=== PATIENT | female | born 1940 | race Caucasian/White ===

== ENCOUNTER → 2016-09-07 | Outpatient (CLI) | payer BC ==
[~2016-09-07] MED LIST: AMOX500C3 PO; CALC500C70 PO; DILT120C51 PO; ENAL20TA PO; MGNO400 PO; MULT-506 PO; NADO80TA PO; OMEG10007 PO; POTA-327 PO; RANI150T3 PO; ULT50HP PO; XNX25 PO; XRL20 PO; ZCR40 PO
[2016-09-07 09:53] LABS: BASO % 0.5 %; BASO ABS # 0.03 K/uL (0-0.2); COMPLETE YES; EOS % 1.3 %; HEMATOCRIT 42.1 % (37-47); IG% 0.2 %; LYMPH % 26.3 %; LYMPH ABS # 1.68 K/uL (1.2-3.4); MEAN CELL VOLUME 85.1 fL (80-100); MEAN CORPUSCULAR HEMOGLOBIN 27.7 pg (25-34); MEAN CORPUSCULAR HGB CONC 32.5 g/dl (32-36); MEAN PLATELET VOLUME 9.5 fL (7.4-10.4); NEUT % 61.7 %; PLATELET COUNT 262 K/uL (130-400); RED BLOOD COUNT 4.95 M/uL (4.2-5.4)
[2016-09-07 10:09] LABS: ALT/SGPT 19 U/L (12-78); BLOOD UREA NITROGEN 25 mg/dl (7-18); BUN/CREATININE RATIO 23.1 (10-20); CALCIUM 8.9 mg/dl (8.5-10.1); CARBON DIOXIDE 31 mmol/L (21-32); CHLORIDE 100 mmol/L (98-107); CHOLESTEROL 160 mg/dl (0-200); GLUCOSE 92 mg/dl (70-99); POTASSIUM 4.5 mmol/L (3.5-5.1); SODIUM 138 mmol/L (136-145)
[2016-09-07 10:19] LABS: ALB/GLOB RATIO 1.1 (0.9-2); ALKALINE PHOSPHATASE 87 U/L (45-117); AST/SGOT 24 U/L (15-37); CHOLESTEROL/HDL RATIO 2.5; HDL CHOLESTEROL 64 mg/dl; LDL CHOLESTEROL CALCULATED 71 mg/dl; TRIGLYCERIDES 124 mg/dl (0-150); VERY LOW DENSITY LIPOPROT CALC 25 mg/dl
--- NOTE | 2016-09-11 14:22 | CODING QUERY MEDICAL NECESSITY ---
SUPPORTING DIAGNOSIS NEEDED A supporting diagnosis is required for the test/procedure performed on this patient in order for us to be reimbursed by the patient's insurance. Please provide a supporting diagnosis for the following test/procedure listed below next to the test name along with your signature. *If there is no additional diagnosis for this patient that would support the following test/procedure please document that below next to the test/procedure. Test(s)/Procedure(s) that require a supporting diagnosis: * VITAMIN D 25-HYDROXY DIAGNOSIS: * DOS: 09/07/16 Provider Signature: Date: Thank you Nelly [facility]ell[facility] Once completed, please kindly fax back to [phone] For questions please call [phone]
== END | disposition home or self-care (01) ==
LOC: C.LAB 07:04
PROVIDERS: ATTEND Internal Medicine
DX: M85.80 Other specified disorders of bone density and structure, unspecified site (principal); I48.92 Unspecified atrial flutter; E78.5 Hyperlipidemia, unspecified

== ENCOUNTER → 2016-12-03 | Outpatient (CLI) | payer BC ==
--- NOTE | 2016-12-03 14:35 | MAMMOGRAPHY REPORT ---
BILATERAL DIGITAL SCREENING MAMMOGRAM WITH CAD: 12/03/2016 CLINICAL HISTORY: Routine screening. Patient has no complaints. TECHNIQUE: Current study was also evaluated with a Computer Aided Detection (CAD) system. Bilateral CC and MLO and right X CCL views were obtained. COMPARISON: Comparison is made to exams dated: 12/02/2015 mammogram, 11/28/2014 mammogram, 11/27/2013 m ammogram, 11/24/2012 mammogram, 11/27/2011 mammogram, and 11/24/2011 mammogram - [facility] enter. BREAST COMPOSITION: The tissue of both breasts is heterogeneously dense, which may obscure small mas ses. FINDINGS: No suspicious masses, calcifications, or areas of architectural distortion are noted in ei ther breast. There has been no significant interval change compared to prior exams. A linear scar ma rker denotes a scar on the right superior breast. Bilateral benign-appearing calcifications are not significantly changed. A biopsy marker clip is again noted within the right lower inner quadrant. IMPRESSION: ACR BI-RADS CATEGORY 2: BENIGN There is no mammographic evidence of malignancy. A 1 year screening mammogram is recommended. The pa tient will receive written notification of the results. Approximately 10% of breast cancers are not detected with mammography. A negative mammographic report should not delay biopsy if a clinically suggestive mass is present. Rita Choi M.D. /:12/03/2016 12:21:16 Sort Supervisor: Svetlana TRONCOSO)(Sujatha)(BD), [facility] letter sent: Normal 1/2 BI-RADS Code: ACR BI-RADS Category 2: Benign
== END | disposition home or self-care (01) ==
LOC: C.MAMM 08:30
PROVIDERS: ATTEND Obstetrics & Gynecology
DX: Z12.31 Encounter for screening mammogram for malignant neoplasm of breast (principal)

== ENCOUNTER → 2017-03-11 | Outpatient (CLI) | payer BC ==
[2017-03-11 09:40] LABS: BASO % 0.6 %; BASO ABS # 0.03 K/uL (0-0.2); COMPLETE YES; EOS % 2.1 %; IG% 0.2 %; LYMPH % 26.9 %; LYMPH ABS # 1.42 K/uL (1.2-3.4); MEAN CELL VOLUME 84.9 fL (80-100); MEAN CORPUSCULAR HEMOGLOBIN 26.5 pg (25-34); MEAN CORPUSCULAR HGB CONC 31.3 g/dl (32-36); MEAN PLATELET VOLUME 9.3 fL (7.4-10.4); MONO % 9.7 %; NEUT % 60.5 %; PLATELET COUNT 255 K/uL (130-400); RED BLOOD COUNT 4.71 M/uL (4.2-5.4); WHITE BLOOD COUNT 5.27 K/uL (4.8-10.8)
[2017-03-11 09:58] LABS: ALT/SGPT 15 U/L (12-78); BLOOD UREA NITROGEN 22 mg/dl (7-18); CALCIUM 8.9 mg/dl (8.5-10.1); CARBON DIOXIDE 31 mmol/L (21-32); CHLORIDE 102 mmol/L (98-107); CHOLESTEROL 154 mg/dl (0-200); GLUCOSE 98 mg/dl (70-99); MAGNESIUM 2.2 mg/dl (1.8-2.4); POTASSIUM 3.9 mmol/L (3.5-5.1); SODIUM 138 mmol/L (136-145); TRIGLYCERIDES 143 mg/dl (0-150); VERY LOW DENSITY LIPOPROT CALC 29 mg/dl
[2017-03-11 10:10] LABS: AST/SGOT 19 U/L (15-37); CHOLESTEROL/HDL RATIO 2.4; HDL CHOLESTEROL 65 mg/dl; LDL CHOLESTEROL CALCULATED 60 mg/dl
== END | disposition home or self-care (01) ==
LOC: C.LAB 07:09
PROVIDERS: ATTEND Internal Medicine
DX: E78.5 Hyperlipidemia, unspecified (principal); I48.0 Paroxysmal atrial fibrillation; I48.92 Unspecified atrial flutter

== ENCOUNTER → 2017-09-07 | Outpatient (CLI) | payer BC ==
[2017-09-07 09:35] LABS: HEMATOCRIT 40.9 % (37-47); MEAN CELL VOLUME 85.4 fL (80-100); MEAN CORPUSCULAR HEMOGLOBIN 27.1 pg (25-34); MEAN CORPUSCULAR HGB CONC 31.8 g/dl (32-36); MEAN PLATELET VOLUME 9.1 fL (7.4-10.4); PLATELET COUNT 275 K/uL (130-400); RED CELL DISTRIBUTION WIDTH CV 14.1 % (11.5-14.5); RED CELL DISTRIBUTION WIDTH SD 44.2 fL (36.4-46.3); WHITE BLOOD COUNT 5.39 K/uL (4.8-10.8)
[2017-09-07 09:51] LABS: ALT/SGPT 17 U/L (12-78); BLOOD UREA NITROGEN 20 mg/dl (7-18); CALCIUM 8.7 mg/dl (8.5-10.1); CARBON DIOXIDE 29 mmol/L (21-32); CHOLESTEROL 152 mg/dl (0-200); CREATININE 1.09 mg/dl (0.60-1.20); GLUCOSE 103 mg/dl (70-99); POTASSIUM 4.2 mmol/L (3.5-5.1); SODIUM 136 mmol/L (136-145)
[2017-09-07 09:55] LABS: AST/SGOT 20 U/L (15-37); LDL CHOLESTEROL CALCULATED 65 mg/dl
== END | disposition home or self-care (01) ==
LOC: C.LAB 07:35
PROVIDERS: ATTEND Internal Medicine
DX: E78.5 Hyperlipidemia, unspecified (principal); M85.80 Other specified disorders of bone density and structure, unspecified site; I48.0 Paroxysmal atrial fibrillation

== ENCOUNTER 2021-09-04 10:22 | Inpatient (IN) ==
[2021-09-04 10:47] LABS: Hematocrit (blood only) 36.9 % (37-47); Hemoglobin 11.9 g/dL (12.0-16.0); Mean Corpuscular Hemoglobin 28.9 pg (25-34); Mean Corpuscular Hgb Conc 32.2 g/dL (32-36); Mean Corpuscular Volume 89.6 fL (80-100); Platelet Count 302 K/uL (130-400); RDW Standard Deviation 46.1 fL (36.4-46.3); Red Blood Count 4.12 M/uL (4.2-5.4); White Blood Count 11.03 K/uL (4.8-10.8)
[2021-09-04 10:48] LABS: Basophils # (auto) 0.01 K/uL (0-0.2); Basophils % (auto) 0.1 %; Eosinophils # (auto) 0.01 K/uL (0-0.5); Eosinophils % (auto) 0.1 %; Immature Granulocytes # (auto) 0.02 K/uL (0.00-0.02); Immature Granulocytes % (auto) 0.2 %; Lymphocytes # (auto) 0.48 K/uL (1.2-3.4); Lymphocytes % (auto) 4.4 %; Mean Platelet Volume 8.9 fL (7.4-10.4); Monocytes # (auto) 0.42 K/uL (0.11-0.59); Monocytes % (auto) 3.8 %; Neutrophils # (auto) 10.09 K/uL (1.4-6.5); Neutrophils % (auto) 91.4 %
[2021-09-04 10:58] LABS: INR 1.1 (0.9-1.1); Partial Thromboplastin Time 28.6 Seconds (21.0-31.0); Prothrombin Time 11.5 Seconds (9.0-12.0)
--- NOTE | 2021-09-04 11:10 | XRay Report ---
XR chest 1V portable CLINICAL HISTORY: hypoxia. COMPARISON STUDY: 03/25/2014 TECHNIQUE: 1 view of the chest FINDINGS: Single frontal view of the chest demonstrates the heart to be mildly enlarged. There is a decreased i nspiratory effort with elevation of the hemidiaphragms and crowding of the bronchovascular markings a t the lung bases and centrally. The lungs are clear of alveolar opacities. There is no evidence for p leural effusion. There is no evidence for vascular congestion. There is no acute osseous pathology. IMPRESSION: 1. . There is a decreased inspiratory effort with otherwise no acute chest disease. ACT 112: Negative or not required by law. Electronically signed by: Daniel Stiles M.D. 09/04/2021 11:09 AM
[2021-09-04 11:15] LABS: Troponin I < 0.03 ng/ml (0-0.04)
[2021-09-04 11:19] LABS: Alanine Aminotransferase 7 U/L (7-52); Albumin Level 3.6 gm/dl (3.4-5.0); Alkaline Phosphatase 76 U/L (34-104); Anion Gap 11 (3-11); Aspartate Aminotransferase 12 U/L (13-39); BUN Creatinine Ratio 20.7 (10-20); Bilirubin Direct 0.2 mg/dl (0-0.2); Bilirubin,Total 0.7 mg/dl (0.2-1.0); Blood Urea Nitrogen 42 mg/dl (6-23); Carbon Dioxide 27 mmol/L (21-32); Chloride 99 mmol/L (98-107); Creatinine Clr Calc Pharmacy 22.8 ml/min; Est GFR (African American) 25.6 ml/min; Est GFR (Non-African American) 22.1 ml/min; Glucose 138 mg/dl (70-99(Fasting)); Lipase 7 U/L (11-82); Potassium 5.4 mmol/L (3.5-5.1); Sodium 137 mmol/L (136-145); Total Protein 6.3 gm/dl (6.0-8.3)
[2021-09-04 11:42] LABS: HCO3 VBG 28 mmol/L; Oxygen Saturation VBG < 60.0 %; PCO2 VBG 53 mmHg (38-50); PO2 VBG 23 mmHg; pH VBG 7.35 (7.36-7.41)
--- NOTE | 2021-09-04 12:42 | Emergency Department Note ---
History of Present Illness General Chief Complaint: Abdominal Pain Time Seen by Provider: 09/04/21 10:25 History of Present Illness Provider Complaint: abdominal pain Onset (ago): 1 day(s) Pain Consistency: constant Location: LLQ Migration to: no migration Severity: moderate Maximum Pain Intensity: 8 Current Pain Intensity: 2 Quality: + cramping, + stabbing and + sharp Relieved By: + nothing Exacerbated By: + nothing Context: no foreign travel, no possible food poisoning, no sick contacts, no recent antibiotic use, no recent surgery/procedure or no recent injury Associated Symptoms: + nausea; no vomiting, no diarrhea, no fever, no chills, no constipation, no dysuria, no hematemesis, no hematochezia, no hematuria, no anorexia, no syncope, no headache, no neck pain, no back pain, no chest pain and no numbness Home Medications Medication Instructions Recorded Confirmed Type psyllium seed (sugar) oral powder 2 tsp PO DAILY gm 12/13/18 09/04/21 History (Metamucil (sugar)) amoxicillin 500 mg capsule 2,000 mg PO .COMPLEX cap 02/16/19 09/04/21 History calcium carbonate 600 mg calcium 600 mg PO DAILY tab 02/16/19 09/04/21 History (1,500 mg) tablet magnesium oxide 400 mg (241.3 mg 400 mg PO BID tab 02/16/19 09/04/21 History magnesium) tablet omega-3 acid ethyl esters 1 gram 2 cap PO DAILY cap 02/16/19 09/04/21 History capsule diltiazem HCl 120 mg 120 mg PO DAILY #90 cap 09/03/20 09/04/21 Rx capsule,extended release 24 hr (Cartia XT) enalapril maleate 20 mg tablet 20 mg PO DAILY #90 tab 09/03/20 09/04/21 Rx simvastatin 40 mg tablet 40 mg PO DAILY #90 tab 09/03/20 09/04/21 Rx triamterene 37.5 1 cap PO DAILY #90 cap 09/03/20 09/04/21 Rx mg-hydrochlorothiazide 25 mg capsule apixaban 5 mg tablet 5 mg PO BID #180 tab 01/17/21 09/04/21 Rx potassium chloride 10 mEq 10 meq PO DAILY #90 tab 01/17/21 09/04/21 Rx tablet,extended release sotalol 120 mg tablet 120 mg PO TID #270 tab 01/17/21 09/04/21 Rx gabapentin 300 mg capsule 300 mg PO BID #60 cap 04/02/21 09/04/21 Rx Allergies Allergy/AdvReac Type Severity Reaction Status Date / Time caffeine AdvReac Unknown Verified 09/04/21 11:40 chocolate flavor AdvReac Verified 09/04/21 11:40 Past Med/Surg History Medical History (Updated 09/04/21 @ 15:18 by Seun Perez) Diverticulosis History of actinic keratoses History of cyst of breast Schwannoma of spinal cord Surgical History S/P ablation of atrial fibrillation S/P cataract surgery S/P hysterectomy S/P knee surgery Family History Father Myocardial infarction Daughter Breast cancer Mother Stroke Denies family history of Ovarian cancer Prostate cancer Colorectal cancer Social History Smoking Status: Never smoker Hx Alcohol Use: No Hx Substance Use: No Preferred Language: Romanian Communication Ability: Effective Hearing Ability: Normal 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 marital status: Current Living Situation: Spouse current occupational status: retired Feels Safe at Home: Yes Dental Care, Regularly: Yes Physical Activity Frequency: 5-6 Times per Week Seatbelt Use: always Review of Systems A total of 10 systems reviewed and were otherwise negative Physical Exam Vital Signs: Vital Signs - 24 hr 09/04/21 10:25 09/04/21 10:28 09/04/21 12:16 Temperature 37.5 C Temperature Source Oral Pulse Rate 70 Pulse Rate [Finger ] 65 Pulse Rhythm Regular Pulse Rhythm [Fing er] Pulse Strength Normal Pulse Strength [Fi nger] Respiratory Rate 18 18 Respiratory Effort / Characteristics Non-Labored Non-Labored Respiratory Depth Normal Normal Respiratory Patter n Regular Blood Pressure 138/54 L Blood Pressure [Le ft Arm] Blood Pressure Cristina n 82 Blood Pressure Cristina n [Left Arm] Blood Pressure Pos ition Lying Blood Pressure Pos ition [Left Arm] Sitting Pulse Oximetry 90 98 99 Oxygen Delivery Me thod Room Air Nasal Cannula Nasal Cannula Oxygen Flow Rate 2 2 Sepsis Recent Feve r Within 48 Hours No Sepsis New/Unexpla ined Change in Men ventura Status No Sepsis Action Take n by Nursing No Action Required 09/04/21 14:49 Temperature Temperature Source Pulse Rate Pulse Rate [Finger ] 64 Pulse Rhythm Pulse Rhythm [Fing er] Regular Pulse Strength Pulse Strength [Fi nger] Normal Respiratory Rate 18 Respiratory Effort / Characteristics Non-Labored Respiratory Depth Normal Respiratory Patter n Regular Blood Pressure Blood Pressure [Le ft Arm] 111/59 L Blood Pressure Cristina n Blood Pressure Cristina n [Left Arm] 76 Blood Pressure Pos ition Blood Pressure Pos ition [Left Arm] Sitting Pulse Oximetry 100 Oxygen Delivery Me thod Nasal Cannula Oxygen Flow Rate 2 Sepsis Recent Feve r Within 48 Hours Sepsis New/Unexpla ined Change in Men ventura Status Sepsis Action Take n by Nursing Physical Exam: Physical Exam HENT: Exam performed. -Head: Normocephalic and atraumatic. -Right Ear: External ear normal. No mastoid tenderness. -Left Ear: External ear normal. No mastoid tenderness. -Mouth/Throat: The oropharynx is clear and moist. No trismus in the jaw. No dental abscesses or uvula swelling. No oropharyngeal exudate or tonsillar abscesses. EYES: Conjunctivae and EOM are normal. Pupils are equal, round, and reactive to light. Right eye exhibits no discharge. Left eye exhibits no discharge. No scleral icterus. NECK: Normal range of motion. Neck supple. No JVD present. No spinous process tenderness present. No carotid bruit present. No rigidity. No tracheal deviation and normal range of motion present. No Brudzinski's sign and no Kernig's sign noted. CV: Normal rate, irregular rhythm, normal heart sounds and intact distal pulses. There is no peripheral edema. Palpable radial pulses bue. PULM/CHEST: Effort normal and breath sounds normal. No respiratory distress. No stridor. She has no wheezes. She has no rales. -Chest Wall: She exhibits no tenderness. ABD: The abdomen is soft. Bowel sounds are normal. She has no distension. No mass is present. There is tenderness to palpation of the rlq and llq. MUSC/SKEL: Normal range of motion. There is no peripheral edema, tenderness or deformity. LYMPH: No cervical adenopathy. NEURO: She is alert and oriented to person, place, and time. She has normal str ength. No cranial nerve deficit or sensory deficit. Coordination and gait normal. GCS eye subscore is 4. GCS verbal subscore is 5. GCS motor subscore is 6. Cerebellar tests wnl. SKIN: Skin is warm and dry. She is not diaphoretic. PSYCH: She has a normal mood and affect. Behavior is normal. Judgment and thought content normal. Course Course 1025: The patient was evaluated in room C4. A complete history and physical exam was performed Cardiac monitoring: An order was placed for continuous cardiac monitoring. The monitor shows a rate of 60 with sinus arrythmia rhythm Patient was found to be having oxygen saturation of 88% on room air, supplemental oxygen was applied via nasal cannula which improved the patient's oxygen saturation. 1245: On reassessment the patient is reporting she is tolerating the oral contrast well. Labs For potassium of 5.4. Creatinine 2.03. Creatinine is elevated from her baseline of 1.2. Given the patient's elevated creatinine, CT will perform performed with oral contrast. Patient is now stating that she fell and hit her head yesterday. CT of the head and C-spine will also be performed. 1512: Vital signs stable on supplemental oxygen via nasal cannula. CT of the head and C-spine are within normal limits. CT of the abdomen shows diverticulitis without abscess or perforation. Patient be treated with Zosyn for the diverticulitis. CT of the abdomen also does make mention of large complex attenuating mass within the pelvis which demonstrates marginal and calcified septal calcifications. Radiology states that these are nonspecific but may represent a sacral chordoma or chondrosarcoma. 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 Negin Blanton ANTHROPOLOGY INSTRUCTOR. She states she has not seen Dr. Blanton in many years though for this. EMR is reviewed and there are no notes visible from Dr. Blanton ANTHROPOLOGY INSTRUCTOR. Patient will be admitted to the [facility] hospitalist team Dr. Schaffer's team notified discussed with Ericka MEJIA Medical Decision Making Laboratory Data Result diagrams: 09/04/21 10:30 09/04/21 10:30 Lab Results 09/04/21 09/04/21 09/04/21 Range/Units 10:30 10:30 10:30 WBC 11.03 H (4.8-10.8) K/uL RBC 4.12 L (4.2-5.4) M/uL Hgb 11.9 L (12.0-16.0) g/dL Hct 36.9 L (37-47) % MCV 89.6 (80-100) fL MCH 28.9 (25-34) pg MCHC 32.2 (32-36) g/dL RDW Std Deviation 46.1 (36.4-46.3) fL RDW Coeff of Lucas 14.0 (11.5-14.5) % Plt Count 302 (130-400) K/uL MPV 8.9 (7.4-10.4) fL Immature Gran % (Auto) 0.2 % Neut % (Auto) 91.4 % Lymph % (Auto) 4.4 % [place] % (Auto) 3.8 % Eos % (Auto) 0.1 % Baso % (Auto) 0.1 % Neut # (Auto) 10.09 H (1.4-6.5) K/uL Lymph # (Auto) 0.48 L (1.2-3.4) K/uL [place] # (Auto) 0.42 (0.11-0.59) K/uL Eos # (Auto) 0.01 (0-0.5) K/uL Baso # (Auto) 0.01 (0-0.2) K/uL Immature Gran # (Auto) 0.02 (0.00-0.02) K/uL PT 11.5 (9.0-12.0) Seconds INR 1.1 (0.9-1.1) APTT 28.6 (21.0-31.0) Seconds PTT Ratio 1.0 VBG pH (7.36-7.41) VBG pCO2 (38-50) mmHg VBG pO2 mmHg VBG HCO3 mmol/L VBG O2 Saturation % VBG Base Excess mEq/L Barometric Pressure mm/Hg Sodium 137 (136-145) mmol/L Potassium 5.4 H (3.5-5.1) mmol/L Chloride 99 (98-107) mmol/L Carbon Dioxide 27 (21-32) mmol/L Anion Gap 11 (3-11) BUN 42 H (6-23) mg/dl Creatinine 2.03 H (0.6-1.2) mg/dl Est Cr Clr Drug Dosing 22.8 ml/min Est GFR ( Amer) 25.6 ml/min Est GFR (Non-Af Amer) 22.1 ml/min BUN/Creatinine Ratio 20.7 H (10-20) Glucose 138 H (70-99(Fasting)) mg/dl Calcium 9.0 (8.5-10.1) mg/dl Total Bilirubin 0.7 (0.2-1.0) mg/dl Direct Bilirubin 0.2 (0-0.2) mg/dl AST 12 L (13-39) U/L ALT 7 (7-52) U/L Alkaline Phosphatase 76 (34-104) U/L Troponin I < 0.03 (0-0.04) ng/ml B-Natriuretic Peptide (0-100) pg/ml Total Protein 6.3 (6.0-8.3) gm/dl Albumin 3.6 (3.4-5.0) gm/dl Lipase 7 L (11-82) U/L Urine Color Urine Appearance (Clear) Urine pH (4.5-7.5) Ur Specific Star (1.000-1.030) Urine Protein (Negative) Urine Glucose (UA) (Negative) Urine Ketones (Negative) Urine Blood (Negative) Urine Nitrite (Negative) Urine Bilirubin (Negative) Urine Urobilinogen (Negative) Ur Leukocyte Esterase (Negative) Urine WBC (Auto) (0-5) /hpf Urine RBC (Auto) (0-4) /hpf U Hyaline Cast (Auto) (0-5) /lpf U Epithel Cells (Auto) (0-5) /lpf Urine Bacteria (Auto) (Negative) Ur Renal Epithelial Cell (0-5) /lpf Granular Casts (0) /lpf Urine Yeast 09/04/21 09/04/21 09/04/21 Range/Units 11:27 11:45 14:15 WBC (4.8-10.8) K/uL RBC (4.2-5.4) M/uL Hgb (12.0-16.0) g/dL Hct (37-47) % MCV (80-100) fL MCH (25-34) pg MCHC (32-36) g/dL RDW Std Deviation (36.4-46.3) fL RDW Coeff of Lucas (11.5-14.5) % Plt Count (130-400) K/uL MPV (7.4-10.4) fL Immature Gran % (Auto) % Neut % (Auto) % Lymph % (Auto) % [place] % (Auto) % Eos % (Auto) % Baso % (Auto) % Neut # (Auto) (1.4-6.5) K/uL Lymph # (Auto) (1.2-3.4) K/uL [place] # (Auto) (0.11-0.59) K/uL Eos # (Auto) (0-0.5) K/uL Baso # (Auto) (0-0.2) K/uL Immature Gran # (Auto) (0.00-0.02) K/uL PT (9.0-12.0) Seconds INR (0.9-1.1) APTT (21.0-31.0) Seconds PTT Ratio VBG pH 7.35 L (7.36-7.41) VBG pCO2 53 H (38-50) mmHg VBG pO2 23 mmHg VBG HCO3 28 mmol/L VBG O2 Saturation < 60.0 % VBG Base Excess 2.0 mEq/L Barometric Pressure 719.2 mm/Hg Sodium (136-145) mmol/L Potassium (3.5-5.1) mmol/L Chloride (98-107) mmol/L Carbon Dioxide (21-32) mmol/L Anion Gap (3-11) BUN (6-23) mg/dl Creatinine (0.6-1.2) mg/dl Est Cr Clr Drug Dosing ml/min Est GFR ( Amer) ml/min Est GFR (Non-Af Amer) ml/min BUN/Creatinine Ratio (10-20) Glucose (70-99(Fasting)) mg/dl Calcium (8.5-10.1) mg/dl Total Bilirubin (0.2-1.0) mg/dl Direct Bilirubin (0-0.2) mg/dl AST (13-39) U/L ALT (7-52) U/L Alkaline Phosphatase (34-104) U/L Troponin I (0-0.04) ng/ml B-Natriuretic Peptide 480 H (0-100) pg/ml Total Protein (6.0-8.3) gm/dl Albumin (3.4-5.0) gm/dl Lipase (11-82) U/L Urine Color Dark Yellow Urine Appearance Cloudy A (Clear) Urine pH 5.0 (4.5-7.5) Ur Specific Star 1.023 (1.000-1.030) Urine Protein Trace H (Negative) Urine Glucose (UA) Negative (Negative) Urine Ketones 1+ H (Negative) Urine Blood Negative (Negative) Urine Nitrite Negative (Negative) Urine Bilirubin 2+ H (Negative) Urine Urobilinogen Negative (Negative) Ur Leukocyte Esterase Negative (Negative) Urine WBC (Auto) 10-30 H (0-5) /hpf Urine RBC (Auto) 0-4 (0-4) /hpf U Hyaline Cast (Auto) >30 H (0-5) /lpf U Epithel Cells (Auto) >30 H (0-5) /lpf Urine Bacteria (Auto) Negative (Negative) Ur Renal Epithelial Cell 0-5 (0-5) /lpf Granular Casts >30 H (0) /lpf Urine Yeast Not Reportable Imaging Data Radiologist's Impression: Chest X-Ray 09/04/21 10:37 XR chest 1V portable CLINICAL HISTORY: hypoxia. COMPARISON STUDY: 03/25/2014 TECHNIQUE: 1 view of the chest FINDINGS: Single frontal view of the chest demonstrates the heart to be mildly enlarged. There is a decreased inspiratory effort with elevation of the hemidiaphragms and crowding of the bronchovascular markings at the lung bases and centrally. The lungs are clear of alveolar opacities. There is no evidence for pleural effusion. There is no evidence for vascular congestion. There is no acute osseous pathology. IMPRESSION: 1. . There is a decreased inspiratory effort with otherwise no acute chest disease. ACT 112: Negative or not required by law. Electronically signed by: Daniel Stiles M.D. 09/04/2021 11:09 AM Abdomen/Pelvis CT 09/04/21 11:[address] WITH ORAL CONTRAST CT DOSE: 2465.96 mGy.cm HISTORY: Acute left lower quadrant abdominal pain. Acute nausea with vomiting llq pain TECHNIQUE: Multiaxial CT images of the abdomen and pelvis were performed following the use of oral contrast. A dose lowering technique was utilized adhering to the principles of ALARA. COMPARISON STUDY: None FINDINGS: Cardiomegaly with coronary artery calcifications. Mild bibasilar atelectasis/scarring. There is no pneumatosis or pneumoperitoneum. The unenhanced spleen, mildly atrophic pancreas, gallbladder, adrenal glands and liver appear unremarkable. 10 mm indeterminate hypodense focus of the left hepatic lobe. Mild cortical thinning of the kidneys. 3.7 cm right renal cyst. 2.5 cm cyst of the left kidney with subcentimeter marginal calcification. There is no urolith or hydronephrosis. Partial distention of the urinary bladder. Uterus appears to be atrophic. Atherosclerosis of the aorta. There is no lymphadenopathy. Enteric contrast is noted within the distal esophagus. Small gastric fundal diverticulum. Moderately distended stomach. Dilated contrast filled loops of jejunum measure up to 3.1 cm. Several loops of small bowel within the left midabdomen demonstrate mild wall thickening with surrounding inflammatory stranding. Colonic diverticulosis. There is moderate wall thickening of the mid descending colon with pericolonic stranding. No abscess or perforation. Noninflamed appendix. There is a large complex mixed attenuating mass within the pelvis which is noted within the right sacrum eroding, expanding and remodeling the bone with marginal cortication. This overall measures 18.4 x 15.9 x 14.6 cm. The mass is well-circumscribed and demonstrates marginal and calcified septal calcifications with both cystic and solid components. This displaces adjacent loops of bowel and extends into the central canal and right neural foramen of the sacrum. Trace free fluid within the pelvis. There is a 4.6 cm mixed attenuating mostly hypodense lesion/loculated complex fluid within the left paracolic cutter dislocation image 302 with similar findings noted within the right inferior paracolic gutter on image 299. Degenerative changes of the spine, pelvis and hips. No acute fracture identified. Tiny fat filled periumbilical hernia. IMPRESSION: 1. Colonic diverticulosis. Wall thickening involving the mid descending colon with surrounding inflammatory stranding is suggestive of acute diverticulitis. Correlation with a nonemergent follow-up colonoscopy is recommended to exclude the less likely possibility of an underlying lesion. 2. No abscess or perforation. 3. Mild wall thickening involving loops of small bowel within the left midabdomen are likely reactive. 4. Large mixed attenuating pelvic mass erodes and remodels the right sacrum and extend into the pelvic cavity displacing loops of bowel overall measuring over 18 cm. These imaging characteristics are nonspecific. This may represent a sacral chordoma, however additional differential considerations such as chondrosarcoma among other etiologies should be considered. Surgical consultation advised. 5. Additional findings as above. ACT 112: Positive. There are findings on this exam that require communication between the performing entity and the patient following Patient Test Result Information Act ([place] Act 112) guidelines. The above report was generated using voice recognition software. It may contain grammatical, syntax or spelling errors. Electronically signed by: Ankush Hinkle M.D. 09/04/2021 2:[address] 09/04/21 12:46 CT cervical spine wo con CLINICAL HISTORY: 81 years-old Female with fall on eliquis. Acute neck injury status post fall COMPARISON: Head CT of same day TECHNIQUE: Multiple axial CT images of the cervical spine were obtained without contrast. A dose lowering technique was utilized adhering to the principles of ALARA. FINDINGS: No acute cervical spine fracture or subluxation. Multilevel interver tebral disc space narrowing, moderate C5-C6 and C6-C7. Moderate to severe multilevel facet arthrosis. Degenerative bony fusion of the left C3-C4 facets. Multilevel neural foraminal narrowing. Calcific plaque of the carotid bulbs. Enteric contrast in the esophagus. Lung apices are clear without pneumothorax. IMPRESSION: No acute fracture or subluxation. ACT 112: Negative or not required by law. The above report was generated using voice recognition software. It may contain grammatical, syntax or spelling errors. Electronically signed by: Ankush Hinkle M.D. 09/04/2021 2:[address] 09/04/21 12:46 CT head/brain wo con CLINICAL HISTORY: fall on eliquis . Pain. COMPARISON STUDY: No previous studies for comparison. CT DOSE: TECHNIQUE: Standard CT of the Brain was performed without IV contrast. A dose lowering technique was utilized adhering to the principles of ALARA. FINDINGS: Extraaxial space: There is no evidence for subdural hematoma. There are no extra-axial fluid collections. Ventricles and cisterns: The ventricles are mildly dilated bilaterally. There is no evidence for midline shift or mass effect. Parenchyma: There is no subarachnoid or intraparenchymal hemorrhage. There is no evidence for an acute infarct or cerebral edema. There is mild cerebral cortical atrophy and decreased attenuation in the periventricular white matter representing remote small vessel disease. There are no gross mass lesions. Osseous structures: There is no evidence for an acute fracture. The visualized paranasal sinuses are clear. The mastoid air cells are clear bilaterally. Soft tissues: There is no evidence for focal soft tissue swelling. IMPRESSION: 1. No acute intracerebral pathology. 2. Cerebral cortical atrophy and remote small vessel disease. ACT 112: Negative or not required by law. Electronically signed by: Daniel Stiles M.D. 09/04/2021 2:10 PM ECG Data Indication: abdominal pain Rate (beats per minute): 64 Rhythm: sinus with SA Findings: no ST depression, no ST elevation or no prolonged QT MDM Narrative 1025: The patient was evaluated in room C4. A complete history and physical exam was performed Cardiac monitoring: An order was placed for continuous cardiac monitoring. The monitor shows a rate of 60 with sinus arrythmia rhythm Patient was found to be having oxygen saturation of 88% on room air, s upplemental oxygen was applied via nasal cannula which improved the patient's oxygen saturation. 1245: On reassessment the patient is reporting she is tolerating the oral contrast well. Labs For potassium of 5.4. Creatinine 2.03. Creatinine is elevated from her baseline of 1.2. Given the patient's elevated creatinine, CT will perform performed with oral contrast. Patient is now stating that she fell and hit her head yesterday. CT of the head and C-spine will also be performed. 1512: Vital signs stable on supplemental oxygen via nasal cannula. CT of the head and C-spine are within normal limits. CT of the abdomen shows diverticulitis without abscess or perforation. Patient be treated with Zosyn for the diverticulitis. CT of the abdomen also does make mention of large complex attenuating mass within the pelvis which demonstrates marginal and calcified septal calcifications. Radiology states that these are nonspecific but may represent a sacral chordoma or chondrosarcoma. 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 Negin Blanton ANTHROPOLOGY INSTRUCTOR. She states she has not seen Dr. Blanton in many years though for this. EMR is reviewed and there are no notes visible from Dr. Blanton ANTHROPOLOGY INSTRUCTOR. Patient will be admitted to the [facility] hospitalist team Dr. Schaffer's team notified discussed with Ericka PA-C. Impression & Plan Diverticulitis, Pelvic mass, RENE (acute kidney injury), Hypoxia Critical Care Time Critical Care Time: Yes Total Critical Care Time: 38 I have personally spent greater than 38 minutes of critical care time in the direct management of this patient. This includes bedside care, interpretation of diagnostic studies, and testing, discussion with consultants, patient, and family members, and other required patient management activities. This 38 minutes is in excess of all separately billable procedures. Discharge Plan Visit Data Chief Complaint: Abdominal Pain ED Provider: Seun Perez Discharge Problem: Diverticulitis, Pelvic mass, RENE (acute kidney injury), Hypoxia Patient Disposition: Being Evaluated by Hospitalist Forms Stand Alone Forms: My [facility] Prescriptions Prescriptions: No Action triamterene-hydrochlorothiazid 37.5-25 mg capsule 1 cap PO DAILY Qty: 90 RF: 3 simvastatin 40 mg tablet 40 mg PO DAILY Qty: 90 RF: 3 enalapril maleate 20 mg tablet 20 mg PO DAILY Qty: 90 RF: 3 diltiazem HCl [Cartia XT] 120 mg capsule,extended release 24hr 120 mg PO DAILY Qty: 90 RF: 3 sotalol 120 mg tablet 120 mg PO TID Qty: 270 RF: 3 potassium chloride 10 mEq tablet extended release 10 meq PO DAILY Qty: 90 RF: 3 apixaban 5 mg tablet 5 mg PO BID Qty: 180 RF: 3 Metamucil (sugar) powder 2 tsp PO DAILY RF: 0 gabapentin 300 mg capsule 300 mg PO BID Qty: 60 RF: 8 amoxicillin 500 mg capsule 2,000 mg PO .COMPLEX RF: 0 calcium carbonate 600 mg calcium (1,500 mg) tablet 600 mg PO DAILY RF: 0 magnesium oxide 400 mg (241.3 mg magnesium) tablet 400 mg PO BID RF: 0 omega-3 acid ethyl esters 1 gram capsule 2 cap PO DAILY RF: 0 Referrals Referrals: ProJustice MD [Primary Care Provider] -
--- NOTE | 2021-09-04 14:12 | CT Scan Report ---
CT head/brain wo con CLINICAL HISTORY: fall on eliquis . Pain. COMPARISON STUDY: No previous studies for comparison. CT DOSE: TECHNIQUE: Standard CT of the Brain was performed without IV contrast. A dose lowering technique was utilized adhering to the principles of ALARA. FINDINGS: Extraaxial space: There is no evidence for subdural hematoma. There are no extra-axial fluid collecti ons. Ventricles and cisterns: The ventricles are mildly dilated bilaterally. There is no evidence for midl ine shift or mass effect. Parenchyma: There is no subarachnoid or intraparenchymal hemorrhage. There is no evidence for an acut e infarct or cerebral edema. There is mild cerebral cortical atrophy and decreased attenuation in the periventricular white matter representing remote small vessel disease. There are no gross mass lesio ns. Osseous structures: There is no evidence for an acute fracture. The visualized paranasal sinuses are clear. The mastoid air cells are clear bilaterally. Soft tissues: There is no evidence for focal soft tissue swelling. IMPRESSION: 1. No acute intracerebral pathology. 2. Cerebral cortical atrophy and remote small vessel disease. ACT 112: Negative or not required by law. Electronically signed by: Daniel Stiles M.D. 09/04/2021 2:10 PM
[2021-09-04 14:31] LABS: Appearance Urine Cloudy (Clear); Bacteria Urine Automated Negative (Negative); Blood Urine Negative (Negative); Color Urine Dark Yellow; Epithelial Cell Urine Auto >30 /lpf (0-5); Glucose Urine UA Negative (Negative); Ketones Urine 1+ (Negative); Leukocyte Esterase Urine Negative (Negative); Nitrite Urine Negative (Negative); Protein Urine Trace (Negative); RBC Urine Automated 0-4 /hpf (0-4); Specific Gravity Urine 1.023 (1.000-1.030); Urobilinogen Urine Negative (Negative)
[2021-09-04 14:34] LABS: Bilirubin Urine 2+ (Negative)
--- NOTE | 2021-09-04 14:34 | CT Scan Report ---
CT cervical spine wo con CLINICAL HISTORY: 81 years-old Female with fall on eliquis. Acute neck injury status post fall COMPARISON: Head CT of same day TECHNIQUE: Multiple axial CT images of the cervical spine were obtained without contrast. A dose low ering technique was utilized adhering to the principles of ALARA. FINDINGS: No acute cervical spine fracture or subluxation. Multilevel intervertebral disc space narro wing, moderate C5-C6 and C6-C7. Moderate to severe multilevel facet arthrosis. Degenerative bony fusi on of the left C3-C4 facets. Multilevel neural foraminal narrowing. Calcific plaque of the carotid bu lbs. Enteric contrast in the esophagus. Lung apices are clear without pneumothorax. IMPRESSION: No acute fracture or subluxation. ACT 112: Negative or not required by law. The above report was generated using voice recognition software. It may contain grammatical, syntax o r spelling errors. Electronically signed by: Ankush Hinkle M.D. 09/04/2021 2:33 PM
[2021-09-04 14:41] LABS: Cast Urine Automated >30 /lpf (0-5); Granular Casts Urine >30 /lpf (0)
[2021-09-04 14:42] LABS: Renal Epithelial Cells Urine 0-5 /lpf (0-5)
--- NOTE | 2021-09-04 14:57 | CT Scan Report ---
ABDOMEN AND PELVIS CT WITH ORAL CONTRAST CT DOSE: 2465.96 mGy.cm HISTORY: Acute left lower quadrant abdominal pain. Acute nausea with vomiting llq pain TECHNIQUE: Multiaxial CT images of the abdomen and pelvis were performed following the use of oral co ntrast. A dose lowering technique was utilized adhering to the principles of ALARA. COMPARISON STUDY: None FINDINGS: Cardiomegaly with coronary artery calcifications. Mild bibasilar atelectasis/scarring. There is no pn eumatosis or pneumoperitoneum. The unenhanced spleen, mildly atrophic pancreas, gallbladder, adrenal glands and liver appear unremarkable. 10 mm indeterminate hypodense focus of the left hepatic lobe. M ild cortical thinning of the kidneys. 3.7 cm right renal cyst. 2.5 cm cyst of the left kidney with avitia bcentimeter marginal calcification. There is no urolith or hydronephrosis. Partial distention of the urinary bladder. Uterus appears to be atrophic. Atherosclerosis of the aorta. There is no lymphadenop athy. Enteric contrast is noted within the distal esophagus. Small gastric fundal diverticulum. Moderately distended stomach. Dilated contrast filled loops of jejunum measure up to 3.1 cm. Several loops of sm all bowel within the left midabdomen demonstrate mild wall thickening with surrounding inflammatory s tranding. Colonic diverticulosis. There is moderate wall thickening of the mid descending colon with pericolonic stranding. No abscess or perforation. Noninflamed appendix. There is a large complex mixe d attenuating mass within the pelvis which is noted within the right sacrum eroding, expanding and re modeling the bone with marginal cortication. This overall measures 18.4 x 15.9 x 14.6 cm. The mass is well-circumscribed and demonstrates marginal and calcified septal calcifications with both cystic an d solid components. This displaces adjacent loops of bowel and extends into the central canal and rig ht neural foramen of the sacrum. Trace free fluid within the pelvis. There is a 4.6 cm mixed attenuat ing mostly hypodense lesion/loculated complex fluid within the left paracolic cutter dislocation imag e 302 with similar findings noted within the right inferior paracolic gutter on image 299. Degenerati ve changes of the spine, pelvis and hips. No acute fracture identified. Tiny fat filled periumbilical hernia. IMPRESSION: 1. Colonic diverticulosis. Wall thickening involving the mid descending colon with surrounding inflam matory stranding is suggestive of acute diverticulitis. Correlation with a nonemergent follow-up colo noscopy is recommended to exclude the less likely possibility of an underlying lesion. 2. No abscess or perforation. 3. Mild wall thickening involving loops of small bowel within the left midabdomen are likely reactive . 4. Large mixed attenuating pelvic mass erodes and remodels the right sacrum and extend into the pelvi c cavity displacing loops of bowel overall measuring over 18 cm. These imaging characteristics are no nspecific. This may represent a sacral chordoma, however additional differential considerations such as chondrosarcoma among other etiologies should be considered. Surgical consultation advised. 5. Additional findings as above. ACT 112: Positive. There are findings on this exam that require communication between the performing entity and the patient following Patient Test Result Information Act ([place] Act 112) guidelines. The above report was generated using voice recognition software. It may contain grammatical, syntax o r spelling errors. Electronically signed by: Ankush Hinkle M.D. 09/04/2021 2:56 PM
[2021-09-04] MEDS ORDERED: PIPERACILLIN/TAZOBACTAM 4.5 GM/120 ML BAG IV ONE (15:05)
--- NOTE | 2021-09-04 15:29 | History & Physical Report ---
Date of Service September 04, 2021 Assessment & Plan (1) Diverticulitis: Plan: -As seen on CT A+P, without perforation or abscess. -NPO, LRs at 80 cc/hr. -Zosyn q8h. -Pain control with Tylenol, Dilaudid. Avoiding NSAIDs, morphine in setting of RENE. -Monitor CBC. (2) RENE (acute kidney injury): Plan: -BUN 42, Cr 2.03 , baseline appears to be 1.11.2. Likely this is 2/2 dehydration, patient has been avoiding PO intake over the last 2 days because of nausea and abdominal pain. -IVF as above. -Hold HCTZ, enalapril. -Avoid nephrotoxic agents, renally dose medications. -BMP in AM. (3) AF (paroxysmal atrial fibrillation): Plan: -Paroxysmal, currently NSR. -Continue Eliquis, diltiazem, sotalol. (4) Hypertension: Plan: -Currently normotensive 111/59. -Is on triamterene/HCTZ and enalapril. We will have to hold these for now in the setting of RENE. -Continue to monitor BP, can order as needed medications if SBP >180, DBP greater than 110. -Patient is on sotalol and Cardizem for A. fib. (5) Dyslipidemia: Plan: -Continue simvastatin 40 mg daily. (6) GERD (gastroesophageal reflux disease): Plan: -Takes Tums regularly at home. -Can order PPI if patient is symptomatic. 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 Cool and Dr. Romero, surgery has been deferred. -Reached out to general surgery here, who reviewed her CT scans, this is not a tumor they manage, we will reach out to Dr. Romero tomorrow. -Causes her right leg pain, for which she takes gabapentin. We will continue this. Plan: -Admit to MedSurg. -SCDs, Eliquis for DVT PPx. -DNR/DNI. History of Present Illness Chief Complaint: left lower quadrant pain Primary Care Provider: Justice Scott MD Patient is an 81-year-old female the past medical history of A. fib on Eliquis, hypertension, hyperlipidemia, GERD, and schwannoma who presents today with abdominal pain. Over the past 4 days, she has developed dull left lower quadrant pain that is better with rest, worse and sharp in sensation with any movement. It is associated with nausea and decreased appetite however does not radiate anywhere else. She denies fever/chills, vomiting, diarrhea, constipation, hematochezia, melena, chest pain, palpitations, shortness of breath, cough, increased urinary frequency, urgency, dysuria. In ED, patient is on 2L NC with SPO2 100%, all other vital signs within normal limits and stable. Labs significant for WBC 11, K+ 5.4, BUN 42, creatinine 2.03, glucose 138, BNP 480. CT A/P showed acute diverticulitis without abscess or perforation, as well as a large mixed attenuating pelvic mass eroding the right sacrum and extending into the pelvic cavity, displacing bowel. Allergies Allergy/AdvReac Type Severity Reaction Status Date / Time caffeine AdvReac Unknown Verified 09/04/21 11:40 chocolate flavor AdvReac Verified 09/04/21 11:40 Home Medications Medication Instructions Recorded Confirmed Type psyllium seed (sugar) oral powder 2 tsp PO DAILY gm 12/13/18 09/04/21 History (Metamucil (sugar)) amoxicillin 500 mg capsule 2,000 mg PO .COMPLEX cap 02/16/19 09/04/21 History calcium carbonate 600 mg calcium 600 mg PO DAILY tab 02/16/19 09/04/21 History (1,500 mg) tablet magnesium oxide 400 mg (241.3 mg 400 mg PO BID tab 02/16/19 09/04/21 History magnesium) tablet omega-3 acid ethyl esters 1 gram 2 cap PO DAILY cap 02/16/19 09/04/21 History capsule diltiazem HCl 120 mg 120 mg PO DAILY #90 cap 09/03/20 09/04/21 Rx capsule,extended release 24 hr (Cartia XT) enalapril maleate 20 mg tablet 20 mg PO DAILY #90 tab 09/03/20 09/04/21 Rx simvastatin 40 mg tablet 40 mg PO DAILY #90 tab 09/03/20 09/04/21 Rx triamterene 37.5 1 cap PO DAILY #90 cap 09/03/20 09/04/21 Rx mg-hydrochlorothiazide 25 mg capsule apixaban 5 mg tablet 5 mg PO BID #180 tab 01/17/21 09/04/21 Rx potassium chloride 10 mEq 10 meq PO DAILY #90 tab 01/17/21 09/04/21 Rx tablet,extended release sotalol 120 mg tablet 120 mg PO TID #270 tab 01/17/21 09/04/21 Rx gabapentin 300 mg capsule 300 mg PO BID #60 cap 04/02/21 09/04/21 Rx Past Med/Surg History Medical History (Updated 09/04/21 @ 16:03 by Ericka Byers PA-C) Diverticulosis History of actinic keratoses History of cyst of breast Schwannoma of spinal cord Surgical History S/P ablation of atrial fibrillation S/P cataract surgery S/P hysterectomy S/P knee surgery Family History Father Myocardial infarction Daughter Breast cancer Mother Stroke Denies family history of Ovarian cancer Prostate cancer Colorectal cancer Social History Smoking Status: Never smoker Hx Alcohol Use: Yes Alcohol type: wine Hx Substance Use: No Preferred Language: Japanese Communication Ability: Effective Hearing Ability: Normal Medical Safety Director Required: No Beliefs That Will Affect Care: None marital status: Current Living Situation: Spouse current occupational status: retired Other Information That Helps Us Care for You: No Feels Safe at Home: Yes Safety Concerns: Feels Safe At This Time Dental Care, Regularly: Yes Physical Activity Frequency: 5-6 Times per Week Seatbelt Use: always Assistive Devices: Cane and Glasses Review of Systems Review of Systems: Constitutional: No fever/chills, weakness, myalgias, night sweats Eyes: No diplopia, no worsening or blurred vision ENT: normal hearing, no trouble swallowing Respiratory: No cough, sputum, dyspnea at rest or on exertion Cardiovascular: No chest pain, tightness or palpitations Abdomen: Dull left lower quadrant abdominal pain worse, sharp with movement, better with rest, reports nausea; denies vomiting, diarrhea, constipation, hematochezia, melena Musculoskeletal: No joint pain, calf pain, swelling Neurologic: No weakness, numbness/tingling, or balance problems Psychiatric: No anxiety or depression Skin: No rash or itch Physical Exam Physical Exam: General: awake, alert, no apparent distress Head: Normocephalic, atraumatic ENT: PERRL, EOMI, no pharyngeal exudate, mucous membranes moist Chest: Clear to auscultation, on room air, no adventitious breath sounds Cardiac: Regular rate and rhythm, no murmur, no JVD, normal peripheral pulses, good capillary refill Abdominal: Tender to palpation in LLQ, RLQ, suprapubic region; NABS x 4 quadrants, soft, and otherwise nontender to palpation, no rebound or guarding Extremities: Normal inspection, no peripheral edema or erythema, calfs nontender to palpation Psych: Normal mood and affect Neuro: AAO x 3, strength intact bilaterally and rated 5/5, no motor deficits, speech is clear, no peripheral sensory deficits Skin: no rash or erythema Results & Data Results & Data ([facility]) Vital Signs (Past 12 Hours) Vital Signs Temp Pulse Pulse Resp BP BP Pulse Ox 09/04/21 14:49 64 18 111/59 L 100 09/04/21 12:16 65 18 99 09/04/21 10:28 98 09/04/21 10:25 37.5 C 70 18 138/54 L 90 Laboratory Results Abnormal lab results 09/04/21 09/04/21 09/04/21 Range/Units 10:30 10:30 11:27 WBC 11.03 H (4.8-10.8) K/uL RBC 4.12 L (4.2-5.4) M/uL Hgb 11.9 L (12.0-16.0) g/dL Hct 36.9 L (37-47) % Neut # (Auto) 10.09 H (1.4-6.5) K/uL Lymph # (Auto) 0.48 L (1.2-3.4) K/uL VBG pH 7.35 L (7.36-7.41) VBG pCO2 53 H (38-50) mmHg Potassium 5.4 H (3.5-5.1) mmol/L BUN 42 H (6-23) mg/dl Creatinine 2.03 H (0.6-1.2) mg/dl BUN/Creatinine Ratio 20.7 H (10-20) Glucose 138 H (70-99(Fasting)) mg/dl AST 12 L (13-39) U/L B-Natriuretic Peptide (0-100) pg/ml Lipase 7 L (11-82) U/L Urine Appearance (Clear) Urine Protein (Negative) Urine Ketones (Negative) Urine Bilirubin (Negative) Urine WBC (Auto) (0-5) /hpf U Hyaline Cast (Auto) (0-5) /lpf U Epithel Cells (Auto) (0-5) /lpf Granular Casts (0) /lpf 09/04/21 09/04/21 Range/Units 11:45 14:15 WBC (4.8-10.8) K/uL RBC (4.2-5.4) M/uL Hgb (12.0-16.0) g/dL Hct (37-47) % Neut # (Auto) (1.4-6.5) K/uL Lymph # (Auto) (1.2-3.4) K/uL VBG pH (7.36-7.41) VBG pCO2 (38-50) mmHg Potassium (3.5-5.1) mmol/L BUN (6-23) mg/dl Creatinine (0.6-1.2) mg/dl BUN/Creatinine Ratio (10-20) Glucose (70-99(Fasting)) mg/dl AST (13-39) U/L B-Natriuretic Peptide 480 H (0-100) pg/ml Lipase (11-82) U/L Urine Appearance Cloudy A (Clear) Urine Protein Trace H (Negative) Urine Ketones 1+ H (Negative) Urine Bilirubin 2+ H (Negative) Urine WBC (Auto) 10-30 H (0-5) /hpf U Hyaline Cast (Auto) >30 H (0-5) /lpf U Epithel Cells (Auto) >30 H (0-5) /lpf Granular Casts >30 H (0) /lpf Diagnostic Findings Chest X-Ray 09/04/21 10:37 XR chest 1V portable CLINICAL HISTORY: hypoxia. COMPARISON STUDY: 03/25/2014 TECHNIQUE: 1 view of the chest FINDINGS: Single frontal view of the chest demonstrates the heart to be mildly enlarged. There is a decreased inspiratory effort with elevation of the hemidiaphragms and crowding of the bronchovascular markings at the lung bases and centrally. The lungs are clear of alveolar opacities. There is no evidence for pleural effusion. There is no evidence for vascular congestion. There is no acute osseous pathology. IMPRESSION: 1. . There is a decreased inspiratory effort with otherwise no acute chest disease. ACT 112: Negative or not required by law. Electronically signed by: Daniel Stiles M.D. 09/04/2021 11:09 AM Abdomen/Pelvis CT 09/04/21 11:[address] WITH ORAL CONTRAST CT DOSE: 2465.96 mGy.cm HISTORY: Acute left lower quadrant abdominal pain. Acute nausea with vomiting llq pain TECHNIQUE: Multiaxial CT images of the abdomen and pelvis were performed following the use of oral contrast. A dose lowering technique was utilized adhering to the principles of ALARA. COMPARISON STUDY: None FINDINGS: Cardiomegaly with coronary artery calcifications. Mild bibasilar atelectasis/scarring. There is no pneumatosis or pneumoperitoneum. The unenhanced spleen, mildly atrophic pancreas, gallbladder, adrenal glands and liver appear unremarkable. 10 mm indeterminate hypodense focus of the left hepatic lobe. Mild cortical thinning of the kidneys. 3.7 cm right renal cyst. 2.5 cm cyst of the left kidney with subcentimeter marginal calcification. There is no urolith or hydronephrosis. Partial distention of the urinary bladder. Uterus appears to be atrophic. Atherosclerosis of the aorta. There is no lymphadenopathy. Enteric contrast is noted within the distal esophagus. Small gastric fundal diverticulum. Moderately distended stomach. Dilated contrast filled loops of jejunum measure up to 3.1 cm. Several loops of small bowel within the left midabdomen demonstrate mild wall thickening with surrounding inflammatory stranding. Colonic diverticulosis. There is moderate wall thickening of the mid descending colon with pericolonic stranding. No abscess or perforation. Noninflamed appendix. There is a large complex mixed attenuating mass within the pelvis which is noted within the right sacrum eroding, expanding and remodeling the bone with marginal cortication. This overall measures 18.4 x 15.9 x 14.6 cm. The mass is well-circumscribed and demonstrates marginal and calcified septal calcifications with both cystic and solid components. This displaces adjacent loops of bowel and extends into the central canal and right neural foramen of the sacrum. Trace free fluid within the pelvis. There is a 4.6 cm mixed attenuating mostly hypodense lesion/loculated complex fluid within the left paracolic cutter dislocation image 302 with similar findings noted within the right inferior paracolic gutter on image 299. Degenerative changes of the spine, pelvis and hips. No acute fracture identified. Tiny fat filled periumbilical hernia. IMPRESSION: 1. Colonic diverticulosis. Wall thickening involving the mid descending colon with surrounding inflammatory stranding is suggestive of acute diverticulitis. Correlation with a nonemergent follow-up colonoscopy is recommended to exclude the less likely possibility of an underlying lesion. 2. No abscess or perforation. 3. Mild wall thickening involving loops of small bowel within the left midabdomen are likely reactive. 4. Large mixed attenuating pelvic mass erodes and remodels the right sacrum and extend into the pelvic cavity displacing loops of bowel overall measuring over 18 cm. These imaging characteristics are nonspecific. This may represent a sacral chordoma, however additional differential considerations such as chondrosarcoma among other etiologies should be considered. Surgical consultation advised. 5. Additional findings as above. ACT 112: Positive. There are findings on this exam that require communication between the performing entity and the patient following Patient Test Result Information Act ([place] Act 112) guidelines. The above report was generated using voice recognition software. It may contain grammatical, syntax or spelling errors. Electronically signed by: Ankush Hinkle M.D. 09/04/2021 2:[address] 09/04/21 12:46 CT cervical spine wo con CLINICAL HISTORY: 81 years-old Female with fall on eliquis. Acute neck injury status post fall COMPARISON: Head CT of same day TECHNIQUE: Multiple axial CT images of the cervical spine were obtained without contrast. A dose lowering technique was utilized adhering to the principles of ALARA. FINDINGS: No acute cervical spine fracture or subluxation. Multilevel intervertebral disc space narrowing, moderate C5-C6 and C6-C7. Moderate to severe multilevel facet arthrosis. Degenerative bony fusion of the left C3-C4 facets. Multilevel neural foraminal narrowing. Calcific plaque of the carotid bulbs. Enteric contrast in the esophagus. Lung apices are clear without pneumothorax. IMPRESSION: No acute fracture or subluxation. ACT 112: Negative or not required by law. The above report was generated using voice recognition software. It may contain grammatical, syntax or spelling errors. Electronically signed by: Ankush Hinkle M.D. 09/04/2021 2:[address] 09/04/21 12:46 CT head/brain wo con CLINICAL HISTORY: fall on eliquis . Pain. COMPARISON STUDY: No previous studies for comparison. CT DOSE: TECHNIQUE: Standard CT of the Brain was performed without IV contrast. A dose lowering technique was utilized adhering to the principles of ALARA. FINDINGS: Extraaxial space: There is no evidence for subdural hematoma. There are no extra-axial fluid collections. Ventricles and cisterns: The ventricles are mildly dilated bilaterally. There is no evidence for midline shift or mass effect. Parenchyma: There is no subarachnoid or intraparenchymal hemorrhage. There is no evidence for an acute infarct or cerebral edema. There is mild cerebral cortical atrophy and decreased attenuation in the periventricular white matter representing remote small vessel disease. There are no gross mass lesions. Osseous structures: There is no evidence for an acute fracture. The visualized paranasal sinuses are clear. The mastoid air cells are clear bilaterally. Soft tissues: There is no evidence for focal soft tissue swelling. IMPRESSION: 1. No acute intracerebral pathology. 2. Cerebral cortical atrophy and remote small vessel disease. ACT 112: Negative or not required by law. Electronically signed by: Daniel Stiles M.D. 09/04/2021 2:10 PM ECG Additional Comments: Normal sinus rhythm with sinus arrhythmia Nonspecific T wave abnormality Abnormal ECG When compared with ECG of 04-SEP-2021 10:31, (unconfirmed) No significant change was found. Code Status & VTE Plan Code Status DNR/DNI. Supervising Physician Co-Signing Physician Notes I personally saw and examined the patient. I verified all dumont points and agree with Ericka Byers PA-C with the following exceptions and/or additions: 81 year old female admission for LLQ pain for the last week. No fever or chills. O/E WD/WN, HS1+2, no murmur, Chest CTAB, LLQ pain on palpation without guarding or rebound tenderness A/P Diverticulitis - Zosyn, clear liquids RENE - suspect pre-renal secondary to diverticulitis, holding tri amterene/HCTZ/enalapril PG Care Time/CCT Total # of Minutes Spent Total Time Spent with Patient: Total time spent is greater than 50% in coordination of care (as documented) at patient's floor/unit and/or counseling patient: Coding Level of Care Code 86420 Initial Inpt Care Lvl 3 Diagnoses Diverticulitis K57.92 RENE (acute kidney injury) N17.9 AF (paroxysmal atrial fibrillation) I48.0 Hypertension I10 Dyslipidemia E78.5 GERD (gastroesophageal reflux disease) K21.9 Schwannoma of spinal cord D33.4
[2021-09-04] MEDS ORDERED: ACETAMINOPHEN 325 MG TAB PO PRN (19:17)
[2021-09-04] MEDS ORDERED: PIPERACILL/TAZOBAC CONSULT ACTIVE PRN (19:17)
[2021-09-04] MEDS ORDERED: POLYETHYLENE (MIRALAX) 17 GM PACK PO PRN (19:17)
[2021-09-04] MEDS: LACTATED RINGER'S 1,000 ML IV SCH (19:56)
[2021-09-04] MEDS: PIPERACILLIN/TAZOBACTAM 3.375 GM in DEXTROSE 5% 100 ML IV SCH (20:40)
[2021-09-04] MEDS: MAGNESIUM OXIDE 400 MG TAB PO SCH (21:04)
[2021-09-04] MEDS: APIXABAN 2.5 MG TAB PO SCH (21:05)
[2021-09-04] MEDS: GABAPENTIN 300 MG CAP PO SCH (21:05)
--- NOTE | 2021-09-04 22:13 | Electrocardiogram Report ---
Test Reason : Blood Pressure : / mmHG Vent. Rate : 069 BPM Atrial Rate : 069 BPM P-R Int : 168 ms QRS Dur : 082 ms QT Int : 396 ms P-R-T Axes : 080 066 084 degrees QTc Int : 424 ms Normal sinus rhythm with sinus arrhythmia Nonspecific ST and T wave abnormality Abnormal ECG When compared with ECG of 26-MAR-2014 06:51, Sinus rhythm has replaced Atrial flutter Nonspecific T wave abnormality no longer evident in Inferior leads T wave inversion no longer evident in Anterior leads Confirmed by Maxime Blake ([id number]) on 09/04/2021 10:13:34 PM Referred By: REFERRED SELF Confirmed By:Maxime Blake
[2021-09-05] MEDS: ONDANSETRON INJ 2 MG/ML 2 ML VIAL IV PRN ×3 (01:36→22:46)
[2021-09-05] MEDS: PIPERACILLIN/TAZOBACTAM 3.375 GM in DEXTROSE 5% 100 ML IV SCH ×3 (03:45→20:06)
--- NOTE | 2021-09-05 06:05 | Electrocardiogram Report ---
Test Reason : Blood Pressure : / mmHG Vent. Rate : 064 BPM Atrial Rate : 064 BPM P-R Int : 166 ms QRS Dur : 086 ms QT Int : 442 ms P-R-T Axes : 083 043 090 degrees QTc Int : 455 ms Normal sinus rhythm with sinus arrhythmia Nonspecific T wave abnormality Abnormal ECG When compared with ECG of 04-SEP-2021 10:31, No significant change was found Confirmed by Maxime Blake ([id number]) on 09/05/2021 6:05:34 AM Referred By: REFERRED SELF Confirmed By:Maxime Blake
[2021-09-05 07:51] LABS: Basophils # (auto) 0.01 K/uL (0-0.2); Basophils % (auto) 0.1 %; Hematocrit (blood only) 31.3 % (37-47); Hemoglobin 9.8 g/dL (12.0-16.0); Immature Granulocytes # (auto) 0.04 K/uL (0.00-0.02); Immature Granulocytes % (auto) 0.3 %; Lymphocytes # (auto) 0.78 K/uL (1.2-3.4); Lymphocytes % (auto) 5.8 %; Mean Corpuscular Hemoglobin 28.4 pg (25-34); Mean Corpuscular Hgb Conc 31.3 g/dL (32-36); Mean Corpuscular Volume 90.7 fL (80-100); Mean Platelet Volume 8.9 fL (7.4-10.4); Monocytes # (auto) 0.83 K/uL (0.11-0.59); Monocytes % (auto) 6.2 %; Neutrophils # (auto) 11.78 K/uL (1.4-6.5); Neutrophils % (auto) 87.6 %; Platelet Count 283 K/uL (130-400); RDW Standard Deviation 46.7 fL (36.4-46.3); Red Blood Count 3.45 M/uL (4.2-5.4); White Blood Count 13.44 K/uL (4.8-10.8)
[2021-09-05] MEDS: LACTATED RINGER'S 1,000 ML IV SCH ×3 (08:15→19:19)
[2021-09-05] MEDS: MAGNESIUM OXIDE 400 MG TAB PO SCH (08:18)
[2021-09-05] MEDS: APIXABAN 2.5 MG TAB PO SCH ×2 (08:18→20:15)
[2021-09-05] MEDS: GABAPENTIN 300 MG CAP PO SCH ×2 (08:18→20:15)
[2021-09-05 08:35] LABS: BUN Creatinine Ratio 23.2 (10-20); Calcium 8.3 mg/dl (8.5-10.1); Creatinine Clr Calc Pharmacy 21.7 ml/min; Est GFR (African American) 23.3 ml/min; Est GFR (Non-African American) 20.1 ml/min; Potassium 4.9 mmol/L (3.5-5.1)
[2021-09-05] MEDS ORDERED: LACTATED RINGER'S 500 ML IV ONE ×3 (08:55→23:27)
[2021-09-05] MEDS ORDERED: SOTALOL HCL 80 MG TAB PO SCH (09:00)
[2021-09-05] MEDS ORDERED: dilTIAZem HCL 120 MG CAPCR PO SCH (09:00)
[2021-09-05] MEDS ORDERED: SIMVASTATIN 40 MG TAB PO SCH (09:00)
[2021-09-05] MEDS ORDERED: CALCIUM CARBONATE 1250MG TAB PO SCH (09:00)
[2021-09-05] MEDS: PROMETHAZINE HCL 6.25 MG in SODIUM CHLORIDE 0.9% 50 ML IV PRN (12:22)
--- NOTE | 2021-09-05 14:29 | CT Scan Report ---
ABDOMEN AND PELVIS CT WITHOUT CONTRAST CT DOSE: 1019.01 mGycm HISTORY: pain shifted to right lower quadrant, more distended, WBC/RENE worse TECHNIQUE: Multiaxial CT images of the abdomen and pelvis were performed without contrast. A dose lo wering technique was utilized adhering to the principles of ALARA. COMPARISON STUDY: Abdomen and pelvis CT 09/04/2021. FINDINGS: Cardiomegaly with coronary artery calcifications. Mild bibasilar atelectasis/scarring. Ther e is no pneumatosis or pneumoperitoneum. The unenhanced spleen, mildly atrophic pancreas, gallbladder , adrenal glands and liver appear unremarkable. 10 mm indeterminate hypodense focus of the left hepat ic lobe. Mild cortical thinning of the kidneys. 3.7 cm right renal cyst. 2.5 cm cyst of the left kidn ey with subcentimeter marginal calcification. There is no urolith or hydronephrosis. Partial distenti on of the urinary bladder. Uterus is surgically absent. Atherosclerosis of the aorta. There is no lym phadenopathy. Enteric contrast is noted within the distal esophagus. Small gastric fundal diverticulum. Moderately distended stomach. Dilated contrast filled loops of jejunum measure up to 3.1 cm. Distended gas and f luid-filled loops of proximal small bowel within the upper abdomen with distal tapering at the level of the distal jejunal loops within the left side of the abdomen. Contrast from the prior study reside s within the large bowel. Therefore, this favors a partial small bowel obstruction.. Colonic divertic ulosis. There is mild to moderate wall thickening of the mid descending colon with pericolonic strand ing. No abscess or perforation. Noninflamed appendix. There is a large complex mixed attenuating mass within the pelvis which is noted within the right sacrum eroding, expanding and remodeling the bone with marginal cortication. This overall measures 18.4 x 15.9 x 14.6 cm. The mass is well-circumscribe d and demonstrates marginal and calcified septal calcifications with both cystic and solid components . This displaces adjacent loops of bowel and extends into the central canal and right neural foramen of the sacrum. Trace free fluid within the pelvis. The 4.6 cm lesion within the left lower quadrant o n image 298 likely represents a slightly enlarged left ovary. Degenerative changes of the spine, pelv is and hips. No acute fracture identified. Tiny fat filled periumbilical hernia. Questionable subtle omental nodularity within the upper quadrants. Developing peritoneal carcinomatosis would be the diag nosis of exclusion. This is best seen on images 163 and. IMPRESSION: 1. Mild improvement in the wall thickening involving the mid descending colon with surrounding inflam matory stranding is suggestive of acute diverticulitis. Correlation with a nonemergent follow-up colo noscopy is recommended to exclude the less likely possibility of an underlying lesion. 2. No abscess or perforation. 3. Distended gas and fluid-filled loops of proximal small bowel within the upper abdomen with distal tapering at the level of the distal jejunal loops within the left side of the abdomen. This has sligh tly progressed. Contrast from the prior study resides within the large bowel. Therefore, this favors a partial small bowel obstruction. 4. Large mixed attenuating pelvic mass erodes and remodels the right sacrum and extend into the pelvi c cavity displacing loops of bowel overall measuring over 18 cm. These imaging characteristics are no nspecific. This may represent a sacral chordoma, however additional differential considerations such as chondrosarcoma among other etiologies should be considered. Tissue sampling recommended for pathol ogic diagnosis. 5. Questionable subtle omental nodularity within the upper quadrants. Developing peritoneal carcinoma tosis would be the diagnosis of exclusion. This requires follow-up for further evaluation. 6. Additional findings as above. ACT 112: Negative or not required by law. Electronically signed by: David Wolf M.D. 09/05/2021 2:28 PM
[2021-09-05 15:56] LABS: Hematocrit (blood only) 33.8 % (37-47); Hemoglobin 10.6 g/dL (12.0-16.0); Mean Corpuscular Hemoglobin 28.3 pg (25-34); Mean Corpuscular Hgb Conc 31.4 g/dL (32-36); Mean Corpuscular Volume 90.4 fL (80-100); Mean Platelet Volume 8.8 fL (7.4-10.4); Platelet Count 308 K/uL (130-400); RDW Standard Deviation 46.9 fL (36.4-46.3); Red Blood Count 3.74 M/uL (4.2-5.4); White Blood Count 15.39 K/uL (4.8-10.8)
--- NOTE | 2021-09-05 15:57 | Hospitalist Progress Note ---
Date of Service September 05, 2021 Assessment & Plan (1) Diverticulitis: Plan: Concerning worsening pain today, now in RLQ - repeat CT A/P without contrast -NPO, LRs at 80 cc/hr. -Zosyn q8h. -Pain control with Tylenol, Dilaudid. Avoiding NSAIDs, morphine in setting of RENE. -Monitor CBC. (2) RENE (acute kidney injury): Plan: -Concerningly Cr worse overnight 2.03 -> 2.20 despite intravenous fluids. Give LR 500ml bolus now and increase to 125 ml/hr. Switch back to NPO as above. -CT r/o obstructive cause -Continue to hold HCTZ, enalapril. Will also discontinue diltiazem given ongoing hypotension. -Repeat BMP in AM. (3) AF (paroxysmal atrial fibrillation): Plan: Paroxysmal, currently NSR. Continue Eliquis, sotalol. Hold diltiazem due to ongoing hypotension (4) Hypertension: Plan: As above. Hold all medications except for sotalol. (5) Dyslipidemia: Plan: Hold simvastatin to reducing her oral medications. (6) GERD (gastroesophageal reflux disease): Plan: Takes Tums regularly at home. 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 Cool and Dr. Romero, surgery has been deferred. -Reached out to general surgery here, who reviewed her CT scans, this is not a tumor they manage, we will reach out to Dr. Romero tomorrow. -Causes her right leg pain, for which she takes gabapentin. We will continue this. Plan: VTE Prophylaxis - Eliquis Disposition - Admit to [facility]. Admission and Anticipated Discharge Date Admission Date: September 04, 2021 Subjective Ongoing nausea overnight not controlled by ondansetron. Pain now on right lower quadrant rather than left side. Not had a bowel movement. Increased WBC and Cr today. Review of Systems Review of Systems: All systems reviewed & are unremarkable except as noted in Subjective Physical Exam Constitutional: + acute distress (abdominal pain) Respiratory: normal respiratory effort, lungs clear to auscultation Cardiovascular: RRR, no murmur, no edema Gastrointestinal (Abdomen): Inspection/Auscultation: + abdomen distended and + hypoactive bowel sounds Percussion/Palpation: + abdomen tender (RLQ), + guarding and abdomen soft; abdomen not rigid Musculoskeletal: no cyanosis or clubbing, extremities motor strength 5/5 Skin: no rashes, warm and dry Neurologic: moves all extremities and awake; not confused Psychiatric: A+Ox3, euthymic affect Genitourinary: no CVA tenderness Results & Data Results & [facility] ([facility]) Vital Signs (Past 12 Hours) Vital Signs Temp Pulse Resp BP Pulse Ox 09/05/21 15:33 36.8 C 73 16 99/50 L 91 09/05/21 11:21 95/57 L 09/05/21 08:13 90/53 L 09/05/21 07:27 36.8 C 69 16 89/49 L 91 PG Care Time/CCT Total # of Minutes Spent Total Time Spent with Patient: Total time spent is greater than 50% in coordination of care (as documented) at patient's floor/unit and/or counseling patient: Coding Level of Care Code 08807 Subseq Hosp Care Lvl 2 Diagnoses Diverticulitis K57.92 RENE (acute kidney injury) N17.9 AF (paroxysmal atrial fibrillation) I48.0 Hypertension I10 Dyslipidemia E78.5 GERD (gastroesophageal reflux disease) K21.9 Schwannoma of spinal cord D33.4
[2021-09-05] MEDS ORDERED: ACETAMINOPHEN 1,000 MG/100 ML VIAL IV PRN (16:28)
[2021-09-05] MEDS: FAMOTIDINE 20 MG in SYRINGE 3 ML IV SCH (17:26)
[2021-09-06] MEDS: LACTATED RINGER'S 1,000 ML IV SCH ×3 (00:29→19:11)
[2021-09-06] MEDS: PIPERACILLIN/TAZOBACTAM 3.375 GM in DEXTROSE 5% 100 ML IV SCH ×3 (04:19→20:06)
[2021-09-06 06:39] LABS: Basophils # (auto) 0.01 K/uL (0-0.2); Basophils % (auto) 0.1 %; Eosinophils # (auto) 0.02 K/uL (0-0.5); Eosinophils % (auto) 0.1 %; Hemoglobin 10.4 g/dL (12.0-16.0); Immature Granulocytes # (auto) 0.04 K/uL (0.00-0.02); Immature Granulocytes % (auto) 0.3 %; Lymphocytes # (auto) 0.99 K/uL (1.2-3.4); Lymphocytes % (auto) 6.5 %; Mean Corpuscular Hemoglobin 28.5 pg (25-34); Mean Corpuscular Hgb Conc 31.5 g/dL (32-36); Mean Corpuscular Volume 90.4 fL (80-100); Mean Platelet Volume 8.9 fL (7.4-10.4); Monocytes # (auto) 0.95 K/uL (0.11-0.59); Monocytes % (auto) 6.3 %; Neutrophils # (auto) 13.13 K/uL (1.4-6.5); Neutrophils % (auto) 86.7 %; Platelet Count 322 K/uL (130-400); RDW Coefficient of Variation 14.2 % (11.5-14.5); RDW Standard Deviation 47.2 fL (36.4-46.3); Red Blood Count 3.65 M/uL (4.2-5.4); White Blood Count 15.14 K/uL (4.8-10.8)
--- NOTE | 2021-09-06 06:45 | CT Scan Report ---
CT head/brain wo con CLINICAL HISTORY: 81 years-old Female with AMS. on anticoag.. Acutely altered mental status TECHNIQUE: Multiple axial CT images of the head were obtained without contrast. A dose lowering tech nique was utilized adhering to the principles of ALARA. CT DOSE: 614.27 mGy.cm COMPARISON: Head CT 09/04/2021 FINDINGS: No acute intracranial hemorrhage, midline shift, intracranial mass, hydrocephalus, territorial ischem ia or abnormal extra-axial collection. Age-related involutional changes. White matter hypodensities s uggest chronic microvascular ischemic disease. Study is mildly motion degraded. The calvarium is intact. Trace mastoid effusions. Air within the cavernous sinuses is likely iatroge narayan from IV catheter line. Prior bilateral lens repair. IMPRESSION: No acute intracranial abnormality. ACT 112: Negative or not required by law. The above report was generated using voice recognition software. It may contain grammatical, syntax o r spelling errors. Electronically signed by: Ankush Hinkle M.D. 09/06/2021 6:44 AM
[2021-09-06 07:00] LABS: BUN Creatinine Ratio 26.9 (10-20); Calcium 8.7 mg/dl (8.5-10.1); Creatinine Clr Calc Pharmacy 24.6 ml/min; Est GFR (African American) 27.2 ml/min; Est GFR (Non-African American) 23.5 ml/min; Potassium 4.6 mmol/L (3.5-5.1)
--- NOTE | 2021-09-06 07:24 | Communication Note ---
Date of Service: September 06, 2021 11:30pm. low bp. map 66. givng 500mL LR. check blood culture. upgrade to med tele; responded to 500cc fluid. note: dilt and sotalol held. has Alexandru Moreira, PGY2 night resident
[2021-09-06] MEDS: APIXABAN 2.5 MG TAB PO SCH ×2 (08:42→20:30)
[2021-09-06] MEDS: GABAPENTIN 300 MG CAP PO SCH ×2 (08:42→20:06)
[2021-09-06] MEDS: FAMOTIDINE 20 MG in SYRINGE 3 ML IV SCH (08:44)
--- NOTE | 2021-09-06 12:23 | Hospitalist Progress Note ---
Date of Service September 06, 2021 Assessment & Plan (1) Diverticulitis: Plan: Serial CT scan shows improvement in diverticultitis -Continue Zosyn q8h. -Continue NPO with IV fluids -Pain control with Tylenol, Dilaudid. Avoiding NSAIDs, morphine in setting of RENE. -Monitor CBC, WBC stable. (2) Partial small bowel obstruction: Plan: Noted on repeat CT. Possibly nausea yesterday due to this rather than d iverticultitis and may have re-introduced clear liquids too early. Continue NPO. Consider NG tube is nausea or vomiting but appears to be improved today. (3) RENE (acute kidney injury): Plan: -Mildly improved Cr today, suspect will continue to improve and infection/BP improves -CT r/o obstructive cause -Continue to hold HCTZ, enalapril, diltiazem -Repeat BMP in AM. (4) AF (paroxysmal atrial fibrillation): Plan: Paroxysmal, currently NSR. Continue Eliquis, sotalol (on hold due to current renal function). Hold diltiazem due to ongoing hypotension (5) Hypertension: Plan: As above. Hold all medications except for sotalol. (6) Dyslipidemia: Plan: Hold simvastatin in efffort to reducing her oral medications. (7) GERD (gastroesophageal reflux disease): Plan: Takes Tums regularly at home. Continue famotidine 20mg IV daily (8) Schwannoma of spinal cord: Plan: -Not a new finding, per PCP note has previously seen Dr. Cool and Dr. Romero, surgery has been deferred - likely much enlarged from when previously imaged -Will need ortho oncology follow up -Causes her right leg pain, for which she takes gabapentin. We will continue this. Plan: VTE Prophylaxis - Eliquis Disposition - Continue admission on med/tele. Admission and Anticipated Discharge Date Admission Date: September 04, 2021 Subjective Mildly improved today but she doesn't feel ready to eat. No fever or chills. Hypotensive overnight with MAP briefly < 65 therefore receivedLR 500ml bolus. CT head performed and unremarkable due to confusion. Appears at baseline today. Telemetry reviewed and no episodes of atrial fibrillation. Review of Systems Review of Systems: All systems reviewed & are unremarkable except as noted in Subjective Physical Exam Constitutional: well developed and well nourished; no acute distress Respiratory: normal respiratory effort, lungs clear to auscultation Cardiovascular: RRR, no murmur, no edema Extremities: normal capillary refill and + pedal edema (trace left, 1+ right) Gastrointestinal (Abdomen): Inspection/Auscultation: + abdomen distended and + hypoactive bowel sounds Percussion/Palpation: + abdomen tender (RLQ), + guarding and abdomen soft; abdomen not rigid Skin: no rashes, warm and dry Neurologic: moves all extremities and awake; not confused Psychiatric: A+Ox3, euthymic affect Results & Data Results & Data ([facility]) Vital Signs (Past 12 Hours) Vital Signs Temp Pulse Pulse Resp BP Pulse Ox 09/06/21 11:09 36.7 C 69 20 95/62 L 95 09/06/21 09:06 71 09/06/21 08:39 36.4 C L 67 20 92/65 L 94 09/06/21 06:25 71 126/80 09/06/21 03:45 70 102/70 09/06/21 02:00 36.5 C 90 74 16 97/44 L 90 09/06/21 00:40 71 95/64 L PG Care Time/CCT Total # of Minutes Spent Total Time Spent with Patient: Total time spent is greater than 50% in coordination of care (as documented) at patient's floor/unit and/or counseling patient: Coding Level of Care Code 68750 Subseq Hosp Care Lvl 2 Diagnoses Diverticulitis K57.92 RENE (acute kidney injury) N17.9 AF (paroxysmal atrial fibrillation) I48.0 Hypertension I10 Dyslipidemia E78.5 GERD (gastroesophageal reflux disease) K21.9 Schwannoma of spinal cord D33.4 Partial small bowel obstruction K56.600
--- NOTE | 2021-09-06 13:44 | Ultrasound Report ---
US venous doppler LE RT HISTORY: 81 years-old Female right leg swelling and pain . Acute pain and swelling of the right lowe r leg COMPARISON: None TECHNIQUE: Multiple real-time sonographic images of the right lower extremity deep venous structures were obtained assessing grayscale appearance, color and spectral flow. FINDINGS: Normal flow, compressibility, phasicity and augmentation. Echogenic stranding is noted within the com mon femoral vein. IMPRESSION: 1. No acute occlusive DVT. 2. 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 ACT 112: Negative or not required by law. The above report was generated using voice recognition software. It may contain grammatical, syntax o r spelling errors. Electronically signed by: Ankush Hinkle M.D. 09/06/2021 1:42 PM
[2021-09-07] MEDS: PIPERACILLIN/TAZOBACTAM 3.375 GM in DEXTROSE 5% 100 ML IV SCH (03:53)
[2021-09-07] MEDS: LACTATED RINGER'S 1,000 ML IV SCH ×3 (03:53→16:30)
[2021-09-07 05:57] LABS: Eosinophils # (auto) 0.07 K/uL (0-0.5); Eosinophils % (auto) 0.5 %; Hematocrit (blood only) 34.8 % (37-47); Hemoglobin 10.9 g/dL (12.0-16.0); Immature Granulocytes # (auto) 0.07 K/uL (0.00-0.02); Immature Granulocytes % (auto) 0.5 %; Lymphocytes # (auto) 0.81 K/uL (1.2-3.4); Lymphocytes % (auto) 5.7 %; Mean Corpuscular Hemoglobin 28.2 pg (25-34); Mean Corpuscular Hgb Conc 31.3 g/dL (32-36); Mean Corpuscular Volume 90.2 fL (80-100); Mean Platelet Volume 8.9 fL (7.4-10.4); Monocytes # (auto) 1.02 K/uL (0.11-0.59); Monocytes % (auto) 7.1 %; Neutrophils # (auto) 12.36 K/uL (1.4-6.5); Neutrophils % (auto) 86.2 %; Platelet Count 353 K/uL (130-400); Red Blood Count 3.86 M/uL (4.2-5.4); White Blood Count 14.33 K/uL (4.8-10.8)
[2021-09-07 06:23] LABS: BUN Creatinine Ratio 31.5 (10-20); Calcium 8.5 mg/dl (8.5-10.1); Creatinine Clr Calc Pharmacy 29.6 ml/min; Est GFR (African American) 33.7 ml/min; Est GFR (Non-African American) 29.1 ml/min; Potassium 4.4 mmol/L (3.5-5.1)
[2021-09-07] MEDS: APIXABAN 2.5 MG TAB PO SCH ×2 (08:11→20:20)
[2021-09-07] MEDS: FAMOTIDINE 20 MG in SYRINGE 3 ML IV SCH (08:12)
[2021-09-07] MEDS: GABAPENTIN 300 MG CAP PO SCH ×2 (08:12→20:20)
[2021-09-07] MEDS: PIPERACILLIN/TAZOBACTAM 4.5 GM in DEXTROSE 5% 100 ML IV SCH ×2 (12:16→20:19)
--- NOTE | 2021-09-07 14:02 | Hospitalist Progress Note ---
Date of Service September 07, 2021 Assessment & Plan (1) Diverticulitis: Plan: Serial CT a/p scan showed improvement in diverticulitis on 09/05. - Continue Zosyn q8h. - Pain control with Tylenol, Dilaudid. Avoiding NSAIDs, morphine in setting of RENE. - Monitor CBC, WBC stable. -> Advanced diet today to clear liquids. (2) Partial small bowel obstruction: Plan: Noted on repeat CT. Possibly nausea yesterday due to this rather than diverticultitis and may have re-introduced clear liquids too early. - As above (3) Schwannoma of spinal cord: Plan: Not a new finding, per PCP note has previously seen Dr. Cool and Dr. Romero, surgery has been deferred - likely much enlarged from when previously imaged. In our system, she has no images since 2005 (when PACS was introduced). - Will need ortho oncology follow up - Causes her right leg pain, for which she takes gabapentin. We will continue this. - Also causing RLQ abdominal pain (and possibly some of her SBO?) -> Will discuss with Dr. Romero, but suspect this will need to be done at a tertiary care center. (4) RENE (acute kidney injury): Plan: Unclear baseline (Priors are ~1.2 from 2020). - Mildly improved Cr at 1.6. - Hold HCTZ, enalapril, diltiazem - Repeat BMP in AM. (5) AF (paroxysmal atrial fibrillation): Plan: Paroxysmal, currently NSR. - Continue Eliquis - Hold sotalol for renal function - Hold diltiazem due to ongoing hypotension (6) Hypertension: Plan: As above. (7) Dyslipidemia: Plan: - Hold simvastatin in effort to reducing her oral medications. (8) GERD (gastroesophageal reflux disease): Plan: Takes Tums regularly at home. - Continue famotidine 20mg IV daily Plan: VTE Prophylaxis - Eliquis Admission and Anticipated Discharge Date Admission Date: September 04, 2021 Subjective Seen this morning and reports that she feels "tired" and had several episodes of diarrhea last night and then 2 more. Has never had C. diff, but has been tested for it in the past. She is having right-sided lower-quadrant pain. Physical Exam Constitutional: WD/WN, vitals as above Eyes: EOM intact bilaterally; no conjunctival abnormality ENMT: external ear and nose normal, oropharynx normal Neck: trachea midline, no thyromegaly normal visual inspection Respiratory: normal respiratory effort, lungs clear to auscultation no respiratory distress Cardiovascular: Rate/Rhythm: regular rate and + irregularly irregular Gastrointestinal (Abdomen): Inspection/Auscultation: abdomen normal to inspection; abdomen not distended Musculoskeletal: no cyanosis or clubbing, extremities motor strength 5/5 Skin: no rashes, warm and dry Neurologic: moves all extremities and awake Psychiatric: Orientation: alert, oriented to person and cooperative Results & Data Results & Data ([facility]) Vital Signs (Past 12 Hours) Vital Signs Temp Pulse Pulse Resp BP Pulse Ox 09/07/21 11:22 36.9 C 77 20 121/81 92 09/07/21 08:57 76 09/07/21 07:47 36.8 C 75 20 108/71 91 09/07/21 04:22 36.4 C L 75 20 95/63 L 90 PG Care Time/CCT Total # of Minutes Spent Total Time Spent with Patient: Total time spent is greater than 50% in coordination of care (as documented) at patient's floor/unit and/or counseling patient: Coding Level of Care Code 28935 Subseq Hosp Care Lvl 3 Diagnoses Diverticulitis K57.92 Partial small bowel obstruction K56.600 RENE (acute kidney injury) N17.9 AF (paroxysmal atrial fibrillation) I48.0 Hypertension I10 Dyslipidemia E78.5 GERD (gastroesophageal reflux disease) K21.9 Schwannoma of spinal cord D33.4
[2021-09-07] MEDS: COUGH DROP (SUGAR FREE) LOZ 24 LOZ/1 BOX BUCCAL PRN (15:33)
[2021-09-07] MEDS: ADVANCED PROBIOTIC 1250 MG CAPSULE PO SCH (16:03)
[2021-09-07] MEDS ORDERED: STAT IV Infusion **Titration per Protocol STA ×2 (16:14→20:14)
[2021-09-07] MEDS ORDERED: dilTIAZem HCl 5 MG/ML 5 ML VIAL IV STA (16:14)
[2021-09-07] MEDS ORDERED: METOPROLOL TARTRATE 1 MG/ML VIAL IV ONE (16:22)
[2021-09-07] MEDS ORDERED: METOPROLOL TARTRATE 1 MG/ML VIAL IV STA ×2 (16:24→17:23)
[2021-09-07] MEDS ORDERED: dilTIAZem HCL 125 MG in DEXTROSE 5% 100 ML IV SCH (18:00)
[2021-09-07] MEDS ORDERED: 0.2 MICRON FILTER SET 1 EA IV ONE (20:14)
[2021-09-07] MEDS ORDERED: AMIODARONE / D5W 150 MG/100 ML BAG IV STA (20:14)
[2021-09-07] MEDS ORDERED: AMIODARONE IV BOLUS & DRIP IV STA (20:14)
[2021-09-07] MEDS: MAGNESIUM SULFATE / D5W 1 GM/100 ML BAG IV SCH ×2 (20:19→22:14)
--- NOTE | 2021-09-07 20:19 | Communication Note ---
Date of Service: September 07, 2021 No meaningful response from diltiazem, most recent pressures 88/70 heart rate 130-160. Will attempt cardioversion and rate control with amiodarone. DC dil tiazem drip held p.o. diltiazem and sotalol.
[2021-09-07] MEDS ORDERED: AMIODARONE / D5W 360 MG/200 ML BAG IV ONE (20:24)
[2021-09-08] MEDS: MAGNESIUM SULFATE / D5W 1 GM/100 ML BAG IV SCH ×2 (00:13→02:26)
[2021-09-08] MEDS: AMIODARONE / D5W 360 MG/200 ML BAG IV SCH ×2 (03:03→14:35)
[2021-09-08] MEDS: PIPERACILLIN/TAZOBACTAM 4.5 GM in DEXTROSE 5% 100 ML IV SCH ×3 (04:48→19:33)
[2021-09-08 05:44] LABS: Hematocrit (blood only) 35.6 % (37-47); Hemoglobin 11.4 g/dL (12.0-16.0); Mean Corpuscular Hemoglobin 28.2 pg (25-34); Mean Corpuscular Volume 88.1 fL (80-100); Mean Platelet Volume 8.6 fL (7.4-10.4); Platelet Count 363 K/uL (130-400); RDW Coefficient of Variation 13.9 % (11.5-14.5); RDW Standard Deviation 45.1 fL (36.4-46.3); Red Blood Count 4.04 M/uL (4.2-5.4); White Blood Count 12.67 K/uL (4.8-10.8)
[2021-09-08 06:05] LABS: BUN Creatinine Ratio 32.3 (10-20); Calcium 8.5 mg/dl (8.5-10.1); Creatinine Clr Calc Pharmacy 36.9 ml/min; Est GFR (African American) 43.9 ml/min; Est GFR (Non-African American) 37.9 ml/min; Magnesium 3.1 mg/dl (1.7-2.4); Potassium 3.9 mmol/L (3.5-5.1)
[2021-09-08] MEDS: LACTATED RINGER'S 1,000 ML IV SCH (08:03)
[2021-09-08] MEDS: GABAPENTIN 300 MG CAP PO SCH ×2 (08:09→19:34)
[2021-09-08] MEDS: APIXABAN 2.5 MG TAB PO SCH (08:09)
[2021-09-08] MEDS: FAMOTIDINE 20 MG in SYRINGE 3 ML IV SCH (08:09)
[2021-09-08] MEDS: ADVANCED PROBIOTIC 1250 MG CAPSULE PO SCH (08:10)
[2021-09-08] MEDS ORDERED: dilTIAZem HCl 5 MG/ML 5 ML VIAL IV STA (09:22)
[2021-09-08] MEDS ORDERED: STAT IV Infusion **Titration per Protocol STA (09:22)
[2021-09-08] MEDS ORDERED: FUROSEMIDE INJ 20 MG/2 ML VIAL IV ONE (09:30)
[2021-09-08] MEDS ORDERED: APIXABAN 2.5 MG TAB PO ONE (09:30)
--- NOTE | 2021-09-08 09:30 | Cardiology Consultation ---
Date of Consultation September 08, 2021 Assessment & Plan (1) AF (paroxysmal atrial fibrillation): (2) Anticoagulant long-term use: (3) RENE (acute kidney injury): (4) CHF (congestive heart failure): 1. Atrial fibrillation: She has a long history of paroxysmal atrial fibrillation with prior ablations although has continued to have atrial fibrillation. The arrhythmia is adequately controlled as an outpatient on diltiazem and sotalol with what we have felt was good heart rate control. Now with her acute presentation and the necessity of holding her oral medications (diltiazem 120 mg daily and sotalol 120 mg 3 times daily) she has had recurrence of atrial fibrillation which is now rapid. She is now on amiodarone, although the rate is still fast and she has had difficulty with elevated liver function tests on amiodarone in the past. With IV amiodarone this is probably not too much of an issue and I am hopeful that she will convert to sinus rhythm in the near future and we can convert her oral regimen back to her outpatient regimen. I am going to add intravenous diltiazem to try to get her heart rate under control but continue intravenous amiodarone. 2. Anticoagulation: She has been on Eliquis, we have kept her on the 5 mg dose due to a creatinine of less than 1.5 and her weight prior to admission, however on presentation her creatinine was elevated and her Eliquis was reduced to 2.5 mg twice a day. Now her kidney function has improved and I think we should go up to 5 mg twice a day, especially in view of the recurrent atrial fibrillation. I have made that change. 3. Acute kidney injury: I suspect this was due to her presentation and not in acute kidney problem, she has received intravenous fluids and her kidney function is improving although not sure it is simply on that basis. 4. Congestive heart failure: She appears to be in congestive heart failure with basilar crackles and expiratory wheezing as well as some leg puffiness. Her weight is also up. I am going to give her a dose of Lasix to try to get rid of some fluid, we can closely monitor her kidney function. 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 She has a long history of atrial fibrillation, she believes it started when she was in her 30s. She has been treated with antiarrhythmic medications for many years, she was on amiodarone for several years but had elevated liver function tests. She has also been on flecainide. I believe she had an ablation performed at [facility] in the early , then she had a redo at [facility] in May 2004 and then another redo in February 2005, again at [facility]. She had recurrence of her atrial fibrillation starting around June 2012, she had been getting the episodes approximately 2-4 times per month and the longest they had lasted was about one hour. She described several intensities as she calls them, when the episodes are most intense she will feel "wiped out" for the rest of the day. When she gets the episode she thinks that exercise helps terminate them, she will get out of bed, take half of her Xanax, and walk on her treadmill at a 5-10% grade. She believes that after some time doing this that the episode resolves. During the episodes she feels the palpitations, feels poorly but does not have lightheadedness, dizziness, presyncope or syncope. She generally measures a heart rate of 110-120 bpm during the episode. With symptomatic recurrences we arranged to have atrial fibrillation ablation performed at [facility]. The procedure was initiated on 11/16/2013, unfortunately after placement of a catheter she had a mild hypotensive episode and was observed to have a pericardial effusion. Since the procedure requires full anticoagulation it was reversed, the procedure was aborted and she recovered well without any further difficulty and without requiring a pericardiocentesis. An echocardiogram done here 11/20/2013 showed only a trivial pericardial effusion. She has felt well with regard to the effusion, she has not had symptoms to suggest pericarditis or recurrence. She wanted to try nonpharmacologic and noninvasive approaches to control of atrial fibrillation, therefore she started a gluten-free diet, meditation and taking 1 ounce of bitter sweet chocolate daily. One side benefit is that she lost 20 pounds, but additionally she feels that she had a significant improvement in her symptoms for a short time but then was admitted to the hospital on 03/25/2014 with atrial fibrillation. She received intravenous diltiazem with spontaneous conversion of her rhythm to sinus. Ultimately sotalol therapy was initiated, I believe around November 2015. This was low dose initially, 80 mg twice daily. This has been increased to 120 mg 3 times a day. She continued to have episodes of atrial fibrillation although they have been relatively stable. She describes episodes every several weeks lasting 1/2-hour to 6 hours and possibly stress related. When she gets when she tries to relax, often going to bed to read a book, if she falls asleep the episodes usually resolve. She does check her rate and notes that it is usually around 70 bpm during the episode and she feels palpitations but no hemodynamic symptoms during the arrhythmia. She does feel the postconversion pause with slight dizziness lasting seconds but this has been stable and has not been worsening. She just returned from [place] for the winter and developed abdominal pain (diverticulitis) and was admitted September 04, 2021 with acute renal failure and therefore received intravenous hydration. She was treated with antibiotics for her diverticulitis. On the afternoon of September 07, 2021 she developed recurrent atrial fibrillation with a rapid ventricular response. Due to her acute renal failure her sotalol and diltiazem had been held I believe, she was started on intravenous amiodarone but remains in atrial fibrillation. Of note amiodarone had been used in the past but due to elevated liver function tests have been discontinued, her liver function tests are normal on presentation here. Her Eliquis was also reduced to 2.5 mg twice a day due to her kidney function and her age, however her creatinine has now improved to less than 1.5. At the time of my evaluation she was feeling better, she was having less abdominal discomfort although still somewhat uncomfortable and in general she was feeling fatigued and not sleeping well. She is eating although does not have much of an appetite with no nausea or vomiting. She does not have shortness of breath including orthopnea or PND. Her weight has been rising however, if the scales can be trusted. Allergies Allergy/AdvReac Type Severity Reaction Status Date / Time caffeine AdvReac Unknown Verified 09/04/21 11:40 chocolate flavor AdvReac Verified 09/04/21 11:40 Home Medications Medication Instructions Recorded Confirmed Type psyllium seed (sugar) oral powder 2 tsp PO DAILY gm 12/13/18 09/04/21 History (Metamucil (sugar)) amoxicillin 500 mg capsule 2,000 mg PO .COMPLEX cap 02/16/19 09/04/21 History calcium carbonate 600 mg calcium 600 mg PO DAILY tab 02/16/19 09/04/21 History (1,500 mg) tablet magnesium oxide 400 mg (241.3 mg 400 mg PO BID tab 02/16/19 09/04/21 History magnesium) tablet omega-3 acid ethyl esters 1 gram 2 cap PO DAILY cap 02/16/19 09/04/21 History capsule diltiazem HCl 120 mg 120 mg PO DAILY #90 cap 09/03/20 09/04/21 Rx capsule,extended release 24 hr (Cartia XT) enalapril maleate 20 mg tablet 20 mg PO DAILY #90 tab 09/03/20 09/04/21 Rx simvastatin 40 mg tablet 40 mg PO DAILY #90 tab 09/03/20 09/04/21 Rx triamterene 37.5 1 cap PO DAILY #90 cap 09/03/20 09/04/21 Rx mg-hydrochlorothiazide 25 mg capsule apixaban 5 mg tablet 5 mg PO BID #180 tab 01/17/21 09/04/21 Rx potassium chloride 10 mEq 10 meq PO DAILY #90 tab 01/17/21 09/04/21 Rx tablet,extended release sotalol 120 mg tablet 120 mg PO TID #270 tab 01/17/21 09/04/21 Rx gabapentin 300 mg capsule 300 mg PO BID #60 cap 04/02/21 09/04/21 Rx Patient History Medical History Diverticulosis History of actinic keratoses History of cyst of breast Schwannoma of spinal cord Surgical History S/P ablation of atrial fibrillation S/P cataract surgery S/P hysterectomy S/P knee surgery Family History Father Myocardial infarction Daughter Breast cancer Mother Stroke Denies family history of Ovarian cancer Prostate cancer Colorectal cancer Social History Smoking Status: Never smoker Hx Alcohol Use: Yes Alcohol type: wine Hx Substance Use: No Preferred Language: Turkish Communication Ability: Effective Hearing Ability: Normal Ciso Required: No Beliefs That Will Affect Care: None marital status: Current Living Situation: Spouse current occupational status: retired Other Information That Helps Us Care for You: No Feels Safe at Home: Yes Safety Concerns: Feels Safe At This Time Dental Care, Regularly: Yes Physical Activity Frequency: 5-6 Times per Week Seatbelt Use: always Assistive Devices: Oxygen - Continuous and Walker Review of Systems Review of Systems: All systems reviewed & are unremarkable except as noted in HPI & below Physical Exam Physical Exam: Constitutional: Alert, cooperative and in perhaps mild distress. HEENT: Unremarkable Neck: No jugular venous distention, carotid pulses are normal and equal bilaterally without bruits. Pulmonary: Bilateral crackles and expiratory wheezing Cardiac: Irregular rapid rhythm with no murmur, gallop or rub. Abdomen: Soft, nontender with normal bowel sounds. Extremities: Trace bilateral pretibial edema. Distal pulses intact. Neurologic: No focal findings. Gait was not tested. Skin: No rash, ecchymoses or petechiae. Results & Data ([facility]) Vital Signs (Past 12 Hours) Vital Signs Temp Pulse Pulse Resp BP BP Pulse Ox 09/08/21 08:30 135 H 09/08/21 07:41 36.3 C L 115 H 20 108/67 97 09/08/21 04:00 36.9 C 124 H 22 98 09/08/21 03:30 139 H 21 97 09/08/21 03:15 141 H 28 H 94 09/08/21 02:31 129 H 23 113/72 96 09/08/21 02:30 122 H 25 H 98 09/08/21 02:00 135 H 24 104/83 97 09/08/21 01:31 135 H 23 103/72 96 09/08/21 01:30 134 H 25 H 95 09/08/21 01:12 134 H 25 H 125/70 90 09/08/21 01:09 132 H 8 L 09/08/21 00:31 143 H 22 119/85 97 09/08/21 00:30 134 H 25 H 96 09/08/21 00:00 143 H 24 95 09/07/21 23:49 162 H 09/07/21 23:31 36.5 C 126 H 25 H 110/61 96 09/07/21 23:00 136 H 18 129/103 H 96 09/07/21 22:39 146 H 25 H 105/68 91 09/07/21 22:31 141 H 25 H 95 09/07/21 22:15 144 H 28 H 83/68 L 95 09/07/21 22:00 139 H 22 97 09/07/21 21:30 145 H 24 100/66 98 Laboratory Results CBC 09/08/21 Range/Units 05:25 WBC 12.67 H (4.8-10.8) K/uL RBC 4.04 L (4.2-5.4) M/uL Hgb 11.4 L (12.0-16.0) g/dL Hct 35.6 L (37-47) % Plt Count 363 (130-400) K/uL Comprehensive Metabolic Panel 09/08/21 Range/Units 05:25 Sodium 133 L (136-145) mmol/L Potassium 3.9 (3.5-5.1) mmol/L Chloride 96 L (98-107) mmol/L Carbon Dioxide 26 (21-32) mmol/L BUN 42 H (6-23) mg/dl Creatinine 1.30 H D (0.6-1.2) mg/dl Glucose 167 H (70-99(Fasting)) mg/dl Calcium 8.5 (8.5-10.1) mg/dl Intake and Output 09/07/21 09/08/21 09/08/21 22:59 06:59 14:59 Intake Total 1322.667 / 3056.834 619.167 / 3056.834 1120 / 1120 Balance 1322.667 / 3056.834 619.167 / 3056.834 1120 / 1120 Intake: IV 1322.667 / 3056.834 619.167 / 3056.834 1120 / 1120 Amiodarone / D5w 150 mg In 100 100 / 100 ml @ 600 mls/hr IV NOW STA Rx#: [id number] Amiodarone / D5w 360 mg In 200 200 / 200 ml @ 33.333 mls/hr IV ONE ONE Rx#:[id number] Lactated Ringer's 1,000 ml @ 75 1000 / 2000 1000 / 1000 mls/hr IV .[id number] DAVID Rx#: [id number] Magnesium Sulfate / D5w 1 gm In 95.833 / 395.000 299.167 / 395.000 100 ml @ 50 mls/hr IV Q2H [facility] Rx#:[id number] Piperacillin/Tazobactam 4.5 gm 120 / 240 120 / 240 120 / 120 In Dextrose 5% 100 ml @ 30 mls/ hr IV Q8H [facility] Rx#:[id number] dilTIAZem HCL 125 mg In 6.834 / 6.834 0 / 6.834 Dextrose 5% 100 ml @ 10 MG/HR 10 mls/hr IV .[id number] [facility] Rx#: [id number] Other: # Unmeasured Voids 1 1 1 Weight 103.532 kg Weight Measurement Method Built in [facility] Diagnostic Findings Telemetry: Atrial fibrillation with a rapid ventricular rate since afternoon of September 07, 2021. Heart rate has remained approximately constant at 130 to 140 bpm since yesterday afternoon. PG Care Time/CCT Total # of Minutes Spent Total Time Spent with Patient: Total time spent is greater than 50% in coordination of care (as documented) at patient's floor/unit and/or counseling patient: Coding Level of Care Code 37365 Initial Inpt Care Lvl 3 Diagnoses AF (paroxysmal atrial fibrillation) I48.0 Anticoagulant long-term use Z79.01 RENE (acute kidney injury) N17.9 CHF (congestive heart failure) I50.21 Heart failure type: systolic Heart failure chronicity: acute (1) CHF (congestive heart failure) Heart failure type: systolic Heart failure chronicity: acute Qualified Code(s): I50.21 - Acute systolic (congestive) heart failure
[2021-09-08] MEDS: dilTIAZem HCL 125 MG in DEXTROSE 5% 100 ML IV SCH ×2 (10:13→18:54)
--- NOTE | 2021-09-08 13:18 | Hospitalist Progress Note ---
Date of Service September 08, 2021 Assessment & Plan (1) Diverticulitis: Plan: Serial CT a/p scan showed improvement in diverticulitis on 09/05. - Continue Zosyn q8h. - Pain control with Tylenol, Dilaudid. Avoiding NSAIDs, morphine in setting of RENE. - Monitor CBC, WBC stable. -> Advanced diet today to clear liquids. Will repeat KUB today. Will hold on further advancing diet at this time. (2) Partial small bowel obstruction: Plan: Noted on repeat CT. Possibly nausea yesterday due to this rather than diverticultitis and may have re-introduced clear liquids too early. - As above (3) AF (paroxysmal atrial fibrillation): Plan: Paroxysmal. Complex history including rhythm agents and multiple ablations. Was in NSR on admission. Went into afib with RVR (rates as high as 170s) on 09/07 in the setting of holding her diltiazem and sotalol due to her diverticulitis and SBO. - Continue Eliquis - Holding sotalol - Hold oral diltiazem -> now on IV gtt. (4) CHF (congestive heart failure): Plan: With evidence of overload on exam today (09/08) which was not there yesterday. Likely from afib with RVR and IV fluids. Likely acute diastolic heart failure as last EF was 60-65% in 2013. - Fluids held - Lasix given by cardiology - Monitor volume status (5) Schwannoma of spinal cord: Plan: Not a new finding, per PCP note has previously seen Dr. Cool and Dr. Romero, surgery has been deferred - likely much enlarged from when previously imaged. In our system, she has no images since 2005 (when PACS was introduced). - Will need ortho oncology follow up - Causes her right leg pain, for which she takes gabapentin. We will continue this. - Also causing RLQ abdominal pain (and possibly some of her SBO?) -> Discussed with Dr. Romero. Will need surgical care at a tertiary care center. (6) RENE (acute kidney injury): Plan: Unclear baseline (Priors are ~1.2 from 2020). - Hold triamterene/HCTZ, enalapril - Repeat BMP in AM. -> Cr down to 1.3 today. (7) Hypertension: Plan: As above. (8) Dyslipidemia: Plan: - Hold simvastatin in effort to reducing her oral medications. (9) GERD (gastroesophageal reflux disease): Plan: Takes Tums regularly at home. - Continue famotidine 20mg IV daily Plan: VTE Prophylaxis - Eliquis Admission and Anticipated Discharge Date Admission Date: September 04, 2021 Subjective Somewhat confused this morning. She is honestly still quite oriented, but is a bit confused about which hospital she is in. She still reports pain in the RLQ which is steady, and not improving. Reports no fevers/chills, chest pain, shortness of breath, nausea, or vomiting. Physical Exam Constitutional: WD/WN, vitals as above Eyes: EOM intact bilaterally; no conjunctival abnormality ENMT: external ear and nose normal, oropharynx normal Neck: trachea midline, no thyromegaly normal visual inspection Respiratory: normal respiratory effort, lungs clear to auscultation no respiratory distress Cardiovascular: Rate/Rhythm: + tachycardic and + irregularly irregular Extremities: + edema Gastrointestinal (Abdomen): Inspection/Auscultation: abdomen normal to inspection; abdomen not distended Musculoskeletal: no cyanosis or clubbing, extremities motor strength 5/5 Skin: no rashes, warm and dry Neurologic: moves all extremities and awake Psychiatric: Orientation: alert, oriented to person and cooperative Results & Data Results & Data ([facility]) Vital Signs (Past 12 Hours) Vital Signs Temp Pulse Pulse Resp BP BP Pulse Ox 09/08/21 13:00 132 H 124/67 09/08/21 12:39 127 H 103/68 09/08/21 12:30 123 H 110/65 09/08/21 11:37 36.6 C 145 H 24 120/68 95 09/08/21 11:18 135 H 18 120/78 09/08/21 10:31 137 H 105/72 93 09/08/21 08:30 135 H 09/08/21 07:41 36.3 C L 115 H 20 108/67 97 09/08/21 04:00 36.9 C 124 H 22 98 09/08/21 03:30 139 H 21 97 09/08/21 03:15 141 H 28 H 94 09/08/21 02:31 129 H 23 113/72 96 09/08/21 02:30 122 H 25 H 98 09/08/21 02:00 135 H 24 104/83 97 09/08/21 01:31 135 H 23 103/72 96 09/08/21 01:30 134 H 25 H 95 PG Care Time/CCT Total # of Minutes Spent Total Time Spent with Patient: Total time spent is greater than 50% in coordination of care (as documented) at patient's floor/unit and/or counseling patient: Coding Level of Care Code 48468 Subseq Hosp Care Lvl 3 Diagnoses Diverticulitis K57.92 Partial small bowel obstruction K56.600 Schwannoma of spinal cord D33.4 RENE (acute kidney injury) N17.9 AF (paroxysmal atrial fibrillation) I48.0 Hypertension I10 Dyslipidemia E78.5 GERD (gastroesophageal reflux disease) K21.9 CHF (congestive heart failure) I50.21 Heart failure type: systolic Heart failure chronicity: acute (1) CHF (congestive heart failure) Heart failure type: systolic Heart failure chronicity: acute Qualified Code(s): I50.21 - Acute systolic (congestive) heart failure
[2021-09-08] MEDS ORDERED: DIGOXIN 250 MCG in SYRINGE 9 ML IV ONE ×2 (13:30→16:00)
--- NOTE | 2021-09-08 18:17 | XCELERA ---
[id number]
--- NOTE | 2021-09-08 18:59 | XRay Report ---
KUB CLINICAL HISTORY: Small bowel obstruction. FINDINGS: 5 AP supine abdominal radiographs are correlated with abdominal CT dated 09/05/2021. There is gaseous distention of the small bowel loops which measure up to 5.5 cm in diameter. This is consiste nt with a persistent small bowel obstruction. No evidence of intraperitoneal free air is seen on thes e supine views. A mass lesion containing calcifications is again noted in the pelvis. The skeletal st ructures are osteopenic and appear intact. There is moderate lumbosacral spondylosis. IMPRESSION: 1. Persistent small bowel obstruction. 2. A calcification containing mass lesion is again seen in the pelvis. Electronically signed by: David Dawson M.D. 09/08/2021 6:58 PM
[2021-09-08] MEDS: APIXABAN 5 MG TABLET PO SCH (19:34)
[2021-09-09] MEDS: AMIODARONE / D5W 360 MG/200 ML BAG IV SCH ×2 (01:18→13:59)
[2021-09-09] MEDS: dilTIAZem HCL 125 MG in DEXTROSE 5% 100 ML IV SCH (02:57)
[2021-09-09] MEDS: PIPERACILLIN/TAZOBACTAM 4.5 GM in DEXTROSE 5% 100 ML IV SCH ×3 (05:21→20:19)
[2021-09-09] MEDS: ONDANSETRON INJ 2 MG/ML 2 ML VIAL IV PRN (05:22)
--- NOTE | 2021-09-09 06:39 | Electrocardiogram Report ---
Test Reason : Blood Pressure : / mmHG Vent. Rate : 164 BPM Atrial Rate : 129 BPM P-R Int : 000 ms QRS Dur : 084 ms QT Int : 260 ms P-R-T Axes : 000 019 210 degrees QTc Int : 429 ms Poor data quality, interpretation may be adversely affected Atrial fibrillation with rapid ventricular response Low voltage QRS Abnormal ECG When compared with ECG of 04-SEP-2021 12:49, Atrial fibrillation has replaced Sinus rhythm Vent. rate has increased BY 100 BPM Nonspecific T wave abnormality now evident in Inferior leads Confirmed by Ruiz Nichols ([id number]) on 09/09/2021 6:39:06 AM Referred By: REFERRED SELF Confirmed By:Ruiz Nichols
[2021-09-09] MEDS: PROMETHAZINE HCL 6.25 MG in SODIUM CHLORIDE 0.9% 50 ML IV PRN (06:44)
[2021-09-09] MEDS: HYDROmorphone INJ 0.5 MG/0.5 ML SYR IV PRN (06:44)
[2021-09-09 06:46] LABS: Hematocrit (blood only) 40.8 % (37-47); Hemoglobin 13.5 g/dL (12.0-16.0); Mean Corpuscular Hemoglobin 28.8 pg (25-34); Mean Corpuscular Hgb Conc 33.1 g/dL (32-36); Mean Platelet Volume 8.7 fL (7.4-10.4); Platelet Count 525 K/uL (130-400); RDW Coefficient of Variation 13.9 % (11.5-14.5); RDW Standard Deviation 43.6 fL (36.4-46.3); Red Blood Count 4.69 M/uL (4.2-5.4); White Blood Count 14.51 K/uL (4.8-10.8)
--- NOTE | 2021-09-09 06:56 | Electrocardiogram Report ---
Test Reason : Blood Pressure : / mmHG Vent. Rate : 127 BPM Atrial Rate : 144 BPM P-R Int : 000 ms QRS Dur : 082 ms QT Int : 362 ms P-R-T Axes : 000 086 268 degrees QTc Int : 526 ms Poor data quality, interpretation may be adversely affected Atrial fibrillation with rapid ventricular response T wave abnormality, consider anterior ischemia Abnormal ECG When compared with ECG of 08-SEP-2021 08:11, (unconfirmed) No significant change was found Confirmed by Ruiz Nichols ([id number] on 09/09/2021 6:56:19 AM Referred By: REFERRED SELF Confirmed By:Ruiz Nichols
[2021-09-09 07:18] LABS: Albumin Globulin Ratio 1.2 (0.9-2); BUN Creatinine Ratio 29.7 (10-20); Bilirubin Direct 0.1 mg/dl (0-0.2); Bilirubin,Total 0.4 mg/dl (0.2-1.0); Calcium 9.2 mg/dl (8.5-10.1); Est GFR (African American) 44.8 ml/min; Est GFR (Non-African American) 38.6 ml/min; Globulin 2.6 gm/dl (2.5-4.0); Magnesium 2.2 mg/dl (1.7-2.4); Potassium 3.5 mmol/L (3.5-5.1); Total Protein 5.6 gm/dl (6.0-8.3)
[2021-09-09] MEDS: ADVANCED PROBIOTIC 1250 MG CAPSULE PO SCH (08:30)
[2021-09-09] MEDS: APIXABAN 5 MG TABLET PO SCH ×2 (08:35→20:30)
[2021-09-09] MEDS: GABAPENTIN 300 MG CAP PO SCH ×2 (08:35→20:31)
[2021-09-09] MEDS: FAMOTIDINE 20 MG in SYRINGE 3 ML IV SCH (08:35)
--- NOTE | 2021-09-09 09:13 | Cardiology Progress Note ---
Date of Service September 09, 2021 Assessment & Plan (1) AF (paroxysmal atrial fibrillation): (2) Anticoagulant long-term use: (3) RENE (acute kidney injury): (4) CHF (congestive heart failure): Plan: 1. Atrial fibrillation: She has a long history of paroxysmal atrial fibrillation with prior ablations although has continued to have intermittent atrial fibrillation. The arrhythmia is adequately controlled as an outpatient on diltiazem and sotalol with what we have felt was good heart rate control and relatively infrequent brief episodes Now with her acute presentation and the necessity of holding her oral medications (diltiazem 120 mg daily and sotalol 120 mg 3 times daily) she has had recurrence of atrial fibrillation which is now rapid. She was loaded with amiodarone, although the rate is still fast and she has had difficulty with elevated liver function tests on amiodarone in the past. So far her liver function tests from this morning are normal. With IV amiodarone this is probably not too much of an issue but we probably do not want to continue it long-term, however with her GI difficulty we cannot restart sotalol as yet. Diltiazem at maximal doses (15 mg/h) and digoxin 0.5 mg intravenously yesterday had no effect at all. This is unusual probably is related to high catecholamine levels. We could try beta-blockade, however it may be more expedient to convert the rhythm while she remains on amiodarone and see if we can maintain sinus rhythm that way. I am going to tentatively plan that for this afternoon. 2. Anticoagulation: She has been on Eliquis, as an outpatient we her on the 5 mg dose due to a creatinine of less than 1.5 and her weight, however on presentation her creatinine was elevated and her Eliquis was reduced to 2.5 mg twice a day. Yesterday her creatinine dropped below 1.5 and I increased her Eliquis to 5 mg twice a day, today her creatinine remains below that threshold. She has therefore been adequately controlled since she went into atrial fibrillation so cardioversion should not be a risk. 3. Acute kidney injury: I suspect this was due to her presentation and not an acute kidney problem, she received intravenous fluids and her kidney function is improving although I'm not sure it is simply on that basis. 4. Congestive heart failure: She appeared to be in congestive heart failure yesterday with basilar crackles and expiratory wheezing as well as some leg puffiness. Her weight was also up. She seems to be a little better today, her weight is down somewhat and since she is not taking oral intake I am going to hold off on diuretic today. Admission and Anticipated Discharge Date Admission Date: September 04, 2021 Subjective She is not feeling well this morning, she has no cardiovascular complaints however she is nauseous and has had some vomiting. Other than being uncomfortable she has no complaints. Physical Exam Physical Exam: Constitutional: Alert, cooperative and in moderate GI distress. HEENT: Unremarkable Neck: No jugular venous distention, carotid pulses are normal and equal bilaterally without bruits. Pulmonary: Bilateral crackles and expiratory wheezing Cardiac: Irregular rapid rhythm with no murmur, gallop or rub. Abdomen: Soft, nontender with normal bowel sounds. Extremities: Trace bilateral pretibial edema. Distal pulses intact. Neurologic: No focal findings. Gait was not tested. Skin: No rash, ecchymoses or petechiae. Results & Data ([facility]) Vital Signs (Past 12 Hours) Vital Signs Temp Pulse Pulse Resp BP BP Pulse Ox 09/09/21 08:29 36.7 C 150 H 20 126/91 92 09/09/21 02:51 36.5 C 128 H 18 134/87 97 09/09/21 00:01 126 H 22 106/70 96 09/08/21 23:00 142 H 28 H 111/90 96 09/08/21 22:00 136 H 26 H 125/95 96 Laboratory Results Cardiac Enzymes 09/09/21 Range/Units 06:14 AST 8 L (13-39) U/L CBC 09/09/21 Range/Units 06:14 WBC 14.51 H (4.8-10.8) K/uL RBC 4.69 (4.2-5.4) M/uL Hgb 13.5 (12.0-16.0) g/dL Hct 40.8 (37-47) % Plt Count 525 H (130-400) K/uL Comprehensive Metabolic Panel 09/09/21 Range/Units 06:14 Sodium 133 L (136-145) mmol/L Potassium 3.5 (3.5-5.1) mmol/L Chloride 92 L (98-107) mmol/L Carbon Dioxide 31 (21-32) mmol/L BUN 38 H (6-23) mg/dl Creatinine 1.28 H (0.6-1.2) mg/dl Glucose 226 H (70-99(Fasting)) mg/dl Calcium 9.2 (8.5-10.1) mg/dl Direct Bilirubin 0.1 (0-0.2) mg/dl AST 8 L (13-39) U/L ALT 8 (7-52) U/L Alkaline Phosphatase 70 (34-104) U/L Total Protein 5.6 L (6.0-8.3) gm/dl Albumin 3.0 L (3.4-5.0) gm/dl Intake and Output 09/08/21 09/09/21 09/09/21 22:59 06:59 14:59 Intake Total 216.25 / 1965. 419.718 / 1965.075 50.25 / 50.25 Output Total 250 / 250 Balance -33.75 / 1716.075 419.718 / 1716.075 50.25 / 50.25 Intake: IV 216. / 1965. 419.718 / 1965.075 50.25 / 50.25 Amiodarone / D5w 360 mg In 200 178.968 / 371.575 ml @ 0.5 MG/MIN 16.667 mls/hr IV .Q12H [facility] Rx#:[id number] Piperacillin/Tazobactam 4.5 gm 120 / 360 120 / 360 In Dextrose 5% 100 ml @ 30 mls/ hr IV Q8H [facility] Rx#:[id number] Promethazine HCl 6.25 mg In 50.25 / 50.25 Sodium Chloride 0.9% 50 ml @ 201 mls/hr IV Q6H PRN Rx#: [id number] dilTIAZem HCL 125 mg In 96.25 / 234.500 120.75 / 234.500 Dextrose 5% 100 ml @ 15 MG/HR 15 mls/hr IV .Q8H20M [facility] Rx#: [id number] Oral 0 / 0 Output: Urine 250 / 250 Other: Other Intake Source sips Weight 102.2 kg Weight Measurement Method Built in [facility] Diagnostic Findings Telemetry: She remains in atrial fibrillation with a rapid heart rate. Full dose diltiazem (15 mg/h) has had no effect overnight, she remains on IV amiodarone and she received several doses of digoxin yesterday, all with no effect on rate. PG Care Time/CCT Total # of Minutes Spent Total Time Spent with Patient: Total time spent is greater than 50% in coordination of care (as documented) at patient's floor/unit and/or counseling patient: Coding Level of Care Code 04658 Subseq Hosp Care Lvl 3 Diagnoses AF (paroxysmal atrial fibrillation) I48.0 Anticoagulant long-term use Z79.01 RENE (acute kidney injury) N17.9 CHF (congestive heart failure) I50.21 Heart failure chronicity: acute Heart failure type: systolic Time Spent (min) 60 Comment Arrangement of cardioversion, discussion with medical team, patient evaluation (1) CHF (congestive heart failure) Heart failure chronicity: acute Heart failure type: systolic Qualified Code(s): I50.21 - Acute systolic (congestive) heart failure
--- NOTE | 2021-09-09 11:21 | XRay Report ---
KUB HISTORY: NGT placement COMPARISON: KUB 09/08/2021. FINDINGS: Interval placement of nasogastric tube which terminates in the body the stomach. Dilated ga s-filled loops of small bowel persist and are consistent with the patient's known small bowel obstruc tion. Bibasilar linear densities and trace bilateral pleural effusions are noted. No renal calculi. No ureteral calculi. No pneumoperitoneum or pneumatosis. IMPRESSION: 1. Nasogastric tube terminates at the body of the stomach. 2. Dilated gas-filled loops of small bowel consistent the patient's known small bowel obstruction. ACT 112: Negative or not required by law. Electronically signed by: David Wolf M.D. 09/09/2021 11:20 AM
--- NOTE | 2021-09-09 12:48 | Anesthesiology Consultation ---
Date of Service September 09, 2021 Assessment & Plan (1) Encounter for pre-operative examination: Chart Review Chart Review: order entry initiated History Surgery Operation Date: 09/09/21 12:30 Proposed Procedures p Cardioversion - Ruiz Nichols MD Height/Weight Height: 5 ft 3 in Weight: 102.2 kg Allergies Allergy/AdvReac Type Severity Reaction Status Date / Time caffeine AdvReac Unknown Verified 09/04/21 11:40 chocolate flavor AdvReac Verified 09/04/21 11:40 Medications Home Medications Medication Instructions Recorded Confirmed Last Taken psyllium seed (sugar) oral powder 2 tsp PO DAILY gm 12/13/18 09/04/21 Unknown (Metamucil (sugar)) amoxicillin 500 mg capsule 2,000 mg PO .COMPLEX cap 02/16/19 09/04/21 Unknown calcium carbonate 600 mg calcium 600 mg PO DAILY tab 02/16/19 09/04/21 Unknown (1,500 mg) tablet magnesium oxide 400 mg (241.3 mg 400 mg PO BID tab 02/16/19 09/04/21 Unknown magnesium) tablet omega-3 acid ethyl esters 1 gram 2 cap PO DAILY cap 02/16/19 09/04/21 Unknown capsule diltiazem HCl 120 mg 120 mg PO DAILY #90 cap 09/03/20 09/04/21 Unknown capsule,extended release 24 hr (Cartia XT) enalapril maleate 20 mg tablet 20 mg PO DAILY #90 tab 09/03/20 09/04/21 09/04/21 simvastatin 40 mg tablet 40 mg PO DAILY #90 tab 09/03/20 09/04/21 Unknown triamterene 37.5 1 cap PO DAILY #90 cap 09/03/20 09/04/21 Unknown mg-hydrochlorothiazide 25 mg capsule apixaban 5 mg tablet 5 mg PO BID #180 tab 01/17/21 09/04/21 09/04/21 potassium chloride 10 mEq 10 meq PO DAILY #90 tab 01/17/21 09/04/21 Unknown tablet,extended release sotalol 120 mg tablet 120 mg PO TID #270 tab 01/17/21 09/04/21 09/04/21 gabapentin 300 mg capsule 300 mg PO BID #60 cap 04/02/21 09/04/21 Unknown Active Medications Generic Name Dose Route Start Last Admin Trade Name Freq PRN Reason Stop Dose Admin Apixaban 5 mg 09/08/21 21:00 09/09/21 08:35 Apixaban 5 Mg Tablet PO 10/08/21 20:59 5 mg BID DAVID Administration Diltiazem HCl 120 mg 09/05/21 09:00 09/05/21 08:19 Diltiazem Hcl 120 Mg Capcr PO 10/05/21 08:59 Not Given DAILY DAVID Gabapentin 300 mg 09/04/21 21:00 09/09/21 08:35 Gabapentin 300 Mg Cap PO 10/04/21 20:59 300 mg BID DAVID Administration Hydromorphone HCl 0.5 mg 09/04/21 19:17 09/09/21 06:44 Hydromorphone Inj 0.5 Mg/0.5 Ml Syr IV 09/18/21 19:16 0.5 mg Q6H PRN Administration Moderate/Severe Pain Promethazine HCl 6.25 mg/ 50.25 mls @ 201 mls/hr 09/05/21 10:58 09/09/21 07:35 Sodium Chloride IV 10/05/21 10:57 Infused Q6H PRN Infusion Nausea And Vomiting Famotidine 20 mg/ Syringe 5 mls @ 2.5 mls/min 09/05/21 16:45 09/09/21 08:35 IV 10/05/21 16:44 2.5 mls/min DAILY DAVID Administration Piperacillin Sod/Tazobactam 120 mls @ 30 mls/hr 09/07/21 12:00 09/09/21 09:21 Sod 4.5 gm/ Dextrose IV 09/14/21 19:59 Infused Q8H DAVID Infusion Protocol Amiodarone HCl/Dextrose 360 mg in 200 mls @ 16.667 mls/hr 09/08/21 02:15 09/09/21 01:18 Nexterone / D5w IV 10/08/21 02:14 0.5 mg/min .Q12H DAVID 16.7 mls/hr Administration 0.5 MG/MIN Lactobacillus Acidophilus 2 cap 09/07/21 15:45 09/09/21 08:30 Advanced Probiotic 1250 Mg Capsule PO 10/07/21 15:44 2 cap DAILY DAVID Administration Menthol 1 romeo 09/07/21 13:44 09/07/21 15:33 Cough Drop (Sugar Free) Romeo 24 Romeo/1 Box BUCCAL 10/07/21 13:43 1 romeo PRN PRN Administration Sore Throat Ondansetron HCl 4 mg 09/04/21 19:17 09/09/21 05:22 Ondansetron Inj 2 Mg/Ml 2 Ml Vial IV 10/04/21 19:16 4 mg Q6H PRN Administration Nausea Sotalol HCl 120 mg 09/05/21 09:00 09/05/21 08:18 Sotalol Hcl 80 Mg Tab PO 10/05/21 08:59 120 mg Q48H DAVID Administration Protocol Past Medical History Medical History Diverticulosis History of actinic keratoses History of cyst of breast Schwannoma of spinal cord Past Family History Family History Father Myocardial infarction Daughter Breast cancer Mother Stroke Denies family history of Ovarian cancer Prostate cancer Colorectal cancer Past Surgical History Surgical History S/P ablation of atrial fibrillation S/P cataract surgery S/P hysterectomy S/P knee surgery Social History Smoking Status: Never smoker Hx Alcohol Use: Yes Alcohol type: wine alcohol intake frequency: other Hx Substance Use: No Physical Exam Vital Signs Last Vital Signs Temp 98.1 F 09/09/21 08:29 Pulse 150 H 09/09/21 08:29 Resp 20 09/09/21 08:29 BP 126/91 09/09/21 08:29 Pulse Ox 92 09/09/21 08:29 Testing Laboratory Results 09/09/21 06:14 09/09/21 06:14 PT 11.5 Seconds (9.0-12.0) 09/04/21 10:30 INR 1.1 (0.9-1.1) 09/04/21 10:30 APTT 28.6 Seconds (21.0-31.0) 09/04/21 10:30 Urine Color Dark Yellow 09/04/21 14:15 Urine Appearance Cloudy (Clear) A 09/04/21 14:15 Urine pH 5.0 (4.5-7.5) 09/04/21 14:15 Ur Specific [place] 1.023 (1.000-1.030) 09/04/21 14:15 Urine Protein Trace (Negative) H 09/04/21 14:15 Urine Glucose (UA) Negative (Negative) 09/04/21 14:15 Urine Ketones 1+ (Negative) H 09/04/21 14:15 Urine Nitrite Negative (Negative) 09/04/21 14:15 Ur Leukocyte Esterase Negative (Negative) 09/04/21 14:15 Urine WBC (Auto) 10-30 /hpf (0-5) H 09/04/21 14:15 Urine RBC (Auto) 0-4 /hpf (0-4) 09/04/21 14:15 U Hyaline Cast (Auto) >30 /lpf (0-5) H 09/04/21 14:15 U Epithel Cells (Auto) >30 /lpf (0-5) H 09/04/21 14:15 Urine Bacteria (Auto) Negative (Negative) 09/04/21 14:15 09/06/21 00:28 Aerobic Blood Culture - Preliminary Blood No growth in Aerobic bottle after 48 hours. Anaerobic Blood Culture - Preliminary No growth in Anaerobic bottle after 48 hours. 09/06/21 00:18 Aerobic Blood Culture - Preliminary Blood No growth in Aerobic bottle after 48 hours. Anaerobic Blood Culture - Preliminary No growth in Anaerobic bottle after 48 hours. 09/04/21 14:15 Urine Culture - Final Urine,Clean Catch More than three types of organisms present, all high counts mixed probable skin shelby - No further identifications or sensitivities to follow. Electrocardiogram Date: 09/08/21 Atrial fibrillation with rapid ventricular response, rate 127 bpm T wave abnormality, consider anterior ischemia Abnormal ECG When compared with ECG of 08-SEP-2021 08:11, (unconfirmed) No significant change was found Confirmed by Ruiz Nichols ([id number]) on 09/09/2021 6:56:19 AM Chest X-Ray Date: 09/04/21 FINDINGS: Single frontal view of the chest demonstrates the heart to be mildly enlarged. There is a decreased inspiratory effort with elevation of the hemidiaphragms and crowding of the bronchovascular markings at the lung bases and centrally. The lungs are clear of alveolar opacities. There is no evidence for pleural effusion. There is no evidence for vascular congestion. There is no acute osseous pathology. IMPRESSION: 1. . There is a decreased inspiratory effort with otherwise no acute chest disease. Echocardiogram Date: 09/08/21 Normal LV size and systolic function. Estimated EF 55-60%. No regional wall motion abnormalities. Mild concentric LVH. No significant valvular abnormalities visualized Atrial fibrillation with RVR Compared to prior study on 03/26/14, afib with RVR has replaced sinus rhythm
[2021-09-09] MEDS ORDERED: MIDAZOLAM HCL 1 MG/ML 2ML VIAL ONE (13:03)
[2021-09-09] MEDS ORDERED: METOPROLOL TARTRATE 1 MG/ML VIAL IV STA (13:15)
--- NOTE | 2021-09-09 13:15 | Cardioversion ---
Date of Service September 09, 2021 PG Electrical Cardioversion Rp Electrical Cardioversion Report The patient was brought to the laboratory being NPO and with an NG tube in place and was identified in the laboratory, connected to the recording apparatus including electrocardiographic monitoring, noninvasive blood pressure monitoring and pulse oximetry. Anteroposterior patch electrodes were placed. The patient was anesthetized by the anesthesia department. Once adequate anesthesia was obtained a synchronized biphasic shock was delivered using 200 J with conversion to a sinus rhythm. The patient awoke from the anesthetic without sequela, will be observed briefly and then returned to the ICU. Coding Level of Care Code Cardioversion, elective Additional Codes Electrical Cardioversion Report ([id number])
[2021-09-09] MEDS ORDERED: METOPROLOL TARTRATE 1 MG/ML VIAL IV ONE (13:17)
--- NOTE | 2021-09-09 13:31 | Anesthesiology Progress Note ---
Date of Service September 09, 2021 Anesthesia Post Procedure Vital Signs Vital Signs: Temp Pulse Pulse Resp BP BP Pulse Ox 09/09/21 12:51 144 H 17 131/110 H 98 09/09/21 08:29 98.1 F 150 H 20 126/91 92 09/09/21 02:51 97.7 F 128 H 18 134/87 97 09/09/21 00:01 126 H 22 106/70 96 09/08/21 23:00 142 H 28 H 111/90 96 09/08/21 22:00 136 H 26 H 125/95 96 09/08/21 21:00 125 H 26 H 131/77 98 09/08/21 20:31 98.2 F 130 H 23 118/90 93 09/08/21 19:43 146 H 23 120/80 97 09/08/21 17:34 112 H 112/70 09/08/21 17:09 127 H 09/08/21 16:05 120 H 09/08/21 16:00 114 H 96/64 L 09/08/21 15:45 97.5 F L 126 H 20 116/68 94 09/08/21 13:53 109 H 106/85 09/08/21 13:33 130 H Transfer of Care Handoff Completed per policy Notes Mental Status: alert / awake / arousable and participated in evaluation Patient Amnestic to Procedure: Yes Nausea / Vomiting: adequately controlled Pain: adequately controlled Airway Patency, RR, SpO2: stable & adequate BP & HR: stable & adequate Hydration State: stable & adequate Anesthetic Complications: no major complications apparent and Pt Satisfied with anesthetic care
--- NOTE | 2021-09-09 14:11 | Electrocardiogram Report ---
Test Reason : Blood Pressure : / mmHG Vent. Rate : 068 BPM Atrial Rate : 068 BPM P-R Int : 152 ms QRS Dur : 082 ms QT Int : 424 ms P-R-T Axes : 071 006 214 degrees QTc Int : 450 ms Normal sinus rhythm T wave abnormality, consider anterolateral ischemia Abnormal ECG When compared with ECG of 08-SEP-2021 08:14, Sinus rhythm has replaced Atrial fibrillation Vent. rate has decreased BY 59 BPM Inverted T waves have replaced nonspecific T wave abnormality in Lateral leads Confirmed by Fernie Vides ([id number]) on 09/09/2021 2:11:16 PM Referred By: REFERRED SELF Confirmed By:Fernie Vides
--- NOTE | 2021-09-09 14:39 | Hospitalist Progress Note ---
Date of Service September 09, 2021 Assessment & Plan (1) Partial small bowel obstruction: Plan: Noted on repeat CT. KUB on 09/08 without improvement. Unclear whether her large abdominal tumor is causing or exacerbating this issue. - NPO - NG tube inserted on 09/09 for continued pain and SBO. (2) Diverticulitis: Plan: Serial CT a/p scan showed improvement in diverticulitis on 09/05. - Continue Zosyn q8h. - Pain control with Tylenol, Dilaudid. Avoiding NSAIDs, morphine in setting of RENE. - Monitor CBC, WBC stable. -> As above (3) AF (paroxysmal atrial fibrillation): Plan: Paroxysmal. Complex history including rhythm agents and multiple ablations. Was in NSR on admission. Went into afib with RVR (rates as high as 170s) on 09/07 in the setting of holding her diltiazem and sotalol due to her diverticulitis and SBO. - Continue Eliquis - Holding sotalol - Was on amiodarone gtt and diltiazem gtt without any real improvement in her HR. -> Cardiology following - Stop diltiazem gtt with plan for cardioversion this afternoon. (4) CHF (congestive heart failure): Plan: With evidence of overload on exam on 09/08 which was not there prior. Likely from afib with RVR and IV fluids. Likely acute diastolic heart failure as last EF was 60-65% in 2013. - Fluids held - Lasix given by cardiology on 09/08 - Monitor volume status -> Somewhat better today. Possibly slightly hypervolemic, but defer to cardiology on holding Lasix for now. 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 Cool and Dr. Romero, surgery has been deferred - likely much enlarged from when previously imaged. In our system, she has no images since 2005 (when PACS was introduced). - Will need ortho oncology follow up - Causes her right leg pain, for which she takes gabapentin. We will continue this. - Also causing RLQ abdominal pain (and possibly some of her SBO?) -> Discussed with Dr. Romero. Will need surgical care at a tertiary care center. -> Spent time speaking with Gen Cabrales at the [facility]. This would be a huge procedure with orthopedic oncology, vascular surgery, plastic surgery, and radiation oncology. Discussed with family. Prese ntly, we need to get HR under control and attempt to improve GI issues prior to getting evaluated for the procedure. However, if GI issues cannot be solved (ie SBO & divertilculitis), then the tumor may be causing some of it, and we would consider transfer at that time. (6) RENE (acute kidney injury): Plan: Unclear baseline (Priors are ~1.2 from 2020). - Hold triamterene/HCTZ, enalapril - Repeat BMP in AM. -> Cr down to 1.3 today. (7) Hypertension: Plan: As above. (8) Dyslipidemia: Plan: - Hold simvastatin in effort to reducing her oral medications. (9) GERD (gastroesophageal reflux disease): Plan: Takes Tums regularly at home. - Continue famotidine 20mg IV daily Plan: VTE Prophylaxis - Eliquis Admission and Anticipated Discharge Date Admission Date: September 04, 2021 Subjective Stomach pain this morning. She is very lethargic as she just got pain medication for her abdomen. Review of Systems Review of Systems: Unobtainable due to reduced consciousness Physical Exam Constitutional: WD/WN, vitals as above + acute distress Eyes: EOM intact bilaterally; no conjunctival abnormality ENMT: external ear and nose normal, oropharynx normal Neck: trachea midline, no thyromegaly normal visual inspection Respiratory: normal respiratory effort, lungs clear to auscultation no respiratory distress Cardiovascular: Rate/Rhythm: + tachycardic and + irregularly irregular Extremities: + edema Gastrointestinal (Abdomen): Inspection/Auscultation: abdomen normal to inspection; abdomen not distended Musculoskeletal: no cyanosis or clubbing, extremities motor strength 5/5 Skin: no rashes, warm and dry Neurologic: moves all extremities and awake Psychiatric: Orientation: alert, oriented to person and cooperative Results & Data Results & Data ([facility]) Vital Signs (Past 12 Hours) Vital Signs Temp Pulse Pulse Resp BP BP BP 09/09/21 13:35 70 129/61 09/09/21 13:30 70 20 131/55 L 09/09/21 13:15 68 20 110/54 L 09/09/21 12:51 144 H 17 131/110 H 09/09/21 08:29 36.7 C 150 H 20 126/91 09/09/21 02:51 36.5 C 128 H 18 134/87 Pulse Ox 09/09/21 13:35 09/09/21 13:30 99 09/09/21 13:15 97 09/09/21 12:51 98 09/09/21 08:29 92 09/09/21 02:51 97 PG Care Time/CCT Total # of Minutes Spent Total Time Spent with Patient: Total time spent is greater than 50% in coordination of care (as documented) at patient's floor/unit and/or counseling patient: Coding Level of Care Code 36292 Subseq Hosp Care Lvl 3 Diagnoses Diverticulitis K57.92 Partial small bowel obstruction K56.600 AF (paroxysmal atrial fibrillation) I48.0 CHF (congestive heart failure) I50.21 Heart failure type: systolic Heart failure chronicity: acute Schwannoma of spinal cord D33.4 RENE (acute kidney injury) N17.9 Hypertension I10 Dyslipidemia E78.5 GERD (gastroesophageal reflux disease) K21.9 (1) CHF (congestive heart failure) Heart failure type: systolic Heart failure chronicity: acute Qualified Code(s): I50.21 - Acute systolic (congestive) heart failure
[2021-09-09] MEDS: COUGH DROP (SUGAR FREE) LOZ 24 LOZ/1 BOX BUCCAL PRN (19:44)
[2021-09-09] MEDS: METOPROLOL TARTRATE 1 MG/ML VIAL IV SCH (21:22)
[2021-09-10] MEDS: METOPROLOL TARTRATE 1 MG/ML VIAL IV SCH ×4 (00:21→18:14)
[2021-09-10] MEDS: HYDROmorphone INJ 0.5 MG/0.5 ML SYR IV PRN (00:32)
[2021-09-10] MEDS: AMIODARONE / D5W 360 MG/200 ML BAG IV SCH ×2 (02:16→13:08)
[2021-09-10] MEDS: PIPERACILLIN/TAZOBACTAM 4.5 GM in DEXTROSE 5% 100 ML IV SCH ×3 (06:14→20:21)
[2021-09-10 07:27] LABS: Hematocrit (blood only) 36.3 % (37-47); Hemoglobin 11.5 g/dL (12.0-16.0); Mean Corpuscular Hemoglobin 27.9 pg (25-34); Mean Corpuscular Hgb Conc 31.7 g/dL (32-36); Mean Corpuscular Volume 88.1 fL (80-100); Mean Platelet Volume 8.7 fL (7.4-10.4); Platelet Count 439 K/uL (130-400); RDW Coefficient of Variation 13.9 % (11.5-14.5); RDW Standard Deviation 44.9 fL (36.4-46.3); Red Blood Count 4.12 M/uL (4.2-5.4); White Blood Count 13.52 K/uL (4.8-10.8)
[2021-09-10] MEDS: APIXABAN 5 MG TABLET PO SCH (07:48)
[2021-09-10] MEDS: GABAPENTIN 300 MG CAP PO SCH ×2 (07:48→20:53)
[2021-09-10] MEDS: ADVANCED PROBIOTIC 1250 MG CAPSULE PO SCH (07:49)
[2021-09-10] MEDS: FAMOTIDINE 20 MG in SYRINGE 3 ML IV SCH (07:50)
[2021-09-10 07:58] LABS: BUN Creatinine Ratio 23.7 (10-20); Calcium 9.1 mg/dl (8.5-10.1); Creatinine Clr Calc Pharmacy 26.4 ml/min; Est GFR (African American) 28.5 ml/min; Est GFR (Non-African American) 24.6 ml/min; Magnesium 2.2 mg/dl (1.7-2.4); Potassium 3.5 mmol/L (3.5-5.1)
[2021-09-10] MEDS ORDERED: FUROSEMIDE INJ 20 MG/2 ML VIAL IV ONE (08:29)
[2021-09-10] MEDS ORDERED: CHLORASEPTIC 1.4% SOLN 180 ML BTL MT PRN (08:29)
[2021-09-10] MEDS ORDERED: MoRPHine SULFATE 2 MG/ML CARP IV PRN (08:29)
--- NOTE | 2021-09-10 09:04 | Surgery Consultation ---
Date of Consultation September 10, 2021 Assessment & Plan (1) CHF (congestive heart failure): (2) Partial small bowel obstruction: (3) Schwannoma of spinal cord: (4) Pelvic mass: 81-year-old woman presented to the hospital with diverticulitis. This is resolved, but she now developed a partial small bowel obstruction. It is unclear whether the prior small bowel obstruction is related to the pelvic mass/schwannoma. She currently has an NG tube in place. She is passing some flatus. We will observe her for now. If she does not improve, she will need to be transferred to a tertiary care center for surgical intervention. We will continue to follow. History of Present Illness Reason for Consultation: Partial small bowel obstruction Requesting Physician: Martin Vallejo MD Attending Physician: Martin Vallejo MD History of Present Illness 81-year-old woman presented to the hospital 1 week ago with diverticulitis. She then developed a partial small bowel obstruction. The diverticulitis has seemingly resolved. She denies abdominal pain or tenderness. She did develop nausea and vomiting. A CT scan demonstrates partial small bowel obstruction. She has a history of a very large tumor extending from her spinal canal into her abdominal cavity. This measured 18 cm in diameter. This has been followed by orthopedics. Any surgical intervention on this would require an orthopedic oncology physician at a tertiary care center. She has an NG tube in. She denies fevers and chills. She passed gas this morning. Allergies Allergy/AdvReac Type Severity Reaction Status Date / Time caffeine AdvReac Unknown Verified 09/04/21 11:40 chocolate flavor AdvReac Verified 09/04/21 11:40 Home Medications Medication Instructions Recorded Confirmed Type psyllium seed (sugar) oral powder 2 tsp PO DAILY gm 12/13/18 09/04/21 History (Metamucil (sugar)) amoxicillin 500 mg capsule 2,000 mg PO .COMPLEX cap 02/16/19 09/04/21 History calcium carbonate 600 mg calcium 600 mg PO DAILY tab 02/16/19 09/04/21 History (1,500 mg) tablet magnesium oxide 400 mg (241.3 mg 400 mg PO BID tab 02/16/19 09/04/21 History magnesium) tablet omega-3 acid ethyl esters 1 gram 2 cap PO DAILY cap 02/16/19 09/04/21 History capsule diltiazem HCl 120 mg 120 mg PO DAILY #90 cap 09/03/20 09/04/21 Rx capsule,extended release 24 hr (Cartia XT) enalapril maleate 20 mg tablet 20 mg PO DAILY #90 tab 09/03/20 09/04/21 Rx simvastatin 40 mg tablet 40 mg PO DAILY #90 tab 09/03/20 09/04/21 Rx triamterene 37.5 1 cap PO DAILY #90 cap 09/03/20 09/04/21 Rx mg-hydrochlorothiazide 25 mg capsule apixaban 5 mg tablet 5 mg PO BID #180 tab 01/17/21 09/04/21 Rx potassium chloride 10 mEq 10 meq PO DAILY #90 tab 01/17/21 09/04/21 Rx tablet,extended release sotalol 120 mg tablet 120 mg PO TID #270 tab 01/17/21 09/04/21 Rx gabapentin 300 mg capsule 300 mg PO BID #60 cap 04/02/21 09/04/21 Rx Patient History Medical History Diverticulosis History of actinic keratoses History of cyst of breast Schwannoma of spinal cord Surgical History S/P ablation of atrial fibrillation S/P cataract surgery S/P hysterectomy S/P knee surgery Family History Father Myocardial infarction Daughter Breast cancer Mother Stroke Denies family history of Ovarian cancer Prostate cancer Colorectal cancer Social History Smoking Status: Never smoker Hx Alcohol Use: Yes Alcohol type: wine Hx Substance Use: No Preferred Language: Vietnamese Communication Ability: Effective Hearing Ability: Normal Guest Services Associate Required: No Beliefs That Will Affect Care: None marital status: Current Living Situation: Spouse current occupational status: retired Other Information That Helps Us Care for You: No Feels Safe at Home: Yes Safety Concerns: Feels Safe At This Time Dental Care, Regularly: Yes Physical Activity Frequency: 5-6 Times per Week Seatbelt Use: always Assistive Devices: None Review of Systems Review of Systems: All systems reviewed & are unremarkable except as noted in HPI & below Physical Exam Constitutional: WD/WN, vitals as above Neck: trachea midline, no thyromegaly Respiratory: normal respiratory effort; no respiratory distress and no labored breathing Cardiovascular: Rate/Rhythm: regular rate and regular rhythm Gastrointestinal (Abdomen): Inspection/Auscultation: abdomen normal to inspection; abdomen not distended Percussion/Palpation: abdomen soft; abdomen nontender, no guarding and abdomen not rigid Musculoskeletal: Extremities: no cyanosis and no clubbing Skin: no rashes, warm and dry Psychiatric: A+Ox3, euthymic affect Results & Data ([facility]) Vital Signs (Past 12 Hours) Vital Signs Temp Pulse Pulse Resp BP BP BP 09/10/21 08:52 36.7 C 69 17 139/79 09/10/21 07:09 69 136/68 09/10/21 03:20 36.8 C 88 18 129/76 09/10/21 01:39 66 09/10/21 00:21 71 129/76 09/10/21 00:00 71 129/76 09/09/21 23:03 36.5 C 72 18 131/77 09/09/21 21:22 97 H 137/77 Pulse Ox 09/10/21 08:52 99 09/10/21 07:09 09/10/21 03:20 94 09/10/21 01:39 09/10/21 00:21 09/10/21 00:00 09/09/21 23:03 99 09/09/21 21:22 Laboratory Results 09/10/21 09/10/21 Range/Units 06:42 06:42 WBC 13.52 H (4.8-10.8) K/uL RBC 4.12 L (4.2-5.4) M/uL Hgb 11.5 L (12.0-16.0) g/dL Hct 36.3 L (37-47) % MCV 88.1 (80-100) fL MCH 27.9 (25-34) pg MCHC 31.7 L (32-36) g/dL RDW Std Deviation 44.9 (36.4-46.3) fL RDW Coeff of Lucas 13.9 (11.5-14.5) % Plt Count 439 H (130-400) K/uL MPV 8.7 (7.4-10.4) fL Sodium 134 L (136-145) mmol/L Potassium 3.5 (3.5-5.1) mmol/L Chloride 93 L (98-107) mmol/L Carbon Dioxide 34 H (21-32) mmol/L Anion Gap 7 (3-11) BUN 44 H (6-23) mg/dl Creatinine 1.86 H D (0.6-1.2) mg/dl Est Cr Clr Drug Dosing 26.4 ml/min Est GFR ( Amer) 28.5 ml/min Est GFR (Non-Af Amer) 24.6 ml/min BUN/Creatinine Ratio 23.7 H (10-20) Glucose 153 H (70-99(Fasting)) mg/dl Calcium 9.1 (8.5-10.1) mg/dl Magnesium 2.2 (1.7-2.4) mg/dl (1) CHF (congestive heart failure) Heart failure type: systolic Heart failure chronicity: acute Qualified Code(s): I50.21 - Acute systolic (congestive) heart failure
--- NOTE | 2021-09-10 09:30 | XRay Report ---
KUB CLINICAL HISTORY: Small bowel obstruction. FINDINGS: 2 AP, portable, supine abdominal radiographs are compared to study dated 09/09/2021 and corre lated with abdominal CT dated 09/05/2021. An enteric tube projects over the stomach. There is gaseous d istention of the small bowel loops which measure up to 5 cm in diameter. This is consistent with a pe rsistent small bowel obstruction. No evidence of intraperitoneal free air is seen on these supine vie ws. A mass lesion containing calcifications is again noted in the pelvis. The skeletal structures are osteopenic and appear intact. There is moderate lumbosacral spondylosis. IMPRESSION: 1. Persistent small bowel obstruction. 2. A calcification containing mass lesion is again seen in the pelvis. Electronically signed by: David Dawson M.D. 09/10/2021 9:29 AM
--- NOTE | 2021-09-10 09:58 | Cardiology Progress Note ---
Date of Service September 10, 2021 Assessment & Plan (1) AF (paroxysmal atrial fibrillation): (2) Anticoagulant long-term use: (3) RENE (acute kidney injury): (4) CHF (congestive heart failure): Plan: 1. Atrial fibrillation: She has a long history of paroxysmal atrial fibrillation with prior ablations although has continued to have intermittent atrial fibrillation. The arrhythmia is adequately controlled as an outpatient on diltiazem and sotalol with what we have felt was good heart rate control and relatively infrequent brief episodes Now with her acute presentation and the necessity of holding her oral medications (diltiazem 120 mg daily and sotalol 120 mg 3 times daily) she has had recurrence of atrial fibrillation which is now rapid. She was loaded with amiodarone, although the rate is still fast and she has had difficulty with elevated liver function tests on amiodarone in the past. So far her liver function tests are normal. With IV amiodarone this is probably not too much of an issue but we probably do not want to continue it long-term, however with her GI difficulty we cannot restart sotalol as yet. She has maintained sinus rhythm since cardioversion yesterday and I would like to continue intravenous amiodarone and intravenous metoprolol to try to maintain sinus rhythm. 2. Anticoagulation: She has been on Eliquis, as an outpatient we had her on the 5 mg dose due to a creatinine of less than 1.5 and her weight, however on presentation her creatinine was elevated and her Eliquis was reduced to 2.5 mg twice a day. Her creatinine dropped below 1.5 and I increased her Eliquis to 5 mg twice a day, her creatinine remains below that threshold until today when it is above it. However she now has a GI bleed so we are holding anticoagulation. She has been adequately anticoagulated since she went into atrial fibrillation and she was only in it for several days so this may not be much of a risk although it is not ideal. 3. Acute kidney injury: I suspect this was due to her presentation and not an acute kidney problem, she received intravenous fluids and her kidney function is improving although I'm not sure it is simply on that basis. Now her rise in creatinine might be due to the rapid heart rate she experienced yesterday. 4. Congestive heart failure: She appeared to be in congestive heart failure several days ago with basilar crackles and expiratory wheezing as well as some leg puffiness. Her weight was also up, it dropped somewhat but has now gone up a bit (although I do not know how accurate weights are). Since cardioversion she has not been having shortness of breath. I would probably hold anticoagulation, especially given her increase in creatinine. Admission and Anticipated Discharge Date Admission Date: September 04, 2021 Subjective She is feeling pretty well this morning, she has a somewhat sore throat but has no cardiovascular complaints including shortness of breath or palpitations. Physical Exam Physical Exam: Constitutional: Alert, cooperative and although she appears tir ed she is in no distress. HEENT: Unremarkable except for an NG tube in place. Neck: No jugular venous distention, carotid pulses are normal and equal bilaterally without bruits. Pulmonary: Slight basilar crackles with basilar expiratory wheezing. Cardiac: Regular rhythm with no murmur, gallop or rub. Abdomen: Soft, nontender with normal bowel sounds. Extremities: +1 pretibialedema. Distal pulses intact. Neurologic: No focal findings. Gait was not tested. Skin: No rash, ecchymoses or petechiae. Results & Data ([facility]) Vital Signs (Past 12 Hours) Vital Signs Temp Pulse Pulse Resp BP BP BP 09/10/21 08:52 36.7 C 69 17 139/79 09/10/21 07:09 69 136/68 09/10/21 03:20 36.8 C 88 18 129/76 09/10/21 01:39 66 09/10/21 00:21 71 129/76 09/10/21 00:00 71 129/76 09/09/21 23:03 36.5 C 72 18 131/77 Pulse Ox 09/10/21 08:52 99 09/10/21 07:09 09/10/21 03:20 94 09/10/21 01:39 09/10/21 00:21 09/10/21 00:00 09/09/21 23:03 99 Laboratory Results CBC 09/10/21 Range/Units 06:42 WBC 13.52 H (4.8-10.8) K/uL RBC 4.12 L (4.2-5.4) M/uL Hgb 11.5 L (12.0-16.0) g/dL Hct 36.3 L (37-47) % Plt Count 439 H (130-400) K/uL Comprehensive Metabolic Panel 09/10/21 Range/Units 06:42 Sodium 134 L (136-145) mmol/L Potassium 3.5 (3.5-5.1) mmol/L Chloride 93 L (98-107) mmol/L Carbon Dioxide 34 H (21-32) mmol/L BUN 44 H (6-23) mg/dl Creatinine 1.86 H D (0.6-1.2) mg/dl Glucose 153 H (70-99(Fasting)) mg/dl Calcium 9.1 (8.5-10.1) mg/dl Intake and Output 09/09/21 09/10/21 09/10/21 22:59 06:59 14:59 Intake Total 120 / 935.25 320 / 935.25 Output Total 451 / 451 150 / 150 Balance -331 / 484.25 320 / 484.25 -150 / -150 Intake: IV 120 / 935.25 320 / 935.25 Amiodarone / D5w 360 mg In 200 200 / 400 ml @ 0.5 MG/MIN 16.667 mls/hr IV .Q12H DAVID Rx#:[id number] Piperacillin/Tazobactam 4.5 gm 120 / 360 120 / 360 In Dextrose 5% 100 ml @ 30 mls/ hr IV Q8H DAVID Rx#:[id number] Output: Urine 450 / 450 150 / 150 # Bowel Movements Other: Other Intake Source npo # Unmeasured Voids 1 Weight 103.6 kg Weight Measurement Method Built in [facility] Diagnostic Findings Telemetry: Sinus rhythm and borderline sinus bradycardia, no atrial fibrillation since cardioversion yesterday PG Care Time/CCT Total # of Minutes Spent Total Time Spent with Patient: Total time spent is greater than 50% in coordination of care (as documented) at patient's floor/unit and/or counseling patient: Coding Level of Care Code 76128 Subseq Hosp Care Lvl 3 Diagnoses AF (paroxysmal atrial fibrillation) I48.0 Anticoagulant long-term use Z79.01 RENE (acute kidney injury) N17.9 CHF (congestive heart failure) I50.21 Heart failure chronicity: acute Heart failure type: systolic (1) CHF (congestive heart failure) Heart failure chronicity: acute Heart failure type: systolic Qualified Code(s): I50.21 - Acute systolic (congestive) heart failure
[2021-09-10] MEDS: PANTOprazole 40 MG in SYRINGE 0 ML IV SCH ×2 (12:20→20:46)
--- NOTE | 2021-09-10 12:56 | Hospitalist Progress Note ---
Date of Service September 10, 2021 Assessment & Plan (1) Upper GI bleed: Plan: On 09/10, had deep, red blood return from her NG tube. Very self-limited (only ~1 foot portion of NG tubing). - Stopped Eliquis - Started PPI IV BID - GI consulted (2) Partial small bowel obstruction: Plan: Noted on repeat CT. KUB on 09/08 without improvement. Unclear whether her large abdominal tumor is causing or exacerbating this issue. - NPO - NG tube inserted on 09/09 for continued pain and SBO. (3) Diverticulitis: Plan: Serial CT a/p scan showed improvement in diverticulitis on 09/05. - Continue Zosyn q8h. - Pain control with Tylenol, Dilaudid. Avoiding NSAIDs, morphine in setting of RENE. - Monitor CBC, WBC stable. -> As above (4) RENE (acute kidney injury): Plan: Unclear baseline (Priors are ~1.2 from 2020). - Hold triamterene/HCTZ, enalapril - Repeat BMP in AM. -> Cr down to 1.3 on 09/09. Back up to 1.85 on 09/10 in setting of being NPO due to her SBO. (5) AF (paroxysmal atrial fibrillation): Plan: Paroxysmal. Complex history including rhythm agents and multiple ablations. Was in NSR on admission. Went into afib with RVR (rates as high as 170s) on 09/07 in the setting of holding her diltiazem and sotalol due to her diverticulitis and SBO. - Held Eliquis on 09/10 for upper GI bleed - Holding sotalol and oral diltiazem -> Cardiology following - Cardioversion on 09/09 with return to NSR. Continue amiodarone gtt and metoprolol IV scheduled pushes. (6) CHF (congestive heart failure): Plan: With evidence of overload on exam on 09/08 which was not there prior. Likely from afib with RVR and IV fluids. Likely acute diastolic heart failure as last EF was 60-65% in 2013. - Fluids held - Lasix given by cardiology on 09/08 - Monitor volume status -> Still with signs of hypervolemia, but now with recurrent RENE, not able to give more Lasix. 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 Cool and Dr. Romero, surgery has been deferred - likely much enlarged from when previously imaged. In our system, she has no images since 2005 (when PACS was introduced). - Will need ortho oncology follow up - Causes her right leg pain, for which she takes gabapentin. We will continue this. - Also causing RLQ abdominal pain (and possibly some of her SBO?) -> Discussed with Dr. Romero. Will need surgical care at a tertiary care center. -> Spent time speaking with Gen Cabrales at the [facility]. This would be a huge procedure with orthopedic oncology, vascular surgery, plastic surgery, and radiation oncology. Discussed with family. Presently, we need to get HR under control and attempt to improve GI issues prior to getting evaluated for the procedure. However, if GI issues cannot be solved (ie SBO & divertilculitis), then the tumor may be causing some of it, and we would consider transfer at that time. (8) Hypertension: Plan: As above. (9) Dyslipidemia: Plan: - Hold simvastatin in effort to reducing her oral medications. (10) GERD (gastroesophageal reflux disease): Plan: Takes Tums regularly at home. - Continue famotidine 20mg IV daily - Added PPI IV BID on 09/10 for upper GI bleed Plan: VTE Prophylaxis - SCDs -> Avoid heparin or other anticoagulation for upper GI bleed Admission and Anticipated Discharge Date Admission Date: September 04, 2021 Subjective More awake and alert today. Not having a ton of abdominal pain. Heart rate is now sinus again. However, around 11am, her NG tube return went from darker, bilious material to reddish tint with blood. No change in pain or nausea. Physical Exam Constitutional: WD/WN, vitals as above + acute distress Eyes: EOM intact bilaterally; no conjunctival abnormality ENMT: external ear and nose normal, oropharynx normal Nose: + foreign body in naris (NG tube) Neck: trachea midline, no thyromegaly normal visual inspection Respiratory: normal respiratory effort, lungs clear to auscultation no respiratory distress Cardiovascular: Rate/Rhythm: regular rate and regular rhythm Extremities: + edema Gastrointestinal (Abdomen): Inspection/Auscultation: abdomen normal to inspection; abdomen not distended Musculoskeletal: no cyanosis or clubbing, extremities motor strength 5/5 Skin: no rashes, warm and dry Neurologic: moves all extremities and awake Psychiatric: Orientation: alert, oriented to person and cooperative Results & Data Results & Data ([facility]) Vital Signs (Past 12 Hours) Vital Signs Temp Pulse Pulse Resp BP BP BP 09/10/21 12:03 36.5 C 68 17 131/70 09/10/21 08:52 36.7 C 69 17 139/79 09/10/21 08:00 68 09/10/21 07:09 69 136/68 09/10/21 03:20 36.8 C 88 18 129/76 09/10/21 01:39 66 Pulse Ox 09/10/21 12:03 100 09/10/21 08:52 99 09/10/21 08:00 09/10/21 07:09 09/10/21 03:20 94 09/10/21 01:39 PG Care Time/CCT Total # of Minutes Spent Total Time Spent with Patient: Total time spent is greater than 50% in coordination of care (as documented) at patient's floor/unit and/or counseling patient: Coding Level of Care Code 48232 Subseq Hosp Care Lvl 3 Diagnoses Partial small bowel obstruction K56.600 Diverticulitis K57.92 AF (paroxysmal atrial fibrillation) I48.0 CHF (congestive heart failure) I50.21 Heart failure type: systolic Heart failure chronicity: acute Schwannoma of spinal cord D33.4 RENE (acute kidney injury) N17.9 Hypertension I10 Dyslipidemia E78.5 GERD (gastroesophageal reflux disease) K21.9 Upper GI bleed K92.2 (1) CHF (congestive heart failure) Heart failure type: systolic Heart failure chronicity: acute Qualified Code(s): I50.21 - Acute systolic (congestive) heart failure
[2021-09-10 16:53] LABS: Hematocrit (blood only) 35.4 % (37-47); Hemoglobin 11.3 g/dL (12.0-16.0)
[2021-09-10] MEDS ORDERED: APIXABAN 2.5 MG TAB PO SCH (21:00)
[2021-09-10 22:59] LABS: Hematocrit (blood only) 33.8 % (37-47); Hemoglobin 10.6 g/dL (12.0-16.0)
[2021-09-11] MEDS: AMIODARONE / D5W 360 MG/200 ML BAG IV SCH ×3 (00:21→21:54)
[2021-09-11] MEDS: METOPROLOL TARTRATE 1 MG/ML VIAL IV SCH ×6 (00:42→21:48)
[2021-09-11] MEDS: PIPERACILLIN/TAZOBACTAM 4.5 GM in DEXTROSE 5% 100 ML IV SCH ×3 (03:49→20:02)
[2021-09-11 06:15] LABS: Hematocrit (blood only) 35.1 % (37-47); Mean Corpuscular Hemoglobin 27.8 pg (25-34); Mean Corpuscular Hgb Conc 31.3 g/dL (32-36); Mean Corpuscular Volume 88.9 fL (80-100); Mean Platelet Volume 8.6 fL (7.4-10.4); Platelet Count 379 K/uL (130-400); RDW Coefficient of Variation 13.7 % (11.5-14.5); RDW Standard Deviation 44.4 fL (36.4-46.3); Red Blood Count 3.95 M/uL (4.2-5.4); White Blood Count 11.76 K/uL (4.8-10.8)
[2021-09-11 06:41] LABS: BUN Creatinine Ratio 21.8 (10-20); Calcium 8.4 mg/dl (8.5-10.1); Creatinine Clr Calc Pharmacy 25.9 ml/min; Est GFR (African American) 28.1 ml/min; Est GFR (Non-African American) 24.3 ml/min; Magnesium 2.1 mg/dl (1.7-2.4)
--- NOTE | 2021-09-11 09:23 | XRay Report ---
XR KUB/Abdomen 1 view CLINICAL HISTORY: SBO TECHNIQUE: 1 view of the abdomen was obtained. Comparison: Comparison is made to abdomen radiograph 09/10/2021 FINDINGS: Lung bases are unremarkable. The osseous structures are grossly unremarkable. Multiple dilated loops of bowel are seen measuring up to. The large bowel appears decompressed. IMPRESSION: Findings compatible with small bowel obstruction. ACT 112: Negative or not required by law. Electronically signed by: Emeterio Bhandari M.D. 09/11/2021 9:22 AM
[2021-09-11] MEDS: ADVANCED PROBIOTIC 1250 MG CAPSULE PO SCH (09:59)
[2021-09-11] MEDS: GABAPENTIN 300 MG CAP PO SCH ×2 (09:59→20:02)
[2021-09-11] MEDS: PANTOprazole 40 MG in SYRINGE 0 ML IV SCH ×2 (09:59→20:02)
[2021-09-11] MEDS: FAMOTIDINE 20 MG in SYRINGE 3 ML IV SCH (10:00)
--- NOTE | 2021-09-11 10:40 | Hospitalist Progress Note ---
Date of Service September 11, 2021 Assessment & Plan (1) Upper GI bleed: Plan: On 09/10, had deep, red blood return from her NG tube. Very self-limited (only ~1 foot portion of NG tubing). - Stopped Eliquis - Started PPI IV BID - GI consulted - No consult yet at this time, but bleeding resolved after very transient and mild amount. No change in hemoglobin. (2) Partial small bowel obstruction: Plan: Noted on repeat CT. KUB on 09/08 without improvement. Unclear whether her large abdominal tumor is causing or exacerbating this issue. - NPO - NG tube inserted on 09/09 for continued pain and SBO. Patient wants it out, but presently understands it needs to stay in. (3) Diverticulitis: Plan: Serial CT a/p scan showed improvement in diverticulitis on 09/05. - Continue Zosyn q8h. - Pain control with Tylenol, morphine. - Monitor CBC, WBC stable. -> Improved today at 11. (4) RENE (acute kidney injury): Plan: Unclear baseline (Priors are ~1.2 from 2020). - Hold triamterene/HCTZ, enalapril - Repeat BMP in AM. -> Cr down to 1.3 on 09/09. Back up to 1.85 on 09/10 in setting of being NPO due to her SBO. (5) AF (paroxysmal atrial fibrillation): Plan: Paroxysmal. Complex history including rhythm agents and multiple ablations. Was in NSR on admission. Went into afib with RVR (rates as high as 170s) on 09/07 in the setting of holding her diltiazem and sotalol due to her diverticulitis and SBO. - Held Eliquis on 09/10 for upper GI bleed - Holding sotalol and oral diltiazem -> Cardiology following - Cardioversion on 09/09 with return to NSR. Continue amiodarone gtt and metoprolol IV scheduled pushes. -> Back into afib the morning of 09/11. HRs are a touch better at 120 - 130 range. BP is stable. (6) CHF (congestive heart failure): Plan: With evidence of overload on exam on 09/08 which was not there prior. Likely from afib with RVR and IV fluids. Likely acute diastolic heart failure as last EF was 60-65% in 2014. - Fluids held - Lasix given by cardiology on 09/08 - Monitor volume status -> Still with slight signs of hypervolemia, but now with recurrent RENE, not able to give more Lasix. 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 Cool and Dr. Romero, surgery has been deferred - likely much enlarged from when previously imaged. In our system, she has no images since 2005 (when PACS was introduced). - Will need ortho oncology follow up - Causes her right leg pain, for which she takes gabapentin. We will continue this. - Also causing RLQ abdominal pain (and possibly some of her SBO?) -> Discussed with Dr. Romero. Will need surgical care at a tertiary care center. -> Spent time speaking with Gen Cabrales at the [facility]. This would be a huge procedure with orthopedic oncology, vascular surgery, plastic surgery, and radiation oncology. Discussed with family. Presently, we need to get HR under control and attempt to improve GI issues prior to getting evaluated for the procedure. However, if GI issues cannot be solved (ie SBO & divertilculitis), then the tumor may be causing some of it, and we would consider transfer at that time. -> Calling [facility] as well because there are some logistical issues with transfer as far as [place]. (8) Hypertension: Plan: As above. (9) Dyslipidemia: Plan: - Hold simvastatin in effort to reducing her oral medications. (10) GERD (gastroesophageal reflux disease): Plan: Takes Tums regularly at home. - Continue famotidine 20mg IV daily - Added PPI IV BID on 09/10 for slight upper GI bleed Plan: VTE Prophylaxis - SCDs -> Avoid heparin or other anticoagulation for upper GI bleed Admission and Anticipated Discharge Date Admission Date: September 04, 2021 Subjective "Upset, angry, and anxious" this morning. This morning, she went back into afib with RVR. HRs in the 120-130 range. No change in abdominal pain (of which there is minimal). Still only having some mild flatus. Physical Exam Constitutional: WD/WN, vitals as above + acute distress Eyes: EOM intact bilaterally; no conjunctival abnormality ENMT: external ear and nose normal, oropharynx normal Nose: + foreign body in naris (NG tube) Neck: trachea midline, no thyromegaly normal visual inspection Respiratory: normal respiratory effort, lungs clear to auscultation no respiratory distress Cardiovascular: Rate/Rhythm: + tachycardic and + irregularly irregular Extremities: + edema (In hands) Gastrointestinal (Abdomen): Inspection/Auscultation: abdomen normal to inspection; abdomen not distended Musculoskeletal: no cyanosis or clubbing, extremities motor strength 5/5 Skin: no rashes, warm and dry Neurologic: moves all extremities and awake Psychiatric: Orientation: alert, oriented to person and cooperative Results & Data Results & Data ([facility]) Vital Signs (Past 12 Hours) Vital Signs Temp Pulse Pulse Resp BP BP Pulse Ox 09/11/21 08:00 36.9 C 69 18 122/72 96 09/11/21 05:28 71 118/75 09/11/21 03:57 36.8 C 67 16 106/69 100 09/11/21 01:15 77 115/78 09/11/21 00:42 73 117/56 L 09/11/21 00:19 36.3 C L 70 20 120/69 99 PG Care Time/CCT Total # of Minutes Spent Total Time Spent with Patient: Total time spent is greater than 50% in coordination of care (as documented) at patient's floor/unit and/or counseling patient: Coding Level of Care Code 65966 Subseq Hosp Care Lvl 3 Diagnoses Upper GI bleed K92.2 Partial small bowel obstruction K56.600 Diverticulitis K57.92 RENE (acute kidney injury) N17.9 AF (paroxysmal atrial fibrillation) I48.0 CHF (congestive heart failure) I50.21 Heart failure type: systolic Heart failure chronicity: acute Schwannoma of spinal cord D33.4 Hypertension I10 Dyslipidemia E78.5 GERD (gastroesophageal reflux disease) K21.9 (1) CHF (congestive heart failure) Heart failure type: systolic Heart failure chronicity: acute Qualified Code(s): I50.21 - Acute systolic (congestive) heart failure
--- NOTE | 2021-09-11 12:13 | Gastrointestinal Consultation ---
Date of Consultation September 11, 2021 Assessment & Plan (1) Upper GI bleed: Suspect NG trauma on Eliquis as this happened once and H/H has actually improved. -Protonix 40 mg BID -Continue H/H and continue to monitor for further bleeding. Supervising Physician Co-Signing Physician Notes Agree with ROBBY Matamoros as above Abd: Soft, tender bilateral LQ, ND Patient reports 2 brown liquid BM's today No nausea or vomiting, hematemesis or melena Awaiting transfer to [facility] Continue current therapy and supportive care. History of Present Illness Reason for Consultation: Possible upper GI bleeding Attending Physician: Martin Vallejo MD History of Present Illness Patient is an 81 yo female with diverticulitis, SBO, Afib with RVR, HTN, HLD, GERD, & schwannoma of the spinal cord with a large pelvic mass eroding the right sacrum, extending into pelvic cavity, & displacing bowel. GI has been consulted due to bright red blood in NG. Fortunately, this happened only on one occasion. Patient is anticoagulated with Eliquis for her A fib. She denies further GI bleeding. H/H is improved since admission to .1. She notes some abdominal discomfort presumably associated to the pelvic mass & diverticulitis for which she is being treated. She denies fever, chills, vomiting, diarrhea, constipation, hematochezia, melena, hematemesis. Patient is currently in Afib with HR 129. CT on admission indicated the followin. Mild improvement in the wall thickening involving the mid descending colon with surrounding inflammatory stranding is suggestive of acute diverticulitis. Correlation with a nonemergent follow-up colonoscopy is recommended to exclude the less likely possibility of an underlying lesion. 2. No abscess or perforation. 3. Distended gas and fluid-filled loops of proximal small bowel within the upper abdomen with distal tapering at the level of the distal jejunal loops within the left side of the abdomen. This has slightly progressed. Contrast from the prior study resides within the large bowel. Therefore, this favors a partial small bowel obstruction. 4. Large mixed attenuating pelvic mass erodes and remodels the right sacrum and extend into the pelvic cavity displacing loops of bowel overall measuring over 18 cm. These imaging characteristics are nonspecific. This may represent a sacral chordoma, however additional differential considerations such as chondrosarcoma among other etiologies should be considered. Tissue sampling recommended for pathologic diagnosis. 5. Questionable subtle omental nodularity within the upper quadrants. Developing peritoneal carcinomatosis would be the diagnosis of exclusion. This requires follow-up for further evaluation. She is appropriately frustrated with her clinical situation and tells me she is looking into treatment options at the [facility]. Allergies Allergy/AdvReac Type Severity Reaction Status Date / Time chocolate flavor AdvReac Verified 09/04/21 11:40 Home Medications Medication Instructions Recorded Confirmed Type psyllium seed (sugar) oral powder 2 tsp PO DAILY gm 12/13/18 09/04/21 History (Metamucil (sugar)) amoxicillin 500 mg capsule 2,000 mg PO .COMPLEX cap 02/16/19 09/04/21 History calcium carbonate 600 mg calcium 600 mg PO DAILY tab 02/16/19 09/04/21 History (1,500 mg) tablet magnesium oxide 400 mg (241.3 mg 400 mg PO BID tab 02/16/19 09/04/21 History magnesium) tablet omega-3 acid ethyl esters 1 gram 2 cap PO DAILY cap 02/16/19 09/04/21 History capsule diltiazem HCl 120 mg 120 mg PO DAILY #90 cap 09/03/20 09/04/21 Rx capsule,extended release 24 hr (Cartia XT) enalapril maleate 20 mg tablet 20 mg PO DAILY #90 tab 09/03/20 09/04/21 Rx simvastatin 40 mg tablet 40 mg PO DAILY #90 tab 09/03/20 09/04/21 Rx triamterene 37.5 1 cap PO DAILY #90 cap 09/03/20 09/04/21 Rx mg-hydrochlorothiazide 25 mg capsule apixaban 5 mg tablet 5 mg PO BID #180 tab 01/17/21 09/04/21 Rx potassium chloride 10 mEq 10 meq PO DAILY #90 tab 01/17/21 09/04/21 Rx tablet,extended release sotalol 120 mg tablet 120 mg PO TID #270 tab 01/17/21 09/04/21 Rx gabapentin 300 mg capsule 300 mg PO BID #60 cap 04/02/21 09/04/21 Rx Patient History Medical History Diverticulosis History of actinic keratoses History of cyst of breast Schwannoma of spinal cord Surgical History S/P ablation of atrial fibrillation S/P cataract surgery S/P hysterectomy S/P knee surgery Family History Father Myocardial infarction Daughter Breast cancer Mother Stroke Denies family history of Ovarian cancer Prostate cancer Colorectal cancer Social History Smoking Status: Never smoker Hx Alcohol Use: Yes Alcohol type: wine Hx Substance Use: No Preferred Language: Tajik Communication Ability: Effective Hearing Ability: Normal Bi Report Developer Required: No Beliefs That Will Affect Care: None marital status: Current Living Situation: Spouse current occupational status: retired Other Information That Helps Us Care for You: No Feels Safe at Home: Yes Safety Concerns: Feels Safe At This Time Dental Care, Regularly: Yes Physical Activity Frequency: 5-6 Times per Week Seatbelt Use: always Assistive Devices: Glasses Review of Systems Constitutional: no fever and no chills Respiratory: + dyspnea on exertion Cardiovascular: + palpitations Gastrointestinal: + abdominal pain; no heartburn, no coffee ground emesis and no hematemesis Musculoskeletal: + back pain Psychiatric: no problem reported Hematologic / Lymphatic: no problem reported Physical Exam Constitutional: well developed Respiratory: normal respiratory effort Cardiovascular: Rate/Rhythm: regular rate Gastrointestinal (Abdomen): Inspection/Auscultation: abdomen normal to inspection Musculoskeletal: Head/Neck/Chest: normocephalic Psychiatric: Orientation: alert and oriented x 3 Results & Data ([facility]) Vital Signs (Past 12 Hours) Vital Signs Temp Pulse Pulse Resp BP BP Pulse Ox 09/11/21 11:25 124 H 108/75 09/11/21 08:00 36.9 C 69 18 122/72 96 09/11/21 07:30 58 L 09/11/21 05:28 71 118/75 09/11/21 03:57 36.8 C 67 16 106/69 100 09/11/21 01:15 77 115/78 09/11/21 00:42 73 117/56 L 09/11/21 00:19 36.3 C L 70 20 120/69 99 PG Care Time/CCT Total # of Minutes Spent Total Time Spent with Patient: Total time spent is greater than 50% in coordination of care (as documented) at patient's floor/unit and/or counseling patient: Coding Level of Care Code 48592 Initial Inpt Care Lvl 3 Diagnoses Upper GI bleed K92.2
[2021-09-11] MEDS ORDERED: Nursing to Pharmacy Communication SCH (13:15)
--- NOTE | 2021-09-11 17:02 | Cardiology Progress Note ---
Date of Service September 11, 2021 Assessment & Plan (1) AF (paroxysmal atrial fibrillation): (2) Anticoagulant long-term use: (3) RENE (acute kidney injury): (4) CHF (congestive heart failure): Plan: 1. Atrial fibrillation: She has a long history of paroxysmal atrial fibrillation with prior ablations although has continued to have intermittent atrial fibrillation. The arrhythmia is adequately controlled as an outpatient on diltiazem and sotalol with what we have felt was good heart rate control and relatively infrequent brief episodes Now with her acute presentation and the necessity of holding her oral medications (diltiazem 120 mg daily and sotalol 120 mg 3 times daily) she had recurrence of atrial fibrillation which was rapid. She was loaded with amiodarone, although the rate was still fast and she has had difficulty with elevated liver function tests on oral amiodarone in the past. So far her liver function tests are normal. With IV amiodarone liver damage is probably not too much of a concern but we probably do not want to continue it long-term, however with her GI difficulty we cannot restart sotalol as yet. She had maintained sinus rhythm following cardioversion until about 830 this morning. I would like to continue intravenous amiodarone and intravenous metoprolol to try to control the heart rate, if we cannot control the rate we may need to consider repeat cardioversion. 2. Anticoagulation: She has been on Eliquis, as an outpatient we had her on the 5 mg dose due to a creatinine of less than 1.5 and her weight, however on presentation her creatinine was elevated and her Eliquis was reduced to 2.5 mg twice a day. Her creatinine dropped below 1.5 and I increased her Eliquis to 5 mg twice a day, however her creatinine increased again and we reduce it to 2.5 mg daily however with upper GI bleeding it was discontinued. This is not ideal since she has now reverted back to atrial fibrillation so we should try to restart it when possible. 3. Acute kidney injury: She has had a fluctuating creatinine, it has remained less than 2, currently slightly under 2. 4. Congestive heart failure: She appeared to be in congestive heart failure several days ago with basilar crackles and expiratory wheezing as well as some leg puffiness. Her weight was also up, it dropped somewhat but has now gone up a bit (although I do not know how accurate weights are). Since cardioversion she has not been having shortness of breath, even now that she is back in atrial fibrillation. Admission and Anticipated Discharge Date Admission Date: September 04, 2021 Subjective Physically she feels fairly well this morning, she did convert back to atrial fibrillation at about 830 this morning and is discouraged but is not physically very aware of it and does not feel poorly in that sense. She is bothered by the NG tube and she is frustrated by lack of progress. Physical Exam Physical Exam: Constitutional: Alert, cooperative and appears to be in no distress. HEENT: Unremarkable except for an NG tube in place. Neck: No jugular venous distention, carotid pulses are normal and equal bilaterally without bruits. Pulmonary: Slight basilar crackles with basilar expiratory wheezing. Cardiac: Irregular rhythm with no murmur, gallop or rub. Abdomen: Soft, nontender with normal bowel sounds. Extremities: +1 pretibial edema. Distal pulses intact. Neurologic: No focal findings. Gait was not tested. Skin: No rash, ecchymoses or petechiae. Results & Data ([facility]) Vital Signs (Past 12 Hours) Vital Signs Temp Pulse Pulse Resp BP BP Pulse Ox 09/11/21 16:00 36.7 C 87 18 96/60 L 96 09/11/21 15:08 124 H 09/11/21 14:43 139 H 108/78 09/11/21 13:49 135 H 94/68 L 100 09/11/21 12:00 36.8 C 72 18 104/64 95 09/11/21 11:25 124 H 108/75 09/11/21 08:00 36.9 C 69 18 122/72 96 09/11/21 07:30 58 L 09/11/21 05:28 71 118/75 Laboratory Results CBC 09/10/21 09/11/21 Range/Units 22:46 05:23 WBC 11.76 H (4.8-10.8) K/uL RBC 3.95 L (4.2-5.4) M/uL Hgb 10.6 L 11.0 L (12.0-16.0) g/dL Hct 33.8 L 35.1 L (37-47) % Plt Count 379 (130-400) K/uL Comprehensive Metabolic Panel 09/11/21 Range/Units 05:23 Sodium 136 (136-145) mmol/L Potassium 3.0 L (3.5-5.1) mmol/L Chloride 93 L (98-107) mmol/L Carbon Dioxide 36 H (21-32) mmol/L BUN 41 H (6-23) mg/dl Creatinine 1.88 H (0.6-1.2) mg/dl Glucose 119 H (70-99(Fasting)) mg/dl Calcium 8.4 L (8.5-10.1) mg/dl Intake and Output 09/11/21 09/11/21 09/11/21 06:59 14:59 22:59 Intake Total 307.318 / 728.791 507.318 / 698.571 191.253 / 698.571 Output Total 800 / 1250 302 / 303 1 / 303 Balance -492.682 / -521.209 205.318 / 395.571 190.253 / 395.571 Intake: IV 307.318 / 728.791 307.318 / 498.571 191.253 / 498.571 Amiodarone / D5w 360 mg In 200 187.318 / 368.791 187.318 / 258.571 71.253 / 258.571 ml @ 0.5 MG/MIN 16.667 mls/hr IV .Q12H DAVID Rx#:[id number] Piperacillin/Tazobactam 4.5 gm 120 / 360 120 / 240 120 / 240 In Dextrose 5% 100 ml @ 30 mls/ hr IV Q8H DAVID Rx#:[id number] Oral 200 / 200 Output: Urine 200 / 550 300 / 300 Gastric Drainage 600 / 700 Left Nare Nasogastric 600 / 700 # Bowel Movements 2 / 3 1 / 3 Other: # Unmeasured Voids 2 Weight 102.5 kg Weight Measurement Method Built in [facility] Diagnostic Findings Telemetry: She remained in sinus rhythm from cardioversion yesterday morning until about 830 this morning and then converted to atrial fibrillation. The heart rate is better controlled than several days ago however is averaging around 120 bpm. PG Care Time/CCT Total # of Minutes Spent Total Time Spent with Patient: Total time spent is greater than 50% in coordination of care (as documented) at patient's floor/unit and/or counseling patient: Coding Level of Care Code 66964 Subseq Hosp Care Lvl 2 Diagnoses AF (paroxysmal atrial fibrillation) I48.0 Anticoagulant long-term use Z79.01 RENE (acute kidney injury) N17.9 CHF (congestive heart failure) I50.21 Heart failure type: systolic Heart failure chronicity: acute (1) CHF (congestive heart failure) Heart failure type: systolic Heart failure chronicity: acute Qualified Code(s): I50.21 - Acute systolic (congestive) heart failure
[2021-09-11] MEDS ORDERED: LORazepam 2 MG/1 ML VIAL IV STA (21:53)
[2021-09-12] MEDS: METOPROLOL TARTRATE 1 MG/ML VIAL IV SCH ×6 (01:39→22:11)
[2021-09-12] MEDS: PIPERACILLIN/TAZOBACTAM 4.5 GM in DEXTROSE 5% 100 ML IV SCH ×3 (03:35→22:42)
[2021-09-12 06:49] LABS: Hematocrit (blood only) 34.4 % (37-47); Mean Corpuscular Hemoglobin 28.1 pg (25-34); Mean Platelet Volume 8.5 fL (7.4-10.4); Platelet Count 366 K/uL (130-400); RDW Coefficient of Variation 13.9 % (11.5-14.5); RDW Standard Deviation 44.7 fL (36.4-46.3); Red Blood Count 3.91 M/uL (4.2-5.4); White Blood Count 10.94 K/uL (4.8-10.8)
[2021-09-12 07:09] LABS: BUN Creatinine Ratio 23.1 (10-20); Calcium 8.1 mg/dl (8.5-10.1); Creatinine Clr Calc Pharmacy 34.2 ml/min; Est GFR (African American) 39.2 ml/min; Est GFR (Non-African American) 33.8 ml/min; Magnesium 1.9 mg/dl (1.7-2.4); Potassium 2.7 mmol/L (3.5-5.1)
[2021-09-12] MEDS: FAMOTIDINE 20 MG in SYRINGE 3 ML IV SCH (09:00)
[2021-09-12] MEDS: AMIODARONE / D5W 360 MG/200 ML BAG IV SCH ×2 (09:16→22:23)
--- NOTE | 2021-09-12 09:19 | XRay Report ---
KUB HISTORY: Small bowel obstruction. Follow-up. COMPARISON: KUB 09/11/2021. FINDINGS: The nasogastric tube terminates in the stomach. Dilated gas-filled loops of small bowel wit hin the upper abdomen persist. These measure 5.1 cm in diameter. Small amount of gas within the colon again noted. Large pelvic mass again noted. This is better present on the prior CT examinations. No renal calculi. No ureteral calculi. No pneumoperitoneum or pneumatosis. IMPRESSION: 1. No change in the small bowel obstruction. 2. Large pelvic mass again noted. ACT 112: Negative or not required by law. Electronically signed by: David Wolf M.D. 09/12/2021 9:17 AM
[2021-09-12] MEDS: PANTOprazole 40 MG in SYRINGE 0 ML IV SCH ×2 (09:55→22:00)
[2021-09-12] MEDS ORDERED: POTASSIUM CHLORIDE 20 MEQ/15 ML UDC NG STA (10:07)
[2021-09-12] MEDS: GABAPENTIN 300 MG CAP PO SCH ×3 (10:08→22:22)
[2021-09-12] MEDS: ADVANCED PROBIOTIC 1250 MG CAPSULE PO SCH (10:08)
[2021-09-12] MEDS: POTASSIUM CHLORIDE / WTR 10 MEQ/100 ML PLCT IV SCH ×4 (10:15→13:45)
--- NOTE | 2021-09-12 11:00 | Cardiology Progress Note ---
Date of Service September 12, 2021 Assessment & Plan (1) AF (paroxysmal atrial fibrillation): (2) Anticoagulant long-term use: (3) RENE (acute kidney injury): (4) CHF (congestive heart failure): Plan: 1. Atrial fibrillation: She has a long history of paroxysmal atrial fibrillation with prior ablations although has continued to have intermittent atrial fibrillation. The arrhythmia is adequately controlled as an outpatient on diltiazem and sotalol with what we have felt was good heart rate control and relatively infrequent brief episodes Now with her acute presentation and the necessity of holding her oral medications (diltiazem 120 mg daily and sotalol 120 mg 3 times daily) she had recurrence of atrial fibrillation which was rapid. She was loaded with amiodarone, although the rate was still fast and she has had difficulty with elevated liver function tests on oral amiodarone in the past. So far her liver function tests are normal. With IV amiodarone liver damage is probably not too much of a concern but we probably do not want to continue it long-term, however with her GI difficulty we cannot restart sotalol as yet. She had maintained sinus rhythm following cardioversion until about 830 yesterday morning when she reverted to atrial fibrillation with a rapid heart rate, her heart rate has not changed despite quite high doses of beta-blockade. She has now had several more days of intravenous amiodarone and I think it is worthwhile to repeat the cardioversion. I am concerned about leaving her at this rapid heart rate and we do not seem to be able to control it with medications. I am going to try to arrange cardioversion today, but we do need to correct her potassium first. She has been in atrial fibrillation 24 hours, she had been on anticoagulation while in atrial fibrillation initially and well in sinus rhythm so her stroke risk should be minimal. Her and her are agreeable. 2. Anticoagulation: She has been on Eliquis, as an outpatient we had her on the 5 mg dose due to a creatinine of less than 1.5 and her weight, however on presentation her creatinine was elevated and her Eliquis was reduced to 2.5 mg twice a day. Her creatinine dropped below 1.5 and I increased her Eliquis to 5 mg twice a day, however her creatinine increased again and we reduce it to 2.5 mg daily however with upper GI bleeding it was discontinued. This is not ideal since she has now reverted back to atrial fibrillation so we should try to restart it when possible. From my standpoint heparin is acceptable, especially since she is facing possible surgery at [facility]. 3. Acute kidney injury: She has had a fluctuating creatinine, it has remained less than 2, currently slightly under 2. 4. Congestive heart failure: She appeared to be in congestive heart failure around her presentationwith basilar crackles and expiratory wheezing as well as some leg puffiness. Her weight was also up, it dropped somewhat but has now gone up a bit. Since cardioversion she has not been having shortness of breath, even now that she is back in atrial fibrillation. Although she may have some fluid overload I am a little reluctant to diurese her with her fluctuating creatinine. Admission and Anticipated Discharge Date Admission Date: September 04, 2021 Subjective She seems to be in good spirits today, she is not aware of her elevated heart rate and is mostly discouraged from her GI symptoms. Physical Exam Physical Exam: Constitutional: Alert, cooperative and appears to be in no distress. HEENT: Unremarkable except for an NG tube in place. Neck: No jugular venous distention, carotid pulses are normal and equal bilaterally without bruits. Pulmonary: Slight basilar crackles with basilar expiratory wheezing. Cardiac: Irregular rhythm with no murmur, gallop or rub. Abdomen: Soft, nontender with normal bowel sounds. Extremities: +1 pretibial edema. Distal pulses intact. Neurologic: No focal findings. Gait was not tested. Skin: No rash, ecchymoses or petechiae. Results & Data ([facility]) Vital Signs (Past 12 Hours) Vital Signs Temp Pulse Pulse Pulse Resp BP BP 09/12/21 09:56 137 H 126/58 L 09/12/21 08:46 124 H 09/12/21 07:00 36.4 C L 131 H 18 126/58 L 09/12/21 05:30 127 H 127 H 104/72 104/72 09/12/21 03:39 37.0 C 130 H 16 96/66 L 09/12/21 01:39 135 H 109/71 09/12/21 01:38 135 H 109/71 09/11/21 23:28 36.4 C L 136 H 18 108/70 Pulse Ox 09/12/21 09:56 09/12/21 08:46 09/12/21 07:00 100 09/12/21 05:30 09/12/21 03:39 100 09/12/21 01:39 09/12/21 01:38 09/11/21 23:28 99 Laboratory Results CBC 09/12/21 Range/Units 05:25 WBC 10.94 H (4.8-10.8) K/uL RBC 3.91 L (4.2-5.4) M/uL Hgb 11.0 L (12.0-16.0) g/dL Hct 34.4 L (37-47) % Plt Count 366 (130-400) K/uL Comprehensive Metabolic Panel 09/12/21 Range/Units 05:25 Sodium 137 (136-145) mmol/L Potassium 2.7 L (3.5-5.1) mmol/L Chloride 93 L (98-107) mmol/L Carbon Dioxide 34 H (21-32) mmol/L BUN 33 H (6-23) mg/dl Creatinine 1.43 H D (0.6-1.2) mg/dl Glucose 105 H (70-99(Fasting)) mg/dl Calcium 8.1 L (8.5-10.1) mg/dl Intake and Output 09/11/21 09/12/21 09/12/21 22:59 06:59 14:59 Intake Total 288.670 / 915.988 120 / 915.988 309.823 / 309.823 Output Total 32 / 734 400 / 734 Balance 256.670 / 181.988 -280 / 181.988 309.823 / 309.823 Intake: IV 288.670 / 715.988 120 / 715.988 309.823 / 309.823 Amiodarone / D5w 360 mg In 200 168.670 / 355.988 189.823 / 189.823 ml @ 0.5 MG/MIN 16.667 mls/hr IV .Q12H DAVID Rx#:[id number] Piperacillin/Tazobactam 4.5 gm 120 / 360 120 / 360 120 / 120 In Dextrose 5% 100 ml @ 30 mls/ hr IV Q8H DAVID Rx#:[id number] Output: Urine 400 / 700 Gastric Drainage 30 / 30 Left Nare Nasogastric 30 / 30 # Bowel Movements 2 / 4 Other: # Bowel Movement Diapers 1 Weight 102.5 kg 103.3 kg Weight Measurement Method Built in [facility] Diagnostic Findings Telemetry: Atrial fibrillation, the heart rate is in the 120 to 130 bpm range and has shown essentially no change in rate since initiation of beta-blockade. PG Care Time/CCT Total # of Minutes Spent Total Time Spent with Patient: Total time spent is greater than 50% in coordination of care (as documented) at patient's floor/unit and/or counseling patient: Coding Level of Care Code 19907 Subseq Hosp Care Lvl 3 Diagnoses AF (paroxysmal atrial fibrillation) I48.0 Anticoagulant long-term use Z79.01 RENE (acute kidney injury) N17.9 CHF (congestive heart failure) I50.21 Heart failure chronicity: acute Heart failure type: systolic (1) CHF (congestive heart failure) Heart failure chronicity: acute Heart failure type: systolic Qualified Code(s): I50.21 - Acute systolic (congestive) heart failure
[2021-09-12] MEDS ORDERED: Heparin IV Adult Wt-Based Low-Dose *NO* Bolus Protocol IV SCH (13:44)
--- NOTE | 2021-09-12 13:44 | Hospitalist Progress Note ---
Date of Service September 12, 2021 Assessment & Plan (1) Partial small bowel obstruction: Plan: Noted on repeat CT. KUB on 09/08-09/12 without improvement. Unclear whether her large abdominal tumor is causing or exacerbating this issue. - NPO - NG tube inserted on 09/09 for continued pain and SBO. Was clamped all night on 09/11-09/12 without increase in pain. Leaving it in for now for KCl repletion, but may remove later today after cardioversion. - Plan to transfer to [facility]. She will be seen by surgical oncology and neurosurgery there for her SBO, diverticulitis, and large tumor. Hopefully today vs. tomorrow. (2) Diverticulitis: Plan: Serial CT a/p scan showed improvement in diverticulitis on 09/05. - Continue Zosyn q8h. - Pain control with Tylenol, morphine. - Monitor CBC, WBC stable. -> Improved slightly today at 11. (3) AF (paroxysmal atrial fibrillation): Plan: Paroxysmal. Complex history including rhythm agents and multiple ablations. Was in NSR on admission. Went into afib with RVR (rates as high as 170s) on 09/07 in the setting of holding her diltiazem and sotalol due to her diverticulitis and SBO. - Held Eliquis on 09/10 for upper GI bleed - Holding sotalol and oral diltiazem -> Cardiology following - Cardioversion on 09/09 with return to NSR. Continue amiodarone gtt and metoprolol IV scheduled pushes. -> Back into afib the morning of 09/11. HRs are a touch better at 120 - 130 range. BP is stable. - Plan for repeat cardioversion today once K+ is > 3.5. - Started heparin gtt on 09/12 for anticoagulation given multiple runs of afib. (4) RENE (acute kidney injury): Plan: Unclear baseline (Priors are ~1.2 from 2020). - Hold triamterene/HCTZ, enalapril - Repeat BMP in AM. -> Cr down to 1.3 on 09/09. Back up to 1.85 on 09/10 in setting of being NPO due to her SBO. Stable today at 1.4. (5) Upper GI bleed: Plan: On 09/10, had deep, red blood return from her NG tube. Very self-limited (only ~1 foot portion of NG tubing). Thought to be from trauma from NG tube insertion. - Stopped Eliquis - Started PPI IV BID - GI consulted - Conservative measures. (6) CHF (congestive heart failure): Plan: With evidence of overload on exam on 09/08 which was not there prior. Likely from afib with RVR and IV fluids. Likely acute diastolic heart failure as last EF was 60-65% in 2013. - Fluids held - Lasix given by cardiology on 09/08 - Monitor volume status -> Seems euvolemic on 09/12. Hands/arms are puffy, but legs without edema. Will hold Lasix today. 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 Cool and Dr. Romero, surgery has been deferred - likely much enlarged from when previously imaged. In our system, she has no images since 2005 (when PACS was introduced). - Will need ortho oncology follow up - Causes her right leg pain, for which she takes gabapentin. We will continue this. - Also causing RLQ abdominal pain (and possibly some of her SBO?) -> Discussed with Dr. Romero. Will need surgical care at a tertiary care center. -> Spent time speaking with Gen Cabrales at the [facility]. This would be a huge procedure with orthopedic oncology, vascular surgery, plastic surgery, and radiation oncology. Discussed with family. Presently, we need to get HR under control and attempt to improve GI issues prior to getting evaluated for the procedure. However, if GI issues cannot be solved (ie SBO & diverticulitis), then the tumor may be causing some of it, and we would consider transfer at that time. -> Family opted for [facility] due to transport/insurance issues. Accepted by Dr. Castillo on the hospitalist service with plan to consult neurosurgery & surgical oncology. (8) Hypertension: Plan: BP on slightly soft end (100/70s) while in afib. - Medication as above. (9) Dyslipidemia: Plan: - Hold simvastatin in effort to reducing her oral medications. (10) GERD (gastroesophageal reflux disease): Plan: Takes Tums regularly at home. - Continue famotidine 20mg IV daily - Added PPI IV BID on 04/06 for slight upper GI bleed Plan: VTE Prophylaxis - Heparin gtt for cautious anticoagulation for afib Admission and Anticipated Discharge Date Admission Date: September 04, 2021 Subjective Slightly better spirits today. Has passed some gas and actually had some looser BMs as well. Abdomen is still fairly soft and non-tender. She still does not feel her HR other than a small fluttering. Reports no fevers/chills, chest pain, shortness of breath, abdominal pain, nausea, or vomiting. Physical Exam Constitutional: WD/WN, vitals as above + acute distress Eyes: EOM intact bilaterally; no conjunctival abnormality ENMT: external ear and nose normal, oropharynx normal Nose: + foreign body in naris (NG tube) Neck: trachea midline, no thyromegaly normal visual inspection Respiratory: normal respiratory effort, lungs clear to auscultation no respiratory distress Cardiovascular: Rate/Rhythm: + tachycardic and + irregularly irregular E xtremities: + edema (In hands) Gastrointestinal (Abdomen): Inspection/Auscultation: + abdomen distended and normal bowel sounds Percussion/Palpation: abdomen soft and + abdominal mass (RLQ); abdomen nontender, no guarding and abdomen not rigid Musculoskeletal: no cyanosis or clubbing, extremities motor strength 5/5 Skin: no rashes, warm and dry Neurologic: moves all extremities and awake Psychiatric: Orientation: alert, oriented to person and cooperative Results & Data Results & Data ([facility]) Vital Signs (Past 12 Hours) Vital Signs Temp Pulse Pulse Pulse Resp BP BP 09/12/21 11:02 36.4 C L 113 H 18 105/75 09/12/21 09:56 137 H 126/58 L 09/12/21 08:46 124 H 09/12/21 07:00 36.4 C L 131 H 18 126/58 L 09/12/21 05:30 127 H 127 H 104/72 104/72 09/12/21 03:39 37.0 C 130 H 16 96/66 L 09/12/21 01:39 135 H 109/71 09/12/21 01:38 135 H 109/71 Pulse Ox 09/12/21 11:02 100 09/12/21 09:56 09/12/21 08:46 09/12/21 07:00 100 09/12/21 05:30 09/12/21 03:39 100 09/12/21 01:39 09/12/21 01:38 PG Care Time/CCT Total # of Minutes Spent Total Time Spent with Patient: Total time spent is greater than 50% in coordination of care (as documented) at patient's floor/unit and/or counseling patient: Coding Level of Care Code 95208 Subseq Hosp Care Lvl 3 Diagnoses Upper GI bleed K92.2 Partial small bowel obstruction K56.600 Diverticulitis K57.92 RENE (acute kidney injury) N17.9 AF (paroxysmal atrial fibrillation) I48.0 CHF (congestive heart failure) I50.21 Heart failure type: systolic Heart failure chronicity: acute Schwannoma of spinal cord D33.4 Hypertension I10 Dyslipidemia E78.5 GERD (gastroesophageal reflux disease) K21.9 (1) CHF (congestive heart failure) Heart failure type: systolic Heart failure chronicity: acute Qualified Code(s): I50.21 - Acute systolic (congestive) heart failure
[2021-09-12] MEDS ORDERED: HEPARIN SODIUM/DEXTROSE 25,000 UNITS/500 ML BAG IV SCH (14:00)
[2021-09-12 14:05] LABS: Anion Gap 6 (3-11); BUN Creatinine Ratio 23.2 (10-20); Blood Urea Nitrogen 32 mg/dl (6-23); Calcium 8.3 mg/dl (8.5-10.1); Carbon Dioxide 36 mmol/L (21-32); Chloride 94 mmol/L (98-107); Creatinine Clr Calc Pharmacy 35.5 ml/min; Est GFR (African American) 40.9 ml/min; Est GFR (Non-African American) 35.3 ml/min; Glucose 100 mg/dl (70-99(Fasting)); Sodium 136 mmol/L (136-145)
--- NOTE | 2021-09-12 15:55 | Anesthesiology Consultation ---
Date of Service September 12, 2021 Assessment & Plan (1) Encounter for pre-operative examination: History Surgery Operation Date: 09/09/21 12:30 Proposed Procedures p Cardioversion - Ruiz Nichols MD Operation Date: 09/12/21 13:00 Proposed Procedures p Cardioversion - Ruiz Nichols MD Height/Weight Height: 5 ft 3 in Weight: 103.3 kg Allergies Allergy/AdvReac Type Severity Reaction Status Date / Time chocolate flavor AdvReac Verified 09/04/21 11:40 Medications Home Medications Medication Instructions Recorded Confirmed Last Taken psyllium seed (sugar) oral powder 2 tsp PO DAILY gm 12/13/18 09/04/21 Unknown (Metamucil (sugar)) amoxicillin 500 mg capsule 2,000 mg PO .COMPLEX cap 02/16/19 09/04/21 Unknown calcium carbonate 600 mg calcium 600 mg PO DAILY tab 02/16/19 09/04/21 Unknown (1,500 mg) tablet magnesium oxide 400 mg (241.3 mg 400 mg PO BID tab 02/16/19 09/04/21 Unknown magnesium) tablet omega-3 acid ethyl esters 1 gram 2 cap PO DAILY cap 02/16/19 09/04/21 Unknown capsule diltiazem HCl 120 mg 120 mg PO DAILY #90 cap 09/03/20 09/04/21 Unknown capsule,extended release 24 hr (Cartia XT) enalapril maleate 20 mg tablet 20 mg PO DAILY #90 tab 09/03/20 09/04/21 09/04/21 simvastatin 40 mg tablet 40 mg PO DAILY #90 tab 09/03/20 09/04/21 Unknown triamterene 37.5 1 cap PO DAILY #90 cap 09/03/20 09/04/21 Unknown mg-hydrochlorothiazide 25 mg capsule apixaban 5 mg tablet 5 mg PO BID #180 tab 01/17/21 09/04/21 09/04/21 potassium chloride 10 mEq 10 meq PO DAILY #90 tab 01/17/21 09/04/21 Unknown tablet,extended release sotalol 120 mg tablet 120 mg PO TID #270 tab 01/17/21 09/04/21 09/04/21 gabapentin 300 mg capsule 300 mg PO BID #60 cap 04/02/21 09/04/21 Unknown Active Medications Generic Name Dose Route Start Last Admin Trade Name Freq PRN Reason Stop Dose Admin Diltiazem HCl 120 mg 09/05/21 09:00 09/05/21 08:19 Diltiazem Hcl 120 Mg Capcr PO 10/05/21 08:59 Not Given DAILY DAVID Gabapentin 300 mg 09/04/21 21:00 09/12/21 10:08 Gabapentin 300 Mg Cap PO 10/04/21 20:59 300 mg BID DAVID Administration Promethazine HCl 6.25 mg/ 50.25 mls @ 201 mls/hr 09/05/21 10:58 09/09/21 07:35 Sodium Chloride IV 10/05/21 10:57 Infused Q6H PRN Infusion Nausea And Vomiting Famotidine 20 mg/ Syringe 5 mls @ 2.5 mls/min 09/05/21 16:45 09/12/21 09:00 IV 10/05/21 16:44 2.5 mls/min DAILY DAVID Administration Piperacillin Sod/Tazobactam 120 mls @ 30 mls/hr 09/07/21 12:00 09/12/21 15:51 Sod 4.5 gm/ Dextrose IV 09/14/21 19:59 30 mls/hr Q8H DAVID Administration Protocol Amiodarone HCl/Dextrose 360 mg in 200 mls @ 16.667 mls/hr 09/08/21 02:15 09/12/21 09:16 Nexterone / D5w IV 10/08/21 02:14 0.5 mg/min .Q12H DAVID 16.7 mls/hr Administration 0.5 MG/MIN Pantoprazole Sodium 40 mg/ 10 mls @ 5 mls/min 09/10/21 11:30 09/12/21 09:55 Syringe IV 10/10/21 11:29 5 mls/min BID DAVID Administration Heparin Sodium/Dextrose 25,000 units in 500 mls @ 17 mls/hr 09/12/21 14:00 09/12/21 14:00 Heparin Sodium/Dextrose IV 10/12/21 13:59 850 units/hr .Q24H DAVID 17 mls/hr Administration Protocol 850 UNITS/HR Lactobacillus Acidophilus 2 cap 09/07/21 15:45 09/12/21 10:08 Advanced Probiotic 1250 Mg Capsule PO 10/07/21 15:44 2 cap DAILY DAVID Administration Menthol 1 romeo 09/07/21 13:44 09/09/21 19:44 Cough Drop (Sugar Free) Romeo 24 Romeo/1 Box BUCCAL 10/07/21 13:43 1 romeo PRN PRN Administration Sore Throat Metoprolol Tartrate 5 mg 09/11/21 10:00 09/12/21 14:02 Metoprolol Tartrate 1 Mg/Ml Vial IV 10/11/21 09:59 5 mg Q4H DAVID Administration Protocol Ondansetron HCl 4 mg 09/04/21 19:17 09/09/21 05:22 Ondansetron Inj 2 Mg/Ml 2 Ml Vial IV 10/04/21 19:16 4 mg Q6H PRN Administration Nausea Sotalol HCl 120 mg 09/05/21 09:00 09/05/21 08:18 Sotalol Hcl 80 Mg Tab PO 10/05/21 08:59 120 mg Q48H DAVID Administration Protocol NPO Date Last Intake of Fluids: 09/09/21 Time Last Intake of Fluids: 00:00 Date Last Intake of Solids: 09/09/21 Time Last Intake of Solids: 00:00 Past Medical History Medical History AF (paroxysmal atrial fibrillation) RENE (acute kidney injury) Anticoagulant long-term use CHF (congestive heart failure) Diverticulitis Diverticulosis GERD (gastroesophageal reflux disease) History of actinic keratoses History of cyst of breast Hyperglycemia Hypertension Hypoxia Partial small bowel obstruction Pelvic mass Schwannoma of spinal cord Upper GI bleed Past Family History Family History Father Myocardial infarction Daughter Breast cancer Mother Stroke Denies family history of Ovarian cancer Prostate cancer Colorectal cancer Past Surgical History Surgical History S/P ablation of atrial fibrillation S/P cataract surgery S/P hysterectomy S/P knee surgery Social History Smoking Status: Never smoker Hx Alcohol Use: Yes Alcohol type: wine alcohol intake frequency: other Hx Substance Use: No substance use type: does not use Physical Exam Vital Signs Last Vital Signs Temp 36.4 C L 09/12/21 11:02 Pulse 122 H 09/12/21 14:02 Resp 18 09/12/21 11:02 BP 105/75 09/12/21 14:02 Pulse Ox 100 09/12/21 11:02 Testing Laboratory Results 09/12/21 05:25 PT 11.5 Seconds (9.0-12.0) 09/04/21 10:30 INR 1.1 (0.9-1.1) 09/04/21 10:30 APTT 28.6 Seconds (21.0-31.0) 09/04/21 10:30 Urine Color Dark Yellow 09/04/21 14:15 Urine Appearance Cloudy (Clear) A 09/04/21 14:15 Urine pH 5.0 (4.5-7.5) 09/04/21 14:15 Ur Specific Yoder 1.023 (1.000-1.030) 09/04/21 14:15 Urine Protein Trace (Negative) H 09/04/21 14:15 Urine Glucose (UA) Negative (Negative) 09/04/21 14:15 Urine Ketones 1+ (Negative) H 09/04/21 14:15 Urine Nitrite Negative (Negative) 09/04/21 14:15 Ur Leukocyte Esterase Negative (Negative) 09/04/21 14:15 Urine WBC (Auto) 10-30 /hpf (0-5) H 09/04/21 14:15 Urine RBC (Auto) 0-4 /hpf (0-4) 09/04/21 14:15 U Hyaline Cast (Auto) >30 /lpf (0-5) H 09/04/21 14:15 U Epithel Cells (Auto) >30 /lpf (0-5) H 09/04/21 14:15 Urine Bacteria (Auto) Negative (Negative) 09/04/21 14:15 09/06/21 00:28 Aerobic Blood Culture - Final Blood No growth in Aerobic bottle after 5 days. Anaerobic Blood Culture - Final No growth in Anaerobic bottle after 5 days. 09/06/21 00:18 Aerobic Blood Culture - Final Blood No growth in Aerobic bottle after 5 days. Anaerobic Blood Culture - Final No growth in Anaerobic bottle after 5 days. 09/04/21 14:15 Urine Culture - Final Urine,Clean Catch More than three types of organisms present, all high counts mixed probable skin shelby - No further identifications or sensitivities to follow. Electrocardiogram Date: 09/08/21 Atrial fibrillation with rapid ventricular response, rate 127 bpm T wave abnormality, consider anterior ischemia Abnormal ECG When compared with ECG of 08-SEP-2021 08:11, (unconfirmed) No significant change was found Confirmed by Ruiz Nichols ([id number]) on 09/09/2021 6:56:19 AM Chest X-Ray Date: 09/04/21 FINDINGS: Single frontal view of the chest demonstrates the heart to be mildly enlarged. There is a decreased inspiratory effort with elevation of the hemidiaphragms and crowding of the bronchovascular markings at the lung bases and centrally. The lungs are clear of alveolar opacities. There is no evidence for pleural effusion. There is no evidence for vascular congestion. There is no acute osseo us pathology. IMPRESSION: 1. . There is a decreased inspiratory effort with otherwise no acute chest disease. Echocardiogram Date: 09/08/21 Normal LV size and systolic function. Estimated EF 55-60%. No regional wall motion abnormalities. Mild concentric LVH. No significant valvular abnormalities visualized Atrial fibrillation with RVR Compared to prior study on 03/26/14, afib with RVR has replaced sinus rhythm
[2021-09-12] MEDS ORDERED: MIDAZOLAM HCL 1 MG/ML 2ML VIAL ONE (16:08)
--- NOTE | 2021-09-12 16:28 | Cardioversion ---
Date of Service September 12, 2021 PG Electrical Cardioversion Rp Electrical Cardioversion Report The patient was brought to the laboratory being NPO after midnight and was identified in the laboratory, connected to the recording apparatus including electrocardiographic monitoring, noninvasive blood pressure monitoring and pulse oximetry. Anteroposterior patch electrodes were placed. The patient was anesthetized by the anesthesia department. Once adequate anesthesia was obtained a synchronized biphasic shock was delivered using 200 J with conversion to a sinus rhythm. The patient awoke from the anesthetic without sequela, will be observed briefly and then returned to telemetry. Coding Level of Care Code Cardioversion, elective Additional Codes Electrical Cardioversion Report ([id number])
--- NOTE | 2021-09-12 16:29 | Anesthesiology Progress Note ---
Date of Service September 12, 2021 Anesthesia Post Procedure Vital Signs Vital Signs: Temp Pulse Pulse Pulse Resp BP BP 09/12/21 16:09 151 H 17 113/93 09/12/21 14:02 122 H 105/75 09/12/21 11:02 36.4 C L 113 H 18 105/75 09/12/21 09:56 137 H 126/58 L 09/12/21 08:46 124 H 09/12/21 07:00 36.4 C L 131 H 18 126/58 L 09/12/21 05:30 127 H 127 H 104/72 104/72 09/12/21 03:39 37.0 C 130 H 16 96/66 L 09/12/21 01:39 135 H 109/71 09/12/21 01:38 135 H 109/71 09/11/21 23:28 36.4 C L 136 H 18 108/70 09/11/21 22:17 124 H 09/11/21 21:48 143 H 143 H 103/69 103/69 09/11/21 19:18 36.6 C 138 H 20 103/61 09/11/21 17:14 102 H 104/76 Pulse Ox 09/12/21 16:09 100 09/12/21 14:02 09/12/21 11:02 100 09/12/21 09:56 09/12/21 08:46 09/12/21 07:00 100 09/12/21 05:30 09/12/21 03:39 100 09/12/21 01:39 09/12/21 01:38 09/11/21 23:28 99 09/11/21 22:17 09/11/21 21:48 09/11/21 19:18 100 09/11/21 17:14 Pain Intensity Right Lower Abdomen: Pain Intensity: 7 Transfer of Care Handoff Completed per policy Notes Mental Status: alert / awake / arousable and participated in evaluation Patient Amnestic to Procedure: Yes Nausea / Vomiting: adequately controlled Pain: adequately controlled Airway Patency, RR, SpO2: stable & adequate BP & HR: stable & adequate Hydration State: stable & adequate Anesthetic Complications: no major complications apparent and Pt Satisfied with anesthetic care
--- NOTE | 2021-09-12 18:35 | Discharge Summary ---
Date of Service September 12, 2021 Admission HPI Per Admitting Provider Patient is an 81-year-old female the past medical history of A. fib on Eliquis, hypertension, hyperlipidemia, GERD, and schwannoma who presents today with abdominal pain. Over the past 4 days, she has developed dull left lower quadrant pain that is better with rest, worse and sharp in sensation with any movement. It is associated with nausea and decreased appetite however does not radiate anywhere else. She denies fever/chills, vomiting, diarrhea, constipation, hematochezia, melena, chest pain, palpitations, shortness of breath, cough, increased urinary frequency, urgency, dysuria. In ED, patient is on 2L NC with SPO2 100%, all other vital signs within normal limits and stable. Labs significant for WBC 11, K+ 5.4, BUN 42, creatinine 2.03, glucose 138, BNP 480. CT A/P showed acute diverticulitis without abscess or perforation, as well as a large mixed attenuating pelvic mass eroding the right sacrum and extending into the pelvic cavity, displacing bowel. Principal Diagnosis SBO Diverticulitis Afib with RVR Large (presumed) Schwannoma Discharge Exam Constitutional WD/WN, vitals as above Eyes EOM intact bilaterally; no conjunctival abnormality ENMT external ear and nose normal, oropharynx normal Nose: + foreign body in naris (NG tube) Neck trachea midline, no thyromegaly normal visual inspection Respiratory normal respiratory effort, lungs clear to auscultation no respiratory distress Cardiovascular Rate/Rhythm: regular rate and regular rhythm Extremities: + edema (In hands, none in legs) Gastrointestinal (Abdomen) Inspection/Auscultation: + abdomen distended and normal bowel sounds Percussion/Palpation: abdomen soft and + abdominal mass (RLQ); abdomen nontender, no guarding and abdomen not rigid Musculoskeletal no cyanosis or clubbing, extremities motor strength 5/5 Skin no rashes, warm and dry Neurologic moves all extremities and awake Psychiatric Orientation: alert, oriented to person and cooperative Discharge Data Allergies Allergy/AdvReac Type Severity Reaction Status Date / Time chocolate flavor AdvReac Verified 09/04/21 11:40 Consultations 09/04/21 15:07 ED Decision to Admit Stat 09/08/21 07:50 Consult Cardiology Routine 09/09/21 09:26 Consult Anesthesiology Routine 09/10/21 08:07 Consult General Surgery Routine 09/10/21 11:24 Consult Gastroenterology Routine Procedures Performed Operation Date: 09/09/21 12:30 Actual Procedures p Cardioversion - Ruiz Nichols MD Operation Date: 09/12/21 13:00 Actual Procedures p Cardioversion - Ruiz Nichols MD Ordered Studies 09/04/21 11:40 CT abd pelvis oral con only Stat 09/04/21 12:46 CT cervical spine wo con Stat CT head/brain wo con Stat 09/05/21 12:35 CT abd pelvis wo con Urgent 09/06/21 06:14 CT head/brain wo con Stat 09/06/21 11:12 US venous doppler LE RT Routine Hospital Course (1) Partial small bowel obstruction: Noted on repeat CT. KUB on 09/08-09/12 without improvement. Unclear whether her large abdominal tumor is causing or exacerbating this issue. - NPO - NG tube inserted on 09/09 for continued pain and SBO. Was clamped all night on 09/11-09/12 without increase in pain. Leaving it in for now for KCl repletion, but may remove later today after cardioversion. - Plan to transfer to [facility]. She will be seen by surgical oncology and neurosurgery there for her SBO, diverticulitis, and large tumor. (2) Diverticulitis: Serial CT a/p scan showed improvement in diverticulitis on 09/05. - Continue Zosyn q8h. - Pain control with Tylenol, morphine. - Monitor CBC, WBC stable. -> Improved slightly today at 11. (3) AF (paroxysmal atrial fibrillation): Paroxysmal. Complex history including rhythm agents and multiple ablations. Was in NSR on admission. Went into afib with RVR (rates as high as 170s) on 09/07 in the setting of holding her diltiazem and sotalol due to her diverticulitis and SBO. - Held Eliquis on 09/10 for upper GI bleed - Holding sotalol and oral diltiazem -> Cardiology following - Cardioversion on 09/09 with return to NSR. Continue amiodarone gtt and metoprolol IV scheduled pushes. -> Back into afib the morning of 09/11. HRs are a touch better at 120 - 130 range. BP is stable. - Started heparin gtt on 09/12 for anticoagulation given multiple runs of afib. - Repeat cardioversion on 09/12. As of 18:31, she is in normal sinus at 70 - 80 bpm. (4) RENE (acute kidney injury): Unclear baseline (Priors are ~1.2 from 2020). - Hold triamterene/HCTZ, enalapril - Repeat BMP in AM. -> Cr down to 1.3 on 09/09. Back up to 1.85 on 09/10 in setting of being NPO due to her SBO. Stable today at 1.4. (5) Upper GI bleed: On 09/10, had deep, red blood return from her NG tube. Very self-limited (only ~1 foot portion of NG tubing was bloody). Thought to be from trauma from NG tube insertion. - Stopped Eliquis; now on heparin gtt (no-bolus, low-dose) - Started PPI IV BID - GI consulted - Conservative measures. (6) CHF (congestive heart failure): With evidence of overload on exam on 09/08 which was not there prior. Likely from afib with RVR and IV fluids. Likely acute diastolic heart failure as last EF was 60-65% in 2013. - Fluids held - Lasix given by cardiology on 09/08 - Monitor volume status -> Seems euvolemic on 09/12. Hands/arms are puffy, but legs without edema. Will hold Lasix today. 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 Cool and Dr. Romero, surgery has been deferred - likely much enlarged from when previously imaged. In our system, she has no images since 2005 (when PACS was introduced). - Will need ortho oncology follow up - Causes her right leg pain, for which she takes gabapentin. We will continue this. - Also causing RLQ abdominal pain (and possibly some of her SBO?) -> Discussed with Dr. Romero. Will need surgical care at a tertiary care center. -> Transfer to [place]. Accepted by Dr. Castillo on the hospitalist service with plan to consult neurosurgery & surgical oncology. (8) Hypertension: BP on slightly soft end (100/70s) while in afib. - Medication as above. (9) Dyslipidemia: - Hold simvastatin in effort to reducing her oral medications. (10) GERD (gastroesophageal reflux disease): Takes Tums regularly at home. - Continue famotidine 20mg IV daily - Added PPI IV BID on 09/10 for slight upper GI bleed VTE Prophylaxis - Heparin gtt for cautious anticoagulation for afib Total Time Total Time Spent Total Time Spent (In Minutes): 65 Discharge Plan Discharge Items Patient Disposition: Transfer Acute Care Hospital Reason For Visit: DIVERTICULITIS WITH RENE Discharge Diagnosis: Small bowel obstruction Diverticulitis Large (presumed) schwannoma Paroxysmal atrial fibrillation with RVR Activity: Resume your previous activity Non-emergency contact: Primary Care Provider Call non-emergency contact if: your symptoms worsen Follow-up/Referrals: Justice Scott MD [Primary Care Provider] - Diet: Nothing by Mouth Addtl Attending Provider Instructions: Ms. Reid was admitted for diverticulitis. She worsened after one day and a repeat CT a/p on 09/05 showed a new partial SBO. Over 7 days, this did not resolve and plans were made to transfer to tertiary care center given the large (presumed) schwannoma in her pelvis. She was continued on Zosyn during admission for her diverticulitis. She had an NG tube placed on 09/09 which has remained in place. It was able to be clamped on 09/12, and she has not had any pain. She did have some improvement in GI function with one loose bowel movements. There was a brief concern for GI bleed. She had about 1' of NG tube of blood which then resolved. Her Eliquis was held, and she was started on a PPI IV BID. Her hgb stayed stable, and GI felt conservative care was warranted. On 09/12, no-bolus, low-dose heparin was started. She is normally in normal sinus rhythm. While in the hospital, she had episodes of afib with RVR which were hard to control. She was put on metoprolol IV and amiodarone gtt. She was cardioverted on 09/09 with her rhythm sticking in normal sinus for approx. 24 hours. She then went back into afib with RVR on the morning of 09/11. Cardioversion on 09/12 was successful, and as of 09/12 18:31, she remains in sinus rhythm at 70 - 80 bpm. She is still on an amiodarone drip and metoprolol 5 mg IV Q4h. Pending Studies at Discharge: No Stand-Alone Forms: My [facility] Skilled Items Patient informed of condition?: Yes DNR: Yes Discharge Level of Care: Other Communicable Disease: No Discharge Prognosis: Stable Lines: Peripheral IV Urinary Catheter: No Medications and DC Order Prescriptions: New Cepacol Sore Throat (sarah-men) 15-3.6 mg Lozenge 1 gregory buccal PRN PRNQty: 0 RF: 0 ondansetron HCl (PF) 4 mg/2 mL Solution 4 mg IV Q6H PRNQty: 0 RF: 0 Piperacill/Tazobac Consult [Consult] 1 dose Not Applicable UD PRNQty: 0 RF: 0 morphine 2 mg/mL Syringe 2 mg IV Q4H PRNQty: 0 RF: 0 Sore Throat (phenol) 1.4 % Aerosol,[place] 2 spray MT Q4H PRNQty: 0 RF: 0 metoprolol tartrate 5 mg/5 mL Solution 5 mg IV Q4H Qty: 0 RF: 0 Discontinued triamterene-hydrochlorothiazid 37.5-25 mg capsule 1 cap PO DAILY Qty: 90 RF: 3 simvastatin 40 mg tablet 40 mg PO DAILY Qty: 90 RF: 3 enalapril maleate 20 mg tablet 20 mg PO DAILY Qty: 90 RF: 3 diltiazem HCl [Cartia XT] 120 mg capsule,extended release 24hr 120 mg PO DAILY Qty: 90 RF: 3 sotalol 120 mg tablet 120 mg PO TID Qty: 270 RF: 3 potassium chloride 10 mEq tablet extended release 10 meq PO DAILY Qty: 90 RF: 3 apixaban 5 mg tablet 5 mg PO BID Qty: 180 RF: 3 Metamucil (sugar) powder 2 tsp PO DAILY RF: 0 gabapentin 300 mg capsule 300 mg PO BID Qty: 60 RF: 8 amoxicillin 500 mg capsule 2,000 mg PO .COMPLEX RF: 0 calcium carbonate 600 mg calcium (1,500 mg) tablet 600 mg PO DAILY RF: 0 magnesium oxide 400 mg (241.3 mg magnesium) tablet 400 mg PO BID RF: 0 omega-3 acid ethyl esters 1 gram capsule 2 cap PO DAILY RF: 0 Discharge Orders: Discharge Order (Routine); Ordered 09/12/21 Ordered By: Martin Vallejo Admission Data Admit Date/Time: 09/04/21 15:33 Attending Provider: Martin Vallejo Admit Provider: Jan Schaffer Primary Care Provider: Justice Scott Other Providers: Martin Vallejo ; Jan Schaffer ; Ruiz Nichols ; Aishwarya Thomas ; Lexi Blake ; Anushka Anton ; Penny Lackey ; Jamey Garcia ; Daniel Schneider ; Sathya Rai ; David Avila ; Tonya Avila ; Sumit Lorenzo ; Jennifer Neves ; Ulysses Villanueva ; Munir Candelario ; Reuben Torres ; Julien Leon ; Eleonora Peck ; Jordy Tobin ; Irina Santa ; Brenda Tobin ; Cirilo Abdi ; Karime Hodges ; Singh Tejada ; Laurie Dixon ; Leana Sena ; Karime Hopper ; Deana Brewster ; Erasmo Sr ; Skylar Harris ; Janay Salazar ; Negin Merrill ; Estee Munoz ; Aris Munoz V ; Patrick Vick ; Lexi Vaughn ; Ross Fuller ; Pat Vega ; Beatriz Contreras ; Aris Anne ; Ramez Peck ; Emeterio Hernandez ; Dina Velez ; Cha Baker ; Aris Vann ; Negin Mcgraw ; Juan Alberto Mcdermott ; Jonathan Leon ; Dorina Kwon ; Carlos Plaza ; Jason Hodge ; Walter Garcia ; Juliocesar Soto ; Carlos Fregoso ; Jamey Kinsey Jr ; Nicole Kwan ; Kandice Cruz ; Leola Butler ; Ron Vallejo ; Tramaine Marie Coding Level of Care Code D/C DAY MANAGEMENT >30 MINS Diagnoses Partial small bowel obstruction K56.600 Diverticulitis K57.92 AF (paroxysmal atrial fibrillation) I48.0 RENE (acute kidney injury) N17.9 Upper GI bleed K92.2 CHF (congestive heart failure) I50.21 Heart failure type: systolic Heart failure chronicity: acute Schwannoma of spinal cord D33.4 Hypertension I10 Dyslipidemia E78.5 GERD (gastroesophageal reflux disease) K21.9
[2021-09-12 20:44] LABS: Partial Thromboplastin Ratio 1.9
[2021-09-12 21:15] LABS: Partial Thromboplastin Time 52.3 Seconds (21.0-31.0)
[2021-09-13] MEDS: PIPERACILLIN/TAZOBACTAM 4.5 GM in DEXTROSE 5% 100 ML IV SCH (04:10)
[2021-09-13] MEDS: METOPROLOL TARTRATE 1 MG/ML VIAL IV SCH (04:15)
--- NOTE | 2021-09-16 05:40 | Electrocardiogram Report ---
Test Reason : Blood Pressure : / mmHG Vent. Rate : 078 BPM Atrial Rate : 078 BPM P-R Int : 158 ms QRS Dur : 074 ms QT Int : 394 ms P-R-T Axes : 085 040 226 degrees QTc Int : 449 ms Sinus rhythm with Premature atrial complexes with Aberrant conduction T wave abnormality, consider anterolateral ischemia Nonspecific T wave abnormality Abnormal ECG When compared with ECG of 09-SEP-2021 13:08, Aberrant conduction is now Present Confirmed by Maxime Blake ([id number]) on 09/16/2021 5:40:32 AM Referred By: REFERRED SELF Confirmed By:Maxime Blake
== END 2021-09-13 04:37 | disposition short-term general hospital (02) | DRG 391 ==
LOC: ED 10:22 → SUATTDRO 15:33 → 3N 15:33 → 2N 09-06 00:55 → 1E 09-07 17:59 → 2S 09-09 18:12

== ENCOUNTER 2024-10-21 16:44 | Inpatient (IN) ==
[2024-10-21] MEDS: dilTIAZem HCl 5 MG/ML 5 ML VIAL IV STA (17:06)
[2024-10-21] MEDS: dilTIAZem HCl 5 MG/ML 5 ML VIAL IV ONE (17:07)
[2024-10-21] MEDS: ASPIRIN 81 MG CHEW PO STA (17:11)
[2024-10-21 17:21] LABS: Hematocrit (blood only) 45.4 % (37.0-47.0); Hemoglobin 14.7 g/dl (12.0-16.0); Mean Corpuscular Hemoglobin 26.5 pg (25.0-34.0); Mean Corpuscular Hgb Conc 32.4 g/dL (32.0-36.0); Mean Corpuscular Volume 81.9 fL (80.0-100.0); Platelet Count 363 K/uL (130-400); RDW Coefficient of Variation 14.8 % (11.5-14.5); RDW Standard Deviation 44.2 fL (36.4-46.3); Red Blood Count 5.54 M/uL (4.20-5.40); White Blood Count 22.96 K/ul (4.8-10.8)
[2024-10-21 17:38] LABS: Albumin Level 4.2 gm/dl (3.4-5.0); BUN Creatinine Ratio 22.2 (10-20); Basophils # (auto) 0.04 K/uL (0.00-0.20); Basophils % (auto) 0.2 %; Bilirubin Direct 0.3 mg/dl (0-0.2); Bilirubin,Total 1.1 mg/dl (0.2-1.0); Calcium 10.3 mg/dl (8.6-10.3); Immature Granulocytes # (auto) 0.17 K/uL (0.01-0.20); Immature Granulocytes % (auto) 0.7 %; Lymphocytes # (auto) 1.17 K/uL (1.20-3.40); Lymphocytes % (auto) 5.1 %; Magnesium 1.8 mg/dl (1.7-2.4); Monocytes # (auto) 1.32 K/uL (0.11-0.59); Monocytes % (auto) 5.7 %; Neutrophils # (auto) 20.26 K/uL (1.40-6.50); Neutrophils % (auto) 88.3 %; Potassium 3.3 mmol/L (3.5-5.1); Total Protein 7.6 gm/dl (6.0-8.3)
[2024-10-21 17:44] LABS: Troponin I High Sensitivity 14.5 pg/ml (0-14)
[2024-10-21] MEDS: OPTIRAY 320 100ml IV ONE (18:03)
[2024-10-21] MEDS: SODIUM CHLORIDE 0.9% 500 ML IV SCH (18:16)
[2024-10-21 18:18] LABS: Adenovirus PCR Not Detected (NotDetected); Bordetella parapertussis PCR Not Detected (NotDetected); Bordetella pertussis PCR Not Detected (NotDetected); Chlamydia pneumoniae PCR Not Detected (NotDetected); Coronavirus 229E PCR Not Detected (NotDetected); Coronavirus CoV-2 (COVID19)PCR Not Detected (NotDetected); Coronavirus HKU1 PCR Not Detected (NotDetected); Coronavirus NL63 PCR Not Detected (NotDetected); Coronavirus OC43PCR Not Detected (NotDetected); Human Metapneumovirus PCR Not Detected (NotDetected); Influenza A PCR Not Detected (NotDetected); Influenza B PCR Not Detected (NotDetected); Mycoplasma pneumoniae PCR Not Detected (NotDetected); Parainfluenza Virus 1 PCR Not Detected (NotDetected); Parainfluenza Virus 2 PCR Not Detected (NotDetected); Parainfluenza Virus 3 PCR Not Detected (NotDetected); Parainfluenza Virus 4 PCR Not Detected (NotDetected); Respiratory Syncytial VirusPCR Not Detected (NotDetected); Rhinovirus/Enterovirus PCR Not Detected (NotDetected)
--- NOTE | 2024-10-21 18:18 | XRay Report ---
EXAM: XR chest 1V portable CLINICAL HISTORY: Chest pain, nonspecific TECHNIQUE: An X-ray image of the chest is obtained in AP projection. COMPARISON: No prior studies are available for comparison. FINDINGS: Pulmonary Parenchyma: Prominent bronchovascular markings noted mostly due to congestion. Patchy opacification in the left lower lung zone noted could be due inflammatory cause or compression collapse lung segment. please correlate clinically. Left costophrenic angle is blunted signifying mild pleural effusions. Right costophrenic angle is clear. Heart and Mediastinum: Cardiomegaly noted with congestion in both walter. No mediastinal widening or masses. No hilar or mediastinal lymphadenopathy. Bony Thorax: Bony thorax appears intact without fractures or deformities. Soft Tissues: Soft tissues overlying the chest wall are unremarkable. IMPRESSION: 1. Prominent bronchovascular markings noted mostly due to congestion. 2. Cardiomegaly noted with congestion in both walter. 3. Left mild pleural effusions with underlying compression collapse/mild infiltrates. 4. Clinical correlation and follow-up as clinically inidcated. Electronically signed by Kirby Del Valle 10-21-2024 6:18 PM
[2024-10-21 18:54] LABS: Appearance Urine Clear (Clear); Bacteria Urine Automated None Seen (None Seen); Bilirubin Urine Negative (Negative); Blood Urine Trace (Negative); Color Urine Dark Yellow; Glucose Urine UA Negative (Negative); Ketones Urine Trace (Negative); Leukocyte Esterase Urine Negative (Negative); Nitrite Urine Negative (Negative); Protein Urine 2+ (Negative); Specific Gravity Urine 1.038 (1.000-1.030); Urobilinogen Urine Negative (Negative); WBC Urine Automated 0-5 /hpf (0-5); pH Urine 5.5 (4.5-7.5)
--- NOTE | 2024-10-21 19:44 | Emergency Department Note ---
History of Present Illness General Chief complaint: Cardiac Assessment Stated complaint: COUGH,NAUSEA,VOMITING Time Seen by Provider: 10/21/24 16:54 History of Present Illness Provider complaint: Cough nausea vomiting 84-year-old female presents emergency department for cough nausea and vomiting. Patient reports her symptoms been present for last 2 weeks. She denies any fever. Denies any abdominal pain. She denies any chest pain. Denies any falls or traumas. She reports feeling weak. Patient has a history of atrial fibrillation and is on Eliquis. Home Medications Medication Instructions Recorded Confirmed Type acetaminophen 325 mg capsule 650 mg (2 x 325 mg) PO QID PRN 11/11/21 10/21/24 Rx pain #360 caps multivitamin 1 tab PO DAILY #30 tabs 11/11/21 10/21/24 Rx omega3 300 mg-dha,epa 250 mg-other 1 cap PO DAILY #90 caps 11/11/21 10/21/24 Rx omega 3s-fish oil 1,000 mg capsule apixaban 5 mg tablet (Eliquis) 5 mg PO BID #180 tabs 12/13/23 10/21/24 Rx calcium acetate 667 mg tablet 1,334 mg (2 x 667 mg) PO DAILY 12/13/23 10/21/24 Rx #180 tabs diltiazem HCl 240 mg capsule,24 240 mg PO DAILY #90 caps 12/13/23 10/21/24 Rx hr,extended release furosemide 40 mg tablet 40 mg PO DAILY #90 tabs 12/13/23 10/21/24 Rx gabapentin 300 mg capsule 300 mg PO TID #270 caps 12/13/23 10/21/24 Rx potassium chloride 10 mEq 10 meq PO BID #180 tabs 12/13/23 10/21/24 Rx tablet,extended release simvastatin 40 mg tablet 40 mg PO DAILY #90 tabs 12/13/23 10/21/24 Rx buspirone 7.5 mg tablet 7.5 mg PO TID #270 tabs 05/30/24 10/21/24 Rx omeprazole 20 mg tablet,delayed 20 mg PO DAILY #90 tabs 08/28/24 10/21/24 Rx release Allergies Allergy/AdvReac Type Severity Reaction Status Date / Time caffeine Allergy Mild Palpitation Verified 10/21/24 16:02 s chocolate flavor AdvReac Severe Anaphylaxis Verified 10/21/24 16:02 Past Med/Surg History Problem List (Updated 10/21/24 @ 20:50 by Seun Perez MD) Pneumonia (Acute) Diverticulitis (Acute) Atrial fibrillation with RVR (Acute) Hypoxia (Acute) UTI (urinary tract infection) Burning with urination Urgency of urination Frequency of urination Current use of proton pump inhibitor Hypothyroidism Hyperglycemia Atrial fibrillation, chronic Current use of proton pump inhibitor Encounter for pre-operative examination Schwannoma of spinal cord (Acute) Elevated vitamin B12 level Dyslipidemia (Acute) Osteopenia (Acute) Vitamin D deficiency (Acute) Hypertension (Chronic) Medical History Upper GI bleed CHF (congestive heart failure) Partial small bowel obstruction Hypoxia RENE (acute kidney injury) Pelvic mass Diverticulitis Diverticulosis AF (paroxysmal atrial fibrillation) Anticoagulant long-term use GERD (gastroesophageal reflux disease) Hypertension History of actinic keratoses History of cyst of breast Surgical History H/O oral surgery S/P knee surgery S/P hysterectomy S/P ablation of atrial fibrillation S/P cataract surgery Family History Father Myocardial infarction Daughter Breast cancer Mother Stroke Denies family history of Ovarian cancer Prostate cancer Colorectal cancer Social History Smoking Status: Never smoker Second Hand Exposure: No; Do You Dip or Chew Tobacco: No; Hx Alcohol Use: Yes Alcohol type: wine Hx Substance Use: No Preferred Language: Azerbaijani Communication Ability: Effective Visual Impairment: No Limitations Hearing Ability: Normal Count Team Member Required: No Beliefs That Will Affect Care: None marital status: Current Living Situation: Spouse current occupational status: retired Feels Safe at Home: Yes Childhood Exposure to Second-Hand Smoke: Yes Dental Care, Regularly: Yes Physical Activity Frequency: Daily Seatbelt Use: always Sunscreen Use: Yes Assistive Devices: Glasses and Walker Physical Exam Vital Signs Vital Signs - 24 hr 10/21/24 16:50 10/21/24 17:02 10/21/24 17:02 Temperature 36.9 C Temperature Source Temporal Artery Scan Pulse Rate 152 H Pulse Rate [Apical] Pulse Rate from SpO2 Sensor Pulse Rhythm Pulse Rhythm [Apical] Regular Pulse Strength [Apical] Normal Respiratory Rate 16 17 Respiratory Effort / Characteristics Non-Labored Spontaneous Non-Labored Spontaneous Non-Labored Spontaneous Respiratory Depth Normal Normal Normal Respiratory Pattern Regular Blood Pressure 143/90 H Blood Pressure [Right Arm] 131/112 H Blood Pressure Mean 107 Blood Pressure Mean [Right Arm] 118 Blood Pressure Position Sitting Blood Pressure Position [Right Arm] Lying Pulse Oximetry 96 96 Oxygen Delivery Method Room Air Room Air Oxygen Flow Rate Fraction of Inspired Oxygen SaO2/FiO2 Ratio Sepsis Recent Fever Within 48 Hours No Sepsis New/Unexplained Change in Mental Status N/A Sepsis Action Taken by Nursing No Action Required Oxygen Flow Rate - Titration Pulse Oximetry Post Tiitration 10/21/24 17:02 10/21/24 17:02 10/21/24 17:03 Temperature Temperature Source Pulse Rate 105 H 112 H Pulse Rate [Apical] Pulse Rate from SpO2 Sensor Pulse Rhythm Regular Pulse Rhythm [Apical] Pulse Strength [Apical] Respiratory Rate 17 17 Respiratory Effort / Characteristics Respiratory Depth Respiratory Pattern Blood Pressure 146/74 H Blood Pressure [Right Arm] Blood Pressure Mean 98 Blood Pressure Mean [Right Arm] Blood Pressure Position Blood Pressure Position [Right Arm] Pulse Oximetry 96 96 Oxygen Delivery Method Room Air Room Air Oxygen Flow Rate Fraction of Inspired Oxygen SaO2/FiO2 Ratio Sepsis Recent Fever Within 48 Hours Sepsis New/Unexplained Change in Mental Status Sepsis Action Taken by Nursing Oxygen Flow Rate - Titration Pulse Oximetry Post Tiitration 10/21/24 17:18 10/21/24 17:21 10/21/24 18:18 Temperature Temperature Source Pulse Rate 104 H 101 H Pulse Rate [Apical] 98 H Pulse Rate from SpO2 Sensor 137 H 122 H Pulse Rhythm Pulse Rhythm [Apical] Regular Pulse Strength [Apical] Normal Respiratory Rate 17 19 16 Respiratory Effort / Characteristics Non-Labored Spontaneous Respiratory Depth Normal Respiratory Pattern Regular Blood Pressure 131/112 H Blood Pressure [Right Arm] 121/74 Blood Pressure Mean 118 Blood Pressure Mean [Right Arm] 89 Blood Pressure Position Blood Pressure Position [Right Arm] Lying Pulse Oximetry 93 91 94 Oxygen Delivery Method Room Air Oxygen Flow Rate Fraction of Inspired Oxygen SaO2/FiO2 Ratio Sepsis Recent Fever Within 48 Hours Sepsis New/Unexplained Change in Mental Status Sepsis Action Taken by Nursing Oxygen Flow Rate - Titration Pulse Oximetry Post Tiitration 10/21/24 18:48 10/21/24 19:00 10/21/24 19:11 Temperature Temperature Source Pulse Rate 127 H Pulse Rate [Apical] 98 H Pulse Rate from SpO2 Sensor Pulse Rhythm Pulse Rhythm [Apical] Irregular Pulse Strength [Apical] Respiratory Rate 22 Respiratory Effort / Characteristics Non-Labored Spontaneous Respiratory Depth Respiratory Pattern Regular Blood Pressure Blood Pressure [Right Arm] 133/74 Blood Pressure Mean Blood Pressure Mean [Right Arm] 93 Blood Pressure Position Blood Pressure Position [Right Arm] Lying Pulse Oximetry 97 88 L Oxygen Delivery Method Room Air Nasal Cannula Oxygen Flow Rate 0 Fraction of Inspired Oxygen SaO2/FiO2 Ratio Sepsis Recent Fever Within 48 Hours Sepsis New/Unexplained Change in Mental Status Sepsis Action Taken by Nursing Oxygen Flow Rate - Titration 2 Pulse Oximetry Post Tiitration 98 10/21/24 20:00 Temperature 37.0 C Temperature Source Oral Pulse Rate Pulse Rate [Apical] 98 H Pulse Rate from SpO2 Sensor Pulse Rhythm Pulse Rhythm [Apical] Irregular Pulse Strength [Apical] Respiratory Rate 20 Respiratory Effort / Characteristics Non-Labored Spontaneous Respiratory Depth Respiratory Pattern Regular Blood Pressure Blood Pressure [Right Arm] 132/84 Blood Pressure Mean Blood Pressure Mean [Right Arm] 100 Blood Pressure Position Blood Pressure Position [Right Arm] Lying Pulse Oximetry 98 Oxygen Delivery Method Nasal Cannula Oxygen Flow Rate 2 Fraction of Inspired Oxygen 3 SaO2/FiO2 Ratio 3266 Sepsis Recent Fever Within 48 Hours Sepsis New/Unexplained Change in Mental Status Sepsis Action Taken by Nursing Oxygen Flow Rate - Titration Pulse Oximetry Post Tiitration Physical Exam HENT: Exam performed. -Head: Normocephalic and atraumatic. -Right Ear: External ear normal. No mastoid erythema -Left Ear: External ear normal. No mastoid erythema -Mouth/Throat: The oropharynx is clear and moist. No trismus in the jaw. No dental abscesses or uvula swelling. No oropharyngeal exudate or tonsillar abscesses. EYES: Conjunctivae and EOM are normal. Pupils are equal, round, and reactive to light. Right eye exhibits no discharge. Left eye exhibits no discharge. No scleral icterus. NECK: Normal range of motion. Neck supple. No JVD present. No rigidity. No tracheal deviation and normal range of motion present. CV: Tachycardic rate, irregular rhythm, normal heart sounds and intact distal pulses. There is no peripheral edema. Palpable radial pulses bue. PULM/CHEST: Rhonchi bilaterally. ABD: The abdomen has distension. mass is present. Patient states this is a schwannoma that she has had since she was a teenager. There is no tenderness. There is no rebound, no guarding. MUSC/SKEL: Normal range of motion. There is no peripheral edema, tenderness or deformity. NEURO: She is alert and oriented to person, place, and time. She has normal strength. No cranial nerve deficit or sensory deficit. Coordination and gait normal. GCS eye subscore is 4. GCS verbal subscore is 5. GCS motor subscore is 6. Cerebellar tests wnl. Course Course 1653: The patient was evaluated in room A12. A complete history and physical exam was performed Cardiac monitoring: An order was placed for continuous cardiac monitoring. The monitor shows a rate of 140-170 with atrial fibrillation rhythm interpreted by me Patient found to be in A-fib RVR with a rate of 100 4170. Large-bore IV access was obtained and the patient was given 15 mg of Cardizem. This improved ventricular rate. Cardizem drip ordered in case the patient's ventricular rate goes back up. 1709: External medical records reviewed. Patient has a history of a schwannoma of the spinal cord and has had multiple CT scans done which shows that it measures approximately [address] in September 2021 was concerning for partial small bowel obstruction. Patient also has a history of diverticulitis. 1913: Patient became hypoxic on room air. Heart rate is still normal without Cardizem drip. Supplemental oxygen was applied which improved the patient's oxygen saturation. Labs show leukocytosis of 22. Lactic acid within normal limits. Procalcitonin is elevated. Chest x-ray is concerning for pneumonia. Patient be treated with IV antibiotics. Awaiting CT scan results. 2045: Vital signs stable. Imaging shows an increased size of the schwannoma, no obstruction. Patient also has diverticulitis. Patient treated with Zosyn. Patient will be admitted to the [facility] hospitalist team. Administered Medications Sodium Chloride (Nss) 500 mls @ 80 mls/hr IV .[id number] DAVID Stop: 10/22/24 00:29 Last Admin: 10/21/24 18:16 Dose: 80 mls/hr Documented By: TERESA Discontinued Medications Aspirin (Aspirin 81 Mg Chew) 324 mg PO NOW STA Stop: 10/21/24 16:55 Last Admin: 10/21/24 17:11 Dose: 324 mg Documented By: TERESA Diltiazem HCl (Diltiazem Hcl 5 Mg/Ml 5 Ml Vial) Confirm Administered Dose 25 mg IV .STK-MED ONE Stop: 10/21/24 16:57 Last Admin: 10/21/24 17:07 Dose: Not Given Documented By: TERESA Diltiazem HCl (Diltiazem Hcl 5 Mg/Ml 5 Ml Vial) 15 mg IV NOW STA Stop: 10/21/24 17:01 Last Admin: 10/21/24 17:06 Dose: 15 mg Documented By: TERESA Co-signed By: PAPO Piperacillin Sod/Tazobactam Sod (Zosyn) 4.5 gm in 120 mls @ 240 mls/hr IV NOW ONE Stop: 10/21/24 20:13 Last Admin: 10/21/24 20:09 Dose: 240 mls/hr Documented By: MENA Ioversol (Optiray 320 100ml) 93 ml IV ONCE ONE Stop: 10/21/24 18:03 Last Admin: 10/21/24 18:03 Dose: 93 ml Documented By: ZORAN Critical Care Time Critical Care Time: Yes Total Critical Care Time: 68 I have personally spent greater than 68 minutes of critical care time in the direct management of this patient. This includes bedside care, interpretation of diagnostic studies, and testing, discussion with consultants, patient, and family members, and other required patient management activities. This 68 minutes is in excess of all separately billable procedures. Medical Decision Making Medical Records Attestation: I reviewed the patient's medical records. External medical records reviewed. Patient has a history of a schwannoma of the spinal cord and has had multiple CT scans done which shows that it measures approximately [address] in September 2021 was concerning for partial small bowel obstruction. Patient also has a history of diverticulitis. Laboratory Data Attestation: I reviewed the patient's lab results. 10/21/24 17:05 10/21/24 17:05 Lab Results 10/21/24 10/21/24 10/21/24 Range/Units 17:05 17:14 17:37 WBC 22.96 H (4.8-10.8) K/ul RBC 5.54 H (4.20-5.40) M/uL Hgb 14.7 (12.0-16.0) g/dl Hct 45.4 (37.0-47.0) % MCV 81.9 (80.0-100.0) fL MCH 26.5 (25.0-34.0) pg MCHC 32.4 (32.0-36.0) g/dL RDW Std Deviation 44.2 (36.4-46.3) fL RDW Coeff of Lucas 14.8 H (11.5-14.5) % Plt Count 363 (130-400) K/uL MPV 9.0 L (9.4-12.4) fL Immature Gran % (Auto) 0.7 % Neut % (Auto) 88.3 % Lymph % (Auto) 5.1 % [place] % (Auto) 5.7 % Eos % (Auto) 0.0 % Baso % (Auto) 0.2 % Neut # (Auto) 20.26 H (1.40-6.50) K/uL Lymph # (Auto) 1.17 L (1.20-3.40) K/uL [place] # (Auto) 1.32 H (0.11-0.59) K/uL Eos # (Auto) 0.00 (0.00-0.50) K/uL Baso # (Auto) 0.04 (0.00-0.20) K/uL Immature Gran # (Auto) 0.17 (0.01-0.20) K/uL Sodium 137 (136-145) mmol/L Potassium 3.3 L (3.5-5.1) mmol/L Chloride 94 L (98-107) mmol/L Carbon Dioxide 30 (21-32) mmol/L Anion Gap 13 H (3-11) BUN 24 H (6-23) mg/dl Creatinine 1.08 (0.6-1.2) mg/dl Est Cr Clr Drug Dosing 37.0 ml/min eGFR 50.02 BUN/Creatinine Ratio 22.2 H (10-20) Glucose 191 H (70-99(Fasting)) mg/dl Lactate 1.8 (0.4-2.0) mmol/L Calcium 10.3 (8.6-10.3) mg/dl Magnesium 1.8 (1.7-2.4) mg/dl Total Bilirubin 1.1 H (0.2-1.0) mg/dl Direct Bilirubin 0.3 H (0-0.2) mg/dl AST 22 (13-39) U/L ALT 16 (7-52) U/L Alkaline Phosphatase 111 H (34-104) U/L Troponin I High Sens 14.5 H (0-14) pg/ml Total Protein 7.6 (6.0-8.3) gm/dl Albumin 4.2 (3.4-5.0) gm/dl Lipase 5 L (11-82) U/L Procalcitonin 0.80 H (0-0.5) ng/ml Urine Color Urine Appearance (Clear) Urine pH (4.5-7.5) Ur Specific [place] (1.000-1.030) Urine Protein (Negative) Urine Glucose (UA) (Negative) Urine Ketones (Negative) Urine Blood (Negative) Urine Nitrite (Negative) Urine Bilirubin (Negative) Urine Urobilinogen (Negative) Ur Leukocyte Esterase (Negative) Urine WBC (Auto) (0-5) /hpf Urine RBC (Auto) (0-2) /hpf U Hyaline Cast (Auto) (0-2) /lpf U Epithel Cells (Auto) (0-2) /hpf Urine Bacteria (Auto) (None Seen) Urine Comment Adenovirus (PCR) Not Detected (NotDetected) B. pertussis DNA (PCR) Not Detected (NotDetected) B.parapertussis DNA PCR Not Detected (NotDetected) C. pneumoniae DNA (PCR) Not Detected (NotDetected) Coronavirus OC43 (PCR) Not Detected (NotDetected) Coronavirus HKU1 (PCR) Not Detected (NotDetected) Coronavirus 229E (PCR) Not Detected (NotDetected) SARS-CoV-2 (PCR) Not Detected (NotDetected) Coronavirus NL63 (PCR) Not Detected (NotDetected) Human Metapneumovir PCR Not Detected (NotDetected) Influenza Type A (PCR) Not Detected (NotDetected) Influenza Type B (PCR) Not Detected (NotDetected) M. pneumoniae (PCR) Not Detected (NotDetected) Parainfluenza 1 (PCR) Not Detected (NotDetected) Parainfluenza 2 (PCR) Not Detected (NotDetected) Parainfluenza 3 (PCR) Not Detected (NotDetected) Parainfluenza 4 (PCR) Not Detected (NotDetected) RSV (PCR) Not Detected (NotDetected) Entero/Rhino (PCR) Not Detected (NotDetected) 10/21/24 Range/Units 18:30 WBC (4.8-10.8) K/ul RBC (4.20-5.40) M/uL Hgb (12.0-16.0) g/dl Hct (37.0-47.0) % MCV (80.0-100.0) fL MCH (25.0-34.0) pg MCHC (32.0-36.0) g/dL RDW Std Deviation (36.4-46.3) fL RDW Coeff of Lucas (11.5-14.5) % Plt Count (130-400) K/uL MPV (9.4-12.4) fL Immature Gran % (Auto) % Neut % (Auto) % Lymph % (Auto) % [place] % (Auto) % Eos % (Auto) % Baso % (Auto) % Neut # (Auto) (1.40-6.50) K/uL Lymph # (Auto) (1.20-3.40) K/uL [place] # (Auto) (0.11-0.59) K/uL Eos # (Auto) (0.00-0.50) K/uL Baso # (Auto) (0.00-0.20) K/uL Immature Gran # (Auto) (0.01-0.20) K/uL Sodium (136-145) mmol/L Potassium (3.5-5.1) mmol/L Chloride (98-107) mmol/L Carbon Dioxide (21-32) mmol/L Anion Gap (3-11) BUN (6-23) mg/dl Creatinine (0.6-1.2) mg/dl Est Cr Clr Drug Dosing ml/min eGFR BUN/Creatinine Ratio (10-20) Glucose (70-99(Fasting)) mg/dl Lactate (0.4-2.0) mmol/L Calcium (8.6-10.3) mg/dl Magnesium (1.7-2.4) mg/dl Total Bilirubin (0.2-1.0) mg/dl Direct Bilirubin (0-0.2) mg/dl AST (13-39) U/L ALT (7-52) U/L Alkaline Phosphatase (34-104) U/L Troponin I High Sens (0-14) pg/ml Total Protein (6.0-8.3) gm/dl Albumin (3.4-5.0) gm/dl Lipase (11-82) U/L Procalcitonin (0-0.5) ng/ml Urine Color Dark Yellow Urine Appearance Clear (Clear) Urine pH 5.5 (4.5-7.5) Ur Specific [place] 1.038 H (1.000-1.030) Urine Protein 2+ H (Negative) Urine Glucose (UA) Negative (Negative) Urine Ketones Trace H (Negative) Urine Blood Trace H (Negative) Urine Nitrite Negative (Negative) Urine Bilirubin Negative (Negative) Urine Urobilinogen Negative (Negative) Ur Leukocyte Esterase Negative (Negative) Urine WBC (Auto) 0-5 (0-5) /hpf Urine RBC (Auto) 3-5 H (0-2) /hpf U Hyaline Cast (Auto) 3-5 H (0-2) /lpf U Epithel Cells (Auto) 3-5 H (0-2) /hpf Urine Bacteria (Auto) None Seen (None Seen) Urine Comment Adenovirus (PCR) (NotDetected) B. pertussis DNA (PCR) (NotDetected) B.parapertussis DNA PCR (NotDetected) C. pneumoniae DNA (PCR) (NotDetected) Coronavirus OC43 (PCR) (NotDetected) Coronavirus HKU1 (PCR) (NotDetected) Coronavirus 229E (PCR) (NotDetected) SARS-CoV-2 (PCR) (NotDetected) Coronavirus NL63 (PCR) (NotDetected) Human Metapneumovir PCR (NotDetected) Influenza Type A (PCR) (NotDetected) Influenza Type B (PCR) (NotDetected) M. pneumoniae (PCR) (NotDetected) Parainfluenza 1 (PCR) (NotDetected) Parainfluenza 2 (PCR) (NotDetected) Parainfluenza 3 (PCR) (NotDetected) Parainfluenza 4 (PCR) (NotDetected) RSV (PCR) (NotDetected) Entero/Rhino (PCR) (NotDetected) Imaging Data Radiologist's Impression: Chest X-Ray 10/21/24 16:54 EXAM: XR chest 1V portable CLINICAL HISTORY: Chest pain, nonspecific TECHNIQUE: An X-ray image of the chest is obtained in AP projection. COMPARISON: No prior studies are available for comparison. FINDINGS: Pulmonary Parenchyma: Prominent bronchovascular markings noted mostly due to congestion. Patchy opacification in the left lower lung zone noted could be due inflammatory cause or compression collapse lung segment. please correlate clinically. Left costophrenic angle is blunted signifying mild pleural effusions. Right costophrenic angle is clear. Heart and Mediastinum: Cardiomegaly noted with congestion in both walter. No mediastinal widening or masses. No hilar or mediastinal lymphadenopathy. Bony Thorax: Bony thorax appears intact without fractures or deformities. Soft Tissues: Soft tissues overlying the chest wall are unremarkable. IMPRESSION: 1. Prominent bronchovascular markings noted mostly due to congestion. 2. Cardiomegaly noted with congestion in both walter. 3. Left mild pleural effusions with underlying compression collapse/mild infiltrates. 4. Clinical correlation and follow-up as clinically inidcated. Electronically signed by Kirby Del Valle 10-21-2024 6:18 PM Abdomen/Pelvis CT 10/21/24 16:58 EXAM: CT abd pelvis IV con only CLINICAL HISTORY: abd pain nv TECHNIQUE: CT of the abdomen and pelvis was performed with contrast, with the following protocol: axial images with, and reconstructed coronal and sagittal images. One of the following dose reduction techniques was utilized for this exam: Automated exposure control, adjustment of the mA and/or kV according to patient size, and use of iterative reconstruction. DLP: 1084.78 mGy-cm, CTDI: 23.16 mGy. COMPARISON: CT dated 09/05/2021. FINDINGS: Abdomen: Liver: Normal in size, shape, and density. No focal lesions or masses were identified. 1.2 cm left lobe cyst. Stable finding. Few other smaller right lobe hypodensities, likely cysts. Hepatic vasculature and biliary ducts are unremarkable. Gallbladder and Biliary System: The gallbladder is normal in size and shape. Newly developed few dense gallbladder stones up to 4 mm. . No wall thickening or pericholecystic fluid were identified. The common bile duct is normal in caliber without dilation. Pancreas: Pancreatic head, body, and tail are visualized and appear normal in size and density. Few small pancreatic hypodensities in the head, likely cyst measuring up to 6mm. No pancreatic masses or calcifications were noted. The pancreatic duct is not dilated. Spleen: Normal in size, shape, and density. No splenic lesions or masses were identified. Appendix: Not clearly delineated. Kidneys and Adrenal Glands: Both kidneys are normal in size, shape, and position. Cortical thickness is within normal limits. Few variable sized bilateral renal cortical cysts are seen, the largest on the right side measures 5.5 cm compared to 4 cm previously. The largest on the left side measures 3.2 cm compared to 2.6 cm previously, probably a hemorrhagic cyst. No renal calculi or hydronephrosis. Adrenal glands are unremarkable with no evidence of masses or hyperplasia. Pelvis: Urinary Bladder: Compressed. No intraluminal lesions identified. Uterus, cervix and ovaries: Not visualized likely excised. Stable finding. Vagina: Normal in contour and wall thickness. Peritoneal and Retroperitoneal Structures: No free fluid or abnormal fluid collections were identified within the abdomen or pelvis. No lymphadenopathy was noted. Bowel: A significant mucosal wall thickening at the distal descending colon, with diverticula and pericolonic fat-stranding. Prior study showed similar mucosal wall thickening. Scattered colonic diverticulosis. Again noted mildly dilatation of the small bowel loops with air-fluid levels. The rest of the visualized bowel loops are normal in caliber and appearance. Bones and Soft Tissues: Decreased bone density. Degenerative changes of the spine, sacroiliac and hip joints as well as at the symphysis pubis. Large heterogenous partially cystic partially solid mass is seen arising from the right side of the sacrum with a large intrapelvic extraosseous soft tissue component. It measures 21.7 x 23.9 x 22.8 cm, showing cystic components with septation and calcification. The lesion has scalloped sclerotic osseous margins. The lesion previously measured 18 x 15 cm in axial dimensions. The lesion displaces the bowel loops and indents the urinary bladder. IMPRESSION: 1. A larged abdominoplevic, heterogeneous mixed solid and cystic mass, arising/extending from the right side of the sacrum measuring 21.7 x 23. 9 x 22. 8 cm (previously 16.8 x 15.4 cm). Tissue sampling and histopathological examination is recommended. 2. A significant mucosal wall thickening at the distal descending colon, with diverticula and pericolonic fat-stranding. Prior study showed similar mucosal wall thickening. These may represent new onset acute diverticulitis/colitis. Follow-up is advised. 3. Again noted mild small intestinal dilatation with air-fluid levels. Correlate with clinical findings. 4. Few small pancreatic hypodensities in the head, likely cyst measuring up to 6mm. (limited comparison with prior non-enhanced study). 5. Bilateral renal cortical cysts. Mildly increased in size. 6. Rest of the findings as above. Electronically signed by Kirby Del Valle 10-21-2024 8:24 PM ECG Data Attestation: I personally reviewed and interpreted this ECG as follows: Additional Comments: EKG 1 at 1659: Atrial fibrillation with rate of 153. QRS and QTc intervals within normal limits. No ST elevation or ST depression. EKG #2 at 1701 status post Cardizem 15 mg IV bolus: Atrial fibrillation with rate of 101. QRS and QTc intervals within normal limits. No ST elevation or ST depression. [facility] Narrative 1654: The patient was evaluated in room A12. A complete history and physical exam was performed Cardiac monitoring: An order was placed for continuous cardiac monitoring. The monitor shows a rate of 140-170 with atrial fibrillation rhythm interpreted by me Patient found to be in A-fib RVR with a rate of 100 4170. Large-bore IV access was obtained and the patient was given 15 mg of Cardizem. This improved ventricular rate. Cardizem drip ordered in case the patient's ventricular rate goes back up. 1710: External medical records reviewed. Patient has a history of a schwannoma of the spinal cord and has had multiple CT scans done which shows that it measures approximately [address] in September 2021 was concerning for partial small bowel obstruction. Patient also has a history of diverticulitis. 1914: Patient became hypoxic on room air. Heart rate is still normal without Cardizem drip. Supplemental oxygen was applied which improved the patient's oxygen saturation. Labs show leukocytosis of 22. Lactic acid within normal limits. Procalcitonin is elevated. Chest x-ray is concerning for pneumonia. Patient be treated with IV antibiotics. Awaiting CT scan results. 2045: Vital signs stable. Imaging shows an increased size of the schwannoma, no obstruction. Patient also has diverticulitis. Patient treated with Zosyn. Patient will be admitted to the [facility] hospitalist team. Impression & Plan Hypoxia, Schwannoma of spinal cord, Atrial fibrillation with RVR, Diverticulitis, Pneumonia Discharge Plan Visit Data Chief Complaint: Cardiac Assessment Stated Complaint: COUGH,NAUSEA,VOMITING ED Provider: Seun Perez Discharge Problem: Hypoxia, Schwannoma of spinal cord, Atrial fibrillation with RVR, Diverticulitis, Pneumonia Patient Disposition: Admitted As Inpatient Condition: Serious Forms Stand Alone Forms: My [facility] Prescriptions Prescriptions: No Action multivitamin Tablet 1 tab PO DAILY Qty: 30 0RF acetaminophen 325 mg capsule 650 mg PO QID PRN (Reason: pain) Qty: 360 0RF [id number] oil 300-250-1,000 mg capsule 1 cap PO DAILY Qty: 90 0RF Eliquis 5 mg tablet 5 mg PO BID Qty: 180 3RF calcium acetate 667 mg tablet 1,334 mg PO DAILY Qty: 180 0RF diltiazem HCl 240 mg capsule,extended release 24 hr 240 mg PO DAILY Qty: 90 3RF furosemide 40 mg tablet 40 mg PO DAILY Qty: 90 3RF gabapentin 300 mg capsule 300 mg PO TID Qty: 270 3RF potassium chloride 10 mEq tablet extended release 10 meq PO BID Qty: 180 3RF simvastatin 40 mg tablet 40 mg PO DAILY Qty: 90 3RF buspirone 7.5 mg tablet 7.5 mg PO TID Qty: 270 3RF omeprazole 20 mg tablet,delayed release (DR/EC) 20 mg PO DAILY Qty: 90 3RF Referrals Referrals: Justice Scott MD [Primary Care Provider] - Discharge Problem: Pneumonia Qualifiers: Pneumonia type: due to unspecified organism Laterality: unspecified laterality Lung location: unspecified part of lung Qualified Code(s): J18.9 - Pneumonia, unspecified organism
[2024-10-21] MEDS: PIPERACILLIN/TAZOBACTAM 4.5 GM/120 ML BAG IV ONE (20:09)
--- NOTE | 2024-10-21 20:24 | CT Scan Report ---
EXAM: CT abd pelvis IV con only CLINICAL HISTORY: abd pain nv TECHNIQUE: CT of the abdomen and pelvis was performed with contrast, with the following protocol: axial images with, and reconstructed coronal and sagittal images. One of the following dose reduction techniques was utilized for this exam: Automated exposure control, adjustment of the mA and/or kV according to patient size, and use of iterative reconstruction. DLP: 1084.78 mGy-cm, CTDI: 23.16 mGy. COMPARISON: CT dated 09/05/2021. FINDINGS: Abdomen: Liver: Normal in size, shape, and density. No focal lesions or masses were identified. 1.2 cm left lobe cyst. Stable finding. Few other smaller right lobe hypodensities, likely cysts. Hepatic vasculature and biliary ducts are unremarkable. Gallbladder and Biliary System: The gallbladder is normal in size and shape. Newly developed few dense gallbladder stones up to 4 mm. . No wall thickening or pericholecystic fluid were identified. The common bile duct is normal in caliber without dilation. Pancreas: Pancreatic head, body, and tail are visualized and appear normal in size and density. Few small pancreatic hypodensities in the head, likely cyst measuring up to 6mm. No pancreatic masses or calcifications were noted. The pancreatic duct is not dilated. Spleen: Normal in size, shape, and density. No splenic lesions or masses were identified. Appendix: Not clearly delineated. Kidneys and Adrenal Glands: Both kidneys are normal in size, shape, and position. Cortical thickness is within normal limits. Few variable sized bilateral renal cortical cysts are seen, the largest on the right side measures 5.5 cm compared to 4 cm previously. The largest on the left side measures 3.2 cm compared to 2.6 cm previously, probably a hemorrhagic cyst. No renal calculi or hydronephrosis. Adrenal glands are unremarkable with no evidence of masses or hyperplasia. Pelvis: Urinary Bladder: Compressed. No intraluminal lesions identified. Uterus, cervix and ovaries: Not visualized likely excised. Stable finding. Vagina: Normal in contour and wall thickness. Peritoneal and Retroperitoneal Structures: No free fluid or abnormal fluid collections were identified within the abdomen or pelvis. No lymphadenopathy was noted. Bowel: A significant mucosal wall thickening at the distal descending colon, with diverticula and pericolonic fat-stranding. Prior study showed similar mucosal wall thickening. Scattered colonic diverticulosis. Again noted mildly dilatation of the small bowel loops with air-fluid levels. The rest of the visualized bowel loops are normal in caliber and appearance. Bones and Soft Tissues: Decreased bone density. Degenerative changes of the spine, sacroiliac and hip joints as well as at the symphysis pubis. Large heterogenous partially cystic partially solid mass is seen arising from the right side of the sacrum with a large intrapelvic extraosseous soft tissue component. It measures 21.7 x 23.9 x 22.8 cm, showing cystic components with septation and calcification. The lesion has scalloped sclerotic osseous margins. The lesion previously measured 18 x 15 cm in axial dimensions. The lesion displaces the bowel loops and indents the urinary bladder. IMPRESSION: 1. A larged abdominoplevic, heterogeneous mixed solid and cystic mass, arising/extending from the right side of the sacrum measuring 21.7 x 23. 9 x 22. 8 cm (previously 16.8 x 15.4 cm). Tissue sampling and histopathological examination is recommended. 2. A significant mucosal wall thickening at the distal descending colon, with diverticula and pericolonic fat-stranding. Prior study showed similar mucosal wall thickening. These may represent new onset acute diverticulitis/colitis. Follow-up is advised. 3. Again noted mild small intestinal dilatation with air-fluid levels. Correlate with clinical findings. 4. Few small pancreatic hypodensities in the head, likely cyst measuring up to 6mm. (limited comparison with prior non-enhanced study). 5. Bilateral renal cortical cysts. Mildly increased in size. 6. Rest of the findings as above. Electronically signed by Kirby Del Valle 10-21-2024 8:24 PM
[2024-10-21] MEDS: STAT IV Infusion **Titration per Protocol STA (21:24)
[2024-10-21] MEDS: dilTIAZem HCL 125 MG in DEXTROSE 5% 100 ML IV SCH (21:24)
[2024-10-21] MEDS: POTASSIUM CHLORIDE 10 MEQ TABCR PO STA (21:30)
--- NOTE | 2024-10-21 21:30 | History & Physical Report ---
Date of Service October 21, 2024 Assessment & Plan (1) Pneumonia: (2) Diverticulitis: (3) Atrial fibrillation with RVR: (4) Hypertension: (5) Schwannoma of spinal cord: (6) Dyslipidemia: (7) GERD (gastroesophageal reflux disease): Plan 84-year-old female with history of hypertension, GERD, schwannoma and atrial fibrillation presenting with generalized weakness, fatigue, productive cough nausea/vomiting/diarrhea. Patient noted to have left mild pleural effusions with underlying compression collapse and mild infiltrates. CT of the abdomen suggestive of diverticulitis. Also comments on her known abdominal tumor. #pneumoniapatient tachycardic, episode of hypoxia to 88% on room air. Patient with leukocytosis WBC = 22.96, elevated procalcitonin = 0.8. Admit to PCU follow culture sent by the ER Continue Zosyn Supplemental oxygen as needed #diverticulitispatient denies abdominal pain. CT as above with evidence of acute diverticulitis. She has been having diarrhea. Continue Zosyn #Atrial fibrillation with RVRpatient with chronic atrial fibrillation. She is anticoagulated with apixaban 5 mg p.o. twice daily. Rate has improved. Now 108 bpm Continue LR at 80 mm/h x 2 L Potassium repletion with 60 mEq p.o. Magnesium x 1 g ordered Continue telemetry monitoring Continue apixaban Continue diltiazem #Hypertensionblood pressure adequately controlled Continue diltiazem Continue to monitor #Hyperlipidemia Continue simvastatin #Schwannomainitially diagnosed in 2010. Patient has been seen by neurosurgery at [facility] last 4 years ago. They told her at that time that no intervention was necessary unless the tumor started giving her problems. She is followed by her primary care physician. History of Present Illness Chief Complaint: productive cough, shortness of breath Primary Care Provider: Justice Scott MD Randa Reid is an 84-year-old female with history of hypertension, GERD, abdominal schwannoma presenting with 2 weeks of productive cough with creamy sputum, shortness of breath and dyspnea on exertion. Also with vomiting nonbloody/nonbilious for the last 2 days as well as loose stools. Patient has had decreased appetite and poor oral intake due to nausea as well. No additional complaints at this time. Patient denies fever, chills, chest pain, abdominal pain, urinary complaints ER course: Zosyn Normal saline Allergies Allergy/AdvReac Type Severity Reaction Status Date / Time caffeine Allergy Mild Palpitation Verified 10/21/24 16:02 s chocolate flavor AdvReac Severe Anaphylaxis Verified 10/21/24 16:02 Home Medications Medication Instructions Recorded Confirmed Type acetaminophen 325 mg capsule 650 mg (2 x 325 mg) PO QID PRN 11/11/21 10/21/24 Rx pain #360 caps multivitamin 1 tab PO DAILY #30 tabs 11/11/21 10/21/24 Rx omega3 300 mg-dha,epa 250 mg-other 1 cap PO DAILY #90 caps 11/11/21 10/21/24 Rx omega 3s-fish oil 1,000 mg capsule apixaban 5 mg tablet (Eliquis) 5 mg PO BID #180 tabs 12/13/23 10/21/24 Rx calcium acetate 667 mg tablet 1,334 mg (2 x 667 mg) PO DAILY 12/13/23 10/21/24 Rx #180 tabs diltiazem HCl 240 mg capsule,24 240 mg PO DAILY #90 caps 12/13/23 10/21/24 Rx hr,extended release furosemide 40 mg tablet 40 mg PO DAILY #90 tabs 12/13/23 10/21/24 Rx gabapentin 300 mg capsule 300 mg PO TID #270 caps 12/13/23 10/21/24 Rx potassium chloride 10 mEq 10 meq PO BID #180 tabs 12/13/23 10/21/24 Rx tablet,extended release simvastatin 40 mg tablet 40 mg PO DAILY #90 tabs 12/13/23 10/21/24 Rx buspirone 7.5 mg tablet 7.5 mg PO TID #270 tabs 05/30/24 10/21/24 Rx omeprazole 20 mg tablet,delayed 20 mg PO DAILY #90 tabs 08/28/24 10/21/24 Rx release Past Med/Surg History Problem List Pneumonia (Acute) Diverticulitis (Acute) Atrial fibrillation with RVR (Acute) Hypoxia (Acute) UTI (urinary tract infection) Burning with urination Urgency of urination Frequency of urination Current use of proton pump inhibitor Hypothyroidism Hyperglycemia Atrial fibrillation, chronic Current use of proton pump inhibitor Encounter for pre-operative examination Schwannoma of spinal cord (Acute) Elevated vitamin B12 level Dyslipidemia (Acute) Osteopenia (Acute) Vitamin D deficiency (Acute) Hypertension (Chronic) Medical History Upper GI bleed CHF (congestive heart failure) Partial small bowel obstruction Hypoxia RENE (acute kidney injury) Pelvic mass Diverticulitis Diverticulosis AF (paroxysmal atrial fibrillation) Anticoagulant long-term use GERD (gastroesophageal reflux disease) Hypertension History of actinic keratoses History of cyst of breast Surgical History H/O oral surgery S/P knee surgery S/P hysterectomy S/P ablation of atrial fibrillation S/P cataract surgery Family History Father Myocardial infarction Daughter Breast cancer Mother Stroke Denies family history of Ovarian cancer Prostate cancer Colorectal cancer Social History Smoking Status: Never smoker Second Hand Exposure: No; Do You Dip or Chew Tobacco: No; Hx Alcohol Use: Yes Alcohol type: wine Hx Substance Use: No Preferred Language: Malaysian Communication Ability: Effective Visual Impairment: No Limitations Hearing Ability: Normal [employer]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 Beliefs That Will Affect Care: None marital status: Current Living Situation: Spouse current occupational status: retired Other Information That Helps Us Care for You: No Feels Safe at Home: Yes Safety Concerns: Feels Safe At This Time Childhood Exposure to Second-Hand Smoke: Yes Dental Care, Regularly: Yes Physical Activity Frequency: Daily Seatbelt Use: always Sunscreen Use: Yes Assistive Devices: Cane, Glasses and Walker Review of Systems Review of Systems: All systems reviewed & are unremarkable except as noted in HPI & below Physical Exam Physical Exam: General: patient resting comfortably, NAD, non-toxic in appearance, AA&O x 4 Skin: warm, dry, intact, no rashes or lesions HEENT: NC/AT, PERRL, EOMI, anicteric sclera, conjunctiva without injection, external ear normal to inspection and nontender, nares patent, moist mucus membranes, dentition intact, no oropharyngeal lesions, neck supple, trachea midline, no LAD, no thyromegaly, no JVD Heart: +S1/S2, regular, no m/r/g Lungs: equal air entry bilaterally, no rales/rhonchi/wheezes Abd: +BS, soft, Firm and distended, nontender to palpation, no ascites Ext: + edema bilateral lower extremities right greater than left Neuro: nonfocal, patient AA&O x 4, speech intact, no facial droop, moving all extremities on command with equal strength 5/5 Results & Data Results & Data Vital Signs (Past 12 Hours) Vital Signs Temp Pulse Pulse Resp BP BP Pulse Ox 10/21/24 20:30 92 H 18 113/79 98 10/21/24 20:00 37.0 C 98 H 20 132/84 98 10/21/24 19:11 88 L 10/21/24 19:00 98 H 22 133/74 97 10/21/24 18:48 127 H 10/21/24 18:18 98 H 16 121/74 94 10/21/24 17:21 101 H 19 91 10/21/24 17:18 104 H 17 131/112 H 93 10/21/24 17:03 112 H 17 146/74 H 10/21/24 17:02 105 H 17 96 10/21/24 17:02 96 10/21/24 17:02 17 131/112 H 96 10/21/24 16:50 36.9 C 152 H 16 143/90 H 96 O2 Del Method O2 Flow Rate FiO2 10/21/24 20:30 10/21/24 20:00 Nasal Cannula 2 3 10/21/24 19:11 Nasal Cannula 0 10/21/24 19:00 Room Air 10/21/24 18:48 10/21/24 18:18 Room Air 10/21/24 17:21 10/21/24 17:18 10/21/24 17:03 10/21/24 17:02 Room Air 10/21/24 17:02 Room Air 10/21/24 17:02 Room Air 10/21/24 16:50 Room Air Laboratory Results Laboratory Results WBC 22.96 K/ul (4.8-10.8) H 10/21/24 17:05 RBC 5.54 M/uL (4.20-5.40) H 10/21/24 17:05 Hgb 14.7 g/dl (12.0-16.0) 10/21/24 17:05 Hct 45.4 % (37.0-47.0) 10/21/24 17:05 MCV 81.9 fL (80.0-100.0) 10/21/24 17:05 MCH 26.5 pg (25.0-34.0) 10/21/24 17:05 MCHC 32.4 g/dL (32.0-36.0) 10/21/24 17:05 RDW Std Deviation 44.2 fL (36.4-46.3) 10/21/24 17:05 RDW Coeff of Lucas 14.8 % (11.5-14.5) H 10/21/24 17:05 Plt Count 363 K/uL (130-400) 10/21/24 17:05 MPV 9.0 fL (9.4-12.4) L 10/21/24 17:05 Immature Gran % (Auto) 0.7 % 10/21/24 17:05 Neut % (Auto) 88.3 % 10/21/24 17:05 Lymph % (Auto) 5.1 % 10/21/24 17:05 Maverick % (Auto) 5.7 % 10/21/24 17:05 Eos % (Auto) 0.0 % 10/21/24 17:05 Baso % (Auto) 0.2 % 10/21/24 17:05 Neut # (Auto) 20.26 K/uL (1.40-6.50) H 10/21/24 17:05 Lymph # (Auto) 1.17 K/uL (1.20-3.40) L 10/21/24 17:05 Maverick # (Auto) 1.32 K/uL (0.11-0.59) H 10/21/24 17:05 Eos # (Auto) 0.00 K/uL (0.00-0.50) 10/21/24 17:05 Baso # (Auto) 0.04 K/uL (0.00-0.20) 10/21/24 17:05 Immature Gran # (Auto) 0.17 K/uL (0.01-0.20) 10/21/24 17:05 Sodium 137 mmol/L (136-145) 10/21/24 17:05 Potassium 3.3 mmol/L (3.5-5.1) L 10/21/24 17:05 Chloride 94 mmol/L (98-107) L 10/21/24 17:05 Carbon Dioxide 30 mmol/L (21-32) 10/21/24 17:05 Anion Gap 13 (3-11) H 10/21/24 17:05 BUN 24 mg/dl (6-23) H 10/21/24 17:05 Creatinine 1.08 mg/dl (0.6-1.2) 10/21/24 17:05 Est Cr Clr Drug Dosing 37.0 ml/min 10/21/24 17:05 eGFR 50.02 10/21/24 17:05 BUN/Creatinine Ratio 22.2 (10-20) H 10/21/24 17:05 Glucose 191 mg/dl (70-99(Fasting)) H 10/21/24 17:05 Lactate 1.8 mmol/L (0.4-2.0) 10/21/24 17:37 Calcium 10.3 mg/dl (8.6-10.3) 10/21/24 17:05 Magnesium 1.8 mg/dl (1.7-2.4) 10/21/24 17:05 Total Bilirubin 1.1 mg/dl (0.2-1.0) H 10/21/24 17:05 Direct Bilirubin 0.3 mg/dl (0-0.2) H 10/21/24 17:05 AST 22 U/L (13-39) 10/21/24 17:05 ALT 16 U/L (7-52) 10/21/24 17:05 Alkaline Phosphatase 111 U/L (34-104) H 10/21/24 17:05 Troponin I High Sens 14.5 pg/ml (0-14) H 10/21/24 17:05 Total Protein 7.6 gm/dl (6.0-8.3) 10/21/24 17:05 Albumin 4.2 gm/dl (3.4-5.0) 10/21/24 17:05 Lipase 5 U/L (11-82) L 10/21/24 17:05 Procalcitonin 0.80 ng/ml (0-0.5) H 10/21/24 17:05 Urine Color Dark Yellow 10/21/24 18:30 Urine Appearance Clear (Clear) 10/21/24 18:30 Urine pH 5.5 (4.5-7.5) 10/21/24 18:30 Ur Specific [place] 1.038 (1.000-1.030) H 10/21/24 18:30 Urine Protein 2+ (Negative) H 10/21/24 18:30 Urine Glucose (UA) Negative (Negative) 10/21/24 18:30 Urine Ketones Trace (Negative) H 10/21/24 18:30 Urine Blood Trace (Negative) H 10/21/24 18:30 Urine Nitrite Negative (Negative) 10/21/24 18:30 Urine Bilirubin Negative (Negative) 10/21/24 18:30 Urine Urobilinogen Negative (Negative) 10/21/24 18:30 Ur Leukocyte Esterase Negative (Negative) 10/21/24 18:30 Urine WBC (Auto) 0-5 /hpf (0-5) 10/21/24 18:30 Urine RBC (Auto) 3-5 /hpf (0-2) H 10/21/24 18:30 U Hyaline Cast (Auto) 3-5 /lpf (0-2) H 10/21/24 18:30 U Epithel Cells (Auto) 3-5 /hpf (0-2) H 10/21/24 18:30 Urine Bacteria (Auto) None Seen (None Seen) 10/21/24 18:30 Urine Comment 10/21/24 18:30 Adenovirus (PCR) Not Detected (NotDetected) 10/21/24 17:14 B. pertussis DNA (PCR) Not Detected (NotDetected) 10/21/24 17:14 B.parapertussis DNA PCR Not Detected (NotDetected) 10/21/24 17:14 C. pneumoniae DNA (PCR) Not Detected (NotDetected) 10/21/24 17:14 Coronavirus OC43 (PCR) Not Detected (NotDetected) 10/21/24 17:14 Coronavirus HKU1 (PCR) Not Detected (NotDetected) 10/21/24 17:14 Coronavirus 229E (PCR) Not Detected (NotDetected) 10/21/24 17:14 SARS-CoV-2 (PCR) Not Detected (NotDetected) 10/21/24 17:14 Coronavirus NL63 (PCR) Not Detected (NotDetected) 10/21/24 17:14 Human Metapneumovir PCR Not Detected (NotDetected) 10/21/24 17:14 Influenza Type A (PCR) Not Detected (NotDetected) 10/21/24 17:14 Influenza Type B (PCR) Not Detected (NotDetected) 10/21/24 17:14 M. pneumoniae (PCR) Not Detected (NotDetected) 10/21/24 17:14 Parainfluenza 1 (PCR) Not Detected (NotDetected) 10/21/24 17:14 Parainfluenza 2 (PCR) Not Detected (NotDetected) 10/21/24 17:14 Parainfluenza 3 (PCR) Not Detected (NotDetected) 10/21/24 17:14 Parainfluenza 4 (PCR) Not Detected (NotDetected) 10/21/24 17:14 RSV (PCR) Not Detected (NotDetected) 10/21/24 17:14 Entero/Rhino (PCR) Not Detected (NotDetected) 10/21/24 17:14 Impressions Chest X-Ray 10/21/24 16:54 EXAM: XR chest 1V portable CLINICAL HISTORY: Chest pain, nonspecific TECHNIQUE: An X-ray image of the chest is obtained in AP projection. COMPARISON: No prior studies are available for comparison. FINDINGS: Pulmonary Parenchyma: Prominent bronchovascular markings noted mostly due to congestion. Patchy opacification in the left lower lung zone noted could be due inflammatory cause or compression collapse lung segment. please correlate clinically. Left costophrenic angle is blunted signifying mild pleural effusions. Right costophrenic angle is clear. Heart and Mediastinum: Cardiomegaly noted with congestion in both walter. No mediastinal widening or masses. No hilar or mediastinal lymphadenopathy. Bony Thorax: Bony thorax appears intact without fractures or deformities. Soft Tissues: Soft tissues overlying the chest wall are unremarkable. IMPRESSION: 1. Prominent bronchovascular markings noted mostly due to congestion. 2. Cardiomegaly noted with congestion in both walter. 3. Left mild pleural effusions with underlying compression collapse/mild infiltrates. 4. Clinical correlation and follow-up as clinically inidcated. Electronically signed by Kirby Del Valle 10-21-2024 6:18 PM Abdomen/Pelvis CT 10/21/24 16:58 EXAM: CT abd pelvis IV con only CLINICAL HISTORY: abd pain nv TECHNIQUE: CT of the abdomen and pelvis was performed with contrast, with the following protocol: axial images with, and reconstructed coronal and sagittal images. One of the following dose reduction techniques was utilized for this exam: Automated exposure control, adjustment of the mA and/or kV according to patient size, and use of iterative reconstruction. DLP: 1084.78 mGy-cm, CTDI: 23.16 mGy. COMPARISON: CT dated 09/05/2021. FINDINGS: Abdomen: Liver: Normal in size, shape, and density. No focal lesions or masses were identified. 1.2 cm left lobe cyst. Stable finding. Few other smaller right lobe hypodensities, likely cysts. Hepatic vasculature and biliary ducts are unremarkable. Gallbladder and Biliary System: The gallbladder is normal in size and shape. Newly developed few dense gallbladder stones up to 4 mm. . No wall thickening or pericholecystic fluid were identified. The common bile duct is normal in caliber without dilation. Pancreas: Pancreatic head, body, and tail are visualized and appear normal in size and density. Few small pancreatic hypodensities in the head, likely cyst measuring up to 6mm. No pancreatic masses or calcifications were noted. The pancreatic duct is not dilated. Spleen: Normal in size, shape, and density. No splenic lesions or masses were identified. Appendix: Not clearly delineated. Kidneys and Adrenal Glands: Both kidneys are normal in size, shape, and position. Cortical thickness is within normal limits. Few variable sized bilateral renal cortical cysts are seen, the largest on the right side measures 5.5 cm compared to 4 cm previously. The largest on the left side measures 3.2 cm compared to 2.6 cm previously, probably a hemorrhagic cyst. No renal calculi or hydronephrosis. Adrenal glands are unremarkable with no evidence of masses or hyperplasia. Pelvis: Urinary Bladder: Compressed. No intraluminal lesions identified. Uterus, cervix and ovaries: Not visualized likely excised. Stable finding. Vagina: Normal in contour and wall thickness. Peritoneal and Retroperitoneal Structures: No free fluid or abnormal fluid collections were identified within the abdomen or pelvis. No lymphadenopathy was noted. Bowel: A significant mucosal wall thickening at the distal descending colon, with diverticula and pericolonic fat-stranding. Prior study showed similar mucosal wall thickening. Scattered colonic diverticulosis. Again noted mildly dilatation of the small bowel loops with air-fluid levels. The rest of the visualized bowel loops are normal in caliber and appearance. Bones and Soft Tissues: Decreased bone density. Degenerative changes of the spine, sacroiliac and hip joints as well as at the symphysis pubis. Large heterogenous partially cystic partially solid mass is seen arising from the right side of the sacrum with a large intrapelvic extraosseous soft tissue component. It measures 21.7 x 23.9 x 22.8 cm, showing cystic components with septation and calcification. The lesion has scalloped sclerotic osseous margins. The lesion previously measured 18 x 15 cm in axial dimensions. The lesion displaces the bowel loops and indents the urinary bladder. IMPRESSION: 1. A larged abdominoplevic, heterogeneous mixed solid and cystic mass, arising/extending from the right side of the sacrum measuring 21.7 x 23. 9 x 22. 8 cm (previously 16.8 x 15.4 cm). Tissue sampling and histopathological examination is recommended. 2. A significant mucosal wall thickening at the distal descending colon, with diverticula and pericolonic fat-stranding. Prior study showed similar mucosal wall thickening. These may represent new onset acute diverticulitis/colitis. Follow-up is advised. 3. Again noted mild small intestinal dilatation with air-fluid levels. Correlate with clinical findings. 4. Few small pancreatic hypodensities in the head, likely cyst measuring up to 6mm. (limited comparison with prior non-enhanced study). 5. Bilateral renal cortical cysts. Mildly increased in size. 6. Rest of the findings as above. Electronically signed by Kirby Del Valle 10-21-2024 8:24 PM ECG Additional Comments: EKG reveals atrial fibrillation with rapid ventricular response at 153 bpm, PVCs present, left axis deviation, QRS = 80, QTc = 472, no acute ischemic changes Code Status & VTE Plan VTE Prophylaxis Plan VTE Prophylaxis will be ordered: Yes PG Care Time/CCT Total # of Minutes Spent Total Time Spent with Patient: Total time spent is greater than 50% in coordination of care (as documented) at patient's floor/unit and/or counseling patient: Coding Level of Care Code 61411 INT INP/OBS CARE 3/75MIN Diagnoses Pneumonia J18.9 Laterality: unspecified laterality Lung location: unspecified part of lung Pneumonia type: due to unspecified organism Diverticulitis K57.92 Atrial fibrillation with RVR I48.91 Hypertension I10 Schwannoma of spinal cord D33.4 Dyslipidemia E78.5 GERD (gastroesophageal reflux disease) K21.9 (1) Pneumonia Laterality: unspecified laterality Lung location: unspecified part of lung Pneumonia type: due to unspecified organism Qualified Code(s): J18.9 - Pneumonia, unspecified organism
[2024-10-21] MEDS: MAGNESIUM SULFATE / D5W 1 GM/100 ML BAG IV STA (21:32)
[2024-10-21] MEDS: LACTATED RINGER'S 1,000 ML IV SCH (22:46)
[2024-10-22] MEDS: ONDANSETRON INJ 2 MG/ML 2 ML VIAL IV PRN (00:06)
[2024-10-22] MEDS: METOCLOPRAMIDE HCL INJ 5 MG/ML 2 ML VIAL IV STA (01:45)
[2024-10-22] MEDS: PIPERACILLIN/TAZOBACTAM 4.5 GM/100 ML BAG IV SCH (01:45)
[2024-10-22 06:38] LABS: Hematocrit (blood only) 36.5 % (37.0-47.0); Hemoglobin 11.9 g/dl (12.0-16.0); Mean Corpuscular Hemoglobin 26.6 pg (25.0-34.0); Mean Corpuscular Hgb Conc 32.6 g/dL (32.0-36.0); Mean Corpuscular Volume 81.5 fL (80.0-100.0); Mean Platelet Volume 9.3 fL (9.4-12.4); Platelet Count 282 K/uL (130-400); RDW Coefficient of Variation 14.8 % (11.5-14.5); Red Blood Count 4.48 M/uL (4.20-5.40); White Blood Count 21.01 K/ul (4.8-10.8)
[2024-10-22 08:12] LABS: Albumin Level 3.6 gm/dl (3.4-5.0); BUN Creatinine Ratio 28.4 (10-20); Bilirubin Direct 0.3 mg/dl (0-0.2); Bilirubin,Total 1.1 mg/dl (0.2-1.0); Calcium 9.3 mg/dl (8.6-10.3); Creatinine Clr Calc Pharmacy 41.8 ml/min; Potassium 3.7 mmol/L (3.5-5.1); Total Protein 5.9 gm/dl (6.0-8.3)
[2024-10-22] MEDS: CALCIUM ACETATE 667 MG CAP/TAB PO SCH (08:33)
[2024-10-22] MEDS: GABAPENTIN 300 MG CAP PO SCH (08:33)
[2024-10-22] MEDS: busPIRone 7.5 MG TAB PO SCH (08:33)
[2024-10-22] MEDS: APIXABAN 5 MG TABLET PO SCH (08:33)
[2024-10-22] MEDS: SIMVASTATIN 40 MG TAB PO SCH (08:34)
[2024-10-22] MEDS: dilTIAZem HCL 240 MG CAPCR PO SCH (08:34)
[2024-10-22] MEDS: PROCHLORPERAZINE 10 MG in SYRINGE 8 ML IV PRN (08:41)
--- NOTE | 2024-10-22 10:42 | Hospitalist Progress Note ---
Date of Service October 22, 2024 Assessment & Plan (1) Pneumonia: Plan: Continue Zosyn Supplemental oxygen as needed (2) Diverticulitis: Plan: Continue Zosyn - NPO - IVF (3) Atrial fibrillation with RVR: Plan: Continue apixaban Continue diltiazem - lopressor IV PRN HR >140 (4) Hypertension: Plan: Continue diltiazem (5) Schwannoma of spinal cord: Plan: initially diagnosed in 2010. Patient has been seen by neurosurgery at [facility] last 4 years ago. They told her at that time that no intervention was necessary (6) Dyslipidemia: Plan: Continue simvastatin (7) GERD (gastroesophageal reflux disease): Plan 84-year-old female with history of hypertension, GERD, schwannoma and atrial fibrillation presenting with generalized weakness, fatigue, productive cough nausea/vomiting/diarrhea. Patient noted to have left mild pleural effusions with underlying compression collapse and mild infiltrates. CT of the abdomen suggestive of diverticulitis. Also comments on her known abdominal tumor. Admission and Anticipated Discharge Date Admission Date: October 21, 2024 Subjective No events overnight. Pt feeling nausea this am. Review of Systems Review of Systems: CONST: Negative for fever, body aches and chills. HENT: Negative for neck pain/stiffness, headache, congestion, sore throat, swelling. EYES: Negative for discharge/pain or vision changes. RESP: Negative for cough/hemoptysis and shortness of breath. CV: Negative chest pain, difficulty breathing, palpitations. ABD: Negative pain, nausea, vomiting. : Negative increase frequency, dysuria, blood in urine or stool. MUSC: Negative for muscle aches, edema. SKIN: Negative rash, lesions/sores. NEURO: Negative headache, dizziness, weakness. Physical Exam Physical Exam: GENERAL APPEARANCE NAD, activity normal for age, well developed/ well nourished, no cyanosis, pallor, or diaphoresis. EYES lids/conjunctiva normal. EARS/NOSE/THROAT Mucous membranes moist, nares normal, lips/teeth normal uvula midline without oral pharyngeal erythema, exudate or swelling TMs normal bilaterally. No lymphangitis/lymphedema. HEAD/NECK normocephalic atraumatic, no facial trauma, neck is supple. RESPIRATORY respiratory effort normal, speaks in full sentences, no tripod position, no accessory muscle use. Lungs clear to auscultation without rhonchi, wheezes, rales CARDIAC Regular rate and rhythm, no edema. ABDOMINAL Soft, ND/NT. No evidence of fluid wave. No pulsatile masses on exam, rebound tenderness, Justin sign or pain over Mcburney's point. MUSCLES/EXTREMITIES No abnormal range of motion, no swelling. SKIN Warm, pink and dry. No rashes, dermatoses, petechiae or lesions. NEUROLOGICAL Speech is clear and appropriate. Normal level of consciousness. Gait and coordination are normal. 5/5 strength in all extremities. PSYCH Normal mood and affect. Judgement/competence is appropriate Results & Data Results & Data Vital Signs (Past 12 Hours) Vital Signs Temp Pulse Pulse Resp BP Pulse Ox O2 Del Method 10/22/24 07:38 37.6 C H 118 H 19 124/85 95 Nasal Cannula 10/22/24 05:59 152 H 10/22/24 04:15 37.0 C 122 H 20 116/74 97 Nasal Cannula 10/21/24 23:43 36.7 C 93 H 22 125/72 91 Room Air O2 Flow Rate 10/22/24 07:38 4 10/22/24 05:59 10/22/24 04:15 2 10/21/24 23:43 PG Care Time/CCT Total # of Minutes Spent Total Time Spent with Patient: Total time spent is greater than 50% in coordination of care (as documented) at patient's floor/unit and/or counseling patient: Coding Level of Care Code 64257 SUB INP/OBS CARE 2/35MIN Diagnoses Pneumonia J18.9 Laterality: unspecified laterality Lung location: unspecified part of lung Pneumonia type: due to unspecified organism Diverticulitis K57.92 Atrial fibrillation with RVR I48.91 Hypertension I10 Schwannoma of spinal cord D33.4 Dyslipidemia E78.5 GERD (gastroesophageal reflux disease) K21.9 (1) Pneumonia Laterality: unspecified laterality Lung location: unspecified part of lung Pneumonia type: due to unspecified organism Qualified Code(s): J18.9 - Pneumonia, unspecified organism
--- NOTE | 2024-10-22 13:59 | Electrocardiogram Report ---
Test Reason : Blood Pressure : */* mmHG Vent. 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 rate has increased by 72 bpm Criteria for Septal infarct are no longer Present Confirmed by Justice Caal ([id number]) on 10/22/2024 1:59:01 PM Referred By: REFERRED SELF Confirmed By: Justice Caal
[2024-10-22] MEDS: METOPROLOL TARTRATE 1 MG/ML VIAL IV PRN (19:41)
[2024-10-22] MEDS: ACETAMINOPHEN 325 MG TAB PO PRN (20:13)
[2024-10-23 06:20] LABS: Hematocrit (blood only) 35.7 % (37.0-47.0); Hemoglobin 11.4 g/dl (12.0-16.0); Mean Corpuscular Hgb Conc 31.9 g/dL (32.0-36.0); Mean Corpuscular Volume 84.4 fL (80.0-100.0); Platelet Count 213 K/uL (130-400); RDW Coefficient of Variation 14.6 % (11.5-14.5); RDW Standard Deviation 44.9 fL (36.4-46.3); Red Blood Count 4.23 M/uL (4.20-5.40); White Blood Count 16.03 K/ul (4.8-10.8)
[2024-10-23 06:33] LABS: BUN Creatinine Ratio 24.1 (10-20); Creatinine Clr Calc Pharmacy 37.6 ml/min; Potassium 3.5 mmol/L (3.5-5.1)
--- NOTE | 2024-10-23 08:55 | Hospitalist Progress Note ---
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 Patient has been seen by neurosurgery at [facility] last 4 years ago. They told her at that time that no intervention was necessary (6) Dyslipidemia: Plan: Continue simvastatin (7) GERD (gastroesophageal reflux disease): Plan 84-year-old female with history of hypertension, GERD, schwannoma and atrial fibrillation presenting with generalized weakness, fatigue, productive cough nausea/vomiting/diarrhea. Patient noted to have left mild pleural effusions with underlying compression collapse and mild infiltrates. CT of the abdomen suggestive of diverticulitis. Also comments on her known abdominal tumor. Admission and Anticipated Discharge Date Admission Date: October 21, 2024 Subjective No events overnight. Pt tolerating regular diet. Review of Systems Review of Systems: CONST: Negative for fever, body aches and chills. HENT: Negative for neck pain/stiffness, headache, congestion, sore throat, swelling. EYES: Negative for discharge/pain or vision changes. RESP: Negative for cough/hemoptysis and shortness of breath. CV: Negative chest pain, difficulty breathing, palpitations. ABD: Negative pain, nausea, vomiting. : Negative increase frequency, dysuria, blood in urine or stool. MUSC: Negative for muscle aches, edema. SKIN: Negative rash, lesions/sores. NEURO: Negative headache, dizziness, weakness. Physical Exam Physical Exam: GENERAL APPEARANCE NAD, activity normal for age, well developed/ well nourished, no cyanosis, pallor, or diaphoresis. EYES lids/conjunctiva normal. EARS/NOSE/THROAT Mucous membranes moist, nares normal, lips/teeth normal uvula midline without oral pharyngeal erythema, exudate or swelling TMs normal bilaterally. No lymphangitis/lymphedema. HEAD/NECK normocephalic atraumatic, no facial trauma, neck is supple. RESPIRATORY respiratory effort normal, speaks in full sentences, no tripod position, no accessory muscle use. Lungs clear to auscultation without rhonchi, wheezes, rales CARDIAC Regular rate and rhythm, no edema. ABDOMINAL Soft, ND/NT. No evidence of fluid wave. No pulsatile masses on exam, rebound tenderness, Justin sign or pain over Mcburney's point. MUSCLES/EXTREMITIES No abnormal range of motion, no swelling. SKIN Warm, pink and dry. No rashes, dermatoses, petechiae or lesions. NEUROLOGICAL Speech is clear and appropriate. Normal level of consciousness. Gait and coordination are normal. 5/5 strength in all extremities. PSYCH Normal mood and affect. Judgement/competence is appropriate Results & Data Results & Data Vital Signs (Past 12 Hours) Vital Signs Temp Pulse Pulse Resp BP Pulse Ox Pulse Ox 10/23/24 07:56 36.5 C 92 H 20 105/64 96 10/23/24 06:06 105 H 10/23/24 04:14 36.4 C L 91 H 21 110/71 95 10/23/24 01:08 100 H 10/23/24 00:18 36.5 C 92 H 19 115/74 93 10/22/24 22:37 93 O2 Del Method O2 Del Method O2 Flow Rate O2 Flow Rate 10/23/24 07:56 Nasal Cannula 3 10/23/24 06:06 10/23/24 04:14 Nasal Cannula 3 10/23/24 01:08 10/23/24 00:18 Nasal Cannula 3 10/22/24 22:37 Nasal Cannula 2 PG Care Time/CCT Total # of Minutes Spent Total Time Spent with Patient: Total time spent is greater than 50% in coordination of care (as documented) at patient's floor/unit and/or counseling patient: Coding Level of Care Code 09078 SUB INP/OBS CARE 2/35MIN Diagnoses Pneumonia J18.9 Laterality: unspecified laterality Lung location: unspecified part of lung Pneumonia type: due to unspecified organism Diverticulitis K57.92 Atrial fibrillation with RVR I48.91 Hypertension I10 Schwannoma of spinal cord D33.4 Dyslipidemia E78.5 GERD (gastroesophageal reflux disease) K21.9 (1) Pneumonia Laterality: unspecified laterality Lung location: unspecified part of lung Pneumonia type: due to unspecified organism Qualified Code(s): J18.9 - Pneumonia, unspecified organism
[2024-10-23] MEDS: ALBUT/IPRATROP 3MG/0.5MG NEB 3 ML VIAL NEB PRN (13:07)
--- NOTE | 2024-10-23 15:46 | Electrocardiogram Report ---
Test Reason : Blood Pressure : */* mmHG Vent. Rate : 101 BPM Atrial Rate : * BPM P-R Int : * ms QRS Dur : 86 ms QT Int : 310 ms P-R-T Axes : * -32 22 degrees QTcB Int : 401 ms Atrial fibrillation with rapid ventricular response Left axis deviation Inferior infarct (cited on or before 20-Apr-2023) Abnormal ECG When compared with ECG of 21-Oct-2024 16:59, Vent. rate has decreased by 52 bpm Confirmed by Justice Caal ([id number]) on 10/23/2024 3:45:59 PM Referred By: REFERRED SELF Confirmed By: Justice Caal
--- NOTE | 2024-10-23 15:51 | Electrocardiogram Report ---
Test Reason : Blood Pressure : */* mmHG Vent. Rate : 109 BPM Atrial Rate : * BPM P-R Int : * ms QRS Dur : 84 ms QT Int : 296 ms P-R-T Axes : * -41 11 degrees QTcB Int : 398 ms Atrial fibrillation with rapid ventricular response Left axis deviation Inferior infarct (cited on or before 20-Apr-2023) Nonspecific ST and T wave abnormality Abnormal ECG When compared with ECG of 21-Oct-2024 17:01, (unconfirmed) No significant change was found Confirmed by Justice Caal ([id number]) on 10/23/2024 3:51:07 PM Referred By: REFERRED SELF Confirmed By: Justice Caal
[2024-10-23] MEDS: Nursing to Pharmacy Communication SCH (16:26)
[2024-10-24 06:37] LABS: Calcium 9.1 mg/dl (8.6-10.3); Potassium 3.2 mmol/L (3.5-5.1)
[2024-10-24 06:41] LABS: Hematocrit (blood only) 38.1 % (37.0-47.0); Mean Corpuscular Hgb Conc 31.5 g/dL (32.0-36.0); Mean Corpuscular Volume 85.6 fL (80.0-100.0); Mean Platelet Volume 9.2 fL (9.4-12.4); Platelet Count 286 K/uL (130-400); RDW Coefficient of Variation 14.4 % (11.5-14.5); RDW Standard Deviation 45.4 fL (36.4-46.3); Red Blood Count 4.45 M/uL (4.20-5.40)
[2024-10-24 06:43] LABS: BUN Creatinine Ratio 25.8 (10-20); Creatinine Clr Calc Pharmacy 41.9 ml/min
--- NOTE | 2024-10-24 08:36 | XRay Report ---
EXAM: XR chest 1V portable CLINICAL HISTORY: Pneumonia. TECHNIQUE: An X-ray image of the chest is obtained in AP projection. COMPARISON: comparison with the previous study dated 10/21/2024. FINDINGS: Pulmonary Parenchyma: Slight resolution of the previously noted left-sided pleural effusion. Still noted haziness of the left lower lung zone, underlying which may be due to subsegmental collapse/ongoing infectious process. Prominent both walter with accentuated perihilar and basal bronchovascular markings suggesting lung congestion. Bilateral upper lung zone thick atelectatic bands are noted. Heart and Mediastinum: Heart size is enlarged. No mediastinal widening or masses. No hilar or mediastinal lymphadenopathy. Bony Thorax: The bony thorax appears intact without fractures or deformities. Soft Tissues: Soft tissues overlying the chest wall are unremarkable. IMPRESSION: 1. A slight reduction of the previously noted left-sided pleural effusion. 2. Still noted haziness of the left lower lung zone, underlying which may be due to subsegmental collapse/ongoing infectious process. 3. Prominent both walter with accentuated perihilar and basal bronchovascular markings suggesting lung congestion. Stable. 4. Cardiomegaly. Stable. Electronically signed by Kirby Del Valle 10-24-2024 08:35 AM
[2024-10-24] MEDS: POTASSIUM CHLORIDE / WTR 10 MEQ/100 ML PLCT IV SCH (08:54)
--- NOTE | 2024-10-24 09:30 | Hospitalist Progress Note ---
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 Patient has been seen by neurosurgery at last 4 years ago. They told her at that time that no intervention was necessary (6) Dyslipidemia: Plan: Continue simvastatin (7) GERD (gastroesophageal reflux disease): Plan 84-year-old female with history of hypertension, GERD, schwannoma and atrial fibrillation presenting with generalized weakness, fatigue, productive cough nausea/vomiting/diarrhea. Patient noted to have left mild pleural effusions with underlying compression collapse and mild infiltrates. CT of the abdomen suggestive of diverticulitis. Also comments on her known abdominal tumor. Admission and Anticipated Discharge Date Admission Date: October 21, 2024 Subjective Pt having episodes of afib with RVR during evening. Pt states her cough is less productive. Review of Systems Review of Systems: CONST: Negative for fever, body aches and chills. HENT: Negative for neck pain/stiffness, headache, congestion, sore throat, swel ling. EYES: Negative for discharge/pain or vision changes. RESP: Negative for cough/hemoptysis and shortness of breath. CV: Negative chest pain, difficulty breathing, palpitations. ABD: Negative pain, nausea, vomiting. : Negative increase frequency, dysuria, blood in urine or stool. MUSC: Negative for muscle aches, edema. SKIN: Negative rash, lesions/sores. NEURO: Negative headache, dizziness, weakness. Physical Exam Physical Exam: GENERAL APPEARANCE NAD, activity normal for age, well developed/ well nourished, no cyanosis, pallor, or diaphoresis. EYES lids/conjunctiva normal. EARS/NOSE/THROAT Mucous membranes moist, nares normal, lips/teeth normal uvula midline without oral pharyngeal erythema, exudate or swelling TMs normal bilaterally. No lymphangitis/lymphedema. HEAD/NECK normocephalic atraumatic, no facial trauma, neck is supple. RESPIRATORY respiratory effort normal, speaks in full sentences, no tripod position, no accessory muscle use. Lungs clear to auscultation without rhonchi, wheezes, rales CARDIAC Regular rate and rhythm, no edema. ABDOMINAL Soft, ND/NT. No evidence of fluid wave. No pulsatile masses on exam, rebound tenderness, Justin sign or pain over Mcburney's point. MUSCLES/EXTREMITIES No abnormal range of motion, no swelling. SKIN Warm, pink and dry. No rashes, dermatoses, petechiae or lesions. NEUROLOGICAL Speech is clear and appropriate. Normal level of consciousness. Gait and coordination are normal. 5/5 strength in all extremities. PSYCH Normal mood and affect. Judgement/competence is appropriate Results & Data Results & Data Vital Signs (Past 12 Hours) Vital Signs Temp Pulse Pulse Pulse Pulse Resp Resp 10/24/24 09:15 99 H 90 24 10/24/24 07:51 36.7 C 91 H 22 10/24/24 03:57 36.9 C 90 16 10/24/24 00:24 36.6 C 86 16 10/23/24 23:00 126 H Resp BP Pulse Ox Pulse Ox Pulse Ox O2 Del Method O2 Flow Rate 10/24/24 09:15 16 95 97 10/24/24 07:51 109/76 98 Nasal Cannula 2 10/24/24 03:57 122/66 94 Nasal Cannula 3 10/24/24 00:24 115/70 97 Nasal Cannula 3 10/23/24 23:00 PG Care Time/CCT Total # of Minutes Spent Total Time Spent with Patient: Total time spent is greater than 50% in coordination of care (as documented) at patient's floor/unit and/or counseling patient: Coding Level of Care Code 84709 SUB INP/OBS CARE 2MIN Diagnoses Pneumonia J18.9 Laterality: unspecified laterality Lung location: unspecified part of lung Pneumonia type: due to unspecified organism Diverticulitis K57.92 Atrial fibrillation with RVR I48.91 Hypertension I10 Schwannoma of spinal cord D33.4 Dyslipidemia E78.5 GERD (gastroesophageal reflux disease) K21.9 (1) Pneumonia Laterality: unspecified laterality Lung location: unspecified part of lung Pneumonia type: due to unspecified organism Qualified Code(s): J18.9 - Pneumonia, unspecified organism
[2024-10-24] MEDS: FUROSEMIDE 40 MG/4 ML VIAL IV ONE (10:27)
--- NOTE | 2024-10-24 12:36 | Cardiology Consultation ---
Date of Consultation October 24, 2024 Assessment & Plan (1) Atrial fibrillation, permanent: -It may be appropriate that her ventricular response is elevated due to her acute illness. -Her ventricular response does elevate with physical activity. -Consider the addition of metoprolol tartrate 25 mg twice daily. -Continue Eliquis and long-acting diltiazem. (2) Hypertension: -Adequate control on current regimen. (3) Dyslipidemia: -Continue simvastatin. History of Present Illness Reason for Consultation: Mrs. Reid is an 84-year-old female admitted on October 21 with a left lower lobe pneumonia and acute diverticulitis. She has known permanent atrial fibrillation and has had an increase in her ventricular response. For that reason, this con sultation was ordered. Of note, the patient typically follows with Dr. Nichols in the outpatient setting. The patient was in her usual state of health until approximately 1 week prior to presentation when she began to note a productive cough, exertional dyspnea, and diarrhea. She presented to the emergency room and was diagnosed with a left lower lobe pneumonia and diverticulitis. Since her admission, the patient's ventricular response has been somewhat elevated, especially with exertion. In terms of her permanent atrial fibrillation, she has been following a rate control and long-term anticoagulation strategy. She has failed attempts at flecainide, amiodarone, and 4 separate ablation procedures. Her last visit with Dr. Nichols was April 25, 2024. He reviewed the monitor that she wore in October 2023. This noted permanent atrial fibrillation with a ventricular sponsor varying from 34 to 170 bpm. Average heart rate was 80 bpm. There were several pauses of 3.[address] Nichols noted that no changes would be made as the patient was asymptomatic. Currently, patient is resting comfortably at the bedside and without complaints. Past medical and surgical history 1. Hypertension 2. Hypercholesterolemia 3. Permanent atrial fibrillation 4. Hyperglycemia 5. Hypothyroidism 6. GERD 7. Vitamin D deficiency 8. Osteopenia 9. Spinal cord [id number] 10. Bilateral intraocular lens implants 11. Hysterectomy Social history and lives with her . Retired nurse from [employer]. No tobacco Occasional alcohol Family history Noncontributory Review of systems A 10 point review of system was undertaken and negative except that described above. Attending Physician: Rich Katz MD Allergies Allergy/AdvReac Type Severity Reaction Status Date / Time caffeine Allergy Mild Palpitation Verified 10/21/24 16:02 s chocolate flavor AdvReac Severe Anaphylaxis Verified 10/21/24 16:02 Home Medications Medication Instructions Recorded Confirmed Type acetaminophen 325 mg capsule 650 mg (2 x 325 mg) PO QID PRN 11/11/21 10/21/24 Rx pain #360 caps multivitamin 1 tab PO DAILY #30 tabs 11/11/21 10/21/24 Rx omega3 300 mg-dha,epa 250 mg-other 1 cap PO DAILY #90 caps 11/11/21 10/21/24 Rx omega 3s-fish oil 1,000 mg capsule apixaban 5 mg tablet (Eliquis) 5 mg PO BID #180 tabs 12/13/23 10/21/24 Rx calcium acetate 667 mg tablet 1,334 mg (2 x 667 mg) PO DAILY 12/13/23 10/21/24 Rx #180 tabs diltiazem HCl 240 mg capsule,24 240 mg PO DAILY #90 caps 12/13/23 10/21/24 Rx hr,extended release furosemide 40 mg tablet 40 mg PO DAILY #90 tabs 12/13/23 10/21/24 Rx gabapentin 300 mg capsule 300 mg PO TID #270 caps 12/13/23 10/21/24 Rx potassium chloride 10 mEq 10 meq PO BID #180 tabs 12/13/23 10/21/24 Rx tablet,extended release simvastatin 40 mg tablet 40 mg PO DAILY #90 tabs 12/13/23 10/21/24 Rx buspirone 7.5 mg tablet 7.5 mg PO TID #270 tabs 05/30/24 10/21/24 Rx omeprazole 20 mg tablet,delayed 20 mg PO DAILY #90 tabs 08/28/24 10/21/24 Rx release Patient History Medical History Upper GI bleed CHF (congestive heart failure) Partial small bowel obstruction Hypoxia RENE (acute kidney injury) Pelvic mass Diverticulitis Diverticulosis AF (paroxysmal atrial fibrillation) Anticoagulant long-term use GERD (gastroesophageal reflux disease) Hypertension History of actinic keratoses History of cyst of breast Surgical History H/O oral surgery S/P knee surgery S/P hysterectomy S/P ablation of atrial fibrillation S/P cataract surgery Family History Father Myocardial infarction Daughter Breast cancer Mother Stroke Denies family history of Ovarian cancer Prostate cancer Colorectal cancer Social History Smoking Status: Never smoker Second Hand Exposure: No; Do You Dip or Chew Tobacco: No; Hx Alcohol Use: Yes Alcohol type: wine Hx Substance Use: No Preferred Language: Amharic Communication Ability: Effective Visual Impairment: No Limitations Hearing Ability: Normal Progress Man Required: No Beliefs That Will Affect Care: None marital status: Current Living Situation: Spouse current occupational status: retired Other Information That Helps Us Care for You: No Feels Safe at Home: Yes Safety Concerns: Feels Safe At This Time Childhood Exposure to Second-Hand Smoke: Yes Dental Care, Regularly: Yes Physical Activity Frequency: Daily Seatbelt Use: always Sunscreen Use: Yes Assistive Devices: Cane and Walker Physical Exam Physical Exam: In general this is a well-developed well-nourished white female in no acute distress. HEENT exam is negative. Neck reveals normal carotid upstrokes without bruits. Jugular venous pressure is flat at 90. There is no thyromegaly. Cardiovascular exam reveals an irregularly irregular rhythm with distant heart sounds. No obvious murmurs. Lungs are clear without rales, rhonchi, or wheezes. Abdomen is soft without bruits. Extremities reveal intact radial artery and posterior tibial pulses bilaterally. There is trace peripheral edema. Results & Data Vital Signs (Past 12 Hours) Vital Signs Temp Pulse Pulse Pulse Resp Resp Resp 10/24/24 11:18 36.4 C L 114 H 18 10/24/24 09:15 99 H 90 24 16 10/24/24 07:51 36.7 C 91 H 22 10/24/24 03:57 36.9 C 90 16 BP Pulse Ox Pulse Ox Pulse Ox O2 Del Method O2 Flow Rate 10/24/24 11:18 115/76 98 Nasal Cannula 10/24/24 09:15 95 97 10/24/24 07:51 109/76 98 Nasal Cannula 2 10/24/24 03:57 122/66 94 Nasal Cannula 3 Laboratory Results CBC and electrolytes are unremarkable. High-sensitivity troponin is 14.5. Diagnostic Findings radio equipment repairer notes atrial fibrillation with a heart rate varying from 80 to 180 bpm. EKG notes atrial fibrillation with a ventricular response of 109 bpm. There is an old inferior myocardial infarction pattern and nonspecific ST and T wave abnormality. Chest x-ray notes cardiomegaly and a left-sided pleural effusion. PG Care Time/CCT Total # of Minutes Spent Total Time Spent with Patient: Total time spent is greater than 50% in coordination of care (as documented) at patient's floor/unit and/or counseling patient: Coding Level of Care Code 80225 INT INP/OBS CARE 375MIN Diagnoses Atrial fibrillation, permanent I48.21 Hypertension I10 Dyslipidemia E78.5
[2024-10-25 03:18] VITALS: RESP 18
[2024-10-25 06:20] LABS: Hematocrit (blood only) 36.8 % (37.0-47.0); Hemoglobin 12.1 g/dl (12.0-16.0); Mean Corpuscular Hemoglobin 26.9 pg (25.0-34.0); Mean Corpuscular Hgb Conc 32.9 g/dL (32.0-36.0); Mean Platelet Volume 9.2 fL (9.4-12.4); Platelet Count 354 K/uL (130-400); RDW Coefficient of Variation 13.8 % (11.5-14.5); RDW Standard Deviation 41.3 fL (36.4-46.3); Red Blood Count 4.49 M/uL (4.20-5.40); White Blood Count 14.29 K/ul (4.8-10.8)
[2024-10-25 06:50] LABS: BUN Creatinine Ratio 23.2 (10-20); Calcium 9.1 mg/dl (8.6-10.3); Creatinine Clr Calc Pharmacy 40.9 ml/min; Potassium 3.4 mmol/L (3.5-5.1)
[2024-10-25 07:19] VITALS: BP 120/76; TEMP 98.1; O2SAT 94
[2024-10-25] MEDS: POTASSIUM CHLORIDE CRTAB 20 MEQ TABCR PO STA (08:12)
--- NOTE | 2024-10-25 08:52 | Discharge Summary ---
Discharge Summary Date of Service October 25, 2024 Principal Dx & Hospital Course #1 = Principal Diagnosis (1) Pneumonia: Continue Zosyn Supplemental oxygen as needed -2-step shows no 02 needs, plan to d/c home tmw 10/25 (2) Diverticulitis: Continue Zosyn -on regular diet (3) Atrial fibrillation with RVR: Continue apixaban Continue diltiazem - lopressor IV PRN HR >140 -will consult cardiology (4) Hypertension: Continue diltiazem (5) Schwannoma of spinal cord: initially diagnosed in 2010. Patient has been seen by neurosurgery at [facility] last 4 years ago. They told her at that time that no intervention was necessary (6) Dyslipidemia: Continue simvastatin (7) GERD (gastroesophageal reflux disease): Plan 84-year-old female with history of hypertension, GERD, schwannoma and atrial fibrillation presenting with generalized weakness, fatigue, productive cough nausea/vomiting/diarrhea. Patient noted to have left mild pleural effusions with underlying compression collapse and mild infiltrates. CT of the abdomen suggestive of diverticulitis. Also comments on her known abdominal tumor. Admission HPI Per Admitting Provider Randa Reid is an 84-year-old female with history of hypertension, GERD, abdominal schwannoma presenting with 2 weeks of productive cough with creamy sputum, shortness of breath and dyspnea on exertion. Also with vomiting nonbloody/nonbilious for the last 2 days as well as loose stools. Patient has had decreased appetite and poor oral intake due to nausea as well. No additional complaints at this time. Patient denies fever, chills, chest pain, abdominal pain, urinary complaints ER course: Zosyn Normal saline Discharge Exam GENERAL APPEARANCE NAD, activity normal for age, well developed/ well nourished, no cyanosis, pallor, or diaphoresis. EYES lids/conjunctiva normal. EARS/NOSE/THROAT Mucous membranes moist, nares normal, lips/teeth normal uvula midline without oral pharyngeal erythema, exudate or swelling TMs normal bilaterally. No lymphangitis/lymphedema. HEAD/NECK normocephalic atraumatic, no facial trauma, neck is supple. RESPIRATORY respiratory effort normal, speaks in full sentences, no tripod position, no accessory muscle use. Lungs clear to auscultation without rhonchi, wheezes, rales CARDIAC Regular rate and rhythm, no edema. ABDOMINAL Soft, ND/NT. No evidence of fluid wave. No pulsatile masses on exam, rebound tenderness, Justin sign or pain over Mcburney's point. MUSCLES/EXTREMITIES No abnormal range of motion, no swelling. SKIN Warm, pink and dry. No rashes, dermatoses, petechiae or lesions. NEUROLOGICAL Speech is clear and appropriate. Normal level of consciousness. Gait and coordination are normal. 5/5 strength in all extremities. PSYCH Normal mood and affect. Judgement/competence is appropriate Discharge Plan Discharge Items Patient Disposition: Home - Self-Care Reason For Visit: PNEUMONIA Discharge Diagnosis: PNA, diverticulitis Condition on Discharge: Serious Activity: Resume your previous activity Non-emergency contact: Primary Care Provider Call non-emergency contact if: you have any medication questions Follow-up/Referrals: Justice Scott MD [Primary Care Provider] - Diet: Regular Addtl Attending Provider Instructions: Follow up with PMD in 2 weeks Pending Studies at Discharge: No Stand-Alone Forms: My [employer], Smoking Cessation Medications and DC Order Prescriptions: New amoxicillin-pot clavulanate 875-125 mg tablet 1 tab PO Q12H Qty: 6 0RF Continued multivitamin Tablet 1 tab PO DAILY Qty: 30 0RF acetaminophen 325 mg capsule 650 mg PO QID PRN (Reason: pain) Qty: 360 0RF jxgtq-1y-pzl-epa-fish oil 300-250-1,000 mg capsule 1 cap PO DAILY Qty: 90 0RF Eliquis 5 mg tablet 5 mg PO BID Qty: 180 3RF calcium acetate 667 mg tablet 1,334 mg PO DAILY Qty: 180 0RF diltiazem HCl 240 mg capsule,extended release 24 hr 240 mg PO DAILY Qty: 90 3RF furosemide 40 mg tablet 40 mg PO DAILY Qty: 90 3RF gabapentin 300 mg capsule 300 mg PO TID Qty: 270 3RF potassium chloride 10 mEq tablet extended release 10 meq PO BID Qty: 180 3RF simvastatin 40 mg tablet 40 mg PO DAILY Qty: 90 3RF buspirone 7.5 mg tablet 7.5 mg PO TID Qty: 270 3RF omeprazole 20 mg tablet,delayed release (DR/EC) 20 mg PO DAILY Qty: 90 3RF Discharge Orders: Discharge Order (Routine); Ordered 10/25/24 Ordered By: Rich Katz Admission Data Admit Date/Time: 10/21/24 21:30 Attending Provider: Rich Katz Admit Provider: Skylar Davey Primary Care Provider: Justice Scott Other Providers: Skylar Davey; Justice Caal Hospital Stay Data Consultations 10/21/24 20:33 ED Decision to Admit Stat 10/24/24 09:30 Consult Cardiology Routine Diagnostic Imagining Performed 10/21/24 16:58 CT abd pelvis IV con only Stat Pending Results Patient Have Any Pending Studies at Discharge: No Discharge Instructions Given to Patient (Per Discharging Provider) Follow up with PMD in 2 weeks Total Time Total Time Spent Total Time Spent (In Minutes): 50 Coding Level of Care Code 98678 INP/OBS DISCH >30 MIN Diagnoses Pneumonia J18.9 Laterality: unspecified laterality Lung location: unspecified part of lung Pneumonia type: due to unspecified organism Diverticulitis K57.92 Atrial fibrillation with RVR I48.91 Hypertension I10 Schwannoma of spinal cord D33.4 Dyslipidemia E78.5 GERD (gastroesophageal reflux disease) K21.9
[2024-10-25 13:44] VITALS: PULSE 104
== END 2024-10-25 14:00 | disposition home or self-care (01) | DRG 194 ==
LOC: ED 16:44 → SUATTDRO 21:30 → 2E 21:30

== ENCOUNTER 2024-12-12 11:37 | Inpatient (IN) ==
[2024-12-12 12:27] LABS: Hematocrit (blood only) 30.2 % (37.0-47.0); Hemoglobin 9.5 g/dl (12.0-16.0); Immature Granulocytes # (auto) 0.14 K/uL (0.01-0.20); Immature Granulocytes % (auto) 1.0 %; Mean Corpuscular Hemoglobin 25.2 pg (25.0-34.0); Mean Corpuscular Volume 80.1 fL (80.0-100.0); Platelet Count 592 K/uL (130-400); RDW Standard Deviation 45.7 fL (36.4-46.3); Red Blood Count 3.77 M/uL (4.20-5.40); White Blood Count 14.61 K/ul (4.8-10.8)
[2024-12-12] MEDS: ACETAMINOPHEN 1,000 MG/100 ML VIAL IV STA (12:33)
[2024-12-12 12:45] LABS: Alanine Aminotransferase 17.0 U/L (7-52); Albumin Globulin Ratio 0.7 (0.9-2); Alkaline Phosphatase 150.0 U/L (34-104); Anion Gap 7.0 (3-11); Bilirubin,Total 0.4 mg/dl (0.2-1.0); Blood Urea Nitrogen 21.0 mg/dl (6-23); Calcium 8.5 mg/dl (8.6-10.3); Carbon Dioxide 35.0 mmol/L (21-32); Chloride 96.0 mmol/L (98-107); Creatinine Clr Calc Pharmacy 54.2 ml/min; Globulin 3.3 gm/dl (2.5-4.0); Glucose 99.0 mg/dl (70-99(Fasting)); Potassium 3.9 mmol/L (3.5-5.1); Sodium 138.0 mmol/L (136-145); Total Protein 5.6 gm/dl (6.0-8.3)
--- NOTE | 2024-12-12 12:49 | XRay Report ---
XR chest 1V portable CLINICAL HISTORY: weakness COMPARISON STUDY: Chest radiograph November 10, 2024. FINDINGS: No pneumothorax or pleural effusion is present. Cardiomegaly is unchanged. There is mild in terstitial thickening. Right hilar prominence is noted. No consolidation to suggest pneumonia. Mild l eft basilar opacity favors atelectasis and epicardial fat pad. IMPRESSION: 1. Cardiomegaly with mild interstitial pulmonary edema. 2. Right hilar prominence. This is likely related to pulmonary vessels however follow-up nonemergent PA and lateral chest radiographs are recommended ACT 112: Negative or not required by law. Electronically signed by: Jonel Swartz M.D. 12/12/2024 12:47 PM
[2024-12-12 13:01] LABS: Thyroid Stimulating Hormone 2.077 uIu/ml (0.300-4.500)
[2024-12-12] MEDS: OPTIRAY 320 100ml IV ONE (13:22)
--- NOTE | 2024-12-12 13:44 | CT Scan Report ---
CT SCAN OF THE ABDOMEN AND PELVIS WITH IV CONTRAST CLINICAL HISTORY: Abdominal mass. Leukocytosis. COMPARISON STUDY: Abdominal CT dated 11/10/2024 TECHNIQUE: Following the IV administration of 93 cc of Optiray 320, CT scan of the abdomen and pelvi s is performed from the lung bases to the proximal femora. Images are reviewed in the axial, sagittal , and coronal planes. IV contrast was administered without complication. A dose lowering technique wa s utilized adhering to the principles of ALARA. CT DOSE: 1281.27 mGy.cm FINDINGS: Lung bases: The heart is large and without pericardial effusion. The coronary arteries are densely ca lcified. There are small right and trace left pleural effusions with dependent atelectasis. These are new from 11/10/2024. Liver: The contrast-enhanced liver is normal in size, contour, and attenuation. There is no intrahepa tic biliary ductal dilatation. The hepatic veins and portal veins are patent. There is a 14 mm left l obe hepatic cyst. Gallbladder: Unremarkable. Spleen: Normal in size and attenuation. Pancreas: Unremarkable. Adrenal glands: Unremarkable. Kidneys: The contrast enhanced kidneys demonstrate cortical atrophy and are without hydronephrosis. T he kidneys enhance symmetrically. There is a 5.5 cm right renal cyst. Additional subcentimeter cortic al hypodensities also likely represent cysts but are too small for definitive characterization. Abdominal vasculature: The abdominal aorta is normal in course and caliber noting advanced atheroscle rotic calcification. Bowel: A gastric diverticulum is seen posteriorly in the fundal region. There is mild to moderate col onic diverticulosis without CT evidence of acute diverticulitis. No bowel obstruction is seen. The mello wel loops are displaced by the large pelvic mass. Focal wall thickening of the mid to distal descendi ng colon image #235 is similar to previous. The appendix is well-visualized and normal. Peritoneum: There is no intraperitoneal free air or abdominal ascites. Lymphadenopathy: None. Pelvic viscera: The bladder is partially distended and grossly unremarkable. The uterus is surgically absent. Again seen is a large thick walled cystic mass lesions in the pelvis, which may arise from t he right aspect of the sacrum. This lesion contains internal calcifications and soft tissue elements. There are numerous foci of gas within this lesion which have increased from previous. The overall le kelley measures approximately 20.5 x 23 x 22.5 cm in aggregate dimension. A loculated fluid component a long the superior margin seen on image #149 measures approximately 4 x 9.5 x 14 cm. A thick-walled mu ltiloculated appearing gas and fluid collection along the anterior/superior margin seen on image #1 h eterogeneity measures approximately 6 x 1.5 x 7 cm. Skeletal structures: The skeletal structures are osteopenic. As discussed above, a large pelvic mass appears contiguous with a large lytic lesion within the right aspect of the sacrum. No additional natalia tructive bony lesion is suspected. There is moderate lumbosacral spondylosis and scoliosis. Soft tissues: There is anasarca of the body wall. IMPRESSION: 1. Again seen is a large thick-walled pathologically indeterminate solid and cystic mass arising from the right sacrum and extending into the pelvis/lower abdomen. This lesion measures approximately 20. 5 x 23 x 22.5 cm in aggregate dimension and contains internal foci of gas. The internal gas component has increased from 11/10/2024 and superinfection of this lesion is not excluded. Clinical correlation will be essential. 2. A thick-walled multiloculated gas and fluid collection is again seen on the anterior/superior atul in of the cystic mass. This could represent contained rupture, with abscess not excluded. 3. There is significant mass effect from the large lesion with displacement of normal visceral struct ures. 4. Focal circumferential wall thickening of the mid to distal descending colon is unchanged. Underlyi ng mucosal lesion would be impossible to exclude. 5. Pleural effusions are new from previous and there is anasarca of the body wall indicative of fluid overload. 6. Additional findings as above. ACT 112: Negative or not required by law. Electronically signed by: David Dawson M.D. 12/12/2024 1:43 PM
--- NOTE | 2024-12-12 14:41 | Emergency Department Note ---
Impression & Plan Leukocytosis (Ruled Out): Schwannoma of spinal cord ED Provider Note NAME: OXANA GERMAN AGE: 84 SEX: F : 1940 ARRIVES VIA: Ambulance INFORMANT: [Patient][, ] ED PROVIDER(S): [Eulalia Patricio MD] CHIEF COMPLAINT: Abnormal blood work HPI: This is a 84-year-old female presenting for abdominal blood work. Patient states that she has a known history of a large abdominal mass involving her spine and other organs. She states that she has no change in her pain or other symptoms from this. No new constipation, fevers, chills, nausea or vomiting. No chest pain or shortness of breath. She states she is here because she was told her blood work is abnormal including elevated WBC count and platelets. She states she has had this before. She reports continued pain without change in her current medical status. She declines pain medicines here. ROS: See above HPI for pertinent positives & negatives. A total of [10] systems reviewed and were otherwise negative. PAST MEDICAL HISTORY: [See Below] PAST SURGICAL HISTORY: [See Below] FAMILY HISTORY: [See Below] SOCIAL HISTORY: [See Below] HOME MEDICATIONS: [See Below] ALLERGIES: [See Below] VITALS: See Below PHYSICAL EXAMINATION: General: resting comfortably in no acute distress Head: Normocephalic and atraumatic Eyes: Normal inspection, extraocular muscles intact Ear, nose, throat: Normal external exam Neck: Normal range of motion Respiratory: lungs clear to auscultation bilaterally Cardiovascular: Regular rate/rhythm, no murmur GI: Abdominal distention without rebound or guarding Extremities: nontender, moves all extremities Neuro: The patient awake and alert, appropriately conversive, no focal deficits, symmetric faces Skin: Warm, dry, and intact MEDICAL DECISION MAKING: This an 84-year-old female presenting for abnormal blood work. Patient was sent in for abnormal blood work today. She is in no significant change in her current medical status, symptoms. She has had no septic or infectious symptoms on self-report. She is in A-fib RVR which she states is normal for her. - Blood work reveals leukocytosis to 14.61 today, was 13.51 earlier. This appears stable with patient's previous elevated WBC counts. Hemoglobin previously 11.2, now 9.5 - Platelets still elevated at 592, fairly stable - Patient that she was transferred to [facility] for abdominal mass previously. She states that there was CSF in the send there was not anything we can do to remove this. - Patient does have a that she is having trouble at home due to pain and her mobility and request SNF placement. -Discussed with Dr. Simmons,, surgical oncology saw the patient. He states that based on patient's mass, this could be removed however based on patient's age, they discussed goals of care discussion. At this time the patient is not have signs of new infection, no new treatment is warranted. Clinically I do not see signs of infection, she has no fevers, chills, nausea, vomiting, significant changes. She notes chronic pain from this. She has chronic leukocytosis. -Discussed with Dr. Alarcon, for admission. Differential diagnosis: Sepsis, A-fib with RVR, infected abdominal mass, abscess Independent History obtained from: [email or web address] interpreted by me: ECG: [none] Cardiac Monitoring: An order was placed for continuous cardiac monitoring. The monitor shows a rate of 108 with atrial fibrillation rhythm. Past Med/Surg History Problem List (Updated 12/14/24 @ 09:56 by Ernesto Alarcon MD) Leukocytosis (Acute) Ambulatory dysfunction Weakness Atrial fibrillation with RVR (Acute) Schwannoma of spinal cord (Acute) Dyslipidemia (Acute) Hypertension (Chronic) Medical History (Updated 12/14/24 @ 09:56 by Ernesto Alarcon MD) Atrial fibrillation, permanent Osteopenia Vitamin D deficiency Hyperglycemia Current use of proton pump inhibitor Upper GI bleed CHF (congestive heart failure) Partial small bowel obstruction Diverticulitis Diverticulosis Anticoagulant long-term use Hypertension History of actinic keratoses History of cyst of breast Surgical History H/O oral surgery S/P knee surgery S/P hysterectomy S/P ablation of atrial fibrillation S/P cataract surgery Family History Father Myocardial infarction Daughter Breast cancer Mother Stroke Denies family history of Ovarian cancer Prostate cancer Colorectal cancer Social History Smoking Status: Unknown if ever smoked Second Hand Exposure: No; Do You Dip or Chew Tobacco: No; Hx Alcohol Use: No Hx Substance Use: No Preferred Language: Albanian Communication Ability: Effective Visual Impairment: No Limitations Hearing Ability: Normal Geochemical Laboratory Technician Required: No Beliefs That Will Affect Care: None marital status: Current Living Situation: Rehab Current Living Situation Comment: [facility] current occupational status: retired Feels Safe at Home: Yes Childhood Exposure to Second-Hand Smoke: Yes Dental Care, Regularly: Yes Physical Activity Frequency: Daily Seatbelt Use: always Sunscreen Use: Yes Assistive Devices: Cane, Glasses and Walker Allergies Allergies Allergy/AdvReac Type Severity Reaction Status Date / Time caffeine AdvReac Unknown HEART Verified 12/13/24 22:55 RACING/PALPITATIONS Home Meds Home Medications Medication Instructions Recorded Confirmed simvastatin 40 mg tablet 40 mg PO QPM 11/10/24 12/12/24 metoprolol succinate 25 mg 0 mg PO DIRECTED 12/12/24 12/12/24 tablet,extended release 24 hr Previous Rx's Medication Instructions Recorded acetaminophen 325 mg capsule 650 mg (2 x 325 mg) PO QID PRN 11/11/21 pain #360 caps multivitamin 1 tab PO DAILY #30 tabs 11/11/21 omega3 300 mg-dha,epa 250 mg-other 1 cap PO DAILY #90 caps 11/11/21 omega 3s-fish oil 1,000 mg capsule apixaban 5 mg tablet (Eliquis) 5 mg PO BID #180 tabs 12/13/23 calcium acetate 667 mg tablet 1,334 mg (2 x 667 mg) PO DAILY 12/13/23 #180 tabs diltiazem HCl 240 mg capsule,24 240 mg PO DAILY #90 caps 12/13/23 hr,extended release furosemide 40 mg tablet 40 mg PO DAILY #90 tabs 12/13/23 gabapentin 300 mg capsule 300 mg PO TID #270 caps 12/13/23 potassium chloride 10 mEq 10 meq PO BID #180 tabs 12/13/23 tablet,extended release buspirone 7.5 mg tablet 7.5 mg PO TID #270 tabs 05/30/24 omeprazole 20 mg tablet,delayed 20 mg PO DAILY #90 tabs 08/28/24 release ondansetron HCl 4 mg tablet 4 mg PO Q8H PRN nausea and 10/26/24 vomiting #20 tabs oxycodone 5 mg tablet 5 mg PO Q8H PRN pain #15 tabs 12/12/24 Results & Data (ED) Vital Signs Vital Signs - 24 hr 12/12/24 11:40 12/12/24 11:40 12/12/24 11:54 Temperature 36.5 C Temperature Source Oral Pulse Rate 67 125 H Pulse Rate [Apical] Respiratory Rate 20 Blood Pressure 150/85 H Blood Pressure [Right Arm] Blood Pressure Mean 106 Blood Pressure Mean [Right Arm] Pulse Oximetry 97 97 Oxygen Delivery Method Room Air Room Air Sepsis Recent Fever Within 48 Hours No Sepsis New/Unexplained Change in Mental Status N/A Sepsis Action Taken by Nursing No Action Required 12/12/24 12:22 12/12/24 12:48 12/12/24 13:30 Temperature Temperature Source Pulse Rate 111 H 100 H Pulse Rate [Apical] Respiratory Rate 21 24 Blood Pressure 92/68 L Blood Pressure [Right Arm] Blood Pressure Mean 76 Blood Pressure Mean [Right Arm] Pulse Oximetry 98 96 Oxygen Delivery Method Room Air Sepsis Recent Fever Within 48 Hours Sepsis New/Unexplained Change in Mental Status Sepsis Action Taken by Nursing 12/12/24 15:00 Temperature Temperature Source Pulse Rate Pulse Rate [Apical] 108 H Respiratory Rate 16 Blood Pressure Blood Pressure [Right Arm] 107/70 Blood Pressure Mean Blood Pressure Mean [Right Arm] 82 Pulse Oximetry 97 Oxygen Delivery Method Room Air Sepsis Recent Fever Within 48 Hours Sepsis New/Unexplained Change in Mental Status Sepsis Action Taken by Nursing Laboratory Data 12/15/24 07:21 12/15/24 07:21 Lab Results 12/12/24 12/12/24 12/12/24 Range/Units 11:50 12:00 15:11 WBC 14.61 H (4.8-10.8) K/ul RBC 3.77 L (4.20-5.40) M/uL Hgb 9.5 L (12.0-16.0) g/dl Hct 30.2 L (37.0-47.0) % MCV 80.1 (80.0-100.0) fL MCH 25.2 (25.0-34.0) pg MCHC 31.5 L (32.0-36.0) g/dL RDW Std Deviation 45.7 (36.4-46.3) fL RDW Coeff of Lucas 15.8 H (11.5-14.5) % Plt Count 592 H (130-400) K/uL MPV 8.3 L (9.4-12.4) fL Immature Gran % (Auto) 1.0 % Neut % (Auto) 76.4 % Lymph % (Auto) 15.1 % Hardeman % (Auto) 7.1 % Eos % (Auto) 0.2 % Baso % (Auto) 0.2 % Neut # (Auto) 11.17 H (1.40-6.50) K/uL Lymph # (Auto) 2.20 (1.20-3.40) K/uL Hardeman # (Auto) 1.04 H (0.11-0.59) K/uL Eos # (Auto) 0.03 (0.00-0.50) K/uL Baso # (Auto) 0.03 (0.00-0.20) K/uL Immature Gran # (Auto) 0.14 (0.01-0.20) K/uL Sodium 138 (136-145) mmol/L Potassium 3.9 (3.5-5.1) mmol/L Chloride 96 L (98-107) mmol/L Carbon Dioxide 35 H (21-32) mmol/L Anion Gap 7 (3-11) BUN 21 (6-23) mg/dl Creatinine 0.81 (0.6-1.2) mg/dl Est Cr Clr Drug Dosing 54.2 ml/min eGFR 70.65 BUN/Creatinine Ratio 25.9 H (10-20) Glucose 99 (70-99(Fasting)) mg/dl Lactate 1.4 (0.4-2.0) mmol/L Calcium 8.5 L (8.6-10.3) mg/dl Total Bilirubin 0.4 (0.2-1.0) mg/dl AST 25 (13-39) U/L ALT 17 (7-52) U/L Alkaline Phosphatase 150 H (34-104) U/L Troponin I High Sens 47.7 H 6.3 D (0-14) pg/ml Total Protein 5.6 L (6.0-8.3) gm/dl Albumin 2.3 L (3.4-5.0) gm/dl Globulin 3.3 (2.5-4.0) gm/dl Albumin/Globulin Ratio 0.7 L (0.9-2) TSH 2.077 (0.300-4.500) uIu/ml Administered Medications Acetaminophen (Acetaminophen 325 Mg Tab) 650 mg PO Q6H PRN PRN Reason: Pain or Fever Stop: 01/11/25 18:30 Last Admin: 12/15/24 16:38 Dose: 650 mg Documented By: J LUIS Admin: 12/15/24 10:45 Dose: 650 mg Documented By: Admin: 12/15/24 04:27 Dose: 650 mg Documented By: Admin: 12/14/24 21:59 Dose: 650 mg Documented By: Admin: 12/14/24 15:44 Dose: 650 mg Documented By: ANKITA Apixaban (Apixaban 5 Mg Tablet) 5 mg PO BID ON LICENSE OF [facility] Stop: 01/11/25 20:59 Last Admin: 12/15/24 09:44 Dose: 5 mg Documented By: J LUIS Admin: 12/14/24 22:03 Dose: 5 mg Documented By: Admin: 12/14/24 09:09 Dose: 5 mg Documented By: Admin: 12/13/24 20:43 Dose: 5 mg Documented By: Admin: 12/13/24 08:34 Dose: 5 mg Documented By: Admin: 12/12/24 20:18 Dose: 5 mg Documented By: LORENA Buspirone HCl (Buspirone 7.5 Mg Tab) 7.5 mg PO TID ON LICENSE OF [facility] Stop: 01/11/25 20:59 Last Admin: 12/15/24 13:48 Dose: 7.5 mg Documented By: Admin: 12/15/24 09:44 Dose: 7.5 mg Documented By: J LUIS Admin: 12/14/24 22:02 Dose: 7.5 mg Documented By: Admin: 12/14/24 13:18 Dose: 7.5 mg Documented By: Admin: 12/14/24 09:09 Dose: 7.5 mg Documented By: Admin: 12/13/24 20:43 Dose: 7.5 mg Documented By: Admin: 12/13/24 13:04 Dose: 7.5 mg Documented By: Admin: 12/13/24 08:34 Dose: 7.5 mg Documented By: Admin: 12/12/24 20:18 Dose: 7.5 mg Documented By: LORENA Digoxin (Digoxin 0.25 Mg Tab) 0.25 mg PO DAILY@1600 DAVID Stop: 01/13/25 15:59 Last Admin: 12/15/24 16:38 Dose: 0.25 mg Documented By: J LUIS Admin: 12/14/24 16:22 Dose: 0.25 mg Documented By: ANKITA Diltiazem HCl (Diltiazem Hcl 240 Mg Capcr) 240 mg PO DAILY DAVID Stop: 01/12/25 08:59 Last Admin: 12/15/24 09:44 Dose: 240 mg Documented By: J LUSI Admin: 12/14/24 11:23 Dose: Not Given Documented By: Admin: 12/13/24 10:01 Dose: Not Given Documented By: ANKITA Furosemide (Furosemide 40 Mg Tab) 40 mg PO DAILY DAVID Stop: 01/12/25 08:59 Last Admin: 12/15/24 09:45 Dose: 40 mg Documented By: RRDeepthi Admin: 12/14/24 11:23 Dose: Not Given Documented By: Admin: 12/13/24 10:01 Dose: Not Given Documented By: ANKITA Gabapentin (Gabapentin 300 Mg Cap) 300 mg PO TID DAVID Stop: 01/11/25 20:59 Last Admin: 12/15/24 13:48 Dose: 300 mg Documented By: Admin: 12/15/24 09:45 Dose: 300 mg Documented By: J LUIS Admin: 12/14/24 22:03 Dose: 300 mg Documented By: Admin: 12/14/24 13:18 Dose: 300 mg Documented By: Admin: 12/14/24 09:09 Dose: 300 mg Documented By: Admin: 12/13/24 20:44 Dose: 300 mg Documented By: Admin: 12/13/24 13:04 Dose: 300 mg Documented By: Admin: 12/13/24 08:34 Dose: 300 mg Documented By: Admin: 12/12/24 20:18 Dose: 300 mg Documented By: LORENA Metoprolol Succinate (Metoprolol Succ 50mg Ext Rel Tab) 50 mg PO QAM DAVID Stop: 01/13/25 11:59 Last Admin: 12/15/24 09:45 Dose: 50 mg Documented By: J LUIS Admin: 12/14/24 12:48 Dose: 50 mg Documented By: ANKITA Oxycodone HCl (Oxycodone Hcl Ir 5 Mg Tab (Immediate Release)) 5 mg PO Q6H PRN PRN Reason: Mod-Sev Pain (Scale 4-10) Stop: 12/26/24 19:20 Last Admin: 12/13/24 23:38 Dose: 5 mg Documented By: LORENA Potassium Chloride (Potassium Chloride 10 Meq Tabcr) 10 meq PO BID DAVID Stop: 01/11/25 20:59 Last Admin: 12/15/24 09:46 Dose: 10 meq Documented By: J LUIS Admin: 12/14/24 22:00 Dose: 10 meq Documented By: Admin: 12/14/24 09:09 Dose: 10 meq Documented By: Admin: 12/13/24 20:46 Dose: 10 meq Documented By: Admin: 12/13/24 08:34 Dose: 10 meq Documented By: Admin: 12/12/24 20:18 Dose: 10 meq Documented By: LORENA Simvastatin (Simvastatin 40 Mg Tab) 40 mg PO QPM DAVID Stop: 01/11/25 20:59 Last Admin: 12/15/24 00:23 Dose: Not Given Documented By: Admin: 12/13/24 20:47 Dose: 40 mg Documented By: Admin: 12/12/24 20:19 Dose: 40 mg Documented By: LORENA Discontinued Medications Acetaminophen (Acetaminophen 500 Mg Tab) 1,000 mg PO Q8H PRN PRN Reason: Pain or Fever Stop: 01/11/25 18:30 Last Admin: 12/14/24 09:09 Dose: 1,000 mg Documented By: Admin: 12/13/24 20:45 Dose: 1,000 mg Documented By: Admin: 12/13/24 13:04 Dose: 1,000 mg Documented By: Admin: 12/13/24 07:27 Dose: 1,000 mg Documented By: Admin: 12/12/24 21:36 Dose: 1,000 mg Documented By: LORENA Diltiazem HCl (Diltiazem Hcl 240 Mg Capcr) 240 mg PO NOW STA Stop: 12/14/24 11:58 Last Admin: 12/14/24 12:20 Dose: 240 mg Documented By: ANKITA Acetaminophen (Ofirmev) 1,000 mg in 100 mls @ 400 mls/hr IV NOW STA Stop: 12/12/24 12:41 Last Infusion: 12/12/24 12:48 Dose: Infused Documented By: Admin: 12/12/24 12:33 Dose: 400 mls/hr Documented By: BAYRON Sodium Chloride (Nss) 500 mls @ 999 mls/hr IV .Q31M ONE Stop: 12/13/24 07:29 Last Admin: 12/13/24 10:38 Dose: Not Given Documented By: ANKITA Magnesium Sulfate/Dextrose (Magnesium Sulfate / D5w) 1 gm in 100 mls @ 50 mls/hr IV ONE ONE Stop: 12/13/24 08:58 Last Infusion: 12/13/24 09:27 Dose: Infused Documented By: Admin: 12/13/24 07:26 Dose: 50 mls/hr Documented By: ANKITA Digoxin 500 mcg/ Syringe 10 mls @ 2 mls/min IV NOW STA Stop: 12/13/24 07:09 Last Admin: 12/13/24 07:34 Dose: 2 mls/min Documented By: ANKITA Magnesium Sulfate/Dextrose (Magnesium Sulfate / D5w) 1 gm in 100 mls @ 50 mls/hr IV ONE ONE Stop: 12/14/24 00:47 Last Infusion: 12/14/24 01:25 Dose: Infused Documented By: Admin: 12/13/24 23:25 Dose: 50 mls/hr Documented By: LORENA Digoxin 250 mcg/ Syringe 10 mls @ 2 mls/min IV NOW ONE Stop: 12/13/24 23:04 Last Admin: 12/13/24 23:26 Dose: 2 mls/min Documented By: LORENA Ioversol (Optiray 320 100ml) 93 ml IV ONCE ONE Stop: 12/12/24 13:23 Last Admin: 12/12/24 13:22 Dose: 93 ml Documented By: AMARI Lorazepam (Lorazepam 0.5 Mg Tab) 0.5 mg PO Q6H PRN PRN Reason: Anxiety Stop: 01/12/25 07:04 Last Admin: 12/13/24 07:27 Dose: 0.5 mg Documented By: ANKITA Metoprolol Succinate (Metoprolol Succ 25mg Ext Rel Tab) 25 mg PO QAM ON LICENSE OF [facility] Stop: 01/12/25 08:59 Last Admin: 12/14/24 11:23 Dose: Not Given Documented By: Admin: 12/13/24 10:01 Dose: 25 mg Documented By: ANKITA Metoprolol Succinate (Metoprolol Succ 25mg Ext Rel Tab) 25 mg PO NOW STA Stop: 12/13/24 06:44 Last Admin: 12/13/24 07:01 Dose: Not Given Documented By: ANKITA Nystatin (Nystatin Cr 15 Gm Tube) 1 appln EXT BID DAVID Stop: 01/12/25 09:44 Last Admin: 12/15/24 09:42 Dose: Not Given Documented By: Admin: 12/14/24 22:01 Dose: Not Given Documented By: Admin: 12/14/24 09:12 Dose: 1 appln Documented By: Admin: 12/13/24 20:44 Dose: 1 appln Documented By: Admin: 12/13/24 11:30 Dose: 1 appln Documented By: RACHAEL Oxycodone HCl (Oxycodone Hcl Ir 5 Mg Tab (Immediate Release)) 5 mg PO NOW STA Stop: 12/12/24 16:57 Last Admin: 12/12/24 17:10 Dose: 5 mg Documented By: TITO Imaging Data Radiologist's Impression: Chest X-Ray 12/12/24 12:15 XR chest 1V portable CLINICAL HISTORY: weakness COMPARISON STUDY: Chest radiograph November 10, 2024. FINDINGS: No pneumothorax or pleural effusion is present. Cardiomegaly is unchanged. There is mild interstitial thickening. Right hilar prominence is noted. No consolidation to suggest pneumonia. Mild left basilar opacity favors atelectasis and epicardial fat pad. IMPRESSION: 1. Cardiomegaly with mild interstitial pulmonary edema. 2. Right hilar prominence. This is likely related to pulmonary vessels however follow-up nonemergent PA and lateral chest radiographs are recommended ACT 112: Negative or not required by law. Electronically signed by: Jonel Swartz M.D. 12/12/2024 12:47 PM Abdomen/Pelvis CT 12/12/24 12:16 CT SCAN OF THE ABDOMEN AND PELVIS WITH IV CONTRAST CLINICAL HISTORY: Abdominal mass. Leukocytosis. COMPARISON STUDY: Abdominal CT dated 11/10/2024 TECHNIQUE: Following the IV administration of 93 cc of Optiray 320, CT scan of the abdomen and pelvis is performed from the lung bases to the proximal femora. Images are reviewed in the axial, sagittal, and coronal planes. IV contrast was administered without complication. A dose lowering technique was utilized adhering to the principles of ALARA. CT DOSE: 1281.27 mGy.cm FINDINGS: Lung bases: The heart is large and without pericardial effusion. The coronary arteries are densely calcified. There are small right and trace left pleural effusions with dependent atelectasis. These are new from 11/10/2024. Liver: The contrast-enhanced liver is normal in size, contour, and attenuation. There is no intrahepatic biliary ductal dilatation. The hepatic veins and portal veins are patent. There is a 14 mm left lobe hepatic cyst. Gallbladder: Unremarkable. Spleen: Normal in size and attenuation. Pancreas: Unremarkable. Adrenal glands: Unremarkable. Kidneys: The contrast enhanced kidneys demonstrate cortical atrophy and are without hydronephrosis. The kidneys enhance symmetrically. There is a 5.5 cm right renal cyst. Additional subcentimeter cortical hypodensities also likely represent cysts but are too small for definitive characterization. Abdominal vasculature: The abdominal aorta is normal in course and caliber noting advanced atherosclerotic calcification. Bowel: A gastric diverticulum is seen posteriorly in the fundal region. There is mild to moderate colonic diverticulosis without CT evidence of acute diverticulitis. No bowel obstruction is seen. The bowel loops are displaced by the large pelvic mass. Focal wall thickening of the mid to distal descending colon image #235 is similar to previous. The appendix is well-visualized and normal. Peritoneum: There is no intraperitoneal free air or abdominal ascites. Lymphadenopathy: None. Pelvic viscera: The bladder is partially distended and grossly unremarkable. The uterus is surgically absent. Again seen is a large thick walled cystic mass lesions in the pelvis, which may arise from the right aspect of the sacrum. This lesion contains internal calcifications and soft tissue elements. There are numerous foci of gas within this lesion which have increased from previous. The overall lesion measures approximately 20.5 x 23 x 22.5 cm in aggregate dimension. A loculated fluid component along the superior margin seen on image #149 measures approximately 4 x 9.5 x 14 cm. A thick-walled multiloculated appearing gas and fluid collection along the anterior/superior margin seen on image #1 heterogeneity measures approximately 6 x 1.5 x 7 cm. Skeletal structures: The skeletal structures are osteopenic. As discussed above, a large pelvic mass appears contiguous with a large lytic lesion within the right aspect of the sacrum. No additional destructive bony lesion is suspected. There is moderate lumbosacral spondylosis and scoliosis. Soft tissues: There is anasarca of the body wall. IMPRESSION: 1. Again seen is a large thick-walled pathologically indeterminate solid and cystic mass arising from the right sacrum and extending into the pelvis/lower abdomen. This lesion measures approximately 20.5 x 23 x 22.5 cm in aggregate dimension and contains internal foci of gas. The internal gas component has increased from 11/10/2024 and superinfection of this lesion is not excluded. Clinical correlation will be essential. 2. A thick-walled multiloculated gas and fluid collection is again seen on the anterior/superior margin of the cystic mass. This could represent contained rupture, with abscess not excluded. 3. There is significant mass effect from the large lesion with displacement of normal visceral structures. 4. Focal circumferential wall thickening of the mid to distal descending colon is unchanged. Underlying mucosal lesion would be impossible to exclude. 5. Pleural effusions are new from previous and there is anasarca of the body wall indicative of fluid overload. 6. Additional findings as above. ACT 112: Negative or not required by law. Electronically signed by: David Dawson M.D. 12/12/2024 1:43 PM Discharge Plan Visit Data Chief Complaint: Weakness ED Provider: Justice Baum Discharge Problem: Leukocytosis Discharge Problem: (Ruled Out): Schwannoma of spinal cord Patient Disposition: Home - Self-Care Condition: Good Discharge Instructions Interventions: ED Discharge Assessment Last Done: 12/12/24 17:34
--- NOTE | 2024-12-12 16:34 | History & Physical Report ---
Date of Service December 12, 2024 Assessment & Plan (1) Weakness: (2) Ambulatory dysfunction: (3) Leukocytosis: (4) Schwannoma: (5) Atrial fibrillation, permanent: (6) Hypothyroidism: (7) Dyslipidemia: Plan 84 y/o F here due to concern for ambulatory dysfunction, pain, and elevated WBC count. Ambulatory dysfunction - Uses a walker at baseline and feels weak and unsteady when she walks (like she would collapse) - Would benefit from continued PT - PT/OT consulted Lower back pain - Has lower back pain w/ radiation down right lateral leg - No opioid medications for pain control in home med list - Patient got Tylenol 1 gm IV and oxycodone 5 mg in the ED and noted improvement in her pain - Continue Tylenol 1gm PO q8h with Oxycodone 5 mg q6h for breakthrough pain Chronic leukocytosis - No fevers or localizing symptoms to raise suspicion for reactive leukocytosis - Possible it is related to pelvic mass growth and ?tumor necrosis - Could consider heme/onc consult Permanent a-fib - currently rate controlled - continue home metoprolol and eliquis Hypothyroidism - continue home levothyroxine History of Present Illness Chief Complaint: Weakness Primary Care Provider: [facility] Patient is an 84-year-old female with past medical history of permanent A-fib on chronic Eliquis, pelvic mass considered to be possibly a schwannoma, and chronic leukocytosis who came to the emergency department by recommendation of her provider after noting abnormal white count in her labs. Patient denies having any recent fevers, or other localizing symptoms, and on chart review patient seems to have been having high WBC count for a few months. Was also in [facility] in 11/2024 due to noted leukocytosis and pain related to pelvic mass. At that time, infectious disease specialist believed that possible reason for her leukocytosis was due to mass growth and subsequent insufficient perfusion to mass (tumor necrosis). Fine-needle biopsy was attempted, however, patient's son states that pathology results were inconclusive. During this time, patient had limited mobility and laying in bed most of the time. When she returned home, she uses a walker but does not feel confident in walking long distances as she feels she would collapse due to weakness and imbalance. Denies having any recurrent or recent falls. Medical History: [Reviewed] Medications: [Reviewed] Surgical History: [Reviewed] Family history: [Reviewed] Allergies: [Reviewed] Social History: [Reviewed] Code Status: DNR/DNI Allergies Allergy/AdvReac Type Severity Reaction Status Date / Time chocolate flavor Allergy Severe Anaphylaxis Verified 12/12/24 15:12 caffeine AdvReac Intermediate Palpitation Verified 12/12/24 15:12 s Home Medications Medication Instructions Recorded Confirmed Type acetaminophen 325 mg capsule 650 mg (2 x 325 mg) PO QID PRN 11/11/21 12/12/24 Rx pain #360 caps multivitamin 1 tab PO DAILY #30 tabs 11/11/21 12/12/24 Rx omega3 300 mg-dha,epa 250 mg-other 1 cap PO DAILY #90 caps 11/11/21 12/12/24 Rx omega 3s-fish oil 1,000 mg capsule apixaban 5 mg tablet (Eliquis) 5 mg PO BID #180 tabs 12/13/23 12/12/24 Rx calcium acetate 667 mg tablet 1,334 mg (2 x 667 mg) PO DAILY 12/13/23 12/12/24 Rx #180 tabs diltiazem HCl 240 mg capsule,24 240 mg PO DAILY #90 caps 12/13/23 12/12/24 Rx hr,extended release furosemide 40 mg tablet 40 mg PO DAILY #90 tabs 12/13/23 12/12/24 Rx gabapentin 300 mg capsule 300 mg PO TID #270 caps 12/13/23 12/12/24 Rx potassium chloride 10 mEq 10 meq PO BID #180 tabs 12/13/23 12/12/24 Rx tablet,extended release buspirone 7.5 mg tablet 7.5 mg PO TID #270 tabs 05/30/24 12/12/24 Rx omeprazole 20 mg tablet,delayed 20 mg PO DAILY #90 tabs 08/28/24 12/12/24 Rx release ondansetron HCl 4 mg tablet 4 mg PO Q8H PRN nausea and 10/26/24 12/12/24 Rx vomiting #20 tabs simvastatin 40 mg tablet 40 mg PO QPM 11/10/24 12/12/24 History metoprolol succinate 25 mg 0 mg PO DIRECTED 12/12/24 12/12/24 History tablet,extended release 24 hr oxycodone 5 mg tablet 5 mg PO Q8H PRN pain #15 tabs 12/12/24 Rx Past Med/Surg History Problem List (Updated 12/12/24 @ 17:11 by Justice Baum DO) Leukocytosis (Acute) Schwannoma Leukocytosis Ambulatory dysfunction Weakness Atrial fibrillation, permanent Pneumonia (Acute) Diverticulitis (Acute) Atrial fibrillation with RVR (Acute) Hypoxia (Acute) UTI (urinary tract infection) Burning with urination Urgency of urination Frequency of urination Current use of proton pump inhibitor Hypothyroidism Hyperglycemia Atrial fibrillation, chronic Current use of proton pump inhibitor Encounter for pre-operative examination Schwannoma of spinal cord (Acute) Elevated vitamin B12 level Dyslipidemia (Acute) Osteopenia (Acute) Vitamin D deficiency (Acute) Hypertension (Chronic) Medical History Upper GI bleed CHF (congestive heart failure) Partial small bowel obstruction Hypoxia RENE (acute kidney injury) Pelvic mass Diverticulitis Diverticulosis AF (paroxysmal atrial fibrillation) Anticoagulant long-term use GERD (gastroesophageal reflux disease) Hypertension History of actinic keratoses History of cyst of breast Surgical History H/O oral surgery S/P knee surgery S/P hysterectomy S/P ablation of atrial fibrillation S/P cataract surgery Family History Father Myocardial infarction Daughter Breast cancer Mother Stroke Denies family history of Ovarian cancer Prostate cancer Colorectal cancer Social History Smoking Status: Unknown if ever smoked Second Hand Exposure: No; Do You Dip or Chew Tobacco: No; Hx Alcohol Use: No Hx Substance Use: No Preferred Language: Arabic Communication Ability: Effective Visual Impairment: No Limitations Hearing Ability: Normal [employer] Required: No Beliefs That Will Affect Care: None marital status: Current Living Situation: Rehab Current Living Situation Comment: [facility] current occupational status: retired Feels Safe at Home: Yes Childhood Exposure to Second-Hand Smoke: Yes Dental Care, Regularly: Yes Physical Activity Frequency: Daily Seatbelt Use: always Sunscreen Use: Yes Assistive Devices: Glasses, Hospital Bed, Walker and Wheelchair Review of Systems Review of Systems: As per HPI Physical Exam Constitutional: WD/WN, vitals as above no acute distress Eyes: PERRL, conjunctivae normal, anicteric sclerae Neck: trachea midline, no thyromegaly Respiratory: normal respiratory effort, lungs clear to auscultation Cardiovascular: Rate/Rhythm: + irregularly irregular Heart Sounds: normal S1 and normal S2 Gastrointestinal (Abdomen): Inspection/Auscultation: + abdomen distended Percussion/Palpation: abdomen soft; abdomen nontender, no guarding and abdomen not rigid Results & Data Results & Data Vital Signs (Past 12 Hours) Vital Signs Temp Pulse Pulse Resp BP BP Pulse Ox 12/12/24 16:21 141 H 12/12/24 15:00 108 H 16 107/70 97 12/12/24 13:30 100 H 24 92/68 L 12/12/24 12:48 111 H 21 96 12/12/24 12:22 98 12/12/24 11:54 125 H 12/12/24 11:40 97 12/12/24 11:40 36.5 C 67 20 150/85 H 97 O2 Del Method 12/12/24 16:21 12/12/24 15:00 Room Air 12/12/24 13:30 12/12/24 12:48 12/12/24 12:22 Room Air 12/12/24 11:54 12/12/24 11:40 Room Air 12/12/24 11:40 Room Air Supervising Physician Co-Signing Physician Notes Attending attestation Pt seen and examined in concert with Sherlyn Saul. In agreement with the documented findings as noted in the resident documentation with any exceptions or additions as noted here. Pt resting in bed with pain poorly controlled on presentation, improved with administration of IV APAP 1gm and again w/ PO oxycodone 5mg x 1. Reviewed goals of care and evaluation with family and patient - disinclined for further evaluation of either leukocytosis nor abdominopelvic mass at present, and would prefer for pain control and return to [facility] though patient is presently uncertain re: goal of care for further evaluation and rehab vs. comfort. Family conflict at bedside. Discussed w/ Dr. Barnett - concerned re: rapid progression of illness/no improvement x 4 days at [facility] and prompted referral, no concern for infectious sx on presentation. Willing to accept back for palliative care if that decision is made. Family discussion re: code status, transition to DNR/DNI per patient and family wishes without heroic or invasive efforts with worsening at present. VS as noted. On examination, S1/S2 nl afib w/ RVR, chronic, no MCG. CTAB. Abd NT/ND BS+ve Failure to thrive with chronic pain in the setting of undifferentiated abdominal mass - pain control w/ oxycodone, APAP and supportive care. Extensive discussion with family and patient re: goals of care, appropriate setting and further w/u. Conclusion reached that we will admit for pain control and discussion of goals in the AM with consult to palliative care. Leukocytosis - chronic, stable leukocytosis w/ evaluation at [facility] in November without intervention or changes. Considering no clinical complaint, would be less concerned for infectious etiology. Chronic anemia - stable and without subjective complaint of bleeding. Will eschew AM labs preceding evaluation and GOC discussion unless acute change overnight prompts further evaluation. Else see resident documentation as noted. Total attending physician time spent with this patient's care on the day of admission 85 minutes. Resident Activity Tracking Resident Involvement: Resident Care Provided Care Provided: Adult Hospital Medicine
--- NOTE | 2024-12-12 17:52 | Emergency Department Note ---
ED Visit Note I was asked to evaluate the patient by the admitting team. Dr. Alarcon was evaluating the patient and the patient was considering going home. The patient was requesting something for pain. I did review the patient's initial history and physical exam by Dr. Patricio. I ordered the patient a dose of oxycodone. The patient was reevaluated by the hospitalist team and at this time they do feel the patient is a better candidate for inpatient management. The patient is to be admitted by the admitting team at this time. No other intervention was req uired on my part. .
--- NOTE | 2024-12-12 18:10 | Electrocardiogram Report ---
Test Reason : Blood Pressure : */* mmHG Vent. Rate : 126 BPM Atrial Rate : * BPM P-R Int : * ms QRS Dur : 76 ms QT Int : 302 ms P-R-T Axes : * -9 22 degrees QTcB Int : 437 ms Atrial fibrillation with rapid ventricular response with premature ventricular or aberrantly conducte d complexes Nonspecific T wave abnormality Incomplete right bundle branch block Abnormal ECG When compared with ECG of 10-Nov-2024 11:15, No significant change was found Confirmed by Ernesto Smith ([id number]) on 12/12/2024 6:10:30 PM Referred By: REFERRED SELF Confirmed By: Ernesto Smith
[2024-12-12] MEDS ORDERED: POLYETHYLENE (MIRALAX) 17 GM PACK PO PRN (18:31)
[2024-12-12] MEDS ORDERED: METOPROLOL SUCC 25MG EXT REL TAB PO SCH (18:31)
[2024-12-12] MEDS: GABAPENTIN 300 MG CAP PO SCH (20:18)
[2024-12-12] MEDS: POTASSIUM CHLORIDE 10 MEQ TABCR PO SCH (20:18)
[2024-12-12] MEDS: APIXABAN 5 MG TABLET PO SCH (20:18)
[2024-12-12] MEDS: SIMVASTATIN 40 MG TAB PO SCH (20:19)
[2024-12-12] MEDS: ACETAMINOPHEN 500 MG TAB PO PRN (21:36)
[2024-12-13] MEDS: METOPROLOL SUCC 25MG EXT REL TAB PO STA (07:01)
[2024-12-13] MEDS: MAGNESIUM SULFATE / D5W 1 GM/100 ML BAG IV ONE ×2 (07:26→23:25)
[2024-12-13] MEDS: LORazepam 0.5 MG TAB PO PRN (07:27)
[2024-12-13] MEDS: DIGOXIN 500 MCG in SYRINGE 8 ML IV STA (07:34)
--- NOTE | 2024-12-13 07:41 | Hospitalist Progress Note ---
Date of Service December 13, 2024 Assessment & Plan (1) Weakness: (2) Ambulatory dysfunction: (3) Leukocytosis: (4) Schwannoma: (5) Atrial fibrillation, permanent: (6) Dyslipidemia: Plan 84 y/o F here due to concern for ambulatory dysfunction, pain, and elevated WBC count. Pt has a history of afib but had RVR this morning. Permanent a-fib - Echo showed afib with RVR with PVC and an incomplete right bundle branch block - Digoxin 500mcg given in the am for rate control. HR is currently stable at 92 BPM - continue home metoprolol and Eliquis - hold furosemide and diltiazem due to low BP - hold lorazepam - Rate is currently stable but if RVR happens again, consult cardiology. Abdominal and leg pain - Has lower abdominal pain w/ radiation down the right lateral leg - Patient got Tylenol 1 gm IV and oxycodone 5 mg in the ED and noted improvement in her pain - Continue Tylenol 1gm PO q8h with Oxycodone 5 mg q6h for breakthrough pain - Uses a walker to get about and upper body strength to pull herself up and would benefit from continued PT - have conversations on goals of care and rehab Chronic leukocytosis - No fevers or localizing symptoms to raise suspicion for reactive leukocytosis - Down trending leukocytosis - Possible it is related to pelvic mass growth chronic inflammatory state - Could consider heme/onc consult DVT: on Eliquis Code: DNR/DNI Diet: heart healthy, low sodium diet Dispo: med tele. Admission and Anticipated Discharge Date Admission Date: December 12, 2024 Supervising Physician Co-Signing Physician Notes Attending attestation Pt seen and examined in concert with Sherlyn Saul. In agreement with the documented findings as noted in the resident documentation with any exceptions or additions as noted here. Significant improvement in reported pain control, no complaint re: palpitations, SOB or chest pain in the setting of recent RVR with permanent AF. Goals of care conversation w/ family - will pursue stabilization at this time without extensive evaluation of the underlying mass at this time. Will attempt to pursue rehab on discharge at this time and consider hospice based on response in the setting of better pain control. VS as noted. On examination, S1/S2 nl afib w/ improved rate, chronic, no MCG. CTAB. Abd NT/ND BS+ve AF w/ RVR - improved following administration of dig load and metoprolol, will monitor closely. Holding diltiazem for BP. Failure to thrive with chronic pain in the setting of undifferentiated abdominal mass - pain control w/ oxycodone, APAP and supportive care. Ongoing conversation re: goals of care Chronic anemia - stable and without subjective complaint of bleeding. Will eschew AM labs preceding evaluation and GOC discussion unless acute change overnight prompts further evaluation. Leukocytosis - chronic, stable leukocytosis w/ evaluation at [facility] in November without intervention or changes. Considering no clinical complaint, would be less concerned for infectious etiology. Else see resident documentation as noted. Subjective Overnight, pt's afib RVR increased to 140+ BPM. She was loaded with digoxin and given Ativan for anxiety. Reports no chest pain, shortness of breath, or heart palpitations and is feeling fine. No fever, chills, N/V. Is able to urinate, pass gas and stool. No abdominal pain but occasional radiation of pain to right leg if she does not get her oxycodone and Tylenol in time. She would like to have the medications every 8 hours minimum to prevent the pain from starting. Also notes that her LE swelling has gone down a lot. Review of Systems Review of Systems: As per HPI Physical Exam Physical Exam: General: Calm and not in acute distress CV: tachycardia, afib, no r/m/g Lung: CTA b/l without increase work of respiration, symmetrical chest expansion b/l Abdomen: tense and distended in the periumbilical area with minimal pain on palpation, minimal bowel sounds Extremities: pitting edema on LE b/l MSK: Strength 4/5 on left LE and UE b/l, and 3/5 on the right LE. Results & Data Results & Data Vital Signs (Past 12 Hours) Vital Signs Temp Pulse Pulse Resp BP Pulse Ox O2 Del Method 12/13/24 07:36 36.6 C 140 H 20 102/71 97 Room Air 12/13/24 07:34 143 H 12/13/24 06:41 101/67 12/13/24 04:00 36.6 C 97 H 18 104/68 96 Room Air 12/12/24 22:52 36.4 C L 86 18 96/63 L 93 Room Air 12/12/24 21:45 94 H 12/12/24 19:53 Room Air Resident Activity Tracking Resident Involvement: Resident Care Provided Care Provided: Adult Hospital Medicine
[2024-12-13 08:27] LABS: Hematocrit (blood only) 29.8 % (37.0-47.0); Hemoglobin 9.2 g/dl (12.0-16.0); Immature Granulocytes # (auto) 0.12 K/uL (0.01-0.20); Immature Granulocytes % (auto) 0.8 %; Mean Corpuscular Hemoglobin 24.9 pg (25.0-34.0); Mean Corpuscular Volume 80.8 fL (80.0-100.0); Platelet Count 552 K/uL (130-400); RDW Standard Deviation 46.5 fL (36.4-46.3); Red Blood Count 3.69 M/uL (4.20-5.40); White Blood Count 14.14 K/ul (4.8-10.8)
[2024-12-13 08:47] LABS: Anion Gap 6.0 (3-11); Blood Urea Nitrogen 22.0 mg/dl (6-23); Calcium 8.4 mg/dl (8.6-10.3); Carbon Dioxide 33.0 mmol/L (21-32); Chloride 97.0 mmol/L (98-107); Creatinine Clr Calc Pharmacy 56.3 ml/min; Glucose 126.0 mg/dl (70-99(Fasting)); Magnesium 1.7 mg/dl (1.7-2.4); Potassium 4.2 mmol/L (3.5-5.1); Sodium 136.0 mmol/L (136-145)
[2024-12-13] MEDS: METOPROLOL SUCC 25MG EXT REL TAB PO SCH (10:01)
[2024-12-13] MEDS: FUROSEMIDE 40 MG TAB PO SCH (10:01)
[2024-12-13] MEDS: SODIUM CHLORIDE 0.9% 500 ML IV ONE (10:38)
[2024-12-13] MEDS: NYSTATIN CR 15 GM TUBE EXT SCH (11:30)
[2024-12-13 13:03] LABS: Appearance Urine Clear (Clear); Bacteria Urine Automated 4+ (None Seen); Cast Urine Automated 0-2 /lpf (0-2); Epithelial Cell Urine Auto 0-2 /hpf (0-2); Glucose Urine UA Negative (Negative); RBC Urine Automated 0-2 /hpf (0-2); WBC Urine Automated 0-5 /hpf (0-5)
[2024-12-13] MEDS: DIGOXIN 250 MCG in SYRINGE 9 ML IV ONE (23:26)
[2024-12-14 08:11] LABS: Anion Gap 4.0 (3-11); Blood Urea Nitrogen 21.0 mg/dl (6-23); Calcium 8.6 mg/dl (8.6-10.3); Carbon Dioxide 35.0 mmol/L (21-32); Chloride 97.0 mmol/L (98-107); Creatinine Clr Calc Pharmacy 49.8 ml/min; Glucose 100.0 mg/dl (70-99(Fasting)); Potassium 4.8 mmol/L (3.5-5.1); Sodium 136.0 mmol/L (136-145)
[2024-12-14 10:08] LABS: Hematocrit (blood only) 29.0 % (37.0-47.0); Hemoglobin 9.0 g/dl (12.0-16.0); Immature Granulocytes # (auto) 0.13 K/uL (0.01-0.20); Immature Granulocytes % (auto) 0.8 %; Mean Corpuscular Hemoglobin 25.3 pg (25.0-34.0); Mean Corpuscular Volume 81.5 fL (80.0-100.0); Platelet Count 595 K/uL (130-400); RDW Standard Deviation 46.1 fL (36.4-46.3); Red Blood Count 3.56 M/uL (4.20-5.40); White Blood Count 16.11 K/ul (4.8-10.8)
--- NOTE | 2024-12-14 10:39 | Hospitalist Progress Note ---
Date of Service December 14, 2024 Assessment & Plan (1) Weakness: (2) Ambulatory dysfunction: (3) Atrial fibrillation, permanent: (4) Dyslipidemia: Plan Plan 84 y/o F here due to concern for ambulatory dysfunction, pain, and elevated WBC count. Pt has a history of afib but recurring RVR this morning. Permanent a-fib - Echo showed afib with RVR with PVC and an incomplete right bundle branch block - Digoxin 500mcg given in the evening for rate control. HR was in the high 110s- 120s in the morning but jumped to >200BPM after waking up - Consulted cardiology due to uncontrolled RVR. They recommended to restart diltiazem and double the dosage of metoprolol from 25mg to 50mg BID and take 0.25mg Digoxin PO QD for rate control. Can consider amiodarone on discharge. - Continue home Eliquis - Hold furosemide due to low BP - Hold lorazepam - Weeping on LE b/l has been chronic. Refused examination of lower legs. If WBC counts continue to increase, we will assess LE for wounds. Abdominal and leg pain - Improved lower abdominal pain w/o radiation down the right lateral leg with current pain management - Continue ice pack, Tylenol 1gm PO q8h with Oxycodone 5 mg q6h for breakthrough pain - Uses a walker to get about and upper body strength to pull herself up and would benefit from continued PT - have conversations on goals of care and rehab Chronic leukocytosis - No fevers or localizing symptoms to raise suspicion for reactive leukocytosis - WBC count back up to 16.11. Pt may just have leukocytosis at baseline. Keep an eye on other systemic symptoms - Possibly related to pelvic mass growth, chronic inflammatory state Anemia - Consider ordering a FOBT to check for a source of bleeding. DVT: on Eliquis Code: DNR/DNI Diet: heart healthy, low sodium diet Dispo: med tele. Admission and Anticipated Discharge Date Admission Date: December 12, 2024 Supervising Physician Co-Signing Physician Notes Attending attestation Pt seen and examined in concert with Dr. Moore. In agreement with the documented findings as noted in the resident documentation with any exceptions or additions as noted here. Pain well controlled on present regimen at time of evaluation and reports no chest pain, SOB, palpitations, lightheadedness nor GI symptoms. VS as noted. On examination, S1/S2 nl afib w/ improved rate, chronic, no MCG. CTAB. Abd NT/ND BS+ve AF w/ RVR w/ chronic HFpEF - cardiology consult - restart metoprolol at increased dose, diltizem, and add daily digoxin 250mcg. Close monitoring. Failure to thrive with chronic pain in the setting of undifferentiated abdominal mass - pain control w/ oxycodone, APAP and supportive care. Ongoing conversation re: goals of care Chronic anemia - stable and without subjective complaint of bleeding. Trend CBC daily. Leukocytosis - chronic, stable leukocytosis w/ evaluation at [facility] [place] in November without intervention or changes. Considering no clinical complaint, would be less concerned for infectious etiology, but monitor closely in the setting of AF w/ RVR Else see resident documentation as noted. Subjective Patient reports feeling fine overnight, no chest pain, sob, or heart palpitation. Able to urinate and stool. Has not noticed her LE edema getting any worse after holding furosemide. Notes no abdominal or leg pain; well controlled with an ice pack, oxycodone and Tylenol. Review of Systems Review of Systems: As per HPI Physical Exam Physical Exam: General: Startled when awaken but calm and no acute distress after CV: tachycardia, afib, no r/m/g, no carotid bruits Lung: CTA b/l without increase work of respiration, symmetrical chest expansion b/l Abdomen: tense and distended in the periumbilical area with no pain on palpation, normal bowel sounds Extremities: 2+ pitting edema and weeping on LE b/l. MSK: Strength 4/5 on left LE and UE b/l, and 3/5 on the right LE. Results & Data Results & Data Vital Signs (Past 12 Hours) Vital Signs Temp Pulse Pulse Pulse Resp BP Pulse Ox 12/14/24 07:50 36.4 C L 127 H 20 119/74 92 12/14/24 07:03 121 H 12/14/24 03:04 36.6 C 116 H 18 116/63 95 12/13/24 23:31 36.6 C 114 H 18 136/89 99 12/13/24 23:26 117 H 12/13/24 23:23 117 H O2 Del Method 12/14/24 07:50 Room Air 12/14/24 07:03 12/14/24 03:04 Room Air 12/13/24 23:31 Room Air 12/13/24 23:26 12/13/24 23:23
[2024-12-14] MEDS: METOPROLOL SUCC 50MG EXT REL TAB PO SCH (12:48)
--- NOTE | 2024-12-14 15:11 | Cardiology Consultation ---
Date of Consultation December 14, 2024 Assessment & Plan (1) Atrial fibrillation with RVR: Plan 1. Atrial fibrillation: It seems that she has struggled with high ventricular rates for some time. At least for few months now she seems to have had elevated ventricular rates documented during inpatient hospitalizations. Outpatient monitor performed last year suggested that at rest her rates were reasonably well-controlled with activity she also had elevated heart rates. I think we will reevaluate her overall LV function given the concern over elevated rates for an extended period. She does not appear to have decompensated heart failure at this point which is encouraging. In the meantime we will be more aggressive with her rate control. There was some concerns about mild hypotension and use of diltiazem. However, she has been on this medication for a long time and I t hink she can resume diltiazem. We can increase her metoprolol succinate to 50 mg daily. This can be given in a divided dose of 25 mg in the morning and 25 mg in the evening. She was loaded on digoxin last evening and I think she can continue on this medication as well. I think 250 mcg daily would be a good start and we can measure her digoxin level on Wednesday. Normal renal function which is encouraging. In the absence of improvement with more aggressive rate control we could consider use of amiodarone as well for rate control. Given her advanced age this would be a reasonable option. Unattractive option would also be an AV node ablation and implantation of a permanent pacemaker. Will see how she responds to medical therapy before making a decision on more aggressive and permanent treatment such as ablate and pace. She can continue her systemic anticoagulation. History of Present Illness Reason for Consultation: Atrial fibrillation Attending Physician: Ernesto Alarcon MD History of Present Illness The patient is an 84-year-old woman with a history of permanent atrial fibrillation who was admitted to the hospital for an elevated white blood cell count. She was also noted on admission to have elevated heart rates. An EKG suggested atrial fibrillation with elevated heart rates. Patient states that she has been weak and has had difficulty ambulating, but did not have any other specific complaints. She appears to have been hospitalized for several weeks here at [facility] and down at [facility]. 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 She did become quite debilitated in the interim and was recently at a rehab facility when she was transferred back to the hospital for the elevated white count. The patient states that she has a long history of atrial fibrillation dating back to young adulthood. She has had multiple procedures and been on multiple medications in the past for atrial fibrillation. However, recently it has been obvious that she has been in permanent atrial fibrillation. Outpatient monitoring suggested reasonable rate control, but during 2 admissions recently she has been noted to have elevated heart rates. Most recently she was at and 25 mg of metoprolol was added to her regimen of daily diltiazem. The patient is currently not ambulatory. She was out of bed briefly today. She had some mild dizziness and lightheadedness. She is generally not aware of any palpitations. She did not endorse symptoms of chest pain. She has not been short of breath resting in bed. She does have a long history of lower extremity edema which she says is better currently. Allergies Allergy/AdvReac Type Severity Reaction Status Date / Time caffeine AdvReac Unknown HEART Verified 12/13/24 22:55 RACING/PALPITATIONS Home Medications Medication Instructions Recorded Confirmed Type acetaminophen 325 mg capsule 650 mg (2 x 325 mg) PO QID PRN 11/11/21 12/12/24 Rx pain #360 caps multivitamin 1 tab PO DAILY #30 tabs 11/11/21 12/12/24 Rx omega3 300 mg-dha,epa 250 mg-other 1 cap PO DAILY #90 caps 11/11/21 12/12/24 Rx omega 3s-fish oil 1,000 mg capsule apixaban 5 mg tablet (Eliquis) 5 mg PO BID #180 tabs 12/13/23 12/12/24 Rx calcium acetate 667 mg tablet 1,334 mg (2 x 667 mg) PO DAILY 12/13/23 12/12/24 Rx #180 tabs diltiazem HCl 240 mg capsule,24 240 mg PO DAILY #90 caps 12/13/23 12/12/24 Rx hr,extended release furosemide 40 mg tablet 40 mg PO DAILY #90 tabs 12/13/23 12/12/24 Rx gabapentin 300 mg capsule 300 mg PO TID #270 caps 12/13/23 12/12/24 Rx potassium chloride 10 mEq 10 meq PO BID #180 tabs 12/13/23 12/12/24 Rx tablet,extended release buspirone 7.5 mg tablet 7.5 mg PO TID #270 tabs 05/30/24 12/12/24 Rx omeprazole 20 mg tablet,delayed 20 mg PO DAILY #90 tabs 08/28/24 12/12/24 Rx release ondansetron HCl 4 mg tablet 4 mg PO Q8H PRN nausea and 10/26/24 12/12/24 Rx vomiting #20 tabs simvastatin 40 mg tablet 40 mg PO QPM 11/10/24 12/12/24 History metoprolol succinate 25 mg 0 mg PO DIRECTED 12/12/24 12/12/24 History tablet,extended release 24 hr oxycodone 5 mg tablet 5 mg PO Q8H PRN pain #15 tabs 12/12/24 Rx Patient History Medical History (Updated 12/14/24 @ 09:56 by Ernesto Alarcon MD) Atrial fibrillation, permanent Osteopenia Vitamin D deficiency Hyperglycemia Current use of proton pump inhibitor Upper GI bleed CHF (congestive heart failure) Partial small bowel obstruction Diverticulitis Diverticulosis Anticoagulant long-term use Hypertension History of actinic keratoses History of cyst of breast Surgical History H/O oral surgery S/P knee surgery S/P hysterectomy S/P ablation of atrial fibrillation S/P cataract surgery Family History Father Myocardial infarction Daughter Breast cancer Mother Stroke Denies family history of Ovarian cancer Prostate cancer Colorectal cancer Social History Smoking Status: Unknown if ever smoked Second Hand Exposure: No; Do You Dip or Chew Tobacco: No; Hx Alcohol Use: No Hx Substance Use: No Preferred Language: Gambian Communication Ability: Effective Visual Impairment: No Limitations Hearing Ability: Normal Cinder Block Mason Required: No Beliefs That Will Affect Care: None marital status: Current Living Situation: Rehab Current Living Situation Comment: [facility] current occupational status: retired Feels Safe at Home: Yes Childhood Exposure to Second-Hand Smoke: Yes Dental Care, Regularly: Yes Physical Activity Frequency: Daily Seatbelt Use: always Sunscreen Use: Yes Assistive Devices: Cane, Glasses and Walker Review of Systems Review of Systems: Per HPI Physical Exam Physical Exam: She is alert and oriented x3. Mood affect appear normal. She answered all questions appropriately. HEENT: Sclerae are anicteric. Pupils are equal and reactive to light and accommodation. Extraocular movements were intact. Neuro: Cranial nerves intact Lungs: Lungs are clear to auscultation bilaterally. There are no rales wheezes or rhonchi. She has normal respiratory effort without use of accessory muscles. There is normal pulmonary excursion. Cardiac: The rhythm was irregular. Rate was fast. S1 and S2 were normal. There are no murmurs on examination. The PMI was not markedly displaced on palpation. Extremities: Patient has bilateral radial pulses that are equal in intensity. There is no evidence cyanosis or clubbing. Moderate lower extremity edema bilaterally Skin: There are no rashes noted on examination today. Results & Data Vital Signs (Past 12 Hours) Vital Signs Temp Pulse Pulse Pulse Resp BP Pulse Ox 12/14/24 12:47 174 H 106/65 12/14/24 11:44 36.5 C 114 H 16 102/61 94 12/14/24 08:05 12/14/24 07:50 36.4 C L 127 H 20 119/74 92 12/14/24 07:03 121 H 12/14/24 03:04 36.6 C 116 H 18 116/63 95 O2 Del Method 12/14/24 12:47 12/14/24 11:44 Room Air 12/14/24 08:05 Room Air 12/14/24 07:50 Room Air 12/14/24 07:03 12/14/24 03:04 Room Air Laboratory Results Abnormal Lab Results 12/14/24 12/14/24 07:13 09:18 WBC 16.11 H RBC 3.56 L Hgb 9.0 L Hct 29.0 L MCV 81.5 MCH 25.3 MCHC 31.0 L RDW Std Deviation 46.1 RDW Coeff of Lucas 15.9 H Plt Count 595 H MPV 8.4 L Immature Gran % (Auto) 0.8 Neut % (Auto) 81.6 Lymph % (Auto) 10.2 Fleming % (Auto) 7.1 Eos % (Auto) 0.1 Baso % (Auto) 0.2 Neut # (Auto) 13.15 H Lymph # (Auto) 1.64 Fleming # (Auto) 1.15 H Eos # (Auto) 0.01 Baso # (Auto) 0.03 Immature Gran # (Auto) 0.13 Sodium 136 Potassium 4.8 Chloride 97 L Carbon Dioxide 35 H Anion Gap 4 BUN 21 Creatinine 0.87 Est Cr Clr Drug Dosing 49.8 eGFR 64.84 BUN/Creatinine Ratio 24.1 H Glucose 100 H Calcium 8.6 Magnesium 1.9 Digoxin 1.4 Diagnostic Findings Ablation for atrial fibrillation [facility] 1999, [facility] 2003 and 2004 Echocardiogram 09/08/2021: Normal LV systolic function with ejection fraction 55 t o 60%. No significant valvular heart disease. Echocardiogram 10/06/2023: Normal LV systolic function. Mild LVH. Mild left atrial dilation. No significant valvular heart disease. Cardiac event monitor 10/27/2023: Patient was monitored for 3 days. The average heart rate was 80 bpm. PG Care Time/CCT Total # of Minutes Spent Total Time Spent with Patient: Total time spent is greater than 50% in coordination of care (as documented) at patient's floor/unit and/or counseling patient: Coding Level of Care Code 46450 INT INP/OBS CARE 375MIN Diagnoses Atrial fibrillation with RVR I48.91
[2024-12-14] MEDS: ACETAMINOPHEN 325 MG TAB PO PRN (15:44)
[2024-12-14] MEDS: DIGOXIN 0.25 MG TAB PO SCH (16:22)
[2024-12-15 07:40] LABS: Hematocrit (blood only) 29.3 % (37.0-47.0); Hemoglobin 9.0 g/dl (12.0-16.0); Immature Granulocytes # (auto) 0.15 K/uL (0.01-0.20); Immature Granulocytes % (auto) 1.0 %; Mean Corpuscular Hemoglobin 25.1 pg (25.0-34.0); Mean Corpuscular Volume 81.8 fL (80.0-100.0); Platelet Count 532 K/uL (130-400); RDW Standard Deviation 46.5 fL (36.4-46.3); Red Blood Count 3.58 M/uL (4.20-5.40); White Blood Count 15.37 K/ul (4.8-10.8)
[2024-12-15 08:02] LABS: Anion Gap 3.0 (3-11); Blood Urea Nitrogen 25.0 mg/dl (6-23); Calcium 8.4 mg/dl (8.6-10.3); Carbon Dioxide 34.0 mmol/L (21-32); Chloride 99.0 mmol/L (98-107); Creatinine Clr Calc Pharmacy 64.7 ml/min; Glucose 109.0 mg/dl (70-99(Fasting)); Potassium 4.6 mmol/L (3.5-5.1); Sodium 136.0 mmol/L (136-145)
--- NOTE | 2024-12-15 10:30 | Cardiology Progress Note ---
Date of Service December 15, 2024 Assessment & Plan (1) Atrial fibrillation with RVR: Plan 1. Atrial fibrillation: Permanent. I think we seen some improvement in her overall rate control with escalating doses of metoprolol and the addition of digoxin. I think we can continue the current regimen for a few more days to see the maximum effect. If she continues to have elevated rates increase of metoprolol could again be considered. I would administer 250 mcg of digoxin again today and then reduce the dose to 125 mcg daily. She could have measurement of her digoxin level 4 to 5 days after that dose adjustment. This can certainly be performed as an outpatient. Continue systemic anticoagulation. Admission and Anticipated Discharge Date Admission Date: December 12, 2024 Subjective This morning patient was tired. She had difficulty sleeping last night. She did not report any sense of palpitations, chest pain or shortness of breath. No ambulatory at this time. Some continued right hip pain. Review of Systems Review of Systems: Per HPI Physical Exam Physical Exam: She is alert and oriented x3. Mood affect appear normal. She answered all questions appropriately. HEENT: Sclerae are anicteric. Pupils are equal and reactive to light and accommodation. Extraocular movements were intact. Neuro: Cranial nerves intact Lungs: Lungs are clear to auscultation bilaterally. There are no rales wheezes or rhonchi. She has normal respiratory effort without use of accessory muscles. There is normal pulmonary excursion. Cardiac: The rhythm was irregular. Rate was fast. S1 and S2 were normal. There are no murmurs on examination. The PMI was not markedly displaced on palpation. Extremities: Patient has bilateral radial pulses that are equal in intensity. There is no evidence cyanosis or clubbing. Moderate lower extremity edema bilaterally now with John wraps. Skin: There are no rashes noted on examination today. Results & Data Vital Signs (Past 12 Hours) Vital Signs Temp Pulse Resp BP BP Pulse Ox O2 Del Method 12/15/24 07:44 36.5 C 101 H 20 109/69 96 Room Air 12/15/24 03:25 36.5 C 102 H 20 107/66 95 Room Air 12/14/24 23:43 37.2 C 113 H 20 103/63 94 Room Air Laboratory Results Abnormal Lab Results 12/15/24 07:21 WBC 15.37 H RBC 3.58 L Hgb 9.0 L Hct 29.3 L MCV 81.8 MCH 25.1 MCHC 30.7 L RDW Std Deviation 46.5 H RDW Coeff of Lucas 15.9 H Plt Count 532 H MPV 8.2 L Immature Gran % (Auto) 1.0 Neut % (Auto) 77.2 Lymph % (Auto) 13.2 Glenn % (Auto) 8.2 Eos % (Auto) 0.1 Baso % (Auto) 0.3 Neut # (Auto) 11.87 H Lymph # (Auto) 2.03 Glenn # (Auto) 1.26 H Eos # (Auto) 0.02 Baso # (Auto) 0.04 Immature Gran # (Auto) 0.15 Sodium 136 Potassium 4.6 Chloride 99 Carbon Dioxide 34 H Anion Gap 3 BUN 25 H Creatinine 0.67 Est Cr Clr Drug Dosing 64.7 eGFR 85.07 BUN/Creatinine Ratio 37.3 H Glucose 109 H Calcium 8.4 L PG Care Time/CCT Total # of Minutes Spent Total Time Spent with Patient: Total time spent is greater than 50% in coordination of care (as documented) at patient's floor/unit and/or counseling patient: Coding Level of Care Code 58398 SUB INP/OBS CARE 2/35MIN Diagnoses Atrial fibrillation with RVR I48.91
--- NOTE | 2024-12-15 13:37 | Hospitalist Progress Note ---
Date of Service December 15, 2024 Assessment & Plan (1) Weakness: (2) Ambulatory dysfunction: (3) Atrial fibrillation, permanent: Plan Plan 84 y/o F here due to concern for ambulatory dysfunction, pain, and elevated WBC count. Pt has a history of afib with recurring RVR but HR has been stable this morning Permanent a-fib - Echo showed afib with RVR with PVC and an incomplete right bundle branch block - Diltiazem restarted, metoprolol increased from 25mg to 50mg BID and Digoxin 0.25mg PO given yesterday for rate control. HR was stable in the low 100s in the morning. Continue to monitor over the next 24 hours - Plan to lower Digoxin to 0.125mg PO tomorrow. Digoxin levels normal today; remeasure Digoxin levels in 3-4 days - Can consider amiodarone on discharge. - Continue home Eliquis - Hold furosemide due to low BP - Hold lorazepam Abdominal and leg pain - Improved lower abdominal pain but occasional pain with her right hip with radiation down the right lateral leg with current pain management - Continue ice pack. Change Tylenol 1gm PO q8h to Tylenol 650mg q6h with Oxycodone 5 mg PRN for breakthrough pain - Uses a walker to get about and upper body strength to pull herself up and would benefit from continued PT - had conversations on goals of care and rehab which includes having her Tylenol scheduled 1/2 hour before exercise. Chronic leukocytosis - No fevers or localizing symptoms to raise suspicion for reactive leukocytosis - WBC decreased from 16.11 yesterday to 15.37 today. Pt may just have leukocytosis at baseline. Keep an eye on other systemic symptoms - Possibly related to pelvic mass growth, chronic inflammatory state Anemia - Stable; continue to monitor labs in the am - Can ordering a FOBT to check for a source of bleeding if RBC continues to decline. DVT: on Eliquis Code: DNR/DNI Diet: heart healthy, low sodium diet Dispo: med tele. Admission and Anticipated Discharge Date Admission Date: December 12, 2024 Supervising Physician Co-Signing Physician Notes ATTESTATION I also saw the patient and confirmed dumont portions of the history and exam. I agree with the impression and plan in the resident documentation, and as summarized below. Daughter at bedside. Patient without new complaints - some pain which we seem to have got a handle on with scheduled Tylenol - and poor sleep, which seems to be part pain and part just the background noise of being in a hospital. EXAM VS as noted; HR much improved Alert and oriented. NAD CV I/I, rate around 100 Respirations non labored DATA Labs WBC 25.3 HgB 9 renal function 25/0.67 IMPRESSION & PLAN FTT with previously noted/documented history of abdominal mass A-fib with RVR, rate controlled improved Chronic HFpEF Leukocytosis, thrombocytosis, anemia, chronic/stable Appreciate cardiology input Continue current medications Dig level early next week PT evaluation for return to [facility] Additional per resident documentation Subjective Patient reports not being able to get sleep last night due to too many people walking in and out of the room. No chest pain, sob, or heart palpitation. Has not noticed her LE edema getting any worse since holding furosemide. Notes no abdominal pain; well controlled with an ice pack, oxycodone and Tylenol. However, she does have right hip pain that radiates to the lower right leg when the pain medication starts wearing off but goes away 20 minute after receiving the medication. Would prefer to have Tylenol more regularly over Oxycodone. Notes that she has 3 goals that she wants to achieve which includes getting enough sleep, getting her pain under control and going back to PT to regain her mobility. Expressed frustration with rehab center in telling her that she is not making progress and would like to get her pain medications scheduled to start prior to starting her exercise. Pt continues to deny CP, SOB, abdominal pain, N/V/D/C, or dizziness. Review of Systems Review of Systems: As per HPI Physical Exam 2 Physical Exam: General: Calm and no acute distress HEENT: PEERL, miosis CV: tachycardia, irregular rhythm, no r/m/g Lung: CTA b/l without increase work of respiration, symmetrical chest expansion b/l Abdomen: tense and distended in the periumbilical area with no pain on palpation, normal bowel sounds, no pain on right hip palpation Extremities: 2+ pitting edema, new compression wrapping around lower legs b/l, no weeping on bedsheets noted today Results & Data Results & Data Vital Signs (Past 12 Hours) Vital Signs Temp Pulse Pulse Resp BP BP Pulse Ox 12/15/24 07:44 36.5 C 101 H 20 109/69 96 12/15/24 03:25 36.5 C 102 H 20 107/66 95 12/14/24 23:43 37.2 C 113 H 20 103/63 94 12/14/24 21:52 105 H 12/14/24 21:00 O2 Del Method 12/15/24 07:44 Room Air 12/15/24 03:25 Room Air 12/14/24 23:43 Room Air 12/14/24 21:52 12/14/24 21:00 Room Air
--- NOTE | 2024-12-15 18:04 | XRay Report ---
Clinical History: Pain. 4 views of the pelvis and right hip are submitted for review. Findings: No fracture or dislocation is seen. There is bilateral mild to moderate severity hip osteoarthritis. No other osseous abnormality is identified. There are no radiopaque foreign bodies. Impression: Bilateral hip osteoarthritis Electronically signed by Daniel Puckett 12-15-2024 6:00 PM
--- NOTE | 2024-12-15 18:10 | Communication Note ---
Date of Service: December 15, 2024 Pt had ground level fall during transfer from chair to bed with nursing staff this afternoon. Pt was lowered to floor after legs went weak and unable to hold her body weight. There was reportedly no impact with the floor. Provider was notified at 1630. Upon exam, pt c/o 4.5/10 pain at right hip only. Visual exam revealed no deformities of LEs, mild erythema at bilateral axilla, no UE deformities. Pt was able to move arms and legs with effort and no change in amount of pain at right hip. Passive motion at legs without new limitations or increase in pain. R hip and pelvis x-ray was ordered. Pending results. Night time provider to be notified of events and advised of XR results if not resulted prior this providers end of shift.
--- NOTE | 2024-12-16 07:05 | Hospitalist Progress Note ---
Date of Service December 16, 2024 Assessment & Plan (1) Weakness: (2) Ambulatory dysfunction: (3) Atrial fibrillation, permanent: Plan Plan 84 y/o F here due to concern for ambulatory dysfunction, pain, and elevated WBC count. Pt has a history of afib with recurring RVR but HR has been stable this morning # Permanent a-fib - Echo showed afib with RVR with PVC and an incomplete right bundle branch block - Continue Diltiazem 240mg qd, metoprolol 50mg BID - Plan to lower Digoxin to 0.125mg PO today at 1600 dose, remeasure Digoxin levels in 2-3 days - Can consider amiodarone on discharge. - Continue home Eliquis - Restarted furosemide 20mg PO, which is half daily dose # Abdominal and leg pain - Improved lower abdominal pain but occasional pain with her right hip with radiation down the right lateral leg with current pain management - After ground level fall without hard impact yesterday. B hip/pelvis x-ray was negative for fractures - Continue Tylenol 650gm PO q6h with Oxycodone 5 mg PRN for breakthrough pain - Continue ice packs PRN - PT/OT are following # Chronic leukocytosis - No fevers or localizing symptoms to raise suspicion for reactive leukocytosis - WBC contiue fluctuating between 16 and 13. Pt may just have leukocytosis at baseline. Keep an eye on other systemic symptoms - Possibly related to pelvic mass growth, chronic inflammatory state # Anemia - Stable; continue to monitor labs in the am - Can ordering a FOBT to check for a source of bleeding if RBC continues to decline. DVT: on Eliquis Code: DNR/DNI Diet: heart healthy, low sodium diet Dispo: med tele. Admission and Anticipated Discharge Date Admission Date: December 12, 2024 Supervising Physician Co-Signing Physician Notes ATTESTATION I also saw the patient and confirmed dumont portions of the history and exam. I agree with the impression and plan in the resident documentation, and as summarized below. Feeling better this morning as she slept well. Initial BP a little low, but repeat improved. EXAM 108/62 Alert and oriented. NAD CV I/I, rate around 90 Respirations non labored DATA Labs WBC 13.33 HgB 8.4 renal function 27/0.61 imaging Imaging of the hips and pelvis completed yesterday showed bilateral osteoarthritis of the hips. No fracture or dislocation seen. IMPRESSION & PLAN FTT with previously noted/documented history of abdominal mass A-fib with RVR, rate controlled improved Chronic HFpEF Leukocytosis, thrombocytosis, anemia, chronic/stable Appreciate cardiology input rate control remains acceptable Continue current medications Dig level early next week PT evaluation for return to [facility] when available Additional per resident documentation Subjective Patient reports no new complaints this morning. Nursing noted some concern for hypotension prior to giving cardiac meds, however, BP returned to normal readings with use of small cuff, which was better fitting for patient small arm. Pt denies significant pain at right hip follow ground level fall yesterday. She is concerned about her level of weakness and is anxious to return to rehab for more aggressive therapy. Pt continues to deny CP, SOB, abdominal pain, N/V/D/C, or dizziness. Review of Systems Review of Systems: As per HPI Physical Exam Physical Exam: General: Calm and no acute distress HEENT: PEERL, no noted cough or nasal congestion CV: Irregular rhythm and rhythm, no r/m/g Lung: CTA b/l without increase work of respiration, symmetrical chest expansion b/l. Pt used pursed lip breathing at baseline. O2 sats are normal on RA Abdomen: Tense and distended in the periumbilical area with no pain on palpation, normal bowel sounds, no pain on right hip palpation Extremities: 2+ pitting edema, Compression bandages were removed this am. Noted minimal weeping from right>left lower leg. Drainage is thin and clear. No signs of infection. Results & Data Results & Data Vital Signs (Past 12 Hours) Vital Signs Temp Pulse Pulse Resp BP BP Pulse Ox 12/16/24 02:16 36.4 C L 85 18 108/64 95 12/15/24 23:00 12/15/24 22:59 98 H 12/15/24 22:58 36.4 C L 97 H 16 97/62 L 96 12/15/24 19:06 36.5 C 110 H 18 99/62 L 95 O2 Del Method 12/16/24 02:16 Room Air 12/15/24 23:00 Room Air 12/15/24 22:59 12/15/24 22:58 Room Air 12/15/24 19:06 Room Air Resident Activity Tracking Resident Involvement: Resident Care Provided Care Provided: Adult Hospital Medicine
[2024-12-16 07:51] LABS: Hematocrit (blood only) 26.6 % (37.0-47.0); Hemoglobin 8.4 g/dl (12.0-16.0); Mean Corpuscular Hemoglobin 25.6 pg (25.0-34.0); Mean Corpuscular Volume 81.1 fL (80.0-100.0); Platelet Count 552 K/uL (130-400); RDW Standard Deviation 47.1 fL (36.4-46.3); Red Blood Count 3.28 M/uL (4.20-5.40); White Blood Count 13.33 K/ul (4.8-10.8)
[2024-12-16 08:15] LABS: Anion Gap 7.0 (3-11); Blood Urea Nitrogen 27.0 mg/dl (6-23); Calcium 8.3 mg/dl (8.6-10.3); Carbon Dioxide 31.0 mmol/L (21-32); Chloride 98.0 mmol/L (98-107); Creatinine Clr Calc Pharmacy 70.4 ml/min; Glucose 133.0 mg/dl (70-99(Fasting)); Potassium 4.1 mmol/L (3.5-5.1); Sodium 136.0 mmol/L (136-145)
[2024-12-16] MEDS: FUROSEMIDE 20 MG TAB PO SCH (10:06)
[2024-12-16] MEDS: DIGOXIN 0.125 MG TAB PO SCH (16:36)
[2024-12-16] MEDS: MELATONIN 3 MG TAB PO PRN (20:04)
[2024-12-17 06:12] LABS: Hematocrit (blood only) 29.0 % (37.0-47.0); Hemoglobin 9.0 g/dl (12.0-16.0); Mean Corpuscular Hemoglobin 25.4 pg (25.0-34.0); Mean Corpuscular Volume 81.7 fL (80.0-100.0); Platelet Count 551 K/uL (130-400); RDW Standard Deviation 47.0 fL (36.4-46.3); Red Blood Count 3.55 M/uL (4.20-5.40); White Blood Count 13.12 K/ul (4.8-10.8)
[2024-12-17 06:34] LABS: Anion Gap 6.0 (3-11); Blood Urea Nitrogen 28.0 mg/dl (6-23); Calcium 8.5 mg/dl (8.6-10.3); Carbon Dioxide 34.0 mmol/L (21-32); Chloride 97.0 mmol/L (98-107); Creatinine Clr Calc Pharmacy 58.9 ml/min; Glucose 109.0 mg/dl (70-99(Fasting)); Potassium 4.6 mmol/L (3.5-5.1); Sodium 137.0 mmol/L (136-145)
--- NOTE | 2024-12-17 06:58 | Hospitalist Progress Note ---
Date of Service December 17, 2024 Assessment & Plan (1) Weakness: (2) Ambulatory dysfunction: (3) Atrial fibrillation, permanent: Plan Plan 84 y/o F here due to concern for ambulatory dysfunction, pain, and elevated WBC count. Pt has a history of afib with recurring RVR but HR has been stable this morning # Permanent a-fib - Echo showed afib with RVR with PVC and an incomplete right bundle branch block - Continue Diltiazem 240mg qd, metoprolol 25mg - Continue Digoxin to 0.125mg PO today at 1600 dose, remeasure Digoxin levels in 1-2 days - Can consider amiodarone on discharge. - Continue home Eliquis - With blood pressures remaining stable, will continue furosemide 20mg PO, which is half daily dose # Abdominal and leg pain - Improved lower abdominal pain but occasional pain with her right hip with radiation down the right lateral leg with current pain management - Continue with knee high ATTILA hose per pt tolerance. Requested RN periodically assess skin ofr irritation or break down at superior end due to pitting/si gnificant indentation - B hip/pelvis x-ray was negative for fractures after ground level fall on 12/14. Pt reports pain is controlled and movement of legs in bed is normal - Continue Tylenol 650gm PO q6h with Oxycodone 5 mg PRN for breakthrough pain - Continue ice packs PRN - PT/OT are following # Chronic leukocytosis - No fevers or localizing symptoms to raise suspicion for reactive leukocytosis - WBC continue fluctuating between 16 and 13. Pt may just have leukocytosis at baseline. Keep an eye on other systemic symptoms - Possibly related to pelvic mass growth, chronic inflammatory state # Anemia - Stable at 9.0 today; continue to monitor labs in the am - Can ordering a FOBT to check for a source of bleeding if RBC continues to decline. DVT: on Eliquis Code: DNR/DNI Diet: heart healthy, low sodium diet Dispo: med tele. Admission and Anticipated Discharge Date Admission Date: December 12, 2024 Supervising Physician Co-Signing Physician Notes ATTESTATION I also saw the patient and confirmed dumont portions of the history and exam. I agree with the impression and plan in the resident documentation, and as summarized below. Slept well. Had a full breakfast without issues. EXAM 103/65, 87, 16 Alert and oriented. NAD CV I/I, rate around mid 80s to 90 Respirations non labored DATA Labs WBC 13.12 HgB 9.0 renal function 28/0.73 IMPRESSION & PLAN FTT with previously noted/documented history of abdominal mass A-fib with RVR, rate controlled improved Chronic HFpEF Leukocytosis, thrombocytosis, anemia, chronic/stable Appreciate cardiology input rate control remains acceptable Continue current medications Dig level early next week PT evaluation for return to [facility] when available Additional per resident documentation Subjective Patient reports no new complaints this morning. She slept well overnight. scene shifter RN was able to obtain large size ATTILA hose and put them on pt. She reports the compression of the legs feels good. Back and hip pain continue controlled with current meds. Pt continues to deny CP, SOB, abdominal pain, N/V/D/C, or dizziness. Review of Systems Review of Systems: As per HPI Physical Exam Physical Exam: General: Calm and no acute distress HEENT: PEERL, no noted cough or nasal congestion CV: Irregular rate and rhythm, no r/m/g Lung: CTA b/l without increase work of respiration, symmetrical chest expansion b/l. Pt used pursed lip breathing at baseline. O2 sats are normal on RA Abdomen: Tense and distended in the periumbilical area with no pain on palpation, normal bowel sounds Extremities: 2+ pitting edema, ATTILA hose in place with moderated size area of fluid at right anterior lower leg like from minimal weeping . Drainage is thin and clear. No signs of infection. Results & Data Results & Data Vital Signs (Past 12 Hours) Vital Signs Temp Pulse Pulse Resp BP Pulse Ox O2 Del Method 12/17/24 03:51 36.5 C 85 20 111/66 94 Room Air 12/16/24 22:36 Room Air 12/16/24 22:35 94 H 12/16/24 22:11 36.7 C 90 16 94/57 L 93 Room Air 12/16/24 19:41 36.3 C L 99 H 18 112/72 95 Room Air Resident Activity Tracking Resident Involvement: Resident Care Provided Care Provided: Adult Hospital Medicine
[2024-12-17] MEDS: METOPROLOL SUCC 25MG EXT REL TAB PO SCH (08:53)
[2024-12-17] MEDS: ONDANSETRON INJ 2 MG/ML 2 ML VIAL IV PRN (18:24)
[2024-12-18 08:21] LABS: Hematocrit (blood only) 26.5 % (37.0-47.0); Hemoglobin 8.1 g/dl (12.0-16.0); Mean Corpuscular Hemoglobin 24.8 pg (25.0-34.0); Mean Corpuscular Volume 81.3 fL (80.0-100.0); Platelet Count 539 K/uL (130-400); RDW Standard Deviation 47.7 fL (36.4-46.3); Red Blood Count 3.26 M/uL (4.20-5.40); White Blood Count 13.97 K/ul (4.8-10.8)
[2024-12-18 09:07] LABS: Anion Gap 5.0 (3-11); Calcium 8.5 mg/dl (8.6-10.3); Carbon Dioxide 33.0 mmol/L (21-32); Chloride 99.0 mmol/L (98-107); Potassium 4.7 mmol/L (3.5-5.1); Sodium 137.0 mmol/L (136-145)
[2024-12-18 09:12] LABS: Blood Urea Nitrogen 25.0 mg/dl (6-23); Creatinine Clr Calc Pharmacy 69.6 ml/min; Glucose 107.0 mg/dl (70-99(Fasting))
--- NOTE | 2024-12-18 18:01 | Hospitalist Progress Note ---
Date of Service December 18, 2024 Assessment & Plan (1) Weakness: Plan: Chronic, not acute. Most probably due to PMH of chronic schwannoma of right sacrum-pelvis (diagnosed in June 2021, [facility], non-operable, observe), which has rendered patient wheelchair-bound at [facility] for long-term care. (2) Ambulatory dysfunction: Plan: Chronic, not acute. Most probably due to PMH of chronic schwannoma of right sacrum-pelvis (diagnosed in June 2021, [facility], non-operable, observe), which has rendered patient wheelchair-bound at [facility] for long-term care. (3) Atrial fibrillation, permanent: Plan: Chronic, not acute. Rate-controlled with HR 69 bpm (12/18/2024, 5:04pm). Continue rate-control with metoprolol succinate 25mg PO qam. Continue rhythm-control with digoxin 0.125mg PO q4pm. Continue long-term, active anticoagulation with apixaban 5mg PO bid given CHADS2-VASC score = 4 points (e.g., 2 points for age > 74 years, 1 point for female sex, and 1 point for HTN). (4) Leukocytosis: Plan: WBC 14.61, N76 L15 M7 (12/12/2024, 11:50am). WBC 14.14, N81 L11 M7 (12/13/2024, 8:01am). WBC 16.11, N82 L10 M7 (12/14/2024, 9:18am). WBC 15.37, N77 L13 M8 (12/15/2024, 7:21am). WBC 13.33 (12/16/2024, 7:32am). WBC 13.12 (12/17/2024, 5:53am). WBC 13.97 (12/18/2024, 7:49am). cf., WBC 22.96 (10/21/2024, 5:05pm) to WBC 15.95 (11/10/2024, 11:15am). cf., baseline WBC 6.43 (09/29/2021, 11:29am) to 8.54 (04/13/2024, 7:01am). cf., Lactic acid 1.6 mmol/L (12/18/2024, 8:55am). cf., Procalcitonin 0.23 ng/mL (12/18/2024, 8:55am). cf., U/A (12/13/2024, 11:30am): LE-, nitrite- Etiology of recent development of acute leukocytosis (starting on 10/21/2024) remains unclear, but is probably NOT due to acute bacterial infection, but instead, is due to inflammation, which in turn is due to patient's chronic schwannoma of right sacrum-pelvis (diagnosed in June 2021, [facility], non-operable, observe), which has rendered patient wheelchair-bound at [facility] for long-term care. Hence, I have opted to observe this laboratory phenomenon. (5) Normocytic hypochromic anemia: Plan: Hb 9.5, MCV 80.1, MCHC 31.5 (12/12/2024, 11:50am). Hb 9.2, MCV 80.8, MCHC 30.9 (12/13/2024, 8:01am). Hb 9.0, MCV 81.5, MCHC 31.0 (12/14/2024, 9:18am). Hb 9.0, MCV 81.8, MCHC 30.7 (12/15/2024, 7:21am). Hb 8.4, MCV 81.1, MCHC 31.6 (12/16/2024, 7:32am). Hb 9.0, MCV 81.7, MCHC 31.0 (12/17/2024, 5:53am). Hb 8.1, MCV 81.3, MCHC 30.6 (12/18/2024, 7:49am). cf., baseline Hb range, 12.8 - 14.7 (01/28/2022 - 10/25/2024). cf., stool GUAIAC+ (12/18/2024). Patient reports no mucosal bleeding and remains hemodynamically stable. Since 10/25/2024, 5:46am, when patient's Hb level was 12.1 g/dL, patient's Hb level has progressively declined to 8.1 g/dL (12/18/2024, 7:49am). This downward trend in Hb levels by 4 g/dL, combined with stool GUAIC+ (12/18/2024), points to patient's long-term, active anticoagulation with apixaban 5mg PO bid as the culprit. Etiology of recent development of normocytic, hypochromic anemia remains unclear, but is probably due to patient's long-term, active anticoagulation with apixaban 5mg PO bid. While apixaban 5mg PO bid has been given to this patient for several years to prevent thrombo-embolism in the setting of chronic/persistent/permanent CHADS2- VASC score = 4 points (e.g., 2 points for age > 74 years, 1 point for female sex, and 1 point for HTN), patient has never once been diagnosed with acute CVA, TIA, or acute [place]. Hence, the risk of bleeding to from continued long-term, active anticoagulation with apixaban 5mg PO bid appears to outweigh the benefit of continued long-term, active anticoagulation to prevent an acute CVA that has never occurred before in the past. To this end, I have spoke with the patient's , Mr. Beto Reid ( ), and the patient's daughter, Ms. 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 In the interim, I will check repeat Hb level in the 12/19/2024 am, as well as repeat stool GUAIAC test in the 12/19/2024 am. (6) Thrombocytosis: Plan: platelet 592 (12/12/2024, 11:50am). platelet 552 (12/13/2024, 8:01am). platelet 595 (12/14/2024, 9:18am). platelet 532 (12/15/2024, 7:21am). platelet 552 (12/16/2024, 7:32am). platelet 551 (12/17/2024, 5:53am). platelet 539 (12/18/2024, 7:49am). cf., baseline platelet count range, 213 - 400 (03/11/2017 - 10/25/2024). Patient reports no mucosal bleeding. Etiology of recent development of thrombocytosis remains unclear, but is probably due to: (a) acute blood loss anemia, due in turn, to acute GI bleed, due in turn, to patient's home-scheduled apixaban 5mg PO bid, and/or (b) patient's chronic schwannoma of right sacrum-pelvis (diagnosed in June [address], [facility], non-operable, observe), which has rendered patient wheelchair-bound at [facility] for long-term care. To this end, I have spoke with the patient's , Mr. Beto Reid ( ), and the patient's daughter, Ms. 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 In the interim, I will check repeat platelet count in the 12/19/2024 am. Plan Plan 84 y/o F here due to concern for ambulatory dysfunction, pain, and elevated WBC count. Pt has a history of afib with recurring RVR but HR has been stable this morning # Permanent a-fib - Echo showed afib with RVR with PVC and an incomplete right bundle branch block - Continue Diltiazem 240mg qd, metoprolol 25mg - Continue Digoxin to 0.125mg PO today at 1600 dose, remeasure Digoxin levels in 1-2 days - Can consider amiodarone on discharge. - Continue home Eliquis - With blood pressures remaining stable, will continue furosemide 20mg PO, which is half daily dose # Abdominal and leg pain - Improved lower abdominal pain but occasional pain with her right hip with radiation down the right lateral leg with current pain management - Continue with knee high ATTIAL hose per pt tolerance. Requested RN periodically assess skin ofr irritation or break down at superior end due to pitting/significant indentation - B hip/pelvis x-ray was negative for fractures after ground level fall on 12/14. Pt reports pain is controlled and movement of legs in bed is normal - Continue Tylenol 650gm PO q6h with Oxycodone 5 mg PRN for breakthrough pain - Continue ice packs PRN - PT/OT are following # Chronic leukocytosis - No fevers or localizing symptoms to raise suspicion for reactive leukocytosis - WBC continue fluctuating between 16 and 13. Pt may just have leukocytosis at baseline. Keep an eye on other systemic symptoms - Possibly related to pelvic mass growth, chronic inflammatory state # Anemia - Stable at 9.0 today; continue to monitor labs in the am - Can ordering a FOBT to check for a source of bleeding if RBC continues to decline. DVT: on Eliquis Code: DNR/DNI Diet: heart healthy, low sodium diet Dispo: med tele. Admission and Anticipated Discharge Date Admission Date: December 12, 2024 Subjective "I want to see the Wound Care person. I waited all weekend and no Wound Care person came by to look at my leg wounds. I need a Wound Care person to look at my leg wounds before I go back to [facility] for rehab. Can you ask the Wound Care person to come take a look at my leg wounds?" Review of Systems Constitutional: Negative for antecedent/coincident fevers, chills, diaphoresis, cough, wheeze, sore throat, hemoptysis, chest pains, palpitations, pleurisy, nausea, vomiting, diarrhea, abdominal pain, pelvic pain, hematemesis, hematochezia, melena, hematuria, dysuria, frequency, urgency, headaches, dizziness, lightheadedness, visual changes, hearing changes, weakness, falls, syncope, trauma, travel history, sick contacts, or food/drug ingestions novel or new. All other review of systems are reported as negative by the patient on 12/18/2024. Physical Exam Constitutional: General: Comfortable, cooperative, coherent. Patient speaks in complete, fluent, and articulate sentences without pause, interruption, cough, or wheeze. HEENT: Normocephalic, atraumatic. Pupils equally round and reactive to light. Extra-ocular muscles intact. No nystagmus, gaze paresis, anisocoria, miosis, mydriasis, hyphema, scleral injection, conjunctivitis, or pterygium. No rhinorrhea. No otorrhea. No pharyngeal erythema, edema, or discharge. Neck: Supple, no stridor, bruit, or hepato-jugular reflux. No lid lag. No exophthalmos/proptosis. Jugular venous pressure is estimated to be 3 cm above the sternal angle of Manjit, which in turn, is 5 cm above the level of the right atrium; with jugular venous pressure estimated to be 8 cm, then, there is no jugular venous distention on 12/18/2024. Lymphatics: Negative for anterior/posterior cervical, supraclavicular, infraclavicular, axillary, epitrochlear, or inguinal adenopathy. Chest: Symmetric rise and fall with respirations. Non-tender to palpation. Lungs: Clear to auscultation and percussion. No audible expiratory wheeze, egophony, pectoriloquy, increase in tactile fremitus, or flatness/dullness to percussion at the bases. Heart: Regular rate. Regular rhythm. S1 and S2 noted. No S3 or S4 summation gallop. No tripartite friction rub. Grade III/ early systolic murmur @ LLSB without radiation to the carotids, axilla, or back, and which remains invariant in regards to the respiratory cycle. Abdomen: Soft, non-tender, non-distended. No rebound, guarding, Justin's sign, or organomegaly. Bowel sounds auscultated in all 4 quadrants. Extremities: No clubbing or cyanosis or edema in upper extremities or lower extremities bilaterally. 2+ pedal pulses bilaterally. Skin: No decubitus ulcer, exanthem, or enanthem. NO wounds at all (as opposed to patient's insistence that she needs to see Wound Care Service to address her wounds!), just superficial scratches on mid-right carey. No erythema, edema, induration, warmth, tenderness, crepitus, fluctuance, discharge (sanguineous, serous, suppurative), ulceration, malodor, or lymphangitic streaking. Genito-urinary: No urethral discharge. No drew catheter. Neurology: Alert and oriented in regards to person, place, time, and situation. DTR+. 5/5 motor strength in all 4 extremities, both proximally and distally. No myoclonus, tremors, or tics. Psychiatry: No homicidal ideation. No suicidal ideation. No flat affect; smiles appropriately. Results & Data Results & Data Vital Signs (Past 12 Hours) Vital Signs Temp Pulse Pulse Resp BP Pulse Ox O2 Del Method 12/18/24 17:04 Room Air 12/18/24 16:40 69 12/18/24 15:55 36.3 C L 59 L 16 99/61 L 95 Room Air 12/18/24 12:59 85 12/18/24 08:17 36.6 C 96 H 20 114/59 L 92 Room Air 12/18/24 07:30 Room Air Laboratory Results WBC 14.61, N76 L15 M7, Hb 9.5, MCV 80.1, MCHC 31.5, platelet 592 (12/12/2024, 11:50am). WBC 14.14, N81 L11 M7, Hb 9.2, MCV 80.8, MCHC 30.9, platelet 552 (12/13/2024, 8:01am). WBC 16.11, N82 L10 M7, Hb 9.0, MCV 81.5, MCHC 31.0, platelet 595 (12/14/2024, 9:18am). WBC 15.37, N77 L13 M8, Hb 9.0, MCV 81.8, MCHC 30.7, platelet 532 (12/15/2024, 7:21am). WBC 13.33, Hb 8.4, MCV 81.1, MCHC 31.6, platelet 552 (12/16/2024, 7:32am). WBC 13.12, Hb 9.0, MCV 81.7, MCHC 31.0, platelet 551 (12/17/2024, 5:53am). WBC 13.97, Hb 8.1, MCV 81.3, MCHC 30.6, platelet 539 (12/18/2024, 7:49am). Stool GUAIAC+ (12/18/2024). Lactic acid 1.6 mmol/L (12/18/2024, 8:55am). Procalcitonin 0.23 ng/mL (12/18/2024, 8:55am). U/A (12/13/2024, 11:30am): LE-, nitrite- Digoxin 1.4 ng/mL (12/14/2024, 7:13am). Digoxin 1.5 ng/mL (12/18/2024, 7:49am). Diagnostic Findings Portable CXR (12/12/2024, 12:15pm): 1. Cardiomegaly with mild interstitial pulmonary edema. 2. Right hilar prominence. 3. No infiltrate, effusion, pneumothorax. (by my review). CT abd/pelvis with IV contrast (12/12/2024, 12:16pm): 1. Again seen is a large thick-walled pathologically indeterminate solid and cy stic mass arising from the right sacrum and extending into the pelvis/lower abdomen. This lesion measures approximately 20.5 x 23 x 22.5 cm in aggregate dimension and contains internal foci of gas. The internal gas component has increased from 11/10/2024 and superinfection of this lesion is not excluded. Clinical correlation will be essential. 2. A thick-walled multiloculated gas and fluid collection is again seen on the anterior/superior margin of the cystic mass. This could represent contained rupture, with abscess not excluded. 3. There is significant mass effect from the large lesion with displacement of normal visceral structures. 4. Focal circumferential wall thickening of the mid to distal descending colon is unchanged. Underlying mucosal lesion would be impossible to exclude. 5. Pleural effusions are new from previous and there is anasarca of the body wall indicative of fluid overload. Hip/pelvis x-ray (12/15/2024, 4:59pm): 1. Bilateral hip osteoarthritis. EKG (12/12/2024, 11:49am): AFIB @ 126, QTC 437, no acute ST depressions/elevations, incomplete RBBB (by my review). PG Care Time/CCT Total # of Minutes Spent Total Time Spent with Patient: Total time spent is greater than 50% in coordination of care (as documented) at patient's floor/unit and/or counseling patient: Coding Level of Care Code 98490 SUB INP/OBS CARE 3/50MIN Diagnoses Weakness R53.1 Ambulatory dysfunction R26.2 Atrial fibrillation, permanent I48.21 Leukocytosis D72.829 Normocytic hypochromic anemia D50.9 Thrombocytosis D75.839
[2024-12-19 08:29] LABS: Hematocrit (blood only) 26.4 % (37.0-47.0); Hemoglobin 8.2 g/dl (12.0-16.0); Immature Granulocytes # (auto) 0.26 K/uL (0.01-0.20); Immature Granulocytes % (auto) 1.7 %; Mean Corpuscular Hemoglobin 25.2 pg (25.0-34.0); Mean Corpuscular Volume 81.2 fL (80.0-100.0); Platelet Count 552 K/uL (130-400); RDW Standard Deviation 47.8 fL (36.4-46.3); Red Blood Count 3.25 M/uL (4.20-5.40); White Blood Count 15.70 K/ul (4.8-10.8)
--- NOTE | 2024-12-19 16:03 | Discharge Summary ---
Discharge Summary Date of Service December 19, 2024 Principal Dx & Hospital Course #1 = Principal Diagnosis (1) Weakness: Chronic, not acute. Most probably due to PMH of chronic schwannoma of right sacrum-pelvis (diagnosed in June 2021, [facility], non-operable, observe), which has rendered patient wheelchair-bound at [facility] for long-term care. (2) Ambulatory dysfunction: Chronic, not acute. Most probably due to PMH of chronic schwannoma of right sacrum-pelvis (diagnosed in June 2021, [facility], non-operable, observe), which has rendered patient wheelchair-bound at [facility] for ng-term care. (3) Atrial fibrillation, permanent: Chronic, not acute. Rate-controlled with HR 69 bpm (12/18/2024, 5:04pm) and discharge HR 65 bpm (12/19/2024, 3:49pm). Continue rate-control with metoprolol succinate 25mg PO qam. Continue rhythm-control with digoxin 0.125mg PO q4pm. D/C'd long-term, active anticoagulation with apixaban 5mg PO bid (e.g., last dose of apixaban 5mg PO bid was administered on 12/18/2024, 8:21am) despite CHADS2-VASC score = 4 points (e.g., 2 points for age > 74 years, 1 point for female sex, and 1 point for HTN), given downward trend in Hb levels by 4 g/dL [cf., Hb 12.1 g/dL (10/25/2024, 5:46pm); cf., Hb 8.1 g/dL (12/18/2024, 7:49am)], combined with stool GUAIC+ x 2 stool samples (12/18/2024, time unknown; 12/19/2024, 10:21am), points to patient's long-term, active anticoagulation with apixaban 5mg PO bid as the culprit. Etiology of recent development of normocytic, hypochromic anemia remains unclear, but is probably due to patient's long-term, active anticoagulation with apixaban 5mg PO bid. While apixaban 5mg PO bid has been given to this patient for several years to prevent thrombo-embolism in the setting of chronic/persistent/permanent CHADS2- VASC score = 4 points (e.g., 2 points for age > 74 years, 1 point for female sex, and 1 point for HTN), patient has never once been diagnosed with acute CVA, TIA, or acute TX. Hence, the risk of bleeding to from continued long-term, active anticoagulation with apixaban 5mg PO bid appears to outweigh the benefit of continued long-term, active anticoagulation to prevent an acute CVA that has never occurred before in the past. To this end, I spoke with the patient's , Mr. Beto Reid ( ), and the patient's daughter, Ms. 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 Subsequently, I spoke with the patient's , Mr. Beto Reid ( ), the patient's daughter, Ms. Sissy Reid ( ), the patient's son, Mr. Matthew Reid ( ), and the patient, all at the patient's bedside in [facility] Med-Surg bed #W262-1, today, 12/19/2024, 9:49am, and all 4 individuals agreed that patient will discontinue patient's home-scheduled apixaban 5mg PO bid immediately on 12/19/2024, given concern that patient's Hb level will continue to decline if patient were to continue patient's home- scheduled apixaban 5mg PO bid. Subsequently, patient was discharged back to [facility], as requested by the patient's , Mr. Beto Reid ( ), the patient's daughter, Ms. Sissy Reid ( ), the patient's son, Mr. Matthew Reid ( ), and the patient herself. Of final note, patient was advised to follow up with her PCP Dr. Justice Scott within 5-7 days of hospital discharge for routine follow up visit, as well as to check hemoglobin level after stopping home-scheduled apixaban 5mg PO bid as of 12/19/2024, due to hemoglobin level dropping from 12.1 g/dL (10/25/2024, 5:46am) to 8.2 g/dL (12/19/2024, 7:32am) with GUAIAC+ stools x 2 samples (12/18/2024, time unknown; 12/19/2024, 10:21am). Patient reports that she will comply with this recommendation. (4) Leukocytosis: WBC 14.61, N76 L15 M7 (12/12/2024, 11:50am). WBC 14.14, N81 L11 M7 (12/13/2024, 8:01am). WBC 16.11, N82 L10 M7 (12/14/2024, 9:18am). WBC 15.37, N77 L13 M8 (12/15/2024, 7:21am). WBC 13.33 (12/16/2024, 7:32am). WBC 13.12 (12/17/2024, 5:53am). WBC 13.97 (12/18/2024, 7:49am). WBC 15.70, N74 L14 M10 (12/19/2024, 7:32am). cf., WBC 22.96 (10/21/2024, 5:05pm) to WBC 15.95 (11/10/2024, 11:15am). cf., baseline WBC 6.43 (09/29/2021, 11:29am) to 8.54 (04/13/2024, 7:01am). cf., Lactic acid 1.6 mmol/L (12/18/2024, 8:55am). cf., Lactic acid 1.2 mmol/L (12/19/2024, 9:15am). cf., Procalcitonin 0.23 ng/mL (12/18/2024, 8:55am). cf., Procalcitonin 0.27 ng/mL (12/19/2024, 9:15am). cf., U/A (12/13/2024, 11:30am): LE-, nitrite- Etiology of recent development of acute leukocytosis (starting on 10/21/2024) remains unclear, but is probably NOT due to acute bacterial infection, but instead, is due to inflammation, which in turn is due to patient's chronic schwannoma of right sacrum-pelvis (diagnosed in June 2021, [facility], non-operable, observe), which has rendered patient wheelchair-bound at [facility] for long-term care. Hence, I have opted to observe this laboratory phenomenon. (5) Normocytic hypochromic anemia: Hb 9.5, MCV 80.1, MCHC 31.5 (12/12/2024, 11:50am). Hb 9.2, MCV 80.8, MCHC 30.9 (12/13/2024, 8:01am). Hb 9.0, MCV 81.5, MCHC 31.0 (12/14/2024, 9:18am). Hb 9.0, MCV 81.8, MCHC 30.7 (12/15/2024, 7:21am). Hb 8.4, MCV 81.1, MCHC 31.6 (12/16/2024, 7:32am). Hb 9.0, MCV 81.7, MCHC 31.0 (12/17/2024, 5:53am). Hb 8.1, MCV 81.3, MCHC 30.6 (12/18/2024, 7:49am). Hb 8.2, MCV 81.2, MCHC 31.1 (12/19/2024, 7:32am). cf., baseline Hb range, 12.8 - 14.7 (01/28/2022 - 10/25/2024). cf., stool GUAIAC+ (12/18/2024, time unknown). cf., stool GUAIAC+ (12/19/2024, 10:21am). Patient reports no mucosal bleeding and remains hemodynamically stable. Since 10/25/2024, 5:46am, when patient's Hb level was 12.1 g/dL, patient's Hb level has progressively declined to 8.1 g/dL (12/18/2024, 7:49am). This downward trend in Hb levels by 4 g/dL, combined with stool GUAIC+ (12/18/2024), points to patient's long-term, active anticoagulation with apixaban 5mg PO bid as the culprit. Etiology of recent development of normocytic, hypochromic anemia remains unclear, but is probably due to patient's long-term, active anticoagulation with apixaban 5mg PO bid. While apixaban 5mg PO bid has been given to this patient for several years to prevent thrombo-embolism in the setting of chronic/persistent/permanent CHADS2- VASC score = 4 points (e.g., 2 points for age > 74 years, 1 point for female sex, and 1 point for HTN), patient has never once been diagnosed with acute CVA, TIA, or acute TX. Hence, the risk of bleeding to from continued long-term, active anticoagulation with apixaban 5mg PO bid appears to outweigh the benefit of continued long-term, active anticoagulation to prevent an acute CVA that has never occurred before in the past. To this end, I spoke with the patient's , Mr. Beto Reid ( ), and the patient's daughter, Ms. 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 Subsequently, I spoke with the patient's , Mr. Beto Reid ( ), the patient's daughter, Ms. Sissy Reid ( ), the patient's son, Mr. Matthew Reid ( ), and the patient, all at the patient's bedside in [facility] Med-Surg bed #W262-1, today, 12/19/2024, 9:49am, and all 4 individuals agreed that patient will discontinue patient's home-scheduled apixaban 5mg PO bid immediately on 12/19/2024, given concern that patient's Hb level will continue to decline if patient were to continue patient's home- scheduled apixaban 5mg PO bid. Subsequently, patient was discharged back to [facility], as requested by the patient's , Mr. Beto Reid ( ), the patient's daughter, Ms. Sissy Reid ( ), the patient's son, Mr. Matthew Reid ([phone]), and the patient herself. Of final note, patient was advised to follow up with her PCP Dr. Justice Scott within 5-7 days of hospital discharge for routine follow up visit, as well as to check hemoglobin level after stopping home-scheduled apixaban 5mg PO bid as of 12/19/2024, due to hemoglobin level dropping from 12.1 g/dL (10/25/2024, 5:46am) to 8.2 g/dL (12/19/2024, 7:32am) with GUAIAC+ stools x 2 samples (12/18/2024, time unknown; 12/19/2024, 10:21am). Patient reports that she will comply with this recommendation. (6) Thrombocytosis: platelet 592 (12/12/2024, 11:50am). platelet 552 (12/13/2024, 8:01am). platelet 595 (12/14/2024, 9:18am). platelet 532 (12/15/2024, 7:21am). platelet 552 (12/16/2024, 7:32am). platelet 551 (12/17/2024, 5:53am). platelet 539 (12/18/2024, 7:49am). platelet 552 (12/19/2024, 7:32am). cf., baseline platelet count range, 213 - 400 (03/11/2017 - 10/25/2024). Patient reports no mucosal bleeding. Etiology of recent development of thrombocytosis remains unclear, but is probably due to: (a) acute blood loss anemia, due in turn, to acute GI bleed, due in turn, to patient's home-scheduled apixaban 5mg PO bid, and/or (b) patient's chronic schwannoma of right sacrum-pelvis (diagnosed in June 2021, [facility], non-operable, observe), which has rendered patient wheelchair-bound at [facility] for long-term care. To this end, I spoke with the patient's , Mr. Beto Reid ( ), and the patient's daughter, Ms. 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 Subsequently, I spoke with the patient's , Mr. Beto Reid ( ), the patient's daughter, Ms. Sissy Reid ( ), the patient's son, Mr. Matthew Reid ( ), and the patient, all at the patient's bedside in [facility] Med-Surg bed #W262-1, today, 12/19/2024, 9:49am, and all 4 individuals agreed that patient will discontinue patient's home-scheduled apixaban 5mg PO bid immediately on 12/19/2024, given concern that patient's Hb level will continue to decline if patient were to continue patient's home- scheduled apixaban 5mg PO bid. Subsequently, patient was discharged back to [facility], as requested by the patient's , Mr. Beto Reid ( ), the patient's daughter, Ms. Sissy Reid ( ), the patient's son, Mr. Matthew Reid ( ), and the patient herself. Of final note, patient was advised to follow up with her PCP Dr. Justice Scott within 5-7 days of hospital discharge for routine follow up visit, as well as to check hemoglobin level after stopping home-scheduled apixaban 5mg PO bid as of 12/19/2024, due to hemoglobin level dropping from 12.1 g/dL (10/25/2024, 5:46am) to 8.2 g/dL (12/19/2024, 7:32am) with GUAIAC+ stools x 2 samples (12/18/2024, time unknown; 12/19/2024, 10:21am). Patient reports that she will comply with this recommendation. Plan Plan 84 y/o F here due to concern for ambulatory dysfunction, pain, and elevated WBC count. Pt has a history of afib with recurring RVR but HR has been stable this morning # Permanent a-fib - Echo showed afib with RVR with PVC and an incomplete right bundle branch block - Continue Diltiazem 240mg qd, metoprolol 25mg - Continue Digoxin to 0.125mg PO today at 1600 dose, remeasure Digoxin levels in 1-2 days - Can consider amiodarone on discharge. - Continue home Eliquis - With blood pressures remaining stable, will continue furosemide 20mg PO, which is half daily dose # Abdominal and leg pain - Improved lower abdominal pain but occasional pain with her right hip with radiation down the right lateral leg with current pain management - Continue with knee high ATTILA hose per pt tolerance. Requested RN periodically assess skin ofr irritation or break down at superior end due to pitting/s ignificant indentation - B hip/pelvis x-ray was negative for fractures after ground level fall on 12/14. Pt reports pain is controlled and movement of legs in bed is normal - Continue Tylenol 650gm PO q6h with Oxycodone 5 mg PRN for breakthrough pain - Continue ice packs PRN - PT/OT are following # Chronic leukocytosis - No fevers or localizing symptoms to raise suspicion for reactive leukocytosis - WBC continue fluctuating between 16 and 13. Pt may just have leukocytosis at baseline. Keep an eye on other systemic symptoms - Possibly related to pelvic mass growth, chronic inflammatory state # Anemia - Stable at 9.0 today; continue to monitor labs in the am - Can ordering a FOBT to check for a source of bleeding if RBC continues to decl ine. DVT: on Eliquis Code: DNR/DNI Diet: heart healthy, low sodium diet Dispo: med tele. Admission HPI Per Admitting Provider Patient is an 84-year-old female with past medical history of permanent A-fib on chronic Eliquis, pelvic mass considered to be possibly a schwannoma, and chronic leukocytosis who came to the emergency department by recommendation of her provider after noting abnormal white count in her labs. Patient denies having any recent fevers, or other localizing symptoms, and on chart review patient seems to have been having high WBC count for a few months. Was also in [facility] in 11/2024 due to noted leukocytosis and pain related to pelvic mass. At that time, infectious disease specialist believed that possible reason for her leukocytosis was due to mass growth and subsequent insufficient perfusion to mass (tumor necrosis). Fine-needle biopsy was attempted, however, patient's son states that pathology results were inconclusive. During this time, patient had limited mobility and laying in bed most of the time. When she returned home, she uses a walker but does not feel confident in walking long distances as she feels she would collapse due to weakness and imbalance. Denies having any recurrent or recent falls. Medical History: [Reviewed] Medications: [Reviewed] Surgical History: [Reviewed] Family history: [Reviewed] Allergies: [Reviewed] Social History: [Reviewed] Code Status: DNR/DNI Discharge Exam Constitutional General: Comfortable, cooperative, coherent. Patient speaks in complete, fluent, and articulate sentences without pause, interruption, cough, or wheeze. HEENT: Normocephalic, atraumatic. Pupils equally round and reactive to light. Extra-ocular muscles intact. No nystagmus, gaze paresis, anisocoria, miosis, mydriasis, hyphema, scleral injection, conjunctivitis, or pterygium. No rhinorrhea. No otorrhea. No pharyngeal erythema, edema, or discharge. Neck: Supple, no stridor, bruit, or hepato-jugular reflux. No lid lag. No exophthalmos/proptosis. Jugular venous pressure is estimated to be 3 cm above the sternal angle of Manjit, which in turn, is 5 cm above the level of the right atrium; with jugular venous pressure estimated to be 8 cm, then, there is no jugular venous distention on 12/19/2024. Lymphatics: Negative for anterior/posterior cervical, supraclavicular, infraclavicular, axillary, epitrochlear, or inguinal adenopathy. Chest: Symmetric rise and fall with respirations. Non-tender to palpation. Lungs: Clear to auscultation and percussion. No audible expiratory wheeze, egophony, pectoriloquy, increase in tactile fremitus, or flatness/dullness to percussion at the bases. Heart: Regular rate. Regular rhythm. S1 and S2 noted. No S3 or S4 summation gallop. No tripartite friction rub. Grade III/ early systolic murmur @ LLSB without radiation to the carotids, axilla, or back, and which remains invariant in regards to the respiratory cycle. Abdomen: Soft, non-tender, non-distended. No rebound, guarding, Justin's sign, or organomegaly. Bowel sounds auscultated in all 4 quadrants. Extremities: No clubbing or cyanosis or edema in upper extremities or lower extremities bilaterally. 2+ pedal pulses bilaterally. Skin: No decubitus ulcer, exanthem, or enanthem. NO wounds at all (as opposed to patient's insistence that she needs to see Wound Care Service to address her wounds!), just superficial scratches on mid-right carey. No swathi thema, edema, induration, warmth, tenderness, crepitus, fluctuance, discharge (sanguineous, serous, suppurative), ulceration, malodor, or lymphangitic streaking. Genito-urinary: No urethral discharge. No drew catheter. Neurology: Alert and oriented in regards to person, place, time, and situation. DTR+. 5/5 motor strength in all 4 extremities, both proximally and distally. No myoclonus, tremors, or tics. Psychiatry: No homicidal ideation. No suicidal ideation. No flat affect; smiles appropriately. Discharge Plan Discharge Items Patient Disposition: Transfer [facility] Reason For Visit: WEAKNESS Discharge Diagnosis: 1. Acute blood loss anemia with hemoglobin level dropping from 12.1 g/dL (10/25/2024, 5:46am) to 8.2 g/dL (12/19/2024, 7:32am) with GUAIAC+ stools x 2 samples (12/18/2024, time unknown; 12/19/2024, 10:21am) on apixaban 5mg PO bid, given to patient for several years, to prevent thrombo-embolism in the setting of chronic/persistent/permanent AFIB with CHADS2-VASC score = 4 points (e.g., 2 points for age > 74 years, 1 point for female sex, and 1 point for HTN); 84 years old patient has never once been diagnosed with acute CVA, TIA, or acute TX. 2. Stage IV schwannoma, now measuring 20.5 cm x 23.0 cm x 22.5 cm (as noted on 12/12/2024 CT abd/pelvis with IV contrast) of right sacrum-pelvis (diagnosed in June 2021, [facility], non-operable, observe), which has rendered patient wheelchair-bound at [facility] for long-term care. Condition on Discharge: Fair Activity: Resume your previous activity Lifting: Gradually increase as tolerated Bathing: No limitations Exercise/Sports: Gradually increase as tolerated Weightbearing: Full weightbearing Non-emergency contact: Primary Care Provider Call non-emergency contact if: your symptoms worsen Follow-up/Referrals: Justice Scott MD [Primary Care Provider] - Diet: Regular Addtl Attending Provider Instructions: See your PCP Dr. Justice Scott within 5-7 days of hospital discharge for routine follow up visit, as well as to check your hemoglobin level as you have stopped taking your apixaban 5mg PO bid as of 12/19/2024, due to your hemoglobin level dropping from 12.1 g/dL (10/25/2024, 5:46am) to 8.2 g/dL (12/19/2024, 7:32am) with GUAIAC+ stools x 2 samples (12/18/2024, time unknown; 12/19/2024, 10:21am). Pending Studies at Discharge: No Stand-Alone Forms: My [facility] Skilled Items Patient informed of condition?: Yes DNR: Yes Discharge Level of Care: Skilled Communicable Disease: No Discharge Prognosis: Stable Lines: None Urinary Catheter: No Medications and DC Order Prescriptions: New oxycodone 5 mg tablet 5 mg PO Q8H PRN (Reason: pain) Qty: 15 0RF digoxin [Digitek] 125 mcg (0.125 mg) Tablet 0.125 mg PO DAILY@1600 Qty: 30 0RF furosemide 20 mg Tablet 20 mg PO DAILY Qty: 30 0RF metoprolol succinate 25 mg Tablet Extended Release 24 Hr 25 mg PO QAM Qty: 30 0RF Continued multivitamin Tablet 1 tab PO DAILY Qty: 30 0RF acetaminophen 325 mg capsule 650 mg PO QID PRN (Reason: pain) Qty: 360 0RF [id number]-fish oil 300-250-1,000 mg capsule 1 cap PO DAILY Qty: 90 0RF calcium acetate 667 mg tablet 1,334 mg PO DAILY Qty: 180 0RF diltiazem HCl 240 mg capsule,extended release 24 hr 240 mg PO DAILY Qty: 90 3RF gabapentin 300 mg capsule 300 mg PO TID Qty: 270 3RF potassium chloride 10 mEq tablet extended release 10 meq PO BID Qty: 180 3RF buspirone 7.5 mg tablet 7.5 mg PO TID Qty: 270 3RF omeprazole 20 mg tablet,delayed release (DR/EC) 20 mg PO DAILY Qty: 90 3RF ondansetron HCl 4 mg tablet 4 mg PO Q8H PRN (Reason: nausea and vomiting) Qty: 20 1RF simvastatin 40 mg tablet 40 mg PO QPM Discontinued Eliquis 5 mg tablet 5 mg PO BID Qty: 180 3RF furosemide 40 mg tablet 40 mg PO DAILY Qty: 90 3RF metoprolol succinate 25 mg Tablet Extended Release 24 Hr 0 mg PO DIRECTED Rx Instructions: UNABLE TO VERIFY WITH PHARMACIES OR PT. Discharge Orders: Discharge Order (Routine); Ordered 12/19/24 Ordered By: Dagoberto Lindquist Admission Data Admit Date/Time: 12/12/24 16:33 Attending Provider: Dagoberto Lindquist Admit Provider: Christine Bazan Primary Care Provider: Justice Scott Other Providers: Ernesto Alarcon; [facility]; Ernesto Smith Hospital Stay Data Consultations 12/12/24 15:42 ED Decision to Admit Stat 12/14/24 09:55 Consult Cardiology Routine Diagnostic Imagining Performed 12/12/24 12:16 CT abd pelvis IV con only Stat Pending Results Patient Have Any Pending Studies at Discharge: No Discharge Instructions Given to Patient (Per Discharging Provider) See your PCP Dr. Justice Scott within 5-7 days of hospital discharge for routine follow up visit, as well as to check your hemoglobin level as you have stopped taking your apixaban 5mg PO bid as of 12/19/2024, due to your hemoglobin level dropping from 12.1 g/dL (10/25/2024, 5:46am) to 8.2 g/dL (12/19/2024, 7:32am) with GUAIAC+ stools x 2 samples (12/18/2024, time unknown; 12/19/2024, 10:21am). Total Time Total Time Spent Total Time Spent (In Minutes): 35 minutes. Of this time period, 19 minutes were spent in coordinating patient's discharge. Coding Level of Care Code 28722 INP/OBS DISCH >30 MIN Diagnoses Weakness R53.1 Ambulatory dysfunction R26.2 Atrial fibrillation, permanent I48.21 Leukocytosis D72.829 Normocytic hypochromic anemia D50.9 Thrombocytosis D75.839
[2024-12-19 16:59] VITALS: BP 102/62; PULSE 87; RESP 20; TEMP 97.9; O2SAT 96
== END 2024-12-19 17:13 | DRG 813 ==
LOC: ED 11:37 → 2W 16:33 → SUATTDRO 16:33 → 2W 17:34